=== PATIENT | female | born 1955 | race Caucasian/White ===

== ENCOUNTER 2018-08-19 01:16 | Outpatient (CLI) | payer BC, SELFPAY ==
--- NOTE | 2018-08-19 13:30 | DI.CT_ITS ---
SYMPTOMS/DIAGNOSIS: CHRONIC ETHMOID SINUSITIS, J32.2, SINUS CONGESTION, R09.91 CT SCAN OF THE SINUSES: Routine examination was performed. Comparison is made with the examination of . Since the prior examination, there has been opacification of the left frontal sinus. There is persistent opacification of the left ethmoid air cells. No new ethmoid sinus disease is noted. There has been improvement in the opacification of the left maxillary sinus. IMPRESSION: Stable ethmoid sinusitis. Improved left maxillary sinus disease.
== END 2018-08-19 01:36 ==
PROVIDERS: PCP Family Medicine; Visit Provider Otolaryngology Otolaryngology/Facial Plastic Surgery
DX: J32.2 Chronic ethmoidal sinusitis (principal); J32.0 Chronic maxillary sinusitis; R09.89 Other specified symptoms and signs involving the circulatory and respiratory systems
CPT/HCPCS: 70486

== ENCOUNTER 2018-10-13 00:45 | Outpatient (CLI) | payer BC, SELFPAY ==
--- NOTE | 2018-10-13 14:53 | DI.CTLCSR_ITS ---
SYMPTOM/DIAGNOSIS: H/O CIGARETTE SMOKER, Z87.891 CT SCAN CHEST: CT scan of the chest was performed according to the lung cancer screening protocol. There are no priors for comparison. There is mild atherosclerosis of the thoracic aorta. No aneurysmal dilatation is seen. The heart size is within normal limits. No significant pericardial effusion is present. No pleural effusion or pneumothorax is identified. No significant thoracic adenopathy is appreciated. Mild emphysematous changes are present in the lungs. There is a calcified granuloma in the left upper lobe. No noncalcified pulmonary nodules are present. No focal consolidating infiltrates are seen. The tracheobronchial tree is unremarkable. Degenerative changes are seen in the spine. IMPRESSION: No pulmonary nodules. 2. Mild pulmonary emphysema, Category 1. Lung-RAD Category: Lung RADS Category 1- Negative
== END 2018-10-13 01:05 ==
PROVIDERS: PCP Family Medicine; Visit Provider Family Medicine
DX: Z12.2 Encounter for screening for malignant neoplasm of respiratory organs (principal); Z87.891 Personal history of nicotine dependence; J43.9 Emphysema, unspecified
CPT/HCPCS: G0297

== ENCOUNTER 2018-10-15 10:02 | Outpatient (CLI) | payer BC, SELFPAY ==
--- NOTE | 2018-10-15 09:56 | DI.RAD_ITS ---
SYMPTOM/DIAGNOSIS: LEFT KNEE PJAIN LEFT KNEE: The joint spaces are well maintained. No joint effusion is seen. IMPRESSION: Negative left knee.
--- NOTE | 2018-10-15 09:56 | DI.RAD_ITS ---
SYMPTOM/DIAGNOSIS: RIGHT KNEE PAIN RIGHT KNEE: The joint spaces are well maintained. No effusion is seen. There are no significant degenerative changes. IMPRESSION: Negative right knee.
--- NOTE | 2018-10-15 09:56 | DI.RAD_ITS ---
SYMPTOM/DIAGNOSIS: F/U RT WRIST PAIN AND 1ST [facility] PAIN RIGHT WRIST: There is evidence of prior hardware which has been removed. There is residual deformity of the distal radius. There are mild degenerative changes at the 1st carpal, metacarpal joint. No bony erosions are seen. IMPRESSION: Degenerative changes at the first carpal, metacarpal joint.
--- NOTE | 2018-10-15 09:56 | DI.RAD_ITS ---
SYMPTOM/DIAGNOSIS: RIGHT ANKLE PAIN. RIGHT ANKLE: There is minimal audelia-articular spurring. No talar dome defects or ankle mortise disruption seen. IMPRESSION: Mild degenerative changes.
--- NOTE | 2018-10-15 09:56 | DI.RAD_ITS ---
SYMPTOM/DIAGNOSIS: LEFT ANKLE PAIN AND INSTABILITY LEFT ANKLE: There is minimal spurring from the malleoli. Talar dome and ankle mortise appear intact. IMPRESSION: Minimal degenerative changes.
== END 2018-10-15 10:22 ==
PROVIDERS: PCP Family Medicine; Visit Provider Student in an Organized Health Care Education/Training Program
DX: M25.571 Pain in right ankle and joints of right foot (principal); M25.572 Pain in left ankle and joints of left foot; M19.071 Primary osteoarthritis, right ankle and foot; M19.072 Primary osteoarthritis, left ankle and foot; M25.562 Pain in left knee; M25.561 Pain in right knee; M25.531 Pain in right wrist; M18.11 Unilateral primary osteoarthritis of first carpometacarpal joint, right hand
CPT/HCPCS: 73562; 73110; 73610

== ENCOUNTER 2018-11-20 00:34 | Outpatient (CLI) | payer MEDICAID, SELFPAY ==
--- NOTE | 2018-11-20 07:18 | DI.RAD_ITS ---
SYMPTOMS/DIAGNOSIS: CAROLINE HIP INJECTIONS, PRIMARY BILATERAL OA, M16.0 FLUOROSCOPY OF THE LEFT HIP: Fluoroscopy Time: 2 [address] Jc for guidance with performing a left hip injection. Please see procedure note for details. FLUOROSCOPY OF THE RIGHT HIP: Fluoroscopy time: 3 Fluoroscopy was provided for Dr. Jc for guidance with performing a right hip injection. Please see procedure note for details.
[2018-11-20] MEDS: Omnipaque 300 MG/ML 10 ML BTL IJ (09:18)
[2018-11-20] MEDS: Bupivacaine 0.5% Pres-Free 10 ML VIAL 6 ML IJ ×3 (09:19→12:30)
[2018-11-20] MEDS: methylPREDNISolone ACETATE 80 MG/ML VIAL IM ×2 (09:20)
--- NOTE | 2018-11-20 21:04 | OPPNE_ITS ---
Date of service: 11/20/18 Time of Service: 10:01 Procedure Note Date of procedure: 11/20/18 Procedure: Bilateral hip Injection with Fluoroscopic Guidance Surgeon/Proceduralist/Physician: Truman Jc Procedure Diagnosis: Bilateral hip Osteoarthritis Procedure Indications: Jami has had persistent pain of both hip and groin. Noninvasive measures have been tried. Previous injections have been successful,, an injection under fluoroscopy was recommended since the previous injections and worn off. I had discussed the risks of the procedure and the patient elected to proceed. Procedure Description: Jami was greeted in the flouroscopy room. The correct side was identified and the consent was reviewed with the patient and signed. The patient was then placed in the supine position on the fluoroscopy table. The RIGHT hip was then prepped with Chloraprep. The anterolateral injection starting point was identiifed by bony landmarks and fluoroscopy. The skin and soft tissue in the tract of the injection was anesthetized with 1% Lidocaine. A spinal needle was then inserted deep into the hip joint at the level of the lateral femoral neck under fluoroscopic guidance. A small amount of Omnipaque solution was injected to confirm intraarticular placement. Once confirmed, the hip was injected with 6cc of 0.5% Bupivicaine and 80mg of Depo- Medrol. A bandaid was placed on the injection site. Instrumentation was Sterile on the procedure table. The patient was re-oriented to proceed with the left side. The LEFT hip was then prepped with Chloraprep. The anterolateral injection starting point was identiifed by bony landmarks and fluoroscopy. The skin and soft tissue in the tract of the injection was ane sthetized with 1% Lidocaine. A spinal needle was then inserted deep into the hip joint at the level of the lateral femoral neck under fluoroscopic guidance. A small amount of Omnipaque solution was injected to confirm intraarticular placement. Once confirmed, the hip was injected with 6cc of 0.5% Bupivicaine and 80mg of Depo-Medrol. A bandaid was placed on the injection site. The patient tolerated the procedure well and noted improvement in pre-injection pain.
== END 2018-11-20 00:54 ==
PROVIDERS: PCP Family Medicine; Visit Provider Student in an Organized Health Care Education/Training Program
DX: M25.551 Pain in right hip (principal); M25.552 Pain in left hip; M16.0 Bilateral primary osteoarthritis of hip
CPT/HCPCS: 20610; 77002; J1040

== ENCOUNTER 2019-02-11 13:50 | Outpatient (CLI) | payer MEDICARE, SELFPAY ==
--- NOTE | 2019-02-11 13:45 | DI.RAD_ITS ---
SYMPTOMS/DIAGNOSIS: FOOT PAIN RIGHT FOOT: There is no evidence of a fracture or dislocation. Mild degenerative changes involving the interphalangeal joints are demonstrated, nil else. LEFT FOOT: The bony structures are normally mineralized, joint spaces intact. A mild hallux valgus deformity is demonstrated.
== END 2019-02-11 14:10 ==
PROVIDERS: PCP Family Medicine; Referring Provider Family Medicine; Visit Provider Student in an Organized Health Care Education/Training Program
DX: M79.671 Pain in right foot (principal); M79.672 Pain in left foot; M19.071 Primary osteoarthritis, right ankle and foot; M20.12 Hallux valgus (acquired), left foot; I10 Essential (primary) hypertension; M21.612 Bunion of left foot; M21.611 Bunion of right foot
CPT/HCPCS: 99214; 73630

== ENCOUNTER 2019-03-19 01:36 | Outpatient (CLI) | payer MEDICARE, SELFPAY ==
--- NOTE | 2019-03-19 15:04 | DI.MAMMO_ITS ---
SYMPTOMS/DIAGNOSIS: SCREENING, Z12.31, FAMILY H/O BREAST CA, Z80.3 MAMMOGRAMS: Mammograms were interpreted according to the usual protocol including computer analysis with CAD system, tomosynthesis and C view imaging. The breasts are of moderate density with fairly symmetrical distribution of fibroglandular tissue. No dominant mass or clumped microcalcification is identified in either breast. Current examination is compared with previous examinations including January 2018 and there has been no gross interval change in appearance in comparison with the previous studies. CONCLUSION: No specific evidence of malignancy at this time. Routine screening examinations are suggested at yearly intervals due to the family history of breast carcinoma. Category 1, breast density category B. MQSA ASSESSMENT OF FINDINGS: Negative. Category 1. Patient will receive a letter notifying them of these results. BI-RADS category B. There are scattered areas of fibroglandular density.
== END 2019-03-19 01:56 ==
PROVIDERS: PCP Family Medicine; Visit Provider Family Medicine
DX: Z12.31 Encounter for screening mammogram for malignant neoplasm of breast (principal); Z80.3 Family history of malignant neoplasm of breast
CPT/HCPCS: 77063; 77067

== ENCOUNTER 2019-04-21 11:47 | Outpatient (REF) | payer MEDICARE, SELFPAY ==
[2019-04-21 12:59] LABS: HCT 38.7 % (36.0-46.0); HGB 13.1 g/dL (12.0-15.5); Mean Corp. HGB Concentration 33.9 g/dL (32.0-36.0); Mean Corpuscular Hemoglobin 30.7 pg (27.0-33.0); Mean Corpuscular Volume 90.6 fL (80-95); Mean Platelet Volume 10.6 fL (8.0-11.0); Platelet Count 268 x1000/uL (130-400); RBC 4.27 m/cumm (4.00-5.20); RBC Distribution Width 12.4 % (11.7-14.6); White Blood Cell Count 5.71 k/cumm (4.4-10.8)
[2019-04-21 13:22] LABS: ALT 23 U/L (12-78); AST 21 U/L (15-37); Albumin 3.6 g/dL (3.4-5.0); Alkaline Phosphatase 83 U/L (46-116); Anion Gap 10.4 mmol/L (3-11); BUN 16 mg/dL (7-18); Bilirubin, Total 0.4 mg/dL (0.2-1.0); CO2 25.6 mmol/L (21.0-32.0); CREATININE 1.09 mg/dL (0.55-1.02); Calcium 8.9 mg/dL (8.5-10.1); Calculated LDL 90; Chloride 104 mmol/L (98-107); Cholesterol 198 mg/dL (50-200); Glucose 93 mg/dL (70-100); HDL Cholesterol 88 mg/dL (40-60); Potassium 4.1 mmol/L (3.5-5.1); Sodium 140 mmol/L (136-145); Total Protein 6.9 g/dL (6.4-8.2); Triglyceride 104 mg/dL (30-150)
== END 2019-04-21 12:07 ==
LOC: NCHCN 11:47
PROVIDERS: PCP Family Medicine; Visit Provider Family Medicine
DX: E78.5 Hyperlipidemia, unspecified (principal); R53.83 Other fatigue
CPT/HCPCS: 80053; 80061; 83721; 85027

== ENCOUNTER 2019-05-11 14:07 | Outpatient (CLI) | payer MEDICARE, SELFPAY ==
--- NOTE | 2019-05-11 11:31 | DI.RAD_ITS ---
SYMPTOMS/DIAGNOSIS: F/U BILATERAL HIP DEGENERATIVE JOINT DISEASE PELVIS: Comparison is made with June,. There is mild bilateral hip joint space narrowing, slightly worse on the right. There is a large subchondral cyst in the right superior acetabulum. Smaller subchondral cysts are seen in the left superior acetabulum. There is bilateral acetabular spurring, right greater than left. There is mild spurring at the margin of the femoral head, as well as at the greater trochanters. The SI joints and pubic symphysis are unremarkable. There are degenerative disc changes in the lower lumbar spine. IMPRESSION: Moderate degenerative changes of both hips, right greater than left, which appear stable.
== END 2019-05-11 14:27 ==
PROVIDERS: PCP Family Medicine; Referring Provider Family Medicine; Visit Provider Student in an Organized Health Care Education/Training Program
DX: M16.0 Bilateral primary osteoarthritis of hip (principal); M70.61 Trochanteric bursitis, right hip; M70.62 Trochanteric bursitis, left hip; I10 Essential (primary) hypertension
CPT/HCPCS: 20610; 99213; 72170; J1040

== ENCOUNTER 2019-07-06 11:59 | Outpatient (CLI) | payer MEDICARE, SELFPAY ==
--- NOTE | 2019-07-06 11:40 | DI.RAD_ITS ---
SYMPTOM/DIAGNOSIS: RT HIP PAIN PELVIS: Comparison is made with 11 May 2019. There is mild narrowing and periarticular spurring of the left hip. There is moderate joint space narrowing of the right hip. A subchondral cyst is again noted in the superior acetabulum. The S-I joints and pubic symphysis are unremarkable. IMPRESSION: Stable degenerative changes, right greater than left.
== END 2019-07-06 12:19 ==
PROVIDERS: PCP Family Medicine; Referring Provider Family Medicine; Visit Provider Student in an Organized Health Care Education/Training Program
DX: M16.0 Bilateral primary osteoarthritis of hip (principal); M70.71 Other bursitis of hip, right hip; M70.72 Other bursitis of hip, left hip; M25.551 Pain in right hip; M85.451 Solitary bone cyst, right pelvis; Z79.890 Hormone replacement therapy
CPT/HCPCS: 99213; 72170

== ENCOUNTER → 2019-09-07 12:59 | Outpatient (BNVA) | payer MEDICARE, SELFPAY | PROVIDERS: PCP Family Medicine; Referring Provider Family Medicine; Visit Provider Student in an Organized Health Care Education/Training Program | DX: L60.0 Ingrowing nail (principal) | CPT/HCPCS: 11750; 99214 ==

== ENCOUNTER 2020-01-21 00:51 | Outpatient (CLI) | payer MEDICARE, SELFPAY ==
--- NOTE | 2020-01-21 14:15 | DI.DEXA_ITS ---
EXAM: XR DEXA BONE DENSITY W/WO KRYSTIAN CLINICAL HISTORY: SCREENING FOR OSTEOPOROSIS IN POSTMENOPAUSAL WOMAN, Z78.0, OSTEOPENIA, M85.80 TECHNIQUE: COMPARISON: No exams were available for comparison FINDINGS: Lateral Spine Image: Unremarkable. No compression deformities identified. Left hip: Total T-Score: 0.9 Total Z-Score: 2.1 T- and Z-scores: Within normal limits. Lumbar Spine: Total T-Score: 0.9 Total Z-Score: 2.7 T- and Z-scores: Within normal limits. IMPRESSION: No evidence of osteoporosis.
== END 2020-01-21 01:11 ==
PROVIDERS: PCP Family Medicine; Visit Provider Family Medicine
DX: M85.88 Other specified disorders of bone density and structure, other site (principal); Z78.0 Asymptomatic menopausal state; Z13.820 Encounter for screening for osteoporosis
CPT/HCPCS: 77080

== ENCOUNTER 2020-02-05 11:08 | Outpatient (CLI) | payer MEDICARE, SELFPAY ==
--- NOTE | 2020-02-05 11:00 | DI.RAD_ITS ---
EXAM: XR THUMB RT CLINICAL HISTORY: pain of right thumb base. TECHNIQUE: 2D digital imaging was performed. COMPARISON: XR wrist RT complete from 10/15/2018 FINDINGS: BONES: No acute fracture is present. No bony destructive lesion is seen. Findings of an old healed d istal radial fracture are again noted. JOINTS: Mild hypertrophic changes are seen at the 1st carpometacarpal joint. SOFT TISSUE: Normal. IMPRESSION: Mild degenerative changes of the 1st carpometacarpal joint. DATA REPOSITORY: RADIATION DOSE DELIVERED:
--- NOTE | 2020-02-05 11:00 | DI.RAD_ITS ---
EXAM: XR SHOULDER LT COMPLETE 2+V CLINICAL HISTORY: pain. TECHNIQUE: 2D digital imaging was performed. COMPARISON: No exams were available for comparison FINDINGS: BONES: No acute fracture is present. No bony destructive lesion is seen. JOINTS: Mild degenerative changes are seen at the acromioclavicular joint. The glenohumeral joint is well maintained. SOFT TISSUE: There is a tiny calcification adjacent to the proximal metaphysis of the humerus. IMPRESSION: Mild degenerative changes of the left AC joint. DATA REPOSITORY: RADIATION DOSE DELIVERED:
== END 2020-02-05 11:28 ==
PROVIDERS: PCP Family Medicine; Referring Provider Family Medicine; Visit Provider Student in an Organized Health Care Education/Training Program
DX: M79.644 Pain in right finger(s) (principal); M18.11 Unilateral primary osteoarthritis of first carpometacarpal joint, right hand; M25.512 Pain in left shoulder; M19.012 Primary osteoarthritis, left shoulder; M75.82 Other shoulder lesions, left shoulder; I10 Essential (primary) hypertension
CPT/HCPCS: 20600; 20610; 99214; 73030; 73140; J1030; J1040

== ENCOUNTER 2020-04-01 11:45 | Outpatient (CLI) | payer MEDICARE, SELFPAY ==
--- NOTE | 2020-04-01 10:45 | DI.RAD_ITS ---
EXAM: XR PELVIS AP CLINICAL HISTORY: BILAT HIP OA. TECHNIQUE: 2D digital imaging was performed. COMPARISON: No exams were available for comparison FINDINGS: In the left hip, there is stable joint space narrowing, subchondral sclerosis and subchondral spurrin g consistent with degenerative joint disease. In the right hip, more moderate joint space narrowing is seen. In addition, periarticular spurring i s present and subchondral cysts are seen in the acetabulum. Overall, there has been no significant change in the hips compared to the prior examination. Vascular calcifications are seen in the soft tissues. IMPRESSION: Stable bilateral hip osteoarthritis. DATA REPOSITORY: RADIATION DOSE DELIVERED:
== END 2020-04-01 12:05 ==
PROVIDERS: PCP Family Medicine; Referring Provider Family Medicine; Visit Provider Student in an Organized Health Care Education/Training Program
DX: M16.0 Bilateral primary osteoarthritis of hip (principal); M70.61 Trochanteric bursitis, right hip; M70.62 Trochanteric bursitis, left hip; I10 Essential (primary) hypertension
CPT/HCPCS: 99215; 72170

== ENCOUNTER 2020-04-25 01:59 | Outpatient (CLI) | payer MEDICARE, SELFPAY ==
[2020-04-25 21:56] LABS: COVID-19 RT-PCR UVMMC Result Negative (Negative)
== END 2020-04-25 02:19 ==
PROVIDERS: PCP Family Medicine; Visit Provider Student in an Organized Health Care Education/Training Program
DX: Z03.818 Encounter for observation for suspected exposure to other biological agents ruled out (principal); Z01.818 Encounter for other preprocedural examination; M25.551 Pain in right hip; M25.552 Pain in left hip; M16.0 Bilateral primary osteoarthritis of hip; Z01.812 Encounter for preprocedural laboratory examination
CPT/HCPCS: 36415; 80048; 85027; 86850; 86900; 86901; U0003

== ENCOUNTER 2020-04-25 08:18 | Outpatient (CLI) | payer MEDICARE, SELFPAY ==
[2020-04-25 10:25] LABS: HCT 36.3 % (36.0-46.0); HGB 11.8 g/dL (12.0-15.5); Mean Corp. HGB Concentration 32.5 g/dL (32.0-36.0); Mean Corpuscular Hemoglobin 29.7 pg (27.0-33.0); Mean Corpuscular Volume 91.4 fL (80-95); Mean Platelet Volume 9.5 fL (8.0-11.0); Platelet Count 349 x1000/uL (130-400); RBC 3.97 m/cumm (4.00-5.20); RBC Distribution Width 12.4 % (11.7-14.6); White Blood Cell Count 8.91 k/cumm (4.4-10.8)
[2020-04-25 11:55] LABS: Anion Gap 7.7 mmol/L (3-11); BUN 24 mg/dL (7-18); CO2 29.3 mmol/L (21.0-32.0); CREATININE 1.11 mg/dL (0.55-1.02); Calcium 9.3 mg/dL (8.5-10.1); Chloride 103 mmol/L (98-107); Estimated GFR 49.49 (mL/min/1.73m2); Glucose 88 mg/dL (74-106); Potassium 4.7 mmol/L (3.5-5.1); Sodium 140 mmol/L (136-145)
== END 2020-04-25 08:38 ==
PROVIDERS: PCP Family Medicine; Visit Provider Student in an Organized Health Care Education/Training Program
DX: M25.551 Pain in right hip (principal); M25.552 Pain in left hip; M16.0 Bilateral primary osteoarthritis of hip; Z01.818 Encounter for other preprocedural examination; Z01.812 Encounter for preprocedural laboratory examination
CPT/HCPCS: 36415; 80048; 85027; 86850; 86900; 86901

== ENCOUNTER → 2020-04-28 07:48 | Outpatient (BNVA) | payer MEDICARE, SELFPAY | PROVIDERS: PCP Family Medicine; Referring Provider Family Medicine; Visit Provider Student in an Organized Health Care Education/Training Program | DX: R69 Illness, unspecified (principal) ==

== ENCOUNTER 2020-04-28 09:53 | Inpatient (IN) | payer MEDICARE, SELFPAY ==
[2020-04-28] VITALS (13 sets, daily range): BP systolic 60–169; BP diastolic 42–106; PULSE 60–99; RESP 12–17; TEMP 35.2–36.7; O2SAT 96–100
--- NOTE | 2020-04-28 10:15 | DI.RAD_ITS ---
EXAM: XR HIP RT IN OR CLINICAL HISTORY: BILATERAL OSTEOARTHRITIS HIPS. TECHNIQUE: 2D and realtime digital imaging was performed. COMPARISON: No exams were available for comparison FINDINGS: Fluoroscopy was provided in the OR. Hard copy images show placement of a right hip prosthesis. The components appear well aligned. Fluoro time: 31.1 second right 69.1 seconds left RADIATION DOSE DELIVERED:
--- NOTE | 2020-04-28 10:15 | DI.RAD_ITS ---
EXAM: XR HIP LT IN OR CLINICAL HISTORY: BILATERAL OSTEOARTHRITIS HIPS. TECHNIQUE: 2D and realtime digital imaging was performed. COMPARISON: No exams were available for comparison FINDINGS: Fluoroscopy was provided in the OR. Hard copy images show placement of a left hip prosthesis. The components appear well aligned Fluoro time: 69.1 seconds RADIATION DOSE DELIVERED:
[2020-04-28] MEDS: Celecoxib 200 MG CAP 400 MG PO (10:28)
[2020-04-28] MEDS: Acetaminophen 500 MG TAB 1000 MG PO ×2 (10:28→19:43)
[2020-04-28] MEDS: Lactated Ringers 1,000 ML 80 ML IV ×3 (11:03→16:59)
[2020-04-28] MEDS: ceFAZolin 2 GM/50 ML BAG IVPB (11:35)
[2020-04-28] MEDS: Bupivacaine 0.25% Pres-Free 30 ML VIAL (12:44)
[2020-04-28] MEDS: Ketorolac 30 MG/ML VIAL (12:45)
[2020-04-28] MEDS: Normal Saline 20 ML VIAL (12:46)
--- NOTE | 2020-04-28 15:07 | ROE_ITS ---
Date of service: 04/28/20 Time of Service: 15:07 Operative Note Operative Note DATE OF PROCEDURE: 04/28/20 PRE-OP DIAGNOSIS: Bilateral Hip Osteoarthritis POST-OP DIAGNOSIS: same PROCEDURE: Bilateral Anterior Total Hip Arthroplasty SURGEON: Truman Jc TOBACCO SIEVE OPERATOR: Pete Loya ANESTHESIA: spinal ESTIMATED BLOOD LOSS: 700 PATHOLOGY: none sent COMPLICATIONS: None Patient was transported to: PACU Patient's condition: stable Implants: RIGHT 1. Depuy Clinton Acetabular Component, 48mm 2. Depuy Acetabular Liner, [id number], +4 lateralized 3. Depuy Corail Coxa Vara Femoral Stem, Size 9 4. Depuy Altrx Ceramic Femoral Head, Size 32+5mm LEFT 1. Depuy [place] Acetabular Component, 48mm 2. Depuy Acetabular Liner, [id number], +4 lateralized 3. Depuy Corail Coxa Vara Femoral Stem, Size 9 4. Depuy Altrx Ceramic Femoral Head, Size 32+5mm Indications: I have seen Jami in clinic for symptoms of hip arthritis, confirmed with radiographic findings. Jami has exhausted nonoperative methods and was having significant limitations in daily function and desired be tter function and less pain. I discussed the technical details of a hip replacement. I explained the risks of the procedure to include, but not limited to, bleeding, infection, pain, stiffness, fracture, damage to nerves and vessels, damage to muscles and tendons, loosening, instability, leg length inequality, need for repeat procedure, blood clot and cardiopulmonary demise. Despite these risks, Jami elected to proceed. Findings: There was significant signs of arthritis throughout the hip. 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 Procedure Description: Jami was greeted in the preoperative holding area where the correct side was identified and marked. The consent was reviewed with the patient and signed. The history and physical was updated. All questions were answered. Jami was taken back to the operating room. A spinal anesthestic was then administered. The patient was placed into the supine position on the operating room table. Both feet were wrapped with [place]brill cotton wrap along with Coban. RIGHT SIDE The patient was then positioned onto the ARCH table. The feet were placed in specialized boots for the ARCH table, well seated within the boot and secured. SCDs were applied. The patient was then slid down onto a peroneal post and the nonoperative leg was secured in a leg ospina attached to the table. The operative side was placed into the ARCH table attachment and bed height and positioning was secured. A preoperative AP pelvis was obtained to serve as a reference for determining leg lengths. Prophylactic antibiotics in the form of Cefazolin were administered. 1g of Tranxemic Acid was given intravenously within 30 minutes of incision. The right leg was then prepped with Chloraprep and draped in a standard fashion. A second prep with Chloraprep was performed prior to placement of a shower-curtain type drape with Iodine impregnated skin protection. A timeout to confirm correct identity, side and site, procedure, allergies, anesthesia, and medical concerns was performed. An obliquely oriented incision was made starting lateral to the ASIS and running distal over the Tensor Fascia Shannan (TFL) muscle belly toward the fibular head, approximately 10cm. The skin and soft tissue was dissected sharply, through Ayse?s fascia, and to the fascia of the TFL. With the fascia and superior border of the IT band identified, the fascia was incised with a new knife just above any perforators from the IT band. The TFL muscle belly was bluntly dissected away from the fascia and moved laterally. The fat between TFL and rectus was identified to ensure the dissection was not within the TFL. Blunt dissection created space between abductors and the capsule and retractor was placed over the lateral femoral neck. The fibers of the rectus femoris tendon were identified and these were freed from the anterior capsule. A second cobra retractor was placed around the medial femoral neck. The TFL was further retracted laterally to show the deep fascia. Careful dissection through this layer identified three main crossing vessels of the lateral femoral circumflex. These were cauterized in multiple locations and then cut without any noticeable bleeding. The TFL was further released bluntly from the deep fascia to expose anterior hip capsule and fat The Wesley orthopaedic retractor was then placed beneath the TFL and against sartorius and medial soft tissues to protect and retract the soft tissues. A T-capsulotomy was then performed starting at the superior lateral acetabulum and moving distally to the intertrochanteric ridge. These capsular flaps were tagged with a No. 1 Ethibond and elevated from within. The capsular flaps were released to the shoulder of the lateral neck and to the lesser trochanter to give excellent visualization of the proximal femur. A neck osteotomy was performed using an oscillating saw based on preoperative templates. This cut started in the shoulder and of the lateral neck and exited medially. The saw was at all times directed medially to avoid injury to the greater trochanter. 6cm of traction was applied to the leg and the osteotomy opened. The femoral head was removed with a corkscrew, making sure to protect the TFL on its exit. This was measured on the back table to determing the starting reamer size. Portions of the rectus obscuring visualization were minimally elevated off the superior acetabulum. An anterior retractor was placed over the anterior wall between capsule and labrum and attached to the Gripper retraction system. A posterior retractor was placed similarly. This provided excellent visualization. The contents of the cotyloid fossa were removed with electrocautery and the labrum was removed with a knife. There was significant chondromalacia of the superior acetabulum. Acetabular reaming began with a 44mm reamer. This first reaming was directed anterior to posterior and medial to get down to the true floor. This was inspected and reamed until the true floor was reached. The anterior retractor was then released and entry and exit was provided by traction on the capsular flaps. I then reamed sequentially up to a 48mm reamer where good fit was obtained. The larger reamers were oriented based on anatomical reference of the anterior and lateral castellanos to ensure proper abduction and anteversion. Positioning and size was confirmed with the fluoroscopy. A 48mm Depuy Clinton acetabular component was selected. The acetabulum was reamed around the periphery with the selected acetabular size to prevent a rim fit. The deep tissues were irrigated. The acetabular component was then impacted in a position of about 40-45 degrees of abduction and 15-20 degrees of anteversion, using the patient?s anatomy as the ultimate landmark. Fluoroscopy was used to confirm this. There was excellent loader malt house of the acetabular component and the inserting handle was removed. The acetabular liner, Depuy [id number] +4 polyethylene liner, was inserted and lined up with the tines of the acetabular component. There was no soft tissue interposition. The liner was then impacted into position and confirmed to be well-seated. A portion of the audelia-articular cocktail was then injected around the acetabulum into the capsule and periosteum. This cocktail consisted of 50cc of 0.25% Bupivicaine and 20cc of Exparel, expanded to a total of 120cc. Traction was released from the femur. The leg was rotated to 120 degrees. Any remaining medial capsule was released until the lesser trochanter was easily palpable. A Ricks retractor was placed medially. The lateral capsule was further released into the shoulder to allow access to the greater trochanter. A Ricks retractor was placed over the greater trochanter which allowed the trochanter to flip in front of the capsule for excellent exposure. The leg was brought down into maximal extension and 20 degrees of adduction while ensuring there was no impingement on the acetabulum. Any remnant capsule within the trochanter was released. Piriformis and obturator externis were identified and protected. There was excellent access to the proximal femur. The lateral neck remnant was removed with a rongeur. A blunt canal probe was used to identify the canal and trajectory for later broaching. A box osteotome initiated the broach course. A small curved rasp and a curved curette were used to work laterally. Broaching then began with a size 8 Corail broach. This was inserted manually around the trochanter and into the canal before mallet blows. The broach was seated a few millimeters below the cut level based on the neck cut and the preoperative template. Sequential broaching was continued with the Pharmacopeiase pneumatic broaching device until a tight fit was obtained with good rotational control of the femur. Her femur was very narrow and I had to work on even getting the size [address] It appeared to be tight within the femur, [place] Type A, as well as proximally. Therefore, I didn't ream distally as I didn't think there was space to accomodate a larger implant at the neck cut level. A trial coxa vara neck was inserted along with a +5 trial head. The leg was brought out of extension and adduction and then reduced with traction and internal rotation. The leg was stable anteriorly in a position of 30 degrees of extension and 90 degrees of external rotation. Fluoroscopy was used to ensure there was no fracture and the stem was seated well. Leg lengths were checked with an AP pelvis and pelvic reference points. [employer] navigation system was used to confirm appropriate positioning and leg length and offset. This added some leg length (~5mm) and medialized the offset by 2-3mm. Once content with the desired offset and leg lengths, the leg was brought back into extension, external rotation and adduction. The periosteum and surrounding tissue was injected with remaining portion of the audelia-articular cocktail. The proximal femur was irrigated as well as the deep tissues. The Depuy Corail Coxa Vara stem, size 9, was then manually inserted into the proximal femur making sure to control rotation. It was then malleted into position with light blows, giving breaks to allow bone expansion and decrease risk of fracture. The selected Depuy Altrx Ceramic Head, size 32+5mm, was then placed onto the clean and dry trunnion and secured with impaction onto the tapered fit. The leg was brought back out of extension and adduction and reduced with traction and internal rotation. Stability was confirmed with no shuck at 90 degrees of external rotation and 30 degrees of extension. No impingement through range of motion arc. Final x-ray images were obtained with fluoroscopy to confirm adequate positioning and no intraoperative fracture. The deep tissues were thoroughly irrigated with Irrisept chlorhexadine solution. The capsule was then reapproximated with the previously placed Ethibond sutures. The TFL fascia was finally closed with a No. 2 Stratafix, barbed suture. Deep tissues were then reapproximated with 0 Vicryl and a running 2-0 Vicryl. The skin was closed with a running 4-0 Monocryl in a subcuticular fas hion. This was reinforced with skin glue. A Mepilex silver dressing was applied. All counts were correct. A moment was taken to discuss the patient status and everyone agreed to proceed with the other side. LEFT SIDE Jami was then positioned onto the ARCH table, after switching boots on the feet. 1g of Tranxemic Acid was given intravenously within 30 minutes of incision. The left leg was then prepped with Chloraprep and draped in a standard fashion. A second prep with Chloraprep was performed prior to placement of a shower-curtain type drape with Iodine impregnated skin protection. An obliquely oriented incision was made starting lateral to the ASIS and running distal over the Tensor Fascia Shannan (TFL) muscle belly toward the fibular head, approximately 10cm. The skin and soft tissue was dissected sharply, through Ayse?s fascia, and to the fascia of the TFL. With the fascia and superior border of the IT band identified, the fascia was incised with a new knife just above any perforators from the IT band. The TFL muscle belly was bluntly dissected away from the fascia and moved laterally. The fat between TFL and rectus was identified to ensure the dissection was not within the TFL. Blunt dissection created space between abductors and the capsule and retractor was placed over the lateral femoral neck. The fibers of the rectus femoris tendon were identified and these were freed from the anterior capsule. A second cobra retractor was placed around the medial femoral neck. The TFL was further retracted laterally to show the deep fascia. Careful dissection through this layer identified three main crossing vessels of the lateral femoral circumflex. These were cauterized in multiple locations and then cut without any noticeable bleeding. The TFL was further released bluntly from the deep fascia to expose anterior hip capsule and fat The Wesley orthopaedic retractor was then placed beneath the TFL and against sartorius and medial soft tissues to protect and retract the soft tissues. A T-capsulotomy was then performed starting at the superior lateral acetabulum and moving distally to the intertrochanteric ridge. These capsular flaps were tagged with a No. 1 Ethibond and elevated from within. The capsular flaps were released to the shoulder of the lateral neck and to the lesser trochanter to give excellent visualization of the proximal femur. A neck osteotomy was performed using an oscillating saw based on preoperative templates. This cut started in the shoulder and of the lateral neck and exited medially. The saw was at all times directed medially to avoid injury to the greater trochanter. 6cm of traction was applied to the leg and the osteotomy opened. The femoral head was removed with a corkscrew, making sure to protect the TFL on its exit. This was measured on the back table to determing the starting reamer size. Portions of the rectus obscuring visualization were minimally elevated off the superior acetabulum. An anterior retractor was placed over the anterior wall between capsule and labrum and attached to the Gripper retraction system. A posterior retractor was placed similarly. This provided excellent visualization. The contents of the cotyloid fossa were removed with electrocautery and the labrum was removed with a knife. There was significant chondromalacia of the superior acetabulum. Acetabular reaming began with a 44mm reamer. This first reaming was directed anterior to posterior and medial to get down to the true floor. This was inspected and reamed until the true floor was reached. The anterior retractor was then released and entry and exit was provided by traction on the capsular flaps. I then reamed sequentially up to a 48mm reamer where good fit was obtained. The larger reamers were oriented based on anatomical reference of the anterior and lateral castellanos to ensure proper abduction and anteversion. Positioning and size was confirmed with the fluoroscopy. A 48mm Depuy [place] acetabular component was selected. The acetabulum was reamed around the periphery with the selected acetabular size to prevent a rim fit. The deep tissues were irrigated. The acetabular component was then impacted in a position of about 40-45 degrees of abduction and 15-20 degrees of anteversion, using the patient?s anatomy as the ultimate landmark. Fluoroscopy was used to confirm this. There was excellent loader malt house of the acetabular component and the inserting handle was removed. The acetabular liner, Depuy [id number] +4 lateralized polyethylene liner, was inserted and lined up with the tines of the acetabular component. There was no soft tissue interposition. The liner was then impacted into position and confirmed to be well-seated. A portion of the audelia-articular cocktail was then injected around the acetabulum into the capsule and periosteum. This cocktail consisted of 50cc of 0.25% Bupivicaine and 20cc of Exparel, expanded to a total of 120cc. Traction was released from the femur. The leg was rotated to 120 degrees. Any remaining medial capsule was released until the lesser trochanter was easily palpable. A Ricks retractor was placed medially. The lateral capsule was further released into the shoulder to allow access to the greater trochanter. A Ricks retractor was placed over the greater trochanter which allowed the trochanter to flip in front of the capsule for excellent exposure. The leg was brought down into maximal extension and 20 degrees of adduction while ensuring there was no impingement on the acetabulum. Any remnant capsule within the trochanter was released. Piriformis and obturator externis were identified and protected. There was excellent access to the proximal femur. The lateral neck remnant was removed with a rongeur. A blunt canal probe was used to identify the canal and trajectory for later broaching. A box osteotome initiated the broach course. A small curved rasp and a curved curette were used to work laterally. Broaching then began with a size 8 Corail broach. This was inserted manually around the trochanter and into the canal before mallet blows. The broach was seated to a few millimeters below the cut level based on the neck cut and the preoperative template. Sequential broaching was continued with the Pharmacopeiase pneumatic broaching device until a tight fit was obtained with good rotational control of the femur. A trial coxa vara neck was inserted along with a +5 trial head. The leg was brought out of extension and adduction and then reduced with traction and internal rotation. The leg was stable anteriorly in a position of 30 degrees of extension and 90 degrees of external rotation. Fluoroscopy was used to ensure there was no fracture and the stem was seated well. Leg lengths were checked with an AP pelvis and pelvic reference points. [employer] navigation system was used to confirm appropriate positioning and leg length and offset. Once again, I tried to match this to the other side by making this hip +5 longer and -3mm of offset. Once content with the desired offset and leg lengths, the leg was brought back into extension, external rotation and adduction. The periosteum and surrounding tissue was injected with remaining portion of the audelia-articular cocktail. The proximal femur was irrigated as well as the deep tissues. The Depuy Corail Coxa Vara stem, size 9, was then manually inserted into the proximal femur making sure to control rotation. It was then malleted into position with light blows, giving breaks to allow bone expansion and decrease risk of fracture. The selected Depuy Altrx Ceramic Head, size 32+5mm, was then placed onto the clean and dry trunnion and secured with impaction onto the tapered fit. The leg was brought back out of extension and adduction and reduced with traction and internal rotation. Stability was confirmed with no shuck at 90 degrees of external rotation and 30 degrees of extension. No impingement through range of motion arc. Final x-ray images were obtained with fluoroscopy to confirm adequate positioning and no intraoperative fracture. The deep tissues were thoroughly irrigated with Irrisept chlorhexadine solution. The second dose of TXA 1g was administered intravenously.The capsule was then reapproximated with the previously placed Ethibond sutures. The TFL fascia was finally closed with a No. 2 Stratafix, barbed suture. Deep tissues were then reapproximated with 0 Vicryl and a running 2-0 Vicryl. The skin was closed with a running 4-0 Monocryl in a subcuticular fashion. This was reinforced with skin glue. A Mepilex silver dressing was applied. At the end of the case, all counts were correct. Shan was transferred to the hospital bed without difficulty and suffering no apparent complication. Shan has a good prognosis. Physical therapy will start today and without restrictions, weight-bearing as tolerated. Rivaroxaban 10mg daily will be used for DVT prophylaxis.
[2020-04-28] MEDS: Rivaroxaban 10 MG TABLET PO (19:42)
[2020-04-28] MEDS: ceFAZolin 1 GM/50 ML BAG IVPB (19:42)
[2020-04-28] MEDS: Celecoxib 200 MG CAP PO (19:43)
[2020-04-28] MEDS: Atorvastatin 20 MG TAB PO (21:36)
[2020-04-28] MEDS: oxyCODONE 5 MG TAB PO (21:36)
[2020-04-28 21:40] LABS: HGB 8.7 g/dL (12.0-15.5)
[2020-04-28] MEDS: HYDROmorphone 2 MG/ML VIAL 0.5 MG IVP (23:41)
[2020-04-28] MEDS: Normal Saline Flush 10 ML SYR IV (23:42)
[2020-04-29] VITALS (7 sets, daily range): BP systolic 102–129; BP diastolic 54–64; PULSE 70–77; RESP 16–18; TEMP 35.7–36.5; O2SAT 92–99
[2020-04-29] MEDS: Lactated Ringers 1,000 ML 150 ML IV (01:15)
[2020-04-29] MEDS: ceFAZolin 1 GM/50 ML BAG IVPB ×2 (04:06→13:08)
[2020-04-29 06:39] LABS: HGB 7.4 g/dL (12.0-15.5); Mean Corp. HGB Concentration 32.2 g/dL (32.0-36.0); Mean Corpuscular Hemoglobin 29.2 pg (27.0-33.0); Mean Corpuscular Volume 90.9 fL (80-95); Mean Platelet Volume 9.4 fL (8.0-11.0); Platelet Count 266 x1000/uL (130-400); RBC 2.53 m/cumm (4.00-5.20); RBC Distribution Width 12.1 % (11.7-14.6); White Blood Cell Count 9.59 k/cumm (4.4-10.8)
[2020-04-29] MEDS: Cholecalciferol (Vitamin D3) 1,000 UNIT TAB 2000 UNITS PO (07:47)
[2020-04-29 07:49] LABS: Anion Gap 7.2 mmol/L (3-11); BUN 23 mg/dL (7-18); CO2 25.8 mmol/L (21.0-32.0); Calcium 8.1 mg/dL (8.5-10.1); Chloride 103 mmol/L (98-107); Estimated GFR 55.82 (mL/min/1.73m2); Glucose 124 mg/dL (74-106); Potassium 3.7 mmol/L (3.5-5.1); Sodium 136 mmol/L (136-145)
[2020-04-29] MEDS: Multivitamin TAB 1 TAB PO (07:49)
[2020-04-29] MEDS: Estradiol 1 MG TAB PO (07:49)
[2020-04-29] MEDS: Celecoxib 200 MG CAP PO (07:50)
[2020-04-29] MEDS: Acetaminophen 500 MG TAB 1000 MG PO ×2 (07:50→13:08)
[2020-04-29] MEDS: Dexamethasone 4 MG TAB PO (07:51)
[2020-04-29] MEDS: Pantoprazole 20 MG TABCR PO (07:51)
[2020-04-29] MEDS: diphenhydrAMINE 25 MG CAP PO (09:27)
--- NOTE | 2020-04-29 09:35 | IN_ITS ---
Date of service: 04/29/20 Time of Service: 08:35 PT Notes Visit Reasons: BILATERAL HIP DJD Physical Therapy Inpatient Initial Evaluation Date: 04/29/2020 Referring Doctor: Truman Jc MD PT Orders: PT CONSULT: Status post Ortho surgery. Status post bilateral anterior SONYA. Precautions: Fall. Standard. WBAT on BLE. Patient Profile/Admitting Diagnosis: Jami is a 64-year-old female with bilateral primary osteoarthritis of hip and bilateral trochanteric bursitis status post bilateral anterior total hip arthroplasty on postoperative day 1. PMHX: Medical History GERD (gastroesophageal reflux disease) Hypertension IBS (irritable bowel syndrome) Surgical History Abdominal hysterectomy Arthroplasty of knee left Cholecystectomy Colonoscopy - IV Sedation (02/26/17) EGD - IV Sedation (02/26/17) right wrist fracture repair (06/29/16) Social History/Home Situation: Jami lives in a private home with 1 to enter. 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 She is well aspects of ADLs without need for an assistive ambulatory device nor adaptive equipment. Jami states that the house has been handicap accessible for an elderly relative living there previously. Equipment Owned/DME: Standard front wheeled walker, raised toilet seat, grab bars Subjective: Jami reports aching pain and stiffness on the front of her thighs. She states that her hips are okay and it is mostly muscular pain she has. She states that she is independent with all aspects of ADLs prior to surgery however for the past 10 years she has been struggling with arthritis on her bilateral hips and has been receiving conservative measures to help minimize pain. She states that the past 6 months has been the most difficult for her and she is happy that she finally had surgery surgery. She further states that she is getting blood transfused this morning. Objective: General Observation: Mepilex Ag over surgical incision Mcdaniels catheter in place. IV in the left UE. Bilateral TEDS on. Mental Status: Alert and oriented x4 Pain: 2/10 aching pain in bilateral anterior thighs Vital Signs: In sitting 100/58 mmHg. In standing 97/58 mmHg. ROM: Right Upper Extremity: Shoulder Flexion WFL. Shoulder abduction WFL. Elbow flexion WFL. Wrist flexion WFL. Opening and closing of hand WFL. Left Upper Extremity: Shoulder Flexion WFL. Shoulder abduction WFL. Elbow flexion WFL. Wrist flexion WFL. Opening and closing of hand WFL. Right Lower Extremity: Hip flexion allows about 20 degrees beyond 90 while seated on the recliner. Hip abduction WFL. Knee flexion WFL. Ankle dorsiflexion WFL. Ankle plantarflexion WFL. Left Lower Extremity: Hip flexion allows about 20 degrees beyond 90 while seated on the recliner. Hip abduction WFL. Knee flexion WFL. Ankle dorsiflexion WFL. Ankle plantarflexion WFL. Strength: Right Upper Extremity: Shoulder flexors 5/5. Shoulder abductors 5/5. Elbow flexors 5/5. Elbow extensors 5/5. Pyrometallurgical Engineer strong. Left Upper Extremity: Shoulder flexors 5/5. Shoulder abductors 5/5. Elbow flexors 5/5. Elbow extensors 5/5. Pyrometallurgical Engineer strong. Right Lower Extremity: Hip flexors 3-/5. Hip abductors 4/5. Knee flexors 5/5. Knee extensors 4/5. Ankle dorsiflexors 5/5. Ankle plantarflexors 5/5. Left Lower Extremity:Hip flexors 3-/5. Hip abductors 4/5. Knee flexors 5/5. Knee extensors 4/5. Ankle dorsiflexors 5/5. Ankle plantarflexors 5/5. Sensation: Intact as to pain and pressure on bilateral lower extremities. Bed Mobility/Transfers: Sit to stand standby assist Stand to sit standby assist Bed to chair standby assist Chair to bed standby assist Gait: Patient tolerated level surface ambulation of 300 feet while using front wheeled walker with WBAT on BLE requiring contact-guard assist of PT and wheelchair follow of JENNIFFER Shahid. Step to pattern. Step length decrease. Sarah decreased. Needed for standing rest to minimize aching pain in bilateral quadriceps area. No SOB. No LOB. Balance: Static Sitting: Normal Dynamic Sitting: Normal Static Standing: Fair Dynamic Standing: Fair Special Tests: Mobility Limitations Standardized Measure [facility] 6 clicks Basic Mobility Inpatient Short Form: Raw Score: CMS Score: Informed Consent/Education: Patient instructed in purpose of PT consult and plan of care. Assessment: Pj demonstrates functional mobility decline requiring the need for a front wheeled walker for all mobility ADL performance, impairment in strength and range of motion, and impairment and balance resulting from postoperative status. Jami is a 64-year-old female with bilateral primary osteoarthritis of hip and bilateral trochanteric bursitis status post bilateral anterior total hip arthroplasty on postoperative day 1. Patient presents with clinical signs and symptoms consistent with current/admitting diagnoses that have resulted to mobility limitations, gait instability, generalized weakness, and impairment of motor control as demonstrated by the following impairment level findings: 1. Decreased strength to B hip major muscle groups 2. Impaired standing balance 3. Impaired activity tolerance 4. Limitation of joint range of motion in B hips Impairments are contributing to the following functional limitations: 1. Inability to safely ambulate without assistive device and physical assistance 2. Increase completion time for mobility ADL performance 3. Increased fall risk 4. Inability to negotiate steps alone safely Patient is assessed as a 10533 moderate complexity based on the following: History: 64-year-old female with impairment level findings, functional limitations, and past medical history as indicated above Examination: Demonstrable impairment in strength, balance, and mobility level with underlying impairments and functional limitations as documented above Presentation:Evolving Decision Makin complexity Goals: Goals X 3 days 1. Supine-Sit independent 2. Sit-Supine independent 3. Sit-Stand independent 4. Stand-Sit independent 5. Bed-Chair independent 6. Chair-Bed independent 7. Independent gait on level surface with use of least restrictive device for at least 300 feet without report of pain nor dyspnea 8. Independent stair negotiation while holding onto bilateral rails for at least 10 steps without report of pain nor dyspnea 9. Independent with home exercise program 10. Good static and dynamic standing balance/tolerance Plan of Care/Treatment Plan: 1-2x/day, 7 days/week x 1 week. Plan of care has been reviewed with the FIRMWARE ARCHITECT providing the service under Physical Therapy direction. Initiate Physical Therapy intervention for strengthening, bed mobility, transfers, gait, stairs, balance training, use of assistive device. DISCHARGE RECOMMENDATIONS: Home when medically cleared by orthopedic surgeon. Patient will need front wheeled walker for maximized independence with mobility performance at home. May benefit from outpatient physical therapy services according to orthopedic surgeon's timeline recommendation. TREATMENT CODE/TIME: 01888 x 31 minutes beginning at 8:35 AM. Thank you very much for this referral. Maddi Dobbins PT, DPT, CLT [facility] [place], [place]
--- NOTE | 2020-04-29 09:37 | W.PM.PROGNOT ---
Date of Service Date of service: 04/29/20 Time of Service: 07:37 Assessment and Plan Assessment and plan (1) Bilateral primary osteoarthritis of hip: Status: Acute Assessment and plan: Jami seems to be doing well from her bilateral hip replacements. They were technically challenging yesterday although there is no known complications. She has no nerve issues even though we did add some length to her legs bilaterally. She has been able to ambulate without any of her preoperative pain. She does have some soreness in the legs which is to be expected given the surgery itself as well as the lengthening of the legs. She should continue her physical therapy. She was to go home today which should be possible given that she has some improvement with her blood pressure. (2) Postoperative anemia due to acute blood loss: Status: Acute Assessment and plan: She had one episode of hypotension last night. It is interesting because we did not lose significant outs of blood and there are no signs of blood pooling or a delayed bleed based on examination today. Nevertheless, she will continue to drop for the next day as the postoperative jesse usually occurs on postop #2 or 3. Given the fall hemoglobin I do want to transfuse her 1 unit. She has been fluid resuscitated which has helped. However, given the fall hemoglobin is trended continue to drop, this would be necessary. Subjective Subjective Interval history since last seen: Shan is doing okay after her bilateral hip replacement surgery. She did have an episode of hypotension yesterday. This responded with repositioning and fluid bolus. She has been having fluid running at 150 cc an hour overnight and has yet to have any recurrence. She did feel dizzy at the time but so far has had no recurrence of symptoms. She was able to stand with nursing and take some steps. She feels that the hip pain is better. However, she is having muscular pain down both legs. She feels this is similar to what she had before except that the groin and buttock pain is now gone. She denies numbness or tingling in the legs. She denies any chest pain or shortness of breath. No palpitations. She did start her DVT prophylaxis last night. She has had no shortness of breath and no requirement for oxygen. Exam Narrative Exam Narrative: Sitting up in the bed. No acute distress. Alert oriented x3. Evaluation of the right hip shows a clean dry and intact dressing. Thigh is soft. No palpable hematoma or fluid collection. No ecchymosis. Sensation is intact light touch of the lateral femoral canis nerve, femoral nerve, and sciatic nerve distributions. She is able to actively dorsiflex and plantarflex ankle as well as extend and flex the great toe. Palpable PT and DP pulse. She tolerates internal and external rotation of the hip as well as in flexion without any pain. Evaluation of the left hip shows a very similar finding with a clean and intact dressing. Sensation intact light touch over the lateral femoral cutaneous nerve, femoral nerve, and sciatic nerve distributions. Palpable DP PT pulse. Once again, she has no significant pain with internal or external rotation. Objective Objective Clinical Data: Abnormal lab results 04/28/20 04/29/20 04/29/20 Range/Units 21:30 06:22 06:22 RBC 2.53 L (4.00-5.20) m/cumm Hgb 8.7 L 7.4 L (12.0-15.5) g/dL Hct 27.0 L 23.0 L (36.0-46.0) % BUN 23 H (7-18) mg/dL Glucose 124 H (74-106) mg/dL Calcium 8.1 L (8.5-10.1) mg/dL Crossmatch 04/29/20 Range/Units 06:22 RBC (4.00-5.20) m/cumm Hgb (12.0-15.5) g/dL Hct (36.0-46.0) % BUN (7-18) mg/dL Glucose (74-106) mg/dL Calcium (8.5-10.1) mg/dL Crossmatch See Detail Vital Signs Temperature 35.7 C L 04/29/20 08:01 Temperature Source Tympanic 04/29/20 08:01 Pulse 76 04/29/20 08:01 Pulse Rhythm Regular 04/29/20 08:03 Respiratory Rate 16 04/29/20 08:01 Respiratory Effort Non-Labored 04/29/20 08:03 Respiratory Depth Normal 04/29/20 08:03 Respiratory Pattern Normal 04/29/20 08:03 Blood Pressure 122/64 04/29/20 08:01 Pulse Oximetry 95 04/29/20 08:01 Respiratory End-tidal CO2 33 04/28/20 16:20 Oxygen Delivery Method Room Air 04/29/20 08:01 Oxygen Flow Rate 0 04/29/20 08:01 Pain Level 3 04/29/20 07:50 Comment 04/29/20 08:01 Intake & Output 04/28/20 04/28/20 04/29/20 11:59 23:59 11:59 Intake Total 110 / 4664.717 7988.000 / 3052.938 7404 / 1075 Output Total 800 / 800 400 / 400 Balance 110 / 7299.261 7675.000 / 1158.000 675 / 675 Weight 68.1 kg Intake: IV 110 / 6252.238 4719.000 / 1708.000 725 / 725 Oral 250 / 250 350 / 350 Output: Urine 100 / 100 400 / 400 Estimated Blood Loss 700 / 700 Other: Urine Color Pale Yellow Yellow Urine Appearance Clear Clear Clear Emesis Description None Laboratory Results WBC 9.59 k/cumm (4.4-10.8) 04/29/20 06:22 RBC 2.53 m/cumm (4.00-5.20) L 04/29/20 06:22 Hgb 7.4 g/dL (12.0-15.5) L 04/29/20 06:22 Hct 23.0 % (36.0-46.0) L 04/29/20 06:22 MCV 90.9 fL (80-95) 04/29/20 06:22 MCH 29.2 pg (27.0-33.0) 04/29/20 06:22 MCHC 32.2 g/dL (32.0-36.0) 04/29/20 06:22 RDW 12.1 % (11.7-14.6) 04/29/20 06:22 Plt Count 266 x1000/uL (130-400) 04/29/20 06:22 MPV 9.4 fL (8.0-11.0) 04/29/20 06:22 Sodium 136 mmol/L (136-145) 04/29/20 06:22 Potassium 3.7 mmol/L (3.5-5.1) 04/29/20 06:22 Chloride 103 mmol/L (98-107) 04/29/20 06:22 Carbon Dioxide 25.8 mmol/L (21.0-32.0) 04/29/20 06:22 Anion Gap 7.2 mmol/L (3-11) 04/29/20 06:22 BUN 23 mg/dL (7-18) H 04/29/20 06:22 Creatinine 1.00 mg/dL (0.55-1.02) 04/29/20 06:22 Estimated GFR/1.73 m2 55.82 (mL/min/1.73m2) 04/29/20 06:22 Glucose 124 mg/dL (74-106) H 04/29/20 06:22 Calcium 8.1 mg/dL (8.5-10.1) L 04/29/20 06:22 Patient ABO/Rh A Positive 04/29/20 06:22 Antibody Screen Negative 04/29/20 06:22 Crossmatch See Detail 04/29/20 06:22
--- NOTE | 2020-04-29 09:51 | INITIAL_ITS ---
- If Service Date Differs Date of service: 04/29/20 Time of Service: 09:51 Care Management Initial Assess REASON FOR HOSPITALIZATION:: Bilateral Hip Replacement PAST MEDICAL HISTORY/PAST SURGICAL HISTORY:: Medical History . GERD (gastroesophageal reflux disease). Hypertension. IBS (irritable bowel syndrome). Surgical History . Abdominal hysterectomy. Arthroplasty of knee. left. Cholecystectomy. Colonoscopy - IV Sedation (02/26/17). EGD - IV Sedation (02/26/17). right wrist fracture repair (06/29/16) PREVIOUS FUNCTIONAL STATUS/SOCIAL/FAMILY SUPPORTS:: Shan lives alone in [place]. Her house is handicap accessible. Her son and daughter in law live nearby, so close she can see their house. 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 She is independent at baseline. CURRENT FUNCTIONAL STATUS:: Shan is sitting up in her chair when CM met with her. She was pleasant and engaged in conversation. She stated that she had some discomfort in her legs, but overall the pain is more manageable than prior to her surgery. She stated that she may return home this afternoon. Her family is very supportive and will be checking in on her frequently. CM will continue to follow. ADVANCE DIRECTIVES:: None on file. Has patient been provided with info about the portal/API?: No Did the patient sign up for the portal?: No CODE STATUS:: Full Code INSURANCE COVERAGE / FINANCIAL ISSUES:: [facility]/ [facility]/ [employer] assist CURRENT HOME/COMMUNITY SERVICES/EQUIPMENT:: Shan's home is handicap accessible, with grab bars, raised toilet seat and a shower bench. CM will provide a FWW. PRIMARY CARE PHYSICIAN:: Nicolasa Griggs POTENTIAL DISCHARGE NEEDS:: Evaluations for further needs, follow up appoint ments. PATIENT/FAMILY EDUCATION NEEDS:: Review discharge instructions regarding activity levels and medications, discussion of self care needs including ask me three. ANTICIPATED BARRIERS TO DISCHARGE:: None identified. TRANSPORTATION:: Via private vehicle by family. PLAN:: Anticipate Shan will return home with no additional services once medically cleared. Her sister will drive her home when ready. She will follow up with her PCP and discharge plan of care. CM will continue to follow.
--- NOTE | 2020-04-29 11:44 | W.PM.DS.N ---
Date of service: 04/29/20 Time of Service: 11:45 DS: Diagnosis Discharge Diagnosis (1) Bilateral primary osteoarthritis of hip: Status: Acute (2) Postoperative anemia due to acute blood loss: Status: Acute Discharge Plan Disposition Patient Disposition: HOME Condition: Good Discharge Details Reason For Visit: BILATERAL HIP DJD Admit Date/Time: 04/29/20 07:03 Admit Provider: Truman Jc Attending Provider: Truman Jc Primary Care Provider: Nicolasa Griggs Hospital Course Hospital Course: Patient was admitted to the medical/surgical floor following the procedure. The surgery was tolerated well without any notable medical, surgical, or anesthetic complications. However on the night of postoperative day #0, Jami had an episode of hypotension. This was not provoked by any medication or activity that was recognized. She responded well to positioning and fluid bolus. Her hemoglobin was checked at the time and was notable for postoperative anemia, 8.7. After that initial episode she was followed closely and had no further episodes of hypotension. Morning hemoglobin check was 7.4 and therefore she was transfused 1 unit. She continued to mobilize without difficulties. Her vitals remained stable. The paige catheter was removed and voiding spontaneously. Vitals were stable after that first episode. Physical therapy worked with the patient and was cleared for discharge home. No acute medical issues. Pain was controlled on oral regimen. Home Meds and New Rx's Prescriptions: New celecoxib 200 mg capsule 200 mg PO BID PRN (Reason: pain) Qty: 60 RF: 1 acetaminophen 500 mg tablet 1,000 mg PO Q8H PRN (Reason: pain) Qty: 90 RF: 3 docusate sodium [Colace] 100 mg capsule 100 mg PO BID PRNQty: 10 RF: 0 oxycodone 5 mg tablet 5 mg PO Q4H Qty: 18 RF: 0 rivaroxaban 10 mg tablet 10 mg PO DAILY Qty: 34 RF: 0 Continued atorvastatin 20 MG tablet 20 mg PO HS RF: 0 lisinopril 40 MG tablet 40 mg PO DAILY RF: 0 cholecalciferol (vitamin D3) [Vitamin D3] 2,000 UNIT tablet 2,000 unit PO DAILY RF: 0 Advil Cold and Sinus 1 EACH tablet 1 tab-cap PO BID PRNRF: 0 pantoprazole [Protonix] 20 MG tablet,delayed release (DR/EC) 20 mg PO DAILY RF: 0 estradiol 1 MG tablet 1 mg PO DAILY RF: 0 Women's Multivitamin 18 mg iron-400 mcg-500 mg Tablet 1 tab PO DAILY RF: 0 Digestive Advantage Lactos Def 500 million cell-3,000 unit Capsule 1 cap PO DAILY RF: 0 Discharge Instructions Additional Instructions: Dr. Jc's Total Hip Discharge Instructions Activity: The most important activity is to walk. You should try to take short walks a few times a day. You have no restrictions on movement or positioning, but do not try to force what you do. You will find some stiffness and weakness with hip flexion (lifting your knee). Do not try to strengthen this too early, continue to practice walking and stairs and this will come. - Outpatient physical therapy can be helpful to help return you to a normal gait and improve your flexibility and strength. This can start around 2 weeks and can be determined at first postop visit. - You should wear the CORDELL hose on both legs for 2 weeks. You may remove those at night. These prevent blood pooling and swelling. Dressing: Keep the surgical dressing in place for at least one week, although it may stay in place untill follow-up. It may get wet after 3 days but avoid soaking the dressing. If it gets wet, just lightly pat dry. Most people prefer to cover the dressing with some ClingWrap, Saran Wrap, to keep it dry. After the first week it may be removed if desired and then replaced with light gauze and tape or nothing. It is important to always keep some gauze or the dressing between skin folds, especially when you are sitting, so the incision is not folded over on itself at the belly fold. Medications: - You should take Tylenol and an anti-inflammatory Celebrex as your primary pain control medications - You have been prescribed a stronger pain medication oxycodone for breakthrough pain, take as needed as prescribed. - You should continue your stomach acid reduction agent Pantoprozole to help reduce stomach acid and reflux. - You will be taking rivaroxaban 10 mg daily for DVT prevention unless instructed otherwise. - If you have constipation you should take Colace or Miralax (both [id number]). Colace has been called in. It takes most people 3-4 days to have a bowel movement. Follow-up: 2 weeks. If you have any acute concerns or questions, please do not hesitate to contact the office at [phone]. You may contact Dr. Jc with any questions after hours through the hospital at [phone] or on his cell phone at [phone]. Referrals: Truman Jc MD [ [facility] STAFF PHYSICIAN] - Activity:: Activity as Tolerated Equipment/Supplies:: Walker Diet:: As Tolerated Discharge Orders Discharge Orders: Discharge Order (Routine); Ordered 04/29/20 Ordered By: Truman Jc DS: Summary Status at Discharge Functional status at discharge: uses cane/walker Overall status at discharge: patient is progressing back to baseline Mental Status: mental status grossly normal Speech and Movement: speech and movement normal Mood: congruent mood Affect: normal affect Exam Psych Mental Status: mental status grossly normal Speech and Movement: speech and movement normal Mood: congruent mood Affect: normal affect DS: Data Vitals/I&O Vitals and I&O: Vital Signs Temperature 36.4 C L 04/29/20 11:11 Temperature Source Tympanic 04/29/20 08:01 Pulse 73 04/29/20 11:11 Pulse Rhythm Regular 04/29/20 08:03 Respiratory Rate 16 04/29/20 11:11 Respiratory Effort Non-Labored 04/29/20 08:03 Respiratory Depth Normal 04/29/20 08:03 Respiratory Pattern Normal 04/29/20 08:03 Blood Pressure 123/62 04/29/20 11:11 Pulse Oximetry 96 04/29/20 11:11 Respiratory End-tidal CO2 33 04/28/20 16:20 Oxygen Delivery Method Room Air 04/29/20 11:11 Oxygen Flow Rate 0 04/29/20 11:11 Pain Level 3 04/29/20 07:50 Comment 04/29/20 08:01 Intake & Output 04/28/20 04/28/20 04/29/20 11:59 23:59 11:59 Intake Total 110 / 0640.036 1394.000 / 3673.942 2715 / 1425 Output Total 800 / 800 1350 / 1350 Balance 110 / 8274.313 3271.000 / 1158.000 75 / 75 Weight 68.1 kg Intake: IV 110 / 9418.361 1812.000 / 1708.000 725 / 725 Oral 250 / 250 450 / 450 Blood Product 250 / 250 Rbc Leuko Reduced Unit 250 / 250 [id number] Output: Urine 100 / 100 1350 / 1350 Estimated Blood Loss 700 / 700 Other: Urine Color Pale Yellow Pale Yellow Urine Appearance Clear Clear Clear Urine Odor None Comment First void after paige removal, walked to toilet and peed in hat Emesis Description None Data Completed and Pending Labs on day of discharge: Labs from last 24 hours 04/29/20 04/29/20 04/29/20 06:22 06:22 06:22 WBC 9.59 RBC 2.53 L Hgb 7.4 L Hct 23.0 L MCV 90.9 MCH 29.2 MCHC 32.2 RDW 12.1 Plt Count 266 MPV 9.4 Sodium 136 Potassium 3.7 Chloride 103 Carbon Dioxide 25.8 Anion Gap 7.2 BUN 23 H Creatinine 1.00 Estimated GFR/1.73 m2 55.82 Glucose 124 H Calcium 8.1 L Patient ABO/Rh A Positive Antibody Screen Negative Crossmatch See Detail 04/28/20 21:30 WBC RBC Hgb 8.7 L Hct 27.0 L MCV MCH MCHC RDW Plt Count MPV Sodium Potassium Chloride Carbon Dioxide Anion Gap BUN Creatinine Estimated GFR/1.73 m2 Glucose Calcium Patient ABO/Rh Antibody Screen Crossmatch [facility] Medical History GERD (gastroesophageal reflux disease) Hypertension IBS (irritable bowel syndrome) Surgical History Abdominal hysterectomy Arthroplasty of knee PT. DENIES THIS Cholecystectomy Colonoscopy - IV Sedation (02/26/17) EGD - IV Sedation (02/26/17) right wrist fracture repair (06/29/16) Social History Smoking/Tobacco Use Status: Former Tobacco Use Drug use: Never Current gender identity: female
[2020-04-29] MEDS: oxyCODONE 5 MG TAB PO (12:14)
[2020-04-29] MEDS: Normal Saline Flush 10 ML SYR IV (13:10)
--- NOTE | 2020-04-29 17:39 | PDOC.CMDIS ---
- If Service Date Differs Date of service: 04/29/20 Time of Service: 17:39 LACE Index Scoring Tool - Questions: Length of Stay (in days): 2 Acuity (Admit via E.D.?): No E.D. Visits: 0 - Answers: Total Score: 2 Risk of Readmission: Low Risk Care Management Discharge Reason for Hospitalization: Bilateral Hip Replacement Discharge Plan: Shan will return home with no additional services. Her sister will drive her home via private vehicle. She will follow up with her PCP and discharge plan of care. She is happy to be going home. Patient/Family Education Needs: Review discharge instructions regarding activity levels and medications, discussion of self care needs including ask me three.
--- NOTE | 2020-05-02 20:00 | INDS_ITS ---
Date of service: 05/02/20 PT Notes Visit Reasons: BILATERAL HIP DJD Inpatient Physical Therapy Discharge Summary Dates: 04/30/2020 Dates of Service: 04/29/2020 only Referring Doctor: Truman Jc MD PT Orders: PT CONSULT: Status post Ortho surgery. Status post bilateral anterior SONYA. Precautions: Fall. Standard. WBAT on BLE. Patient Profile/Admitting Diagnosis: Jami is a 64-year-old female with bilateral primary osteoarthritis of hip and bilateral trochanteric bursitis status post bilateral anterior total hip arthroplasty on postoperative day 1. PMHX: Medical History GERD (gastroesophageal reflux disease) Hypertension IBS (irritable bowel syndrome) Surgical History Abdominal hysterectomy Arthroplasty of knee left Cholecystectomy Colonoscopy - IV Sedation (02/26/17) EGD - IV Sedation (02/26/17) right wrist fracture repair (06/29/16) Social History/Home Situation: Jami lives in a private home with 1 to enter. 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 She is well aspects of ADLs without need for an assistive ambulatory device nor adaptive equipment. Jami states that the house has been handicap accessible for an elderly relative living there previously. Equipment Owned/DME: Standard front wheeled walker, raised toilet seat, grab bars Subjective: Jami is looking forward to going home this afternoon. Objective: General Observation: Mepilex Ag over surgical incision Mcdaniels catheter in place. IV in the left UE. Bilateral TEDS on. Mental Status: Alert and oriented x4 Pain: 2/10 aching pain in bilateral anterior thighs Vital Signs: In sitting 100/58 mmHg. In standing 97/58 mmHg. ROM: Right Upper Extremity: Shoulder Flexion WFL. Shoulder abduction WFL. Elbow flexion WFL. Wrist flexion WFL. Opening and closing of hand WFL. Left Upper Extremity: Shoulder Flexion WFL. Shoulder abduction WFL. Elbow flexion WFL. Wrist flexion WFL. Opening and closing of hand WFL. Right Lower Extremity: Hip flexion allows about 20 degrees beyond 90 while seated on the recliner. Hip abduction WFL. Knee flexion WFL. Ankle dorsiflexion WFL. Ankle plantarflexion WFL. Left Lower Extremity: Hip flexion allows about 20 degrees beyond 90 while seated on the recliner. Hip abduction WFL. Knee flexion WFL. Ankle dorsiflexion WFL. Ankle plantarflexion WFL. Strength: Right Upper Extremity: Shoulder flexors 5/5. Shoulder abductors 5/5. Elbow flexors 5/5. Elbow extensors 5/5. Supervisor Sunglasses strong. Left Upper Extremity: Shoulder flexors 5/5. Shoulder abductors 5/5. Elbow flexors 5/5. Elbow extensors 5/5. Supervisor Sunglasses strong. Right Lower Extremity: Hip flexors 3-/5. Hip abductors 4/5. Knee flexors 5/5. Knee extensors 4/5. Ankle dorsiflexors 5/5. Ankle plantarflexors 5/5. Left Lower Extremity:Hip flexors 3-/5. Hip abductors 4/5. Knee flexors 5/5. Knee extensors 4/5. Ankle dorsiflexors 5/5. Ankle plantarflexors 5/5. Sensation: Intact as to pain and pressure on bilateral lower extremities. Bed Mobility/Transfers: Sit to stand supervision Stand to sit supervision Bed to chair supervision Chair to bed supervision Gait: Patient tolerated level surface ambulation of 300-350 feet while using front wheeled walker with WBAT on BLE requiring contact-guard assist of PT and wheelchair follow of JENNIFFER Shahid. Step to pattern. Step length decrease. Sarah decreased. Needed for standing rest to minimize aching pain in bilateral quadriceps area. No SOB. No LOB. Balance: Static Sitting: Normal Dynamic Sitting: Normal Static Standing: Fair Dynamic Standing: Fair Assessment: Pj demonstrates functional mobility decline requiring the need for a front wheeled walker for all mobility ADL performance, impairment in strength and range of motion, and impairment and balance resulting from postoperative status. Jami is a 64-year-old female with bilateral primary osteoarthritis of hip and bilateral trochanteric bursitis status post bilateral anterior total hip arthroplasty on postoperative day 1 on discharge. Patient continues to present with clinical signs and symptoms consistent with current/admitting diagnoses that have resulted to mobility limitations, gait instability, generalized weakness, and impairment of motor control as demonstrated by the following impairment level findings: 1. Decreased strength to B hip major muscle groups 2. Impaired standing balance 3. Impaired activity tolerance 4. Limitation of joint range of motion in B hips Impairments are continuing to contribute to the following functional limitations: 1. Inability to safely ambulate without assistive device and physical assistance 2. Increase completion time for mobility ADL performance 3. Increased fall risk 4. Inability to negotiate steps alone safely Patient is assessed as a 10994 moderate complexity based on the following: History: 64-year-old female with impairment level findings, functional limitations, and past medical history as indicated above Examination: Demonstrable impairment in strength, balance, and mobility level with underlying impairments and functional limitations as documented above Presentation:Evolving Decision Makin complexity Goals: Goals X 3 days 1. Supine-Sit independent NOT MET 2. Sit-Supine independent NOT MET 3. Sit-Stand independent NOT MET 4. Stand-Sit independent NOT MET 5. Bed-Chair independent NOT MET 6. Chair-Bed independent NOT MET 7. Independent gait on level surface with use of least restrictive device for at least 300 feet without report of pain nor dyspnea NOT MET 8. Independent stair negotiation while holding onto bilateral rails for at least 10 steps without report of pain nor dyspnea NOT MET 9. Independent with home exercise program MET 10. Good static and dynamic standing balance/tolerance NOT MET DISCHARGE RECOMMENDATIONS: Home when medically cleared by orthopedic surgeon. Patient will need front wheeled walker for maximized independence with mobility performance at home. May benefit from outpatient physical therapy services according to orthopedic surgeon's timeline recommendation. TREATMENT CODE/TIME: 44077 x 2 units. Thank you very much for this referral. Maddi Dobbins PT, DPT, CLT [facility] [place], [place]
== END 2020-04-29 15:50 | disposition home or self-care (01) | DRG 462 ==
LOC: PDS 16:59 → MS 16:59
PROVIDERS: Admitting Provider Student in an Organized Health Care Education/Training Program; PCP Family Medicine; Visit Provider Student in an Organized Health Care Education/Training Program
PROC: 0SR90JZ Replacement of Right Hip Joint with Synthetic Substitute, Open Approach (ICD-10-PCS; CPT 27130; principal; 2020-04-28 12:00)
DX: M16.0 Bilateral primary osteoarthritis of hip (principal); D62 Acute posthemorrhagic anemia; I95.9 Hypotension, unspecified; Z87.891 Personal history of nicotine dependence; K58.9 Irritable bowel syndrome, unspecified; J32.1 Chronic frontal sinusitis; G43.909 Migraine, unspecified, not intractable, without status migrainosus; K21.9 Gastro-esophageal reflux disease without esophagitis; I10 Essential (primary) hypertension
CPT/HCPCS: 27130; 36415; 80048; 85027; 86850; 86900; 86901; 86920; 97530; NC; 73501; 85014; 85018; G0378; J0171; J0690; J1100; J1885; J2001; J2250; J2370; J2405; J3010; J8540; P9016

== ENCOUNTER 2020-05-09 10:39 | Outpatient (CLI) | payer MEDICARE, SELFPAY ==
--- NOTE | 2020-05-09 09:30 | DI.RAD_ITS ---
EXAM: XR HIP PELVIS ADULT BL CLINICAL HISTORY: 1ST POST OP. TECHNIQUE: 2D digital imaging was performed. COMPARISON: CR XR PELVIS AP from 04/01/2020 XR HIP RT IN OR from 04/28/2020 FINDINGS: Patient has bilateral total hip replacements. There is a small fracture fragment of the medial aspec t of the greater trochanter of the right femur. This was not apparent on the prior examination from 04/28/2020. The fracture fragment is mildly displaced. The orthopedic hardware appears well seated w ithout lucency within or around the orthopedic hardware. Subchondral cysts are seen in both acetabul i. Left total hip replacement appears intact. No lucencies are seen in or about the orthopedic hard brown to suggest loosening or infection the. The sacroiliac joints and symphysis pubis are intact. V ascular calcifications are seen in the soft tissues. IMPRESSION: 1. Stable left THR. 2. Right THR. 3. Small mildly displaced fracture of the greater trochanter of the right femur. DATA REPOSITORY: RADIATION DOSE DELIVERED:
== END 2020-05-09 10:59 ==
PROVIDERS: PCP Family Medicine; Referring Provider Family Medicine; Visit Provider Student in an Organized Health Care Education/Training Program
DX: Z96.643 Presence of artificial hip joint, bilateral (principal); Z47.1 Aftercare following joint replacement surgery; S72.111A Displaced fracture of greater trochanter of right femur, initial encounter for closed fracture; I10 Essential (primary) hypertension; X58.XXXA Exposure to other specified factors, initial encounter
CPT/HCPCS: 73521

== ENCOUNTER 2020-05-11 08:18 | Outpatient (REF) | payer MEDICARE, SELFPAY ==
[2020-05-11 22:03] LABS: HCT 31.4 % (36.0-46.0); HGB 9.6 g/dL (12.0-15.5); Mean Corp. HGB Concentration 30.6 g/dL (32.0-36.0); Mean Corpuscular Hemoglobin 29.1 pg (27.0-33.0); Mean Corpuscular Volume 95.2 fL (80-95); Mean Platelet Volume 9.3 fL (8.0-11.0); Platelet Count 487 x1000/uL (130-400); RBC Distribution Width 14.6 % (11.7-14.6); White Blood Cell Count 8.92 k/cumm (4.4-10.8)
[2020-05-11 22:35] LABS: ALT 18 U/L (14-59); AST 18 U/L (15-37); Albumin 3.2 g/dL (3.4-5.0); Alkaline Phosphatase 115 U/L (46-116); Anion Gap 9.1 mmol/L (3-11); BUN 23 mg/dL (7-18); Bilirubin, Total 0.3 mg/dL (0.2-1.0); CO2 27.9 mmol/L (21.0-32.0); CREATININE 1.19 mg/dL (0.55-1.02); Calcium 9.2 mg/dL (8.5-10.1); Calculated LDL 71 mg/dL (<100); Chloride 103 mmol/L (98-107); Cholesterol 171 mg/dL (<200); Estimated GFR 45.67 (mL/min/1.73m2); Glucose 87 mg/dL (74-106); HDL Cholesterol 80 mg/dL (40-60); Potassium 4.5 mmol/L (3.5-5.1); Sodium 140 mmol/L (136-145); Total Protein 6.5 g/dL (6.4-8.2); Triglyceride 104 mg/dL (<150)
== END 2020-05-11 08:38 ==
LOC: NCHCN 08:18
PROVIDERS: PCP Family Medicine; Visit Provider Family Medicine
DX: E78.5 Hyperlipidemia, unspecified (principal); I10 Essential (primary) hypertension
CPT/HCPCS: 80053; 80061; 85027

== ENCOUNTER → 2020-05-30 13:45 | Outpatient (BNVA) | payer MEDICARE, SELFPAY | PROVIDERS: PCP Family Medicine; Referring Provider Family Medicine; Visit Provider Student in an Organized Health Care Education/Training Program | DX: Z96.643 Presence of artificial hip joint, bilateral (principal); Z47.1 Aftercare following joint replacement surgery; I10 Essential (primary) hypertension ==

== ENCOUNTER 2020-06-06 01:25 | Outpatient (CLI) | payer MEDICARE, SELFPAY ==
--- NOTE | 2020-06-06 13:30 | DI.CTLCSR_ITS ---
EXAM: CT CHEST LUNG CANCER SCREEN CLINICAL HISTORY: The patient reportedly has a History of Smoking 30 pack years and presently smokes or has quit the past 15 years. TECHNIQUE: Imaging Protocol: Axial computed tomography images with coronal and sagittal reformatted images were created and reviewed COMPARISON: CT CT CHEST LUNG CANCER SCREEN from 10/13/2018 CR XR DEXA BONE DENSITY W/WO KRYSTIAN from 01/21/2020 FINDINGS: Tracheobronchial tree: Patent where visualized. Mediastinum and Giovanna: No dominant adenopathy or fluid collection. Pulmonary parenchyma: No consolidation or dominant measurable mass. Mild emphysematous changes in the upper lobes. Lung Nodules: Calcified nodule left lung apex. No noncalcified nodules. Pleura: No effusion or pneumothorax. Heart: The heart is not dilated. Mild coronary artery calcifications are seen. Aorta: Thoracic aorta non-dilated. Mild calcification Upper abdomen: Status post cholecystectomy Bones: Degenerative disc changes. Stable mild midthoracic compression fracture. Soft Tissues: Unremarkable. IMPRESSION: Mild emphysematous changes. No non calcified pulmonary nodules. Lung RADS Cat 1 - Negative: No nodules and definitely benign nodules Lung-RADS 1.0 CATEGORIES: Category 0 - Prior chest CT exam(s) being located for comparison. Category 1 - Annual screening in 12 months. No nodules or definitely benign nodules. Category 2 - Annual screening in 12 months. Benign appearance. Nodules with low likelihood of becomin g active cancer. Category 3 - 6-month follow-up. Probably benign. Short-term follow-up suggested. Nodules with low lik elihood of becoming active cancer. Category 4A - 3-month follow-up and CT/PET if >8 mm in size. Suspicious finding. Findings which requi re additional testing. Category 4B - Findings which require additional testing and tissue sampling. Suspicious finding. C Added to Any of the Above - History of prior lung cancer screening. S Added to Any of the Above - Significant unexpected other finding. RADIATION DOSE DELIVERED: Total DLP DATA REPOSITORY: All CT scans at this facility are submitted to the National Radiology Data Registry (NRDR) Dose Index Registry (DIR) with the [employer] (A[employer]). RADIATION OPTIMIZATION: All CT scans at this facility use at least one of these dose optimization te chniques: automated exposure control; mA and/or kV adjustment per patient size (includes targeted exa ms where dose is matched to clinical indication); or iterative reconstruction.
== END 2020-06-06 01:45 ==
PROVIDERS: PCP Family Medicine; Visit Provider Family Medicine
DX: Z12.2 Encounter for screening for malignant neoplasm of respiratory organs (principal); F17.210 Nicotine dependence, cigarettes, uncomplicated; J43.9 Emphysema, unspecified
CPT/HCPCS: G0297

== ENCOUNTER → 2020-06-27 11:06 | Outpatient (BNVA) | payer MEDICARE, SELFPAY | PROVIDERS: PCP Family Medicine; Visit Provider Student in an Organized Health Care Education/Training Program | DX: Z96.643 Presence of artificial hip joint, bilateral (principal); Z47.1 Aftercare following joint replacement surgery; M70.62 Trochanteric bursitis, left hip; M70.61 Trochanteric bursitis, right hip; I10 Essential (primary) hypertension | CPT/HCPCS: 20610; J1040 ==

== ENCOUNTER 2020-07-25 14:23 | Outpatient (CLI) | payer MEDICARE, SELFPAY ==
--- NOTE | 2020-07-25 11:15 | DI.RAD_ITS ---
EXAM: XR SHOULDER RT COMPLETE 2+V CLINICAL HISTORY: rt shoulder pain TECHNIQUE: COMPARISON: CR XR SHOULDER LT COMPLETE 2+V from 02/05/2020 FINDINGS: Three views were obtained. There is mild hypertrophic degenerative change at the acromioclavicular j oint. Glenohumeral joint appears well maintained. No other significant seen. IMPRESSION: RADIATION DOSE DELIVERED: Total DLP
== END 2020-07-25 14:43 ==
PROVIDERS: PCP Family Medicine; Referring Provider Family Medicine; Visit Provider Student in an Organized Health Care Education/Training Program
DX: M25.511 Pain in right shoulder (principal); Z47.1 Aftercare following joint replacement surgery; Z96.643 Presence of artificial hip joint, bilateral; M70.62 Trochanteric bursitis, left hip; M70.61 Trochanteric bursitis, right hip; M75.41 Impingement syndrome of right shoulder; M19.011 Primary osteoarthritis, right shoulder
CPT/HCPCS: 73030

== ENCOUNTER 2020-08-11 11:24 | Outpatient (REF) | payer MEDICARE, SELFPAY ==
[2020-08-11 20:47] LABS: HCT 36.4 % (36.0-46.0); HGB 11.7 g/dL (11.2-15.7); MCH 29.2 pg (27.0-33.0); MCHC 32.1 % (32.0-36.0); MCV 90.8 fL (80-95); MPV 10.2 fL (8.0-11.0); Platelet Count 372 10^3/uL (130-400); RBC 4.01 10^6/uL (3.93-5.22); RDW 13.5 % (11.7-14.6); RDW-SD 45.2 fL; WBC 11.48 10^3/uL (4.4-10.8)
== END 2020-08-11 11:44 ==
LOC: NCHCN 11:24
PROVIDERS: PCP Family Medicine; Visit Provider Family Medicine
DX: D64.9 Anemia, unspecified (principal)
CPT/HCPCS: 85027

== ENCOUNTER 2020-09-06 01:03 | Outpatient (CLI) | payer MEDICARE, SELFPAY ==
--- NOTE | 2020-09-06 | DI.MAMMO_ITS ---
EXAM: MAMMO SCREENING CLINICAL HISTORY: SCREENING,Z12.31 TECHNIQUE: Mammograms were interpreted according to the usual protocol including computer analysis w [employer] CAD system, tomosynthesis and C-view imaging. COMPARISON: FINDINGS: The breasts are of moderate density with fairly symmetrical distribution of fibroglandular tissue. N o dominant mass or clumped microcalcification is identified in either breast. Current examination is compared with previous examinations including March 2019 and there are a couple of areas of focal asym metric density projected in the upper outer quadrant of the right breast on CC view which are more pr ominent than on prior studies. Spot compression views of these areas requested for further evaluatio n. Additionally there is an area of cysts sub optimal compression in the inferior aspect of right breast on MLO view with focal asymmetric densities probably due to lack of compression. A spot compression view of this area is also requested to rule out an underlying mass at this site. No other significant. IMPRESSION: Additional mammographic views of the right breast requested as described above. Breast ultrasound ma y be indicated as well depending on the results of the additional mammographic views. BI-RADS Cat 0 - Assessment Incomplete: Need additional imaging evaluation Breast Density - Category B - Scattered areas of fibroglandular density
== END 2020-09-06 01:23 ==
PROVIDERS: PCP Family Medicine; Visit Provider Family Medicine
DX: Z12.31 Encounter for screening mammogram for malignant neoplasm of breast (principal); R92.8 Other abnormal and inconclusive findings on diagnostic imaging of breast
CPT/HCPCS: 77063; 77067

== ENCOUNTER 2020-09-08 01:27 | Outpatient (CLI) | payer MEDICARE, SELFPAY ==
--- NOTE | 2020-09-08 | DI.US_ITS ---
EXAM: MG MAMMO SCREEN CALL BACK UNI CLINICAL HISTORY: F/U MAMMO, ASYMMETRIC DENSITY TECHNIQUE: Mammograms were interpreted according to the usual protocol including computer analysis w [employer] CAD system, tomosynthesis and C-view imaging. COMPARISON: FINDINGS: Additional mammographic views of the right breast and right breast ultrasound are interpreted in conj unction. These examinations were obtained to evaluate questionable areas of asymmetric density seen on recent mammogram in the right breast. Additional mammographic views fail to show a discrete mass. Breast ultrasound shows no evidence of a mass or cyst. IMPRESSION: No specific evidence of malignancy at this time. Follow-up unilateral right breast mammogram recomm ended in 6 months. BI-RADS Category 3 - 6 month - Probably Benign Finding: Recommend follow-up mammography in 6 months Breast Density - Category B - Scattered areas of fibroglandular density
--- NOTE | 2020-09-08 10:53 | DI.MAMMO_ITS ---
EXAM: MG MAMMO SCREEN CALL BACK UNI CLINICAL HISTORY: F/U MAMMO, ASYMMETRIC DENSITY TECHNIQUE: Mammograms were interpreted according to the usual protocol including computer analysis w [employer] CAD system, tomosynthesis and C-view imaging. COMPARISON: FINDINGS: Additional mammographic views of the right breast and right breast ultrasound are interpreted in conj unction. These examinations were obtained to evaluate questionable areas of asymmetric density seen on recent mammogram in the right breast. Additional mammographic views fail to show a discrete mass. Breast ultrasound shows no evidence of a mass or cyst. IMPRESSION: No specific evidence of malignancy at this time. Follow-up unilateral right breast mammogram recomm ended in 6 months. BI-RADS Category 3 - 6 month - Probably Benign Finding: Recommend follow-up mammography in 6 months Breast Density - Category B - Scattered areas of fibroglandular density
== END 2020-09-08 01:47 ==
PROVIDERS: PCP Family Medicine; Visit Provider Family Medicine
DX: R92.8 Other abnormal and inconclusive findings on diagnostic imaging of breast (principal)
CPT/HCPCS: 76642; 77063; 77067

== ENCOUNTER → 2020-09-19 10:42 | Outpatient (BNVA) | payer MEDICARE, SELFPAY | PROVIDERS: PCP Family Medicine; Visit Provider Student in an Organized Health Care Education/Training Program | DX: Z96.643 Presence of artificial hip joint, bilateral (principal); M70.61 Trochanteric bursitis, right hip; M70.62 Trochanteric bursitis, left hip; I10 Essential (primary) hypertension | CPT/HCPCS: 20610; 99213; J1040 ==

== ENCOUNTER → 2020-10-17 10:50 | Outpatient (BNVA) | payer MEDICARE, SELFPAY | PROVIDERS: PCP Family Medicine; Referring Provider Family Medicine; Visit Provider Student in an Organized Health Care Education/Training Program | DX: Z96.643 Presence of artificial hip joint, bilateral (principal); G89.29 Other chronic pain; M18.11 Unilateral primary osteoarthritis of first carpometacarpal joint, right hand; M70.62 Trochanteric bursitis, left hip; M70.61 Trochanteric bursitis, right hip | CPT/HCPCS: 20600; 99213; J1030 ==

== ENCOUNTER 2020-11-16 10:18 | Outpatient (CLI) | payer MEDICARE, SELFPAY ==
--- NOTE | 2020-11-16 09:25 | DI.RAD_ITS ---
EXAM: XR HIP LT AP LAT ONLY CLINICAL HISTORY: f/u. TECHNIQUE: 2D digital imaging was performed. COMPARISON: CR XR HIP PELVIS ADULT BL from 05/09/2020 FINDINGS: Two views of the left hip compared to 05/09/2020. Appearance of the prosthesis is stable with no fracture nor dislocation of the left hip prosthesis ev ident. Appearance is unchanged from 05/09/2020. IMPRESSION: DATA REPOSITORY: RADIATION DOSE DELIVERED:
== END 2020-11-16 10:38 ==
PROVIDERS: PCP Family Medicine; Referring Provider Family Medicine; Visit Provider Student in an Organized Health Care Education/Training Program
DX: Z96.642 Presence of left artificial hip joint (principal); M70.61 Trochanteric bursitis, right hip; M70.62 Trochanteric bursitis, left hip; M76.31 Iliotibial band syndrome, right leg; M76.32 Iliotibial band syndrome, left leg; Z96.643 Presence of artificial hip joint, bilateral
CPT/HCPCS: 99214; 73502

== ENCOUNTER 2020-12-19 02:24 | Outpatient (CLI) | payer MEDICARE, SELFPAY ==
[2020-12-20 15:51] LABS: COVID-19 RT-PCR UVMMC Result Negative (Negative)
== END 2020-12-19 02:25 | disposition home or self-care (01) ==
LOC: LBO 02:24
PROVIDERS: PCP Family Medicine; Visit Provider Student in an Organized Health Care Education/Training Program
DX: Z20.822 Contact with and (suspected) exposure to COVID-19 (principal); Z01.818 Encounter for other preprocedural examination
CPT/HCPCS: U0003; U0005

== ENCOUNTER 2020-12-22 11:27 | Day surgery (SDC) | payer MEDICARE, SELFPAY ==
[2020-12-22] VITALS (7 sets, daily range): BP systolic 151–168; BP diastolic 60–87; PULSE 62–72; RESP 13–21; TEMP 36.4–36.7; O2SAT 98–100
[2020-12-22] MEDS: Lactated Ringers 1,000 ML 100 ML IV (12:08)
[2020-12-22] MEDS: ceFAZolin 2 GM/50 ML BAG IVPB (14:49)
[2020-12-22] MEDS: Bupivacaine 0.25% Pres-Free 30 ML VIAL (15:00)
[2020-12-22] MEDS: EPINEPHrine 1 MG/ML AMP pres-free (15:00)
--- NOTE | 2020-12-22 15:30 | DI.RAD_ITS ---
EXAM: XR HIP LT IN OR CLINICAL HISTORY: trochanteric bursectomy IT band release. TECHNIQUE: 2D and realtime digital imaging was performed. COMPARISON: CR XR HIP LT AP LAT ONLY from 11/16/2020 CR XR HIP LT AP LAT ONLY from 11/16/2020 FINDINGS: Fluoroscopy was provided in the OR for Dr. Bang. Please see procedure note for details. Fluoro time: 47 seconds RADIATION DOSE DELIVERED:
[2020-12-22] MEDS: EPINEPHrine 30 MG/30 ML VIAL (15:35)
--- NOTE | 2020-12-22 15:55 | PDOC.DSDIS_ITS ---
Discharge Plan Disposition Patient Disposition: HOME Condition: Stable Discharge Details Reason For Visit: Left hip surgery Attending Provider: Lucian Bang Primary Care Provider: Nicolasa Griggs Home Meds and New Rx's Prescriptions: New aspirin 81 mg tablet,delayed release (DR/EC) 81 mg PO DAILY 14 Days Qty: 14 RF: 0 naproxen 250 mg tablet 250 - 500 mg PO BID PRN (Reason: Moderate pain or swelling) Qty: 60 RF: 0 tramadol 50 mg Tablet 50 mg PO Q8H PRN PRN (Reason: severe pain) Qty: 6 RF: 0 Continued atorvastatin 20 MG tablet 20 mg PO HS RF: 0 lisinopril 40 MG tablet 40 mg PO DAILY RF: 0 cholecalciferol (vitamin D3) [Vitamin D3] 2,000 UNIT tablet 2,000 unit PO DAILY RF: 0 Advil Cold and Sinus 1 EACH tablet 1 tab-cap PO BID PRNRF: 0 pantoprazole [Protonix] 20 MG tablet,delayed release (DR/EC) 20 mg PO DAILY RF: 0 estradiol 1 MG tablet 1 mg PO DAILY RF: 0 Women's Multivitamin 18 mg iron-400 mcg-500 mg Tablet 1 tab PO DAILY RF: 0 Digestive Advantage Lactos Def 500 million cell-3,000 unit Capsule 1 cap PO DAILY RF: 0 Discharge Instructions Additional Instructions: Surgery: Left hip endoscopic iliotibial band release and trochanteric bursectomy Activity: Weightbearing as tolerated. May use walker or crutches as needed 1 to 2 weeks. Gentle range of motion about the hip for 6 weeks. A physical therapy prescription will be provided separately in the office of follow-up if needed. Prescriptions: Aspirin 81 mg take 1 daily to prevent a blood clot for 2 weeks Naproxen 250 mg take 1-2 every 12 hours with a meal as needed for moderate pain Tramadol 50 mg take 1 every 8 hours as needed for severe pain You may use [id number] Tylenol (acetaminophen) as needed for mild pain. These pain medications may be taken all at once or in different combinations as needed. Also, recommend Colace (docusate) as a stool softener as surgery and pain medicine cause constipation. Dressings: Leave dressing in place for 2-3 days. May then remove and leave open to air or cover incisions with Band-Aids. May shower after 5 days. Follow-up: 10-[address] Korsh Let us know right away if you develop any redness, drainage, fevers, chest pain, or trouble breathing. Do not drink alcohol or drive for at least 24 hours after anesthesia. Please call the office during business hours with any questions or concerns. Referrals: Lucian Bang MD [ [facility] STAFF PHYSICIAN] - Discharge Orders Discharge Orders: Discharge Order (Routine); Ordered 12/22/20 Ordered By: Lucian Bang DS: Diagnosis Discharge Diagnosis (1) Iliotibial band syndrome of both sides: Status: Acute (2) Trochanteric bursitis of both hips: Status: Acute
--- NOTE | 2020-12-22 16:11 | ROE_ITS ---
Date of service: 12/22/20 Time of Service: 15:58 Operative Note Operative Note DATE OF PROCEDURE: 12/22/20 PRE-OP DIAGNOSIS: Left hip 1. Iliotibial band syndrome 2. Trochanteric bursitis POST-OP DIAGNOSIS: same PROCEDURE: Left hip endoscopic iliotibial band release (CPT# 81882) and trochanteric bursectomy (CPT# 55681) SURGEON: Lucian Bang ASSISTING SURGEON: Truman Jc MANAGING BROKER: None None ANESTHESIA: GETA and local ESTIMATED BLOOD LOSS: 5 COMPLICATIONS: None Patient was transported to: PACU Patient's condition: stable Indications: Please see complete medical record for details. Procedure Description: In the operating room, general anesthesia was induced. The patient was positioned supine on the [facility] operating room table. All bony prominences were well-padded. Preoperative antibiotics were administered. The left hip was prepped and draped in the usual sterile fashion. The correct patient, procedure, and side of the procedure were all verified prior to incision. 30 cc of 0.25% bupivacaine containing epinephrine was infiltrated about the subcutaneous tissues for the planned anterior lateral distal anterolateral portals as well as injected deeply directly over the greater trochanter. A knife was used to incise the skin for the anterior lateral and distal anterolat eral portals. Under fluoroscopic guidance, a switching stick and arthroscope were inserted localizing the iliotibial band over the greater trochanter. Blunt dissection with a switching stick exposed the center of the iliotibial band. Mechanical shaver was inserted over half pipe into the distal anterolateral portal and used to resect fat and overlying tissues about the margins of the iliotibial band taking care while working posteriorly for neurovascular structures. Once there was adequate exposure of the IT band, the greater trochanter was again localized under fluoroscopic guidance with a spinal needle inserted through the skin down to bone. This central area was marked using the radiofrequency ablator on the IT band and the spinal needle removed. A [place] blade was brought in and used to create about a 2 cm longitudinal incision in line with the IT band fibers as well as extending it into a stellate fashion with about 2 cm incision anteriorly and carefully posteriorly. The ra diofrequency ablator was brought in and used to achieve hemostasis. The mechanical shaver was then used to debride the IT band released edges. There was excellent visualization of the trochanteric bursa tissue as the IT band opening enlarged itself confirming appropriate release. Mechanical shaver was then used to excise the pathologic trochanteric bursa taking care to protect musculature about the margins of the trochanter. There was excellent visualization of the vastus lateralis as well as gluteus medius after appropriate trochanteric bursa excision. The hip was brought through range of motion especially internal and external rotation and there was no impinging IT band tissue or remaining pathologic bursa. The arthroscope and working portals were switched over switching sticks and appropriate IT band release and excision of trochanteric bursa confirmed again. Suction was used to remove fluid from the endoscopic space. The portals were closed using 3-0 Monocryl in a buried fashion. Steri-Strips were applied over the incision followed by Xeroform, dry 4 x 4 gauze, and Tegaderms. The patient awoke from anesthesia without complication and was transferred to the recovery room in a stable condition.
[2020-12-22] MEDS: fentaNYL 100 MCG/2 ML VIAL IVP ×3 (16:13→16:23)
== END 2020-12-22 17:35 | disposition home or self-care (01) ==
PROVIDERS: PCP Family Medicine; Visit Provider Student in an Organized Health Care Education/Training Program
PROC: (CPT 29860; principal; 2020-12-22 13:00)
DX: M76.32 Iliotibial band syndrome, left leg (principal); M25.552 Pain in left hip; M70.62 Trochanteric bursitis, left hip; K21.9 Gastro-esophageal reflux disease without esophagitis
CPT/HCPCS: 27062; 27305; 73501; J0171; J0690; J1100; J1885; J2001; J2370; J2405; J2704; J3010

== ENCOUNTER → 2021-01-02 12:58 | Outpatient (BNVA) | payer MEDICARE, SELFPAY | PROVIDERS: PCP Family Medicine; Referring Provider Family Medicine; Visit Provider Student in an Organized Health Care Education/Training Program | DX: Z47.89 Encounter for other orthopedic aftercare (principal); M70.61 Trochanteric bursitis, right hip; M70.62 Trochanteric bursitis, left hip | CPT/HCPCS: 20610; J1040 ==

== ENCOUNTER → 2021-02-01 09:38 | Outpatient (BNVA) | payer MEDICARE, SELFPAY | PROVIDERS: PCP Family Medicine; Referring Provider Family Medicine; Visit Provider Student in an Organized Health Care Education/Training Program | DX: Z47.89 Encounter for other orthopedic aftercare (principal); M70.61 Trochanteric bursitis, right hip; M70.62 Trochanteric bursitis, left hip ==

== ENCOUNTER 2021-02-17 10:56 | Outpatient (CLI) | payer MEDICARE, SELFPAY ==
--- NOTE | 2021-02-17 10:15 | DI.RAD_ITS ---
EXAM: XR WRIST LT COMPLETE CLINICAL HISTORY: L thumb pain. TECHNIQUE: 2D digital imaging was performed. COMPARISON: No exams were available for comparison FINDINGS: BONES: No acute fracture is present. No bony destructive lesion is seen. JOINTS: Joint spaces are well maintained. The carpal bones are normally aligned. Note is made of a u tax agent minus. SOFT TISSUE: Normal. IMPRESSION: No acute abnormality. DATA REPOSITORY: RADIATION DOSE DELIVERED:
== END 2021-02-17 10:57 | disposition home or self-care (01) ==
LOC: DIORS 10:57
PROVIDERS: PCP Family Medicine; Referring Provider Family Medicine; Visit Provider Student in an Organized Health Care Education/Training Program
DX: M18.12 Unilateral primary osteoarthritis of first carpometacarpal joint, left hand (principal)
CPT/HCPCS: 20600; 73110; J1030

== ENCOUNTER 2021-03-08 01:30 | Outpatient (CLI) | payer MEDICARE, SELFPAY ==
--- NOTE | 2021-03-08 09:20 | DI.MAMMO_ITS ---
EXAM: MG MAMMO DIAGNOSTIC UNI CLINICAL HISTORY: DIAGNOSTIC, 6 MONTH F/U,R92.8. TECHNIQUE: Unilateral spot mammographic images were obtained with 3D [employer] and util izing computer aided detection (CAD). COMPARISON: Prior mammograms dating back to 2011, the most recent being August 2020. Breast ultras ound August 2020 was reviewed FINDINGS: Mammographic findings in the upper outer quadrant appear benign on today's study. No truly discernib le nodule evident. IMPRESSION: No radiographic evidence of malignancy Appropriate follow-up is keep this patient yearly mammogram schedule, playing that her next bilateral mammogram would be in 6 months. The patient was informed of the findings and follow-up recommendations prior to leaving the [facility]. BI-RADS Category 2 - Benign Findings Breast Density - Category B - Scattered areas of fibroglandular density Breast density Category C or D implies that the patient has dense breast tissue. Dense breast tissue can make it harder to find cancer on a mammogram. Dense breast tissue is also associated with an incr eased risk of breast cancer. This information about the result of the mammogram report was provided to the patient to raise their awareness. Use this report when you speak with the patient about their risks for breast cancer, which includes their family history. At that time, you may recommend additional screening tests (Ultrasoun d or MRI) as these tests may add significant information. A negative radiographic report should not delay biopsy if a dominant or clinically suspicious mass is present. Up to ten percent of cancers are not identified on mammography. A negative report may reinforce clinical impression. Adenosis and dense breasts may obscure an underlying neoplasm. False positive reports average 6 to 10%. Patient will receive a letter notifying them of these results.
== END 2021-03-08 01:50 ==
PROVIDERS: PCP Family Medicine; Visit Provider Family Medicine
DX: Z12.31 Encounter for screening mammogram for malignant neoplasm of breast (principal); R92.8 Other abnormal and inconclusive findings on diagnostic imaging of breast; N64.59 Other signs and symptoms in breast
CPT/HCPCS: 77061; 77065; G0279

== ENCOUNTER → 2021-03-10 10:15 | Outpatient (BNVA) | payer MEDICARE, SELFPAY | PROVIDERS: PCP Family Medicine; Referring Provider Family Medicine; Visit Provider Physical Therapy Assistant | DX: K21.9 Gastro-esophageal reflux disease without esophagitis (principal); Z86.010 Personal history of colon polyps; I10 Essential (primary) hypertension | CPT/HCPCS: 99213 ==

== ENCOUNTER 2021-04-11 02:33 | Outpatient (CLI) | payer MEDICARE, SELFPAY ==
[2021-04-11 11:34] LABS: Source Nasal/Nares
[2021-04-11 22:12] LABS: COVID-19 PCR Negative (Negative)
== END 2021-04-11 02:34 | disposition home or self-care (01) ==
LOC: LBO 02:33
PROVIDERS: Surgery; PCP Family Medicine; Visit Provider Physical Therapy Assistant
DX: Z20.822 Contact with and (suspected) exposure to COVID-19 (principal); Z01.818 Encounter for other preprocedural examination
CPT/HCPCS: 87635

== ENCOUNTER 2021-04-12 10:23 | Day surgery (SDC) | payer MEDICARE, SELFPAY ==
--- NOTE | 2021-04-12 07:02 | ENDO_ITS ---
Date of service: 04/12/21 Time of Service: 11:36 Endoscopy Report DATE OF PROCEDURE: 04/12/21 PRE-OP DIAGNOSIS: Hx of polyps/GERD POST-OP DIAGNOSIS: other (Gastritis, Gastric polyps, esophagitis, Colon polyps) PROCEDURE: 1. EGD with biopsies 2. Colonoscopy with polypectomy SURGEON: Lorie Mckeon ANESTHESIA TYPE: General:No Airway (ASA 2/ Kev Nix) ESTIMATED BLOOD LOSS: 3 PATHOLOGY: other (Duodenal, antrum, GE junction, Gastric polyps, ascending , transverse polytp, descedning polyps x2, sigmoid polyps x5) COMPLICATIONS: None DISPOSITION: same day INDICATIONS: The patient is here for Colonoscopy pre-op. Her last screening was in 2017 and was remarkable for tubular adenoma. She has no family history of colon cancer. She has not had any bowel habit changes. -Discussed colonoscopy bowel prep as well as the procedure. Discussed possible complications of the procedure to include bleeding, pain, perforation, missed small lesion/polyp, sore throat, aspiration and adverse reaction to the medications. Questions were answered to patient?s satisfaction. No guarantees were implied or given. -Discussed Upper endoscopy procedure and the need to be NPO after midnight the night prior. Discussed possible complications of the procedure to include bleeding, pain, perforation, missed small lesion/polyp/ulcers, sore throat, aspiration and adverse reaction to the medications or sedation. Questions were answered to patient?s satisfaction. No guarantees were implied or given. I spent 28 minutes in reviewing the record, seeing the patient, providing patient education, answering patient's questions and documenting in the medical record. PREP: Miralax/Dulcolax PROCEDURE START TIME: 11:36 PROCEDURE END TIME: 12:13 COLONOSCOPY RETRACTION TIME: 19 minutes FINDINGS: Inflammation of the stomach, gastric polyps noted throughout, GE junction inflammation Colon polyps PROCEDURE DESCRIPTION: After informed consent was obtained the patient was take to the procedure room and placed in a supine position. Monitors were appli ed and a time out was done. The patients name, date of , procedure type, allergies to medications and metal in their body was reviewed. A bite block was placed and the patient was sedated. Once sedated and comfortable the gastroscope was advanced through the oropharynx which was grossly normal into the esophagus. The proximal and mid- esophagus were normal. In the distal esophagus there was inflammation noted. The scope was advanced into the stomach and through the pylorus into the 3rd portion of the duodenum. The duodenum was noted to be normal. Biopsies were done to rule out Celiac. The scope was retracted back into the stomach. There was moderate inflammation noted in the antrum and body. Biopsies were done to rule out H. pylori. There were no ulcers. The scope was retro-flexed. The cardia and fundus were noted to be normal. There was a small hiatal hernia noted. The scope was retracted back into the esophagus and biopsies were done of the GE junction to rule out Wisdom's. The Z line was regular. The GE junction was at 36 cm. While the patient was still sedated they were placed in a left decubitous position. A rectal exam was done. External exam was normal. Internal exam revealed a normal sphincter tone and no palpable masses. The scope was then introduced and retro-flexed. No internal hemorrhoids, masses or polyps were identified on retroflexion. The scope was then advanced to the cecum without difficulty. The ileocecal valve and appendiceal orifice were identified. The prep was adequate. The scope was then slowly retracted over 19 minutes back into the rectum. Polyps were removed with cold forceps in the ascending colon x1, Transverse colon x1, descending colon x2 and sigmoid colon x5. There was no diverticulosis noted. The scope was removed and the patient was woken up and taken back to Same day surgery in stable condition. The patient tolerated the procedure well and there were no immediate complications. Follow up: 5 years more then likely
--- NOTE | 2021-04-12 07:03 | PDOC.DSDIS_ITS ---
Discharge Plan Disposition Patient Disposition: HOME Condition: Good Discharge Details Reason For Visit: [place]/EGD Attending Provider: Lorie Mckeon Primary Care Provider: Nicolasa Griggs Home Meds and New Rx's Prescriptions: New pantoprazole [Protonix] 40 mg tablet,delayed release (DR/EC) 40 mg PO DAILY Qty: 30 RF: 0 Continued Premarin 0.625 mg/gram cream 0.625 mg vaginal .weekly RF: 0 atorvastatin 20 MG tablet 20 mg PO HS RF: 0 lisinopril 40 MG tablet 40 mg PO DAILY RF: 0 cholecalciferol (vitamin D3) [Vitamin D3] 2,000 UNIT tablet 2,000 unit PO DAILY RF: 0 Advil Cold and Sinus 1 EACH tablet 1 tab-cap PO BID PRNRF: 0 estradiol 1 mg tablet 0.5 mg PO DAILY RF: 0 Women's Multivitamin 18 mg iron-400 mcg-500 mg Tablet 1 tab PO DAILY RF: 0 Digestive Advantage Lactos Def 500 million cell-3,000 unit Capsule 1 cap PO DAILY RF: 0 Discontinued pantoprazole [Protonix] 20 mg tablet,delayed release (DR/EC) 20 mg PO BID RF: 0 polyethylene glycol 3350 17 gram/dose powder 238 g PO ONCE Qty: 238 RF: 0 bisacodyl [Dulcolax (bisacodyl)] 5 mg tablet,delayed release (DR/EC) 5 mg PO ONCE Qty: 4 RF: 0 Discharge Instructions Instructions: Colorectal Polyps (DC), Gastric Polyps (DC), Gastritis (ED), GERD (Gastroesophageal Reflux Disease) (DC) Additional Instructions: Findings: Inflammation of the stomach and esophagus Multiple benign stomach polyps Colon polyps Follow up: depends on pathology results Please call if you develop: fevers >101.5 Nausea or Vomiting Abdominal pain that is not transient Rectal bleeding that is more then a tbsp A hard abdomen and inability to pass gas DAY SURGERY UNIT POST ENDOSCOPY INSTRUCTIONS Instructions for everyone who is given Anesthesia: For your safety, please do the following for the next 24 Hours: a. Do not drive or operate dangerous equipment b. Do not drink alcohol beverages or use any recreational drugs for the first 24 hours or while taking pain medications. The medications in your body may have a reaction that can be dangerous. c. Do not make any important decisions or sign any important papers 1. Generally there are no restrictions on your activity after a day or so has gone by, but you may feel a bit fatigued for a few days. 2. After you arrive home you may have a light meal and return to a normal diet as you can tolerate it without feeling sick to your stomach. 3. After surgery, you may feel pain or discomfort. This should be only transient, but if it persists please contact your doctor. 4. If there are any questions regarding the findings of your procedure, please feel free to contact your doctor. 6. If you are unable to contact your doctor with a problem, contact the hospital at [phone]. 7. Continue all your regular medications unless directed otherwise. I understand the above instructions and have no questions. Signature of Patient or Responsible Adult Escort Date/Time Name of Responsible Adult Escort Signature of Nurse Date/Time Activity:: Activity as Tolerated Diet:: As Tolerated Discharge Orders Discharge Orders: Discharge Order (Routine); Ordered 04/12/21 Ordered By: Lorie Mckeon
[2021-04-12 10:37] VITALS: BP 159/95; PULSE 94; RESP 18; TEMP 36.8; O2SAT 98
[2021-04-12] MEDS: Lactated Ringers 1,000 ML 80 ML IV (10:52)
--- NOTE | 2021-04-12 10:56 | W.ANESPRE ---
General Info Date of Service Date Performed: 04/12/21 Height: 5 ft 2 in Weight: 70.7 kg Body Mass Index (BMI): 28.5 Surgical Procedure: Operation Date: 04/12/21 11:50 Proposed Procedures Side Surgeon p Colonoscopy/Gastroscopy Lorie Mckeon MD Meds Allergies and Home Medications Allergies Allergy/AdvReac Type Severity Reaction Status Date / Time venom-honey bee Allergy Severe Verified 04/12/21 10:45 wool Allergy Verified 04/12/21 10:45 amoxicillin [From Augmentin] AdvReac Severe GI Verified 04/12/21 10:45 problems, Severe Diarrhea clavulanic acid AdvReac Severe GI Verified 04/12/21 10:45 [From Augmentin] problems, severe diarrhea omeprazole AdvReac Severe Diarrhea Verified 04/12/21 10:45 esomeprazole [From Nexium] AdvReac Intermediate history of Verified 04/12/21 10:45 Irritable bowel, severe diarrhea silver nitrate AdvReac Skin Rash Verified 04/12/21 10:45 Home Medication Medication Instructions Recorded atorvastatin 20 mg PO HS 02/11/17 cholecalciferol (vitamin D3) 2,000 unit PO DAILY 02/11/17 [Vitamin D3] lisinopril 40 mg PO DAILY tab-cap 02/11/17 Advil Cold and Sinus 1 tab-cap PO BID PRN tab-cap 03/27/17 Digestive Advantage Lactos Def 1 cap PO DAILY 04/25/20 Women's Multivitamin 1 tab PO DAILY 04/25/20 pantoprazole 20 mg tablet,delayed 20 mg PO BID tab 02/01/21 release estradiol 1 mg tablet 0.5 mg PO DAILY tab 03/03/21 conjugated estrogens 0.625 mg/gram 0.625 mg VAGINAL .weekly g 03/10/21 vaginal cream polyethylene glycol 3350 17 238 g PO ONCE #238 g 03/10/21 gram/dose oral powder bisacodyl 5 mg tablet,delayed 5 mg PO ONCE #4 tab 03/13/21 release Current Visit Medications: Current Medications Generic Name Dose Route Start Last Admin Trade Name Freq PRN Reason Stop Dose Admin Hyoscyamine Sulfate 0.125 mg 04/12/21 07:04 Hyoscyamine 0.125 Mg Sl/Oral/Chew SL DIRECTED PRN Ringer's Solution 1,000 mls @ 80 mls/hr 04/12/21 06:00 06/02/21 10:52 IV 05/11/21 23:59 80 mls/hr INFUSION RONNELL Administration IV Miscellaneous Supplies 1 each 04/12/21 06:00 Iv Access IV 05/11/21 23:59 DIRECTED RONNELL Ondansetron HCl 4 mg 04/12/21 07:04 Ondansetron 4 Mg/2 Ml Vial IVP Q4H PRN PRN Nausea / Vomiting Sodium Chloride 0 ml 04/12/21 06:00 Normal Saline Flush 10 Ml Syr IV 05/11/21 23:59 PRN PRN Sodium Chloride 0 ml 04/12/21 06:00 Normal Saline 10 Ml Vial IJ 05/11/21 23:59 DIRECTED PRN Sterile Water 0 ml 04/12/21 06:00 Water,Injection,Sterile 10 Ml Vial IJ 05/11/21 23:59 DIRECTED PRN PFSH Active Problems Active Problems: Problem Status Onset Code Osteoarthritis of carpometacarpal (CMC) joint of left thumb M18.12 Trochanteric bursitis of left hip M70.62 Acromioclavicular joint arthritis M19.019 Subacromial impingement of right shoulder M75.41 Chronic shoulder pain M25.519, G89.29 Hip bursitis M70.70 Status post bilateral total hip replacement Z96.643 Postoperative anemia due to acute blood loss D62 Closed fracture of right distal radius S52.501A Post-nasal drip R09.82 Sinus congestion R09.81 Ethmoid sinusitis J32.2 Bilateral primary osteoarthritis of hip 09/04/17 M16.0 De Quervain's tenosynovitis, right 11/14/16 M65.4 Other intraarticular fracture of lower end of right radius, subsequent encounter for closed fracture with routine healing 08/08/16 S52.571D Pain from implanted hardware 06/10/17 T85.848A Right wrist tendinitis 04/18/17 M77.8 Tubular adenoma of colon 02/26/17 D12.6 Instability of joints of both ankles M25.371, M25.372 Bilateral knee pain M25.561, M25.562 Chronic ethmoidal sinusitis J32.2 Chronic maxillary sinusitis J32.0 History of sinusitis Z87.09 Chronic frontal sinusitis J32.1 Bunion, right foot M21.611 Bunion, left foot M21.612 Trochanteric bursitis, right hip M70.61 Ingrowing right great toenail L60.0 Tendinitis of left rotator cuff M75.82 Arthritis of carpometacarpal (CMC) joint of right thumb M18.11 Medical History Medical History GERD (gastroesophageal reflux disease) Hip bursitis Hypertension IBS (irritable bowel syndrome) Surgical History Surgical History Abdominal hysterectomy Arthroplasty of knee PT. DENIES THIS Cholecystectomy Colonoscopy - IV Sedation (02/26/17) EGD - IV Sedation (02/26/17) History of bursectomy and IT band release right wrist fracture repair (06/29/16) Status post bilateral total hip replacement Trochanteric bursitis of left hip s/p endoscopic trochanteric bursectomy and IT band release DOS: 12/22/2020 Most recent injections: 09/19/2020 ; 06/27/20 Tobacco Smoking/Tobacco Use Status: Former Tobacco Use Alcohol Alcohol Intake: current Alcohol intake frequency: holidays/special occasions only Substance Use Substance use: Never Substance use type: does not use Vital Signs and Lab Results Vital Signs Most Recent Vital Signs in EMR: Most Recent Vital Signs Temp Pulse Resp BP Pulse Ox 36.8 C 94 H 18 159/95 H 98 04/12/21 10:37 04/12/21 10:37 04/12/21 10:37 04/12/21 10:37 04/12/21 10:37 Lab Results Blood Type / Crossmatch: No Data to Display Complete Blood Count: No Data to Display Complete Metabolic Panel: No Data to Display Liver Function Panel: No Data to Display Coagulation Panel: No Data to Display Cardiac Panel: No Data to Display Arterial Blood Gas: No Data to Display Venous Blood Gas: No Data to Display Pancreas Panel: No Data to Display Thyroid Panel: No Data to Display Infectious Disease: Coronavirus (COVID-19)(PCR) Negative (Negative) 04/11/21 10:23 04/11/21 Coronavirus 2019 Source Nasal/nares 04/11/21 10:23 04/11/21 Blood Cultures: No Data to Display Toxicology Panel: No Data to Display Anesthesia Assessment and Plan Anesthesia History Personal History: No History of Anesthesia Complications Family History: No Family History of Anesthesia Complications Exercise Tolerance Exercise Tolerance: Metabolic Equivalents>4 Pertinent Negatives Pertinent Negatives: No Major Cardiovascular Symptoms or Complaints, No Major Pulmonary Symptoms or Complaints, No History of CVA/TIA and Other (3-4 nights a week) Cardiac & Pulmonary Exam Cardiac Exam: Normal S1/S2 Heart Sounds Pulmonary Exam: Clear Bilateral Breath Sounds Airway Exam Known Difficult Airway: No Mallampati Class: 2 Mouth Opening: Normal (> 3cm) Thyromental Distance: Greater than 3 cm Neck Range of Motion: Full ROM Neck Circumference: Normal Teeth Condition: Removable Dentures/Plates Upper (Crack in upper dentures) and Removable Dentures/Plates Lower Airway Comments: Upper dentures have a crack. Patient does not want to take them out. She was counseled of risk of damage and still wishes to leave them in. ASA Classification ASA Score: ASA 2 Emergency Case?: No NPO Status NPO Status: NPO Clears >2 hours, Solids >8 hours Anesthesia Plan Resuscitation Status: Full Code Anesthesia Technique: General Anesthesia Airway Planned: Natural Airway Monitors Used: Standard Monitors
[2021-04-12 11:13] VITALS: BMI 28.5
--- NOTE | 2021-04-12 11:39 | BOWEL_PTH ---
PATIENT: Shan Curran LOC: [facility] U#:[id number] AGE/SX: 65/F ROOM: RE04/12/[address]: Lorie Mckeon MD : 1955 BED: DIS: 04/12/2021 SPEC #: [id number] RECD: 04/12/21 13:13 STATUS: [facility] #: [id number] FELICITY: 04/12/21 11:[address]: Lorie Mckeon DEPT: Surgical Specimen RECD BY: Sushma Tapia ENTERED: 04/12/21 13:16 SP TYPE: Bowel OTHR DR: Nicolasa Griggs Tissues: 1 - BIOPSY BOWEL 2 - STOMACH BIOPSY 3 - STOMACH BIOPSY 4 - ESOPHAGUS BIOPSY 5 - BIOPSY BOWEL 6 - BIOPSY BOWEL 7 - BIOPSY BOWEL 8 - BIOPSY BOWEL Procedures: GROSS AND MICRO LEVEL 4 Comments: [id number]
--- NOTE | 2021-04-12 12:21 | W.ANESPOSTOP ---
Postoperative Evaluation Date, Time and Location Date Performed: 04/12/21 Time Performed: 12:21 Patient Location: Day Surgery Unit Vital Signs Most Recent Imported Vital Signs: Most Recent Vital Signs Temp Pulse Resp BP Pulse Ox 36.8 C 94 H 18 159/95 H 98 04/12/21 10:37 04/12/21 10:37 04/12/21 10:37 04/12/21 10:37 04/12/21 10:37 Most Recent Manually Entered Vital Signs: Adult Blood Pressure: 148/101 Heart Rate: 85 Respirations: 16 Oxygen Saturation (%): 98 Temperature (C): 36.2 C Pain Score (0-10 Scale): 0 Pain Score Most Recent Pain Score: Most Recent Pain Score Pain Level 0 04/12/21 10:37 Assessment Mental Status: Awake (Alert & Oriented to Patient Baseline) Airway and Respiratory Function: Patent airway with normal (patient baseline) respiratory exam Cardiovascular Function: Hemodynamically Stable Hydration Status: Adequately Hydrated Nausea & Vomiting: No Nausea or Vomiting Pain: Pt. Denies Any Pain Peripheral Nerve Block: Patient did not receive a nerve block
[2021-04-12 12:23] VITALS: BP 148/101; PULSE 85; RESP 16; TEMPC 36.2; O2SAT 98
[2021-04-12 12:55] VITALS: BP 179/95; PULSE 69; RESP 16; TEMP 36.1; O2SAT 100
[2021-04-12] MEDS: Hyoscyamine 0.125 MG SL/ORAL/CHEW SL (13:00)
== END 2021-04-12 13:35 | disposition home or self-care (01) ==
LOC: SUR 10:24
PROVIDERS: PCP Family Medicine; Visit Provider Surgery
PROC: (CPT 45380; principal; 2021-04-12 11:45)
DX: Z12.11 Encounter for screening for malignant neoplasm of colon (principal); Z86.010 Personal history of colon polyps; K21.9 Gastro-esophageal reflux disease without esophagitis; K29.70 Gastritis, unspecified, without bleeding; K31.7 Polyp of stomach and duodenum; K20.90 Esophagitis, unspecified without bleeding; D12.2 Benign neoplasm of ascending colon; D12.3 Benign neoplasm of transverse colon; D12.4 Benign neoplasm of descending colon; K63.5 Polyp of colon
CPT/HCPCS: 45380; 43239; 88305; J2001; J3490

== ENCOUNTER → 2021-05-03 10:34 | Outpatient (BNVA) | payer MEDICARE, SELFPAY | PROVIDERS: PCP Family Medicine; Referring Provider Family Medicine; Visit Provider Student in an Organized Health Care Education/Training Program | DX: M70.62 Trochanteric bursitis, left hip (principal); M76.32 Iliotibial band syndrome, left leg; M70.61 Trochanteric bursitis, right hip | CPT/HCPCS: 99213 ==

== ENCOUNTER → 2021-05-12 10:43 | Outpatient (BNVA) | payer MEDICARE, SELFPAY | PROVIDERS: PCP Family Medicine; Referring Provider Family Medicine; Visit Provider Surgery | DX: K29.70 Gastritis, unspecified, without bleeding (principal); K20.90 Esophagitis, unspecified without bleeding; K58.9 Irritable bowel syndrome, unspecified | CPT/HCPCS: 99212; 99213 ==

== ENCOUNTER 2021-05-31 21:24 | Outpatient (REF) | payer MEDICARE, SELFPAY | END 2021-05-31 21:25 | disposition home or self-care (01) | LOC: NCHCN 21:24 | PROVIDERS: PCP Family Medicine; Visit Provider Family Medicine | DX: R31.9 Hematuria, unspecified (principal) | CPT/HCPCS: 87077; 87086; 87186 ==

== ENCOUNTER 2021-06-19 18:56 | Outpatient (REF) | payer MEDICARE, SELFPAY ==
[2021-06-19 20:15] LABS: C Diff PCR Negative (Negative)
== END 2021-06-19 18:57 | disposition home or self-care (01) ==
LOC: NCHCN 18:56
PROVIDERS: PCP Family Medicine; Visit Provider Family Medicine
DX: R19.7 Diarrhea, unspecified (principal)
CPT/HCPCS: 87493

== ENCOUNTER → 2021-06-21 10:20 | Outpatient (BNVA) | payer MEDICARE, SELFPAY | PROVIDERS: PCP Family Medicine; Referring Provider Family Medicine; Visit Provider Student in an Organized Health Care Education/Training Program | DX: M70.62 Trochanteric bursitis, left hip (principal); M70.61 Trochanteric bursitis, right hip | CPT/HCPCS: 99213; 99214 ==

== ENCOUNTER → 2021-07-24 13:39 | Outpatient (BNVA) | payer MEDICARE, SELFPAY | PROVIDERS: PCP Family Medicine; Referring Provider Family Medicine | DX: M18.11 Unilateral primary osteoarthritis of first carpometacarpal joint, right hand (principal) | CPT/HCPCS: 20600; J1030 ==

== ENCOUNTER 2021-08-09 09:42 | Outpatient (REF) | payer MEDICARE, SELFPAY ==
[2021-08-09 14:50] LABS: Calcium 9.1 mg/dL (8.5-10.1)
[2021-08-09 14:51] LABS: ALT 68 U/L (14-59); AST 38 U/L (15-37); Albumin 3.7 g/dL (3.4-5.0); Alkaline Phosphatase 87 U/L (46-116); Anion Gap 7.6 mmol/L (3-11); BUN 16 mg/dL (7-18); Bilirubin, Total 0.6 mg/dL (0.2-1.0); CO2 30.4 mmol/L (21.0-32.0); CREATININE 1.1 mg/dL (0.55-1.02); Calculated LDL 109 mg/dL (<100); Chloride 104 mmol/L (98-107); Cholesterol 211 mg/dL (<200); Estimated GFR 49.69 (mL/min/1.73m2); Glucose 85 mg/dL (74-106); HDL Cholesterol 83 mg/dL (40-60); Potassium 4.8 mmol/L (3.5-5.1); Sodium 142 mmol/L (136-145); Triglyceride 96 mg/dL (<150)
== END 2021-08-09 09:43 | disposition home or self-care (01) ==
LOC: NCHCN 09:42
PROVIDERS: PCP Family Medicine; Visit Provider Family Medicine
DX: E78.5 Hyperlipidemia, unspecified (principal); R19.7 Diarrhea, unspecified; I10 Essential (primary) hypertension
CPT/HCPCS: 80053; 80061

== ENCOUNTER 2021-09-07 01:07 | Outpatient (CLI) | payer MEDICARE, SELFPAY ==
--- NOTE | 2021-09-07 10:49 | DI.MAMMO_ITS ---
Exam(s) MAMMO SCREENING EXAM: MAMMO SCREENING CLINICAL HISTORY: SCREENING, Z12.31. TECHNIQUE: Bilateral full field digital CC and MLO mammographic images were obtained with 3D tomosyn thesis and utilizing computer aided detection (CAD). COMPARISON: Prior mammograms dating back to 2011, the most recent being August 2020 and February 2021. FINDINGS: No new significant radiograph findings in the right breast. Towards the posterior aspect of the left breast on 3D cc imaging there is a 4 x 5 millimeter asymmetr ic density located approximately 10 cm in from the nipple, more evident when compared to prior studie s. No malignant-appearing microcalcifications region nor in either breast. There is no significant architectural distortion nor skin thickening-retraction. IMPRESSION: 1. No radiographic evidence of malignancy right breast. 2. Left breast asymmetric density-possible nodule located 10 cm in from the nipple. Spot compression views and ultrasound recommended BI-RADS Category 0 - Assessment Incomplete: Need additional imaging evaluation Breast Density - Category B - Scattered areas of fibroglandular density Breast density Category C or D implies that the patient has dense breast tissue. Dense breast tissue can make it harder to find cancer on a mammogram. Dense breast tissue is also associated with an incr eased risk of breast cancer. This information about the result of the mammogram report was provided to the patient to raise their awareness. Use this report when you speak with the patient about their risks for breast cancer, which includes their family history. At that time, you may recommend additional screening tests (Ultrasoun d or MRI) as these tests may add significant information. A negative radiographic report should not delay biopsy if a dominant or clinically suspicious mass is present. Up to ten percent of cancers are not identified on mammography. A negative report may reinforce clinical impression. Adenosis and dense breasts may obscure an underlying neoplasm. False positive reports average 6 to 10%. Patient will receive a letter notifying them of these results.
== END 2021-09-07 01:27 ==
PROVIDERS: PCP Family Medicine; Visit Provider Family Medicine
DX: Z12.31 Encounter for screening mammogram for malignant neoplasm of breast (principal); R92.8 Other abnormal and inconclusive findings on diagnostic imaging of breast
CPT/HCPCS: 77063; 77067

== ENCOUNTER 2021-09-26 08:36 | Outpatient (CLI) | payer MEDICARE, SELFPAY ==
--- NOTE | 2021-09-26 10:50 | DI.MAMMO_ITS ---
Exam(s) MAMMO SCREEN CALL BACK UNI EXAM: MAMMO SCREEN CALL BACK UNI CLINICAL HISTORY: F/U MAMMO, LT BREAST ASYMMETRIC DENSITY,? NODULE TECHNIQUE: Spot compression views and tomographic imaging were performed. COMPARISON: 2011 through 07 September 2021 FINDINGS: No suspicious masses or suspicious microcalcifications are seen. There is a small circumscribed nodule adjacent to a vessel, consistent with an intramammary lymph nod e. IMPRESSION: BI-RADS Category 1, Negative Yearly screening mammography is recommended. Breast Density - Category B, scattered fibroglandular densities.
== END 2021-09-26 08:56 ==
PROVIDERS: PCP Family Medicine; Visit Provider Family Medicine
DX: Z12.31 Encounter for screening mammogram for malignant neoplasm of breast (principal); R92.8 Other abnormal and inconclusive findings on diagnostic imaging of breast; N64.89 Other specified disorders of breast
CPT/HCPCS: 77063; 77067

== ENCOUNTER → 2022-03-06 02:07 | Outpatient (CLI) | payer MEDICARE, SELFPAY ==
--- NOTE | 2022-03-06 13:00 | DI.CTLCSR_ITS ---
Exam(s) CT CHEST LUNG CANCER SCREEN EXAM: CT CHEST LUNG CANCER SCREEN CLINICAL HISTORY: H/O CIGARETTE SMOKER, Z87.891 TECHNIQUE: Imaging Protocol: Axial computed tomography images with coronal and sagittal reformatted images were created and reviewed COMPARISON: CT CT CHEST LUNG CANCER SCREEN from 06/06/2020 FINDINGS: Tracheobronchial tree: Patent where visualized. Pulmonary parenchyma: No consolidation or dominant measurable mass. Mild emphysematous changes are pr esent in the lungs. There is a calcified granuloma in the left upper lobe. Lung Nodules: No noncalcified pulmonary nodules are seen. Mediastinum and Giovanna: No dominant adenopathy or fluid collection. The esophagus is unremarkable. Thyroid gland: Unremarkable. Lymph nodes: Unremarkable. Pleura: No effusion or pneumothorax. Heart: The heart is not dilated. No coronary artery calcifications are seen. No pericardial effusion . Aorta: Thoracic aorta non-dilated.Atherosclerosis. Upper abdomen: Status post cholecystectomy. Soft Tissues: Unremarkable. Bones: Within normal limits. IMPRESSION: No noncalcified pulmonary nodules. Lung RADS Cat 1 - Negative: No nodules and definitely benign nodules Lung-RADS 1.0 CATEGORIES: Category 0 - Prior chest CT exam(s) being located for comparison. Category 1 - Annual screening in 12 months. No nodules or definitely benign nodules. Category 2 - Annual screening in 12 months. Benign appearance. Nodules with low likelihood of becomin g active cancer. Category 3 - 6-month follow-up. Probably benign. Short-term follow-up suggested. Nodules with low lik elihood of becoming active cancer. Category 4A - 3-month follow-up and CT/PET if >8 mm in size. Suspicious finding. Findings which requi re additional testing. Category 4B - Findings which require additional testing and tissue sampling. Suspicious finding. Category 4X - Category 3 or 4 nodules with additional features or imaging findings that increases the suspicion of malignancy. Modifier S- Potentially clinically significant finding. (Non lung cancer) RADIATION DOSE DELIVERED: 72.75mGy.cm Total DLP !Error CTDIvol 72.75mGy.cm Total DLP 1.84mGy CTDIvol DATA REPOSITORY: All CT scans at this facility are submitted to the National Radiology Data Registry (NRDR) Dose Index Registry (DIR) with the [employer] (A[employer]). RADIATION OPTIMIZATION: All CT scans at this facility use at least one of these dose optimization te chniques: automated exposure control; mA and/or kV adjustment per patient size (includes targeted exa ms where dose is matched to clinical indication); or iterative reconstruction.
== END ==
PROVIDERS: PCP Family Medicine; Visit Provider Family Medicine
DX: Z12.2 Encounter for screening for malignant neoplasm of respiratory organs (principal); Z87.891 Personal history of nicotine dependence; R91.8 Other nonspecific abnormal finding of lung field; J43.8 Other emphysema
CPT/HCPCS: 71271

== ENCOUNTER 2022-04-23 17:00 | Outpatient (REF) | payer MEDICARE, SELFPAY ==
[2022-04-27 16:43] LABS: Calprotectin 287 mcg/g
== END 2022-04-23 17:01 | disposition home or self-care (01) ==
LOC: LBN 17:00
PROVIDERS: PCP Family Medicine; Visit Provider Nurse Practitioner Adult Health
DX: R19.7 Diarrhea, unspecified (principal)
CPT/HCPCS: 83993

== ENCOUNTER 2022-08-22 08:17 | Outpatient (REF) | payer MEDICARE, SELFPAY ==
[2022-08-22 14:53] LABS: HCT 41.8 % (36.0-46.0); HGB 13.6 g/dL (11.2-15.7); MCH 29.4 pg (27.0-33.0); MCHC 32.5 % (32.0-36.0); MCV 90 fL (80-95); MPV 10.2 fL (8.0-11.0); Platelet Count 288 10^3/uL (130-400); RBC 4.63 10^6/uL (3.93-5.22); RDW 12.9 % (11.7-14.6); RDW-SD 42.4 fL; WBC 4.91 10^3/uL (4.4-10.8)
[2022-08-22 15:07] LABS: ALT 31 U/L (14-59); AST 25 U/L (15-37); Albumin 3.8 g/dL (3.4-5.0); Alkaline Phosphatase 80 U/L (46-116); Anion Gap 8.2 mmol/L (3-11); BUN 15 mg/dL (7-18); Bilirubin, Total 0.7 mg/dL (0.2-1.0); CO2 29.8 mmol/L (21.0-32.0); Calcium 9.5 mg/dL (8.5-10.1); Calculated LDL 94 mg/dL (<100); Chloride 105 mmol/L (98-107); Cholesterol 198 mg/dL (<200); Estimated GFR 61.75 (mL/min/1.73m2); Glucose 92 mg/dL (74-106); HDL Cholesterol 83 mg/dL (40-60); Potassium 4.6 mmol/L (3.5-5.1); Sodium 143 mmol/L (136-145); Total Protein 6.8 g/dL (6.4-8.2); Triglyceride 105 mg/dL (<150)
[2022-08-23 05:54] LABS: Vitamin D 25 Total 35.7 ng/mL (30-100)
== END 2022-08-22 08:18 | disposition home or self-care (01) ==
LOC: NCHCN 08:17
PROVIDERS: PCP Family Medicine; Visit Provider Family Medicine
DX: I10 Essential (primary) hypertension (principal); E78.5 Hyperlipidemia, unspecified; D64.9 Anemia, unspecified; E55.9 Vitamin D deficiency, unspecified
CPT/HCPCS: 80053; 80061; 82306; 85027

== ENCOUNTER 2022-09-13 12:35 | Observation (INO) | payer MEDICARE, SELFPAY ==
[2022-09-13] VITALS (60 sets, daily range): BP systolic 117–188; BP diastolic 62–103; PULSE 63–104; RESP 11–22; TEMP 36.6–36.9; O2SAT 97–100
--- NOTE | 2022-09-13 12:59 | ED.GENADUL_ITS ---
Discharge Plan Disposition Patient Disposition: [facility] INPATIENT Condition: Stable Discharge Details Clinical Impression: BRAO (branch retinal artery occlusion), Carotid occlusion, left Primary Care Provider: Nicolasa Griggs ED Provider: Mode Graham [place] and New Rx's Prescriptions: No Action Premarin 0.625 mg/gram cream 0.5 mg vaginal DIRECTED Rx Instructions: 2x/wk atorvastatin 20 MG tablet 20 mg PO HS lisinopril 40 MG tablet 40 mg PO DAILY cholecalciferol (vitamin D3) [Vitamin D3] 2,000 UNIT tablet 2,000 unit PO DAILY Advil Cold and Sinus 1 EACH tablet 1 tab-cap PO BID PRN estradiol 1 mg tablet 0.5 mg PO DAILY Label Comments: 10/09/17 PER PT. .50 MG QD. dexlansoprazole [Dexilant] 30 mg capsule,biphase delayed releas 30 mg PO DAILY Qty: 90 3RF hyoscyamine sulfate [Levsin/SL] 0.125 mg tablet, sublingual 0.125 mg sublingual BID-QID PRN (Reason: dyspepsia, cramping) Qty: 30 5RF Label Comments: does not take epinephrine 0.3 mg/0.3 mL auto-injector 1 ea subcut DIRECTED PRN Label Comments: INJECT ONE PEN UNDER THE SKIN DIRECTED mesalamine 1.2 gram tablet,delayed release (DR/EC) 1 tab PO DIRECTED Women's Multivitamin 18 mg iron-400 mcg-500 mg Tablet 1 tab PO DAILY Digestive Advantage Lactos Def 500 million cell-3,000 unit Capsule 1 cap PO DAILY Label Comments: on hold Medical Decision Making Patient presenting from eye surgeon with BRAO on their exam which began Saturday evening. She needs a full CVA/TIA work-up. Her EKG is sinus rhythm with no acute ST changes. IV is in place and laboratory studies sent. CTA head and neck ordered. She will need admission for echo and MRI. Laboratory studies with normal CBC and essentially normal BMP except for mild renal insufficiency. Liver function normal. Sed rate is normal. Received a call from radiology with report that patient has a complete occlusion of the left carotid artery which reconstitute above at the bifurcation. Images sent to [facility]. Case discussed with neurology, Dr. Jacob. Because the left carotid is completely occluded no surgical intervention indicated. The right carotid does have 50% stenosis which is also nonsurgical but is likely source of the right eye pathology. Recommend dual platelet therapy, increase statin dose, admission for monitoring and ECHO. Patient aware of findings and plan. Call placed to hospitalist for admission here. Medical Records Medical records reviewed: Yes I reviewed the patient's medical records. Medical records narrative: From [facility] Lab Data Lab results reviewed: Yes I reviewed the patient's lab results. ECG Data Attestation: I personally reviewed and interpreted this ECG (s) as follows: Prior ECG tracings: available for review Interpretation: See EKG HPI General Mode of arrival: ambulatory . Date/Time Provider Initiated Documentation: 09/13/22 12:59 . Limitations to Documentation: no limitations . Information obtained by: patient . HPI Narrative: Patient sent to ED from [facility] with branch retinal artery occlusion. Patient reports having a migraine with her aura Saturday. When this resolved patient realized that she had a blind spot affecting her right eye. She was seen by her eye doctor today and found to have a BRAO. She denies having headache currently. She denies any other definitive neurologic symptoms or changes though she has had episodes of brief vertigo, sharp head pain, tingling in extremities. She has had brief episodes of pinches in her chest. She has had no prolonged chest pain, shortness of breath, abdominal pain, vomiting, gait disturbance, speech disturbance, numbness, weakness. Related Data Home Medications Medication Instructions Recorded Confirmed atorvastatin 20 mg tablet 20 mg PO HS 02/11/17 09/13/22 cholecalciferol (vitamin D3) 50 2,000 unit PO DAILY 02/11/17 09/13/22 mcg (2,000 unit) tablet (Vitamin D3) lisinopril 40 mg tablet 40 mg PO DAILY 02/11/17 09/13/22 pseudoephedrine-ibuprofen 30 1 tab-cap PO BID PRN 03/27/17 09/13/22 mg-200 mg tablet (Advil Cold and Sinus) Bacillus coagulans 500 million 1 cap PO DAILY 04/25/20 07/25/21 cell-lactase 3,000 unit capsule (Digestive Advantage Lactose Defense) [id number] carb-vit K 1 tab PO DAILY 04/25/20 09/13/22 18 mg iron-400 mcg-500 mg tablet (Women's Multivitamin) estradiol 1 mg tablet 0.5 mg PO DAILY 03/03/21 09/13/22 conjugated estrogens 0.625 mg/gram 0.5 mg vaginal DIRECTED 03/10/21 09/13/22 vaginal cream (Premarin) dexlansoprazole 30 mg 30 mg PO DAILY #90 caps 06/02/21 09/13/22 capsule,biphase delayed release (Dexilant) hyoscyamine sulfate 0.125 mg 0.125 mg sublingual BID-QID PRN 06/02/21 07/25/21 sublingual tablet (Levsin/SL) dyspepsia, cramping #30 tabs epinephrine 0.3 mg/0.3 mL 1 ea subcut DIRECTED PRN 09/13/22 09/13/22 injection, auto-injector mesalamine 1.2 gram tablet,delayed 1 tab PO DIRECTED 09/13/22 09/13/22 release Previous Rx's Medication Instructions Recorded dexlansoprazole 30 mg 30 mg PO DAILY #90 caps 06/02/21 capsule,biphase delayed release (Dexilant) hyoscyamine sulfate 0.125 mg 0.125 mg sublingual BID-QID PRN 06/02/21 sublingual tablet (Levsin/SL) dyspepsia, cramping #30 tabs Allergies Allergy/AdvReac Type Severity Reaction Status Date / Time venom-honey bee Allergy Severe Verified 09/13/22 12:43 wool Allergy Verified 09/13/22 12:43 amoxicillin [From Augmentin] AdvReac Severe GI Verified 09/13/22 12:43 problems, Severe Diarrhea clavulanic acid AdvReac Severe GI Verified 09/13/22 12:43 [From Augmentin] problems, severe diarrhea omeprazole AdvReac Severe Diarrhea Verified 09/13/22 12:43 esomeprazole [From Nexium] AdvReac Intermediate history of Verified 09/13/22 12:43 Irritable bowel, severe diarrhea silver nitrate AdvReac Skin Rash Verified 09/13/22 12:43 General Stated Complaint: CVA/TIA MENA: 3 Review of Systems Narrative: 08/24 Review of Systems completed and is negative except as stated above in HPI (Systems reviewed: Const, Eyes, ENT, Resp, CV, GI, , MSK, Skin, Neuro) PFSH All Active Problems (Updated 09/13/22 @ 17:52 by Mode Graham MD) BRAO (branch retinal artery occlusion) (Acute) Carotid occlusion, left (Acute) Chronic shoulder pain (Acute) Subacromial impingement of right shoulder (Acute) 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 of carpometacarpal (CMC) joint of left thumb (Acute) Injected: 02/17/2021 Gastritis (Acute ~04/2021) Esophagitis (Acute ~04/2021) Trochanteric bursitis of left hip (Acute) s/p endoscopic trochanteric bursectomy and IT band release DOS: 12/22/2020 Most recent injections: 09/19/2020 ; 06/27/20 Hip bursitis (Acute) Postoperative anemia due to acute blood loss (Acute) Post-nasal drip (Chronic) De Quervain's tenosynovitis, right (Acute 11/14/16) Other intraarticular fracture of lower end of right radius, subsequent encounter for closed fracture with routine healing (Acute 08/08/16) Pain from implanted hardware (Acute 06/10/17) Right wrist tendinitis (Acute 04/18/17) Tubular adenoma of colon (Acute 02/26/17) Instability of joints of both ankles (Acute) Bilateral knee pain (Chronic) History of sinusitis (Chronic) Chronic frontal sinusitis (Chronic) Trochanteric bursitis, right hip (Acute) Most recent injections: 01/02/2021; 09/19/2020 ; 06/27/20 Ingrowing right great toenail (Acute) Tendinitis of left rotator cuff (Acute) Arthritis of carpometacarpal (CMC) joint of right thumb (Acute) Medical History Bunion, left foot Bunion, right foot Chronic ethmoidal sinusitis Chronic maxillary sinusitis Closed fracture of right distal radius Colon polyp, hyperplastic (~04/2021) Ethmoid sinusitis GERD (gastroesophageal reflux disease) Hypertension Iliotibial band syndrome of left side Serrated adenoma of colon (~04/2021) Sinus congestion Tubular adenoma (~04/2021) Surgical History Abdominal hysterectomy Arthroplasty of knee PT. DENIES THIS Cholecystectomy Colonoscopy - IV Sedation (02/26/17) EGD - IV Sedation (02/26/17) History of bursectomy and IT band release History of colonoscopy (~04/2021) History of esophagogastroduodenoscopy (EGD) (~04/2021) right wrist fracture repair (06/29/16) Status post bilateral total hip replacement Social History Smoking/Tobacco Use Status: Former Tobacco Use Quit Date: 08/11/17 Smoking risk assessment performed?: Yes Alcohol Intake: current Alcohol Intake frequency: holidays/special occasions only Drug use: Never Substance use type: does not use Do you feel safe at home: Yes Additional Social history: lives alone Exam Narrative Exam Narrative: Const: WDWN female in NAD. HEENT: NC/AT. Normal facial exam. Eyes: Normal conjunctiva and sclera. Pupils fixed and dilated. EOMI. Neck: Supple. Trachea midline. Lungs: Normal respiratory effort. Lungs are clear. Cor: RRR without murmur/gallop. Good radial pulses. GI: Soft. NT/ND. No guarding or rebound. Neuro: A+O x 3. Normal speech, mentation, gait. Cranial nerves II - XII grossly intact with right eye focal visual deficit. No gross motor or sensory deficit. Ext: No C/C/E. Skin: Warm and dry without rash. Course Vital Signs Vital signs: Vital Signs Temperature 97.8 F 09/13/22 12:39 Pulse 104 H 09/13/22 12:39 Respiratory Rate 18 09/13/22 12:39 Blood Pressure 182/84 H 09/13/22 12:39 Pulse Oximetry 100 09/13/22 12:39 Temperature 97.8 F 09/13/22 12:39 Temperature Source Temporal Artery Scan 09/13/22 12:39 Pulse 104 H 09/13/22 12:39 Respiratory Rate 18 09/13/22 12:39 Blood Pressure 182/84 H 09/13/22 12:39 Blood Pressure Position Sitting 09/13/22 12:39 Pulse Oximetry 100 09/13/22 12:39 Oxygen Delivery Method Room Air 09/13/22 12:39 Oxygen Flow Rate 0 09/13/22 12:39
--- NOTE | 2022-09-13 13:15 | RT.EKG_ITS ---
APPROVED REPORT Exam: Resting ECG Reason for Exam: ? CVA Patient Location: E HR:76 bpm ECG Measurements Heart Rate 76 AXIS WV 121 P 82 QRSd 88 QRS 11 QT 386 T 56 QTc 436 Conclusion Sinus rhythm...normal P axis, V-rate 60- 99 Probable left atrial enlargement...P >50mS, <-0.10mV V1 Nonspecific ST-T changes Normal [place]
[2022-09-13 14:03] LABS: Abs Immature Grans 0.01 10^3/uL (0.0-0.06); Absolute Basophil Count 0.05 10^3/uL (0.0-0.2); Absolute Eosinophil Count 0.14 10^3/uL (0.0-0.7); Absolute Lymphocyte Count 1.86 10^3/uL (1.2-3.4); Absolute Monocyte Count 0.37 10^3/uL (0.1-0.8); Absolute Neutrophil Count 2.73 10^3/uL (1.2-6.7); Eosinophils % 2.7; HGB 13.5 g/dL (11.2-15.7); Immature Grans % 0.2; MCH 29.3 pg (27.0-33.0); MCHC 32.1 % (32.0-36.0); MCV 91 fL (80-95); Monocytes % 7.2; Neutrophils % 52.9; Platelet Count 240 10^3/uL (130-400); RBC 4.61 10^6/uL (3.93-5.22); RDW 12.6 % (11.7-14.6); RDW-SD 41.7 fL; WBC 5.16 10^3/uL (4.4-10.8)
[2022-09-13] MEDS: Normal Saline 1,000 ML 125 ML IV ×2 (14:05→22:21)
[2022-09-13 14:10] LABS: ESR 10 mm/hr (0-30)
[2022-09-13 14:23] LABS: ALT 33 U/L (14-59); AST 31 U/L (15-37); Albumin 3.7 g/dL (3.4-5.0); Alkaline Phosphatase 84 U/L (46-116); BUN 22 mg/dL (7-18); Bilirubin, Total 0.5 mg/dL (0.2-1.0); CREATININE 1.1 mg/dL (0.55-1.02); Calcium 9.3 mg/dL (8.5-10.1); Chloride 104 mmol/L (98-107); Estimated GFR 55.07 (mL/min/1.73m2); Glucose 94 mg/dL (74-106); Magnesium 1.9 mg/dL (1.8-2.4); Potassium 3.8 mmol/L (3.5-5.1); Sodium 140 mmol/L (136-145); Total Protein 7.3 g/dL (6.4-8.2)
[2022-09-13] MEDS: Omnipaque 350 MG/ML 500 ML BTL-Imaging package IJ (15:31)
--- NOTE | 2022-09-13 15:52 | DI.CT_ITS ---
Exam(s) CT BRAIN NECK CTA EXAM: CT BRAIN NECK CTA CLINICAL HISTORY: BRAO per optyolande. TECHNIQUE: Imaging Protocol: Axial CT angiography was performed with multi-slice acquisition and mu lti-planar and/or 3D reconstructions. CONTRAST MATERIAL: Intravenous: Omnipaque 350 Contrast volume:structured data in ml COMPARISON: No exams were available for comparison FINDINGS: CT angiography of the cervical cranial region was performed according to the usual protocol with intr avenous infusion of 85 cc of Omnipaque 350.. Initial noncontrast scanning of the head is unremarkable. Visualized lung apices are clear. Visualized portions of thoracic aorta and pulmonary arterial circul ation are unremarkable. There is no evidence of a cervical mass or adenopathy. The tracheal laryngeal structures appear intact. The common carotid artery on the right is unremarkable. There is less than 50 percent luminal diamet er stenosis of the proximal right internal carotid artery at the level of carotid bifurcation. The r emainder of the cervical portion of the right internal carotid artery is well maintained, no stenosis or dissection. Left common carotid artery is poorly seen at its origin and shows mild atheromatous change to the lev el of bifurcation. There is a complete occlusion of the proximal left internal carotid artery which reconstitutes approximately 1.67 cm above bifurcation. Moderate atheromatous change of the distal co mmon carotid artery noted. Remainder of the left internal carotid artery is patent to the skull base , although somewhat narrowed at 3 millimeters compared to 5 millimeter luminal diameter for correspon ding right internal carotid artery. The vertebral arteries are unremarkable in appearance in the cervical region with no evidence of aneu rysm, stenosis, or dissection. Intracranial portions of the internal carotid arteries appear normal with no evidence of aneurysm, st enosis, or dissection. Intracranial vertebral arteries and basilar artery appear normal with no evidence of aneurysm, stenos is or dissection. No aneurysm identified in the region of the [id number]. The anterior, middle, and posterior cer ebral arteries and major branches appear intact with no evidence of aneurysm, stenosis, or dissection . No enhancing brain lesion identified on 5 minutes delayed images.. IMPRESSION: Occluded proximal left internal carotid artery which reconstitutes 1.7 cm above the bifurcation. Less than 50 percent luminal diameter stenosis right proximal internal carotid artery. No other significant findings. RADIATION DOSE DELIVERED: 2,062.73mGy.cmTotal DLP 2,062.73mGy.cm Total DLP !Error CTDIvol DATA REPOSITORY: All CT scans at this facility are submitted to the National Radiology Data Registry (NRDR) Dose Index Registry (DIR) with the [employer] (ACR). RADIATION OPTIMIZATION: All CT scans at this facility use at least one of these dose optimization te chniques: automated exposure control; mA and/or kV adjustment per patient size (includes targeted exa ms where dose is matched to clinical indication); or iterative reconstruction.
[2022-09-13] MEDS: Clopidogrel 75 MG TAB PO (18:20)
[2022-09-13] MEDS: Aspirin 81 MG CHEW 162 MG CH (18:21)
[2022-09-13 19:00] LABS: Source Nasal/Nares
[2022-09-13 19:39] LABS: COVID-19 PCR Negative (Negative)
[2022-09-13 21:13] LABS: Lab Add On Test DONE
[2022-09-13 21:32] LABS: Hemoglobin A1C 5.7 % (<5.7)
[2022-09-13] MEDS: Atorvastatin 40 MG TAB 80 MG PO (22:25)
[2022-09-14] VITALS: PULSE 59
--- NOTE | 2022-09-14 | DI.MRI_ITS ---
Exam(s) MR BRAIN WO EXAM: MR BRAIN WO CLINICAL HISTORY: right retinal artery occlusion TECHNIQUE: Multiplanar multisequence MRI of the brain was performed. COMPARISON: CT CT BRAIN NECK CTA from 09/13/2022 FINDINGS: CEREBRAL PARENCHYMA: There is no evidence of intracranial hemorrhage, mass effect, or shift of midline structures. There are no extra-axial fluid collections. Ventricles are not enlarged or shifted. There is no significant focal signal abnormality in the cerebellar hemispheres nor within the [place], m idbrain, and thalami. There are multiple foci of sub cm FLAIR bright signal abnormality in the [place] and supra ventricular w ly matter, consistent with ischemic small vessel changes. However, there is no evidence of restric zoe diffusion at these levels nor elsewhere in the brain to suggest acute infarct. There is no significant focal signal abnormality evident on diffusion imaging to suggest acute ischem ic event. PITUITARY GLAND: No mass nor parasellar abnormality. No obvious abnormality in the cavernous sinuses. FLOW VOIDS: The expected flow void are noted. However, the flow void signal within the left intracav ernous internal carotid artery is thinner than the opposite-right side as is the flow signal within t he skull base-left carotid canal. This is consistent with findings on yesterday's CT angiogram which revealed occlusion of the left ICA just above the bifurcation and reconstitution slightly above that level. PARANASAL SINUSES: The visualized paranasal sinuses appear unremarkable. No obvious finding ORBITS: No obvious findings. IMPRESSION: There are multiple foci of white matter signal abnormality bilateral consistent with chronic small ve ssel ischemic disease. There is no evidence of acute lacunar infarct nor acute territorial infarct a nd no evidence of intracranial hemorrhage. Left internal carotid artery flow void is thinner than the right side, this being commensurate with f indings on the left side on the CT angiogram of the neck performed yesterday. Findings discussed by phone with the hospitalist following completion of the study 09/14/2022 DATA REPOSITORY:
[2022-09-14 03:19] VITALS: BP 147/81; PULSE 62; RESP 18; TEMP 36.7; O2SAT 98
--- NOTE | 2022-09-14 05:46 | W.PM.HP.N ---
Date of service: 09/13/22 Time of Service: 18:45 Assessment and Plan Assessment and plan (1) BRAO (branch retinal artery occlusion): Status: Acute Assessment and plan: Likley secondary to placque disruption with emboli of right carotid. DAPT Intensive dose atorvastatin. Echocardiogram PT/OT. Lipid panel and A1c D/C with monitoring coordinator. MRI head if orthopedic hardware is compatible with MRI. (2) Carotid occlusion, left: Status: Acute Assessment and plan: Complete occlusion with collaterals. Nonoperable. (3) Hypertension: Assessment and plan: Cont. lisinopril. Monitor. (4) Renal insufficiency: Status: Chronic Assessment and plan: Creatinine of 1.1; baseline (5) Ulcerative colitis: Status: Chronic Assessment and plan: Long-standing dx of IBS, recent bx showed actual ulcerative colitis. On mesalamine but she reports it has not helped and has an appt with her GI specialist next week; will hold. History of Present Illness History of Present Illness Chief Complaint: Right eye visual deficit Narrative: This is a 67 yo female with an extensive orthopedic history of osteoarthritis, bursitis, tenosynovitis, gastritis, esophagitis, recently dx ulcerative colitis. She was sent to the ED from [facility] after finding of branch retinal artery occlusion on their exam. The Saturday before admission she had a RAEL described as a migraine with aura. The REAL resolved but she noted a blind spot affecting the right eye. She has had brief episodes of vertigo and tingling in her extremities but no gait or motor disturbances, dysarthria, word finding difficulties, confusion. No palpitations, CP. CTA head and neck obtained that showed complete occlusion of the left carotid artery that reconsituted above the bifurcation. Right carotid with 50% stenosis. The case was discussed [place] physician [place] [facility] [place]. Nonsurgical. The source of the BRAO was likely embolic plaque from the right carotid. Dual platelet therapy and high dose statin therapy recommended, along with Echocardiogram and consideration for MRI. Pt states that she has been told that an MRI is contraindicated d/t bilateral hip arthroplasty hardware; need to review this with orthopedics. Review of Systems All systems reviewed & are unremarkable except as noted in HPI and below PFSH All Active Problems (Updated 09/14/22 @ 06:14 by Frederick Sams MD) Ulcerative colitis (Chronic) Renal insufficiency (Chronic) BRAO (branch retinal artery occlusion) (Acute) Carotid occlusion, left (Acute) Chronic shoulder pain (Acute) Subacromial impingement of right shoulder (Acute) 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 of carpometacarpal (CMC) joint of left thumb (Acute) Injected: 02/17/2021 Gastritis (Acute ~04/2021) Esophagitis (Acute ~04/2021) Trochanteric bursitis of left hip (Acute) s/p endoscopic trochanteric bursectomy and IT band release DOS: 12/22/2020 Most recent injections: 09/19/2020 ; 06/27/20 Hip bursitis (Acute) Postoperative anemia due to acute blood loss (Acute) Post-nasal drip (Chronic) De Quervain's tenosynovitis, right (Acute 11/14/16) Other intraarticular fracture of lower end of right radius, subsequent encounter for closed fracture with routine healing (Acute 08/08/16) Pain from implanted hardware (Acute 06/10/17) Right wrist tendinitis (Acute 04/18/17) Tubular adenoma of colon (Acute 02/26/17) Instability of joints of both ankles (Acute) Bilateral knee pain (Chronic) History of sinusitis (Chronic) Chronic frontal sinusitis (Chronic) Trochanteric bursitis, right hip (Acute) Most recent injections: 01/02/2021; 09/19/2020 ; 06/27/20 Ingrowing right great toenail (Acute) Tendinitis of left rotator cuff (Acute) Arthritis of carpometacarpal (CMC) joint of right thumb (Acute) Medical History Bunion, left foot Bunion, right foot Chronic ethmoidal sinusitis Chronic maxillary sinusitis Closed fracture of right distal radius Colon polyp, hyperplastic (~04/2021) Ethmoid sinusitis GERD (gastroesophageal reflux disease) Hypertension Iliotibial band syndrome of left side Serrated adenoma of colon (~04/2021) Sinus congestion Tubular adenoma (~04/2021) Surgical History Abdominal hysterectomy Arthroplasty of knee PT. DENIES THIS Cholecystectomy Colonoscopy - IV Sedation (02/26/17) EGD - IV Sedation (02/26/17) History of bursectomy and IT band release History of colonoscopy (~04/2021) History of esophagogastroduodenoscopy (EGD) (~04/2021) right wrist fracture repair (06/29/16) Status post bilateral total hip replacement Social History Smoking/Tobacco Use Status: Former Tobacco Use Quit Date: 08/11/17 Smoking risk assessment performed?: Yes Alcohol Intake: current Alcohol Intake frequency: holidays/special occasions only Drug use: Never Substance use type: does not use Do you feel safe at home: Yes Additional Social history: lives alone Meds Allergies and Home Medications Allergies Allergy/AdvReac Type Severity Reaction Status Date / Time venom-honey bee Allergy Severe Verified 09/13/22 12:43 wool Allergy Verified 09/13/22 12:43 amoxicillin [From Augmentin] AdvReac Severe GI Verified 09/13/22 12:43 problems, Severe Diarrhea clavulanic acid AdvReac Severe GI Verified 09/13/22 12:43 [From Augmentin] problems, severe diarrhea omeprazole AdvReac Severe Diarrhea Verified 09/13/22 12:43 esomeprazole [From Nexium] AdvReac Intermediate history of Verified 09/13/22 12:43 Irritable bowel, severe diarrhea silver nitrate AdvReac Skin Rash Verified 09/13/22 12:43 Home Medications Medication Instructions Recorded Confirmed Type atorvastatin 20 mg tablet 20 mg PO HS 02/11/17 09/13/22 History cholecalciferol (vitamin D3) 50 2,000 unit PO DAILY 02/11/17 09/13/22 History mcg (2,000 unit) tablet (Vitamin D3) lisinopril 40 mg tablet 40 mg PO DAILY 02/11/17 09/13/22 History pseudoephedrine-ibuprofen 30 1 tab-cap PO BID PRN 03/27/17 09/13/22 History mg-200 mg tablet (Advil Cold and Sinus) Bacillus coagulans 500 million 1 cap PO DAILY 04/25/20 07/25/21 History cell-lactase 3,000 unit capsule (Digestive Advantage Lactose Defense) pjaeiqxn-jpm-sufj-FA-Ca carb-vit K 1 tab PO DAILY 04/25/20 09/13/22 History 18 mg iron-400 mcg-500 mg tablet (Women's Multivitamin) estradiol 1 mg tablet 0.5 mg PO DAILY 03/03/21 09/13/22 History conjugated estrogens 0.625 mg/gram 0.5 mg vaginal DIRECTED 03/10/21 09/13/22 History vaginal cream (Premarin) dexlansoprazole 30 mg 30 mg PO DAILY #90 caps 06/02/21 09/13/22 Rx capsule,biphase delayed release (Dexilant) hyoscyamine sulfate 0.125 mg 0.125 mg sublingual BID-QID PRN 06/02/21 07/25/21 Rx sublingual tablet (Levsin/SL) dyspepsia, cramping #30 tabs epinephrine 0.3 mg/0.3 mL 1 ea subcut DIRECTED PRN 09/13/22 09/13/22 History injection, auto-injector mesalamine 1.2 gram tablet,delayed 1 tab PO DIRECTED 09/13/22 09/13/22 History release Exam Narrative Exam Narrative: Const:? WDWN female in NAD. Pleasant and conversational. HEENT:?Atraumatic. Eyes:? Normal conjunctiva and sclera.? Pupils fixed and dilated.? EOMI. Neck:? Supple.? FROM? Lungs:? Normal respiratory effort.? Lungs are clear. CV:? RRR without murmur.? Good radial pulses. GI:? Soft.? NT/ND.? No guarding or rebound. Neuro:? A+O x 3.? Normal speech, mentation. Subjective small right eye visual cut.? No gross motor or sensory deficit. Ext:? No edema/calf tenderness. Skin:? Warm and dry without rash. Results Labs Result diagrams: 09/13/22 13:32 09/13/22 13:32 Labs: Laboratory Results - last 24 hr 09/13/22 09/13/22 09/13/22 13:32 13:32 13:32 WBC 5.16 RBC 4.61 Hgb 13.5 Hct 42.0 MCV 91 MCH 29.3 MCHC 32.1 RDW 12.6 Plt Count 240 MPV 10.0 Immature Gran % 0.2 Neutrophils % 52.9 Lymphocytes % 36.0 Monocytes % 7.2 Eosinophils % 2.7 Basophils % 1.0 Nucleated RBC % 0.0 Absolute Neutrophils 2.73 Absolute Lymphocytes 1.86 Absolute Monocytes 0.37 Absolute Eosinophils 0.14 Absolute Basophils 0.05 ESR 10 Sodium 140 Potassium 3.8 Chloride 104 Carbon Dioxide 28.0 Anion Gap 8.0 BUN 22 H Creatinine 1.1 H Est GFR (CKD-EPI 2020) 55.07 Glucose 94 Hemoglobin A1c Calcium 9.3 Magnesium 1.9 Total Bilirubin 0.5 AST 31 ALT 33 Alkaline Phosphatase 84 Total Protein 7.3 Albumin 3.7 COVID-19 Source SARS-CoV-2 (PCR) Add-On Test Request 09/13/22 09/13/22 09/13/22 13:32 13:32 18:58 WBC RBC Hgb Hct MCV MCH MCHC RDW Plt Count MPV Immature Gran % Neutrophils % Lymphocytes % Monocytes % Eosinophils % Basophils % Nucleated RBC % Absolute Neutrophils Absolute Lymphocytes Absolute Monocytes Absolute Eosinophils Absolute Basophils ESR Sodium Potassium Chloride Carbon Dioxide Anion Gap BUN Creatinine Est GFR (CKD-EPI 2020) Glucose Hemoglobin A1c 5.7 Calcium Magnesium Total Bilirubin AST ALT Alkaline Phosphatase Total Protein Albumin COVID-19 Source Nasal/Nares SARS-CoV-2 (PCR) Negative Add-On Test Request DONE Last Vital Signs Temp 36.7 C 09/14/22 03:19 Pulse 62 09/14/22 03:19 Resp 18 09/14/22 03:19 BP 147/81 H 09/14/22 03:19 Pulse Ox 98 09/14/22 03:19 PAWSS Have you Been Recently Intoxicated or Drunk Within the Last 30 days?: No Have you Ever Experienced Previous Episodes of Alcohol Withdrawal?: No Have you ever Experienced Withdrawal Seizures?: No Have you ever Experienced Delirium Tremens(DT)s?: No Have you ever undergone Alcohol Rehabilitation Treatment (i.e, inpt ot outpatient treatment programs)?: No Have you ever Experienced Blackouts?: No Have you ever Combined Alcohol with other Downers within the last 90 days?: No Have you ever Combined Alcohol with any other Substance of Abuse during the last 90 days?: No Positive Blood Alcohol level on Presentation? [PCS.BAL]: No Evidence of Increased Autonomic Activity (i.e. HR>120, tremor, sweating, agitation, nausea)?: No Result: 0
[2022-09-14 07:00] VITALS: PULSE 63
[2022-09-14 07:35] LABS: Calculated LDL 85 mg/dL (<100); Cholesterol 161 mg/dL (<200); HDL Cholesterol 61 mg/dL (40-60); Triglyceride 77 mg/dL (<150)
[2022-09-14 07:38] VITALS: BP 177/96; PULSE 63; RESP 16; TEMP 36.6; O2SAT 99
--- NOTE | 2022-09-14 08:10 | OT.INDS ---
Occupational Therapy Notes 09/14/22 OT consult received and pts chart was reviewed. OT went in to see pt for evaluation and pt reports that she is completely (I). Pt does live alone in an apartment on the second floor. She recently moved into this apartment and is (I) with her community transportation. She has good family support and family near by. Upon visual assessment with pt she is (I) with her functional mobility, (I) with eating, (I) with dressing, no LOB with standing activities, Normal standing and sitting dynamic movements. Pt denies the need for Occupational Therapy services which OT is in agreement with. She has no strength or ROM deficits at this time with her (B) UE. Based on pts current functional level of (I) in her ADL/IADL routines OT will plan to discharge pt from skilled OT services at this time. Pt denies the need for any further adaptive equipment. OT recommends that pt return home when medically cleared per . Amina Owens, OTR/L [facility]
[2022-09-14] MEDS: Hyoscyamine 0.125 MG SL/ORAL/CHEW SL (08:50)
[2022-09-14] MEDS: Cholecalciferol (Vitamin D3) 1,000 UNIT TAB 2000 UNITS PO (08:50)
[2022-09-14] MEDS: Aspirin 81 MG CHEW PO (08:50)
[2022-09-14] MEDS: Clopidogrel 75 MG TAB 225 MG PO (08:50)
[2022-09-14] MEDS: Dexlansoprazole 30 MG CAP PO (08:50)
[2022-09-14] MEDS: Lisinopril 20 MG TAB 40 MG PO (09:24)
--- NOTE | 2022-09-14 11:38 | PT.INIE ---
Date of service: 09/14/22 Time of Service: 11:38 PT Notes Visit Reasons: CVA, Branch Retinal Artery Occlusion. Physical Therapy Inpatient Initial Evaluation Date: 09/14/2022 Referring Doctor: Frederick Sams MD PT Orders: PT CONSULT: Eval/treat Precautions: Fall. Standard. Activity as tolerated. Patient Profile/Admitting Diagnosis: Jami is a 67-year-old female who presented to the ED on 09/13/2022 with report of brown spot affecting her right eye diagnosed as branch retinal artery occlusion from appointment with eye clinic, dizziness, tingling in extremities, word finding difficulty, and confusion. Patient is diagnosed with branch retinal artery occlusion, hypertension, renal insufficiency, and ulcerative colitis. PMHX: All Active Problems?(Updated 09/14/22 @ 06:14 by Frederick Sams MD) Ulcerative colitis (Chronic) Renal insufficiency (Chronic) BRAO (branch retinal artery occlusion) (Acute) Carotid occlusion, left (Acute) Chronic shoulder pain (Acute) Subacromial impingement of right shoulder (Acute) 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 of carpometacarpal (CMC) joint of left thumb (Acute) Injected: 02/17/2021Gastritis (Acute ~04/2021) Esophagitis (Acute ~04/2021) Trochanteric bursitis of left hip (Acute) s/p endoscopic trochanteric bursectomy and IT band release DOS: 12/22/2020 Most recent injections: 09/19/2020 ; 06/27/20 Hip bursitis (Acute) Postoperative anemia due to acute blood loss (Acute) Post-nasal drip (Chronic) De Quervain's tenosynovitis, right (Acute 11/14/16) Other intraarticular fracture of lower end of right radius, subsequent encounter for closed fracture with routine healing (Acute 08/08/16) Pain from implanted hardware (Acute 06/10/17) Right wrist tendinitis (Acute 04/18/17) Tubular adenoma of colon (Acute 02/26/17) Instability of joints of both ankles (Acute) Bilateral knee pain (Chronic) History of sinusitis (Chronic) Chronic frontal sinusitis (Chronic) Trochanteric bursitis, right hip (Acute) Most recent injections: 01/02/2021; 09/19/2020 ; 06/27/20 Ingrowing right great toenail (Acute) Tendinitis of left rotator cuff (Acute) Arthritis of carpometacarpal (CMC) joint of right thumb (Acute) Medical History? Bunion, left foot Bunion, right foot Chronic ethmoidal sinusitis Chronic maxillary sinusitis Closed fracture of right distal radius Colon polyp, hyperplastic (~04/2021) Ethmoid sinusitis GERD (gastroesophageal reflux disease) Hypertension Iliotibial band syndrome of left side Serrated adenoma of colon (~04/2021) Sinus congestion Tubular adenoma (~04/2021) Surgical History? Abdominal hysterectomy Arthroplasty of knee PT. DENIES THIS Cholecystectomy Colonoscopy - IV Sedation (02/26/17) EGD - IV Sedation (02/26/17) History of bursectomy and IT band release History of colonoscopy (~04/2021) History of esophagogastroduodenoscopy (EGD) (~04/2021) right wrist fracture repair (06/29/16) Status post bilateral total hip replacement Social History/Home Situation: Lives in a private home with 15 steps to enter. Independent with all aspects of ADLs without AD/adaptive equipment. 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 Equipment Owned/DME: None Subjective: Continues to report seeing a mauve-colored spot through her R eye. Denies headache, chest pain, and dizziness throughout session. Adamant that nothing is wrong with her as she moves about inside the room and tried to lift up the bedside commode to show that she is okay. She agreed to a formal evaluation just to make sure that safety discharge planning and appropriate equipment is covered prior to discharge. Denies headache, chest pain, and dizziness throughout session. Objective: General Observation: Seated on edge of bed. Telemetry monitoring place. IV access in right brachium. Mental Status: Alert and oriented as to person, place, time, and purpose. Able to pay attention, focus, and respond appropriately. Pain: Denies Vital Signs: WNL as closely monitored by nursing staff ROM: Right Upper Extremity: Shoulder Flexion WFL. Shoulder abduction WFL. Elbow flexion WFL. Wrist flexion WFL. Functional opening and closing of hand WFL. Left Upper Extremity: Shoulder Flexion WFL. Shoulder abduction WFL. Elbow flexion WFL. Wrist flexion WFL. Functional opening and closing of hand WFL. Right Lower Extremity: Hip flexion WFL. Hip abduction WFL. Knee flexion WFL. Ankle dorsiflexion WFL. Ankle plantarflexion WFL. Left Lower Extremity: Hip flexion WFL. Hip abduction WFL. Knee flexion WFL. Ankle dorsiflexion WFL. Ankle plantarflexion WFL. Strength: Right Upper Extremity: Shoulder flexors 5/5. Shoulder abductors 5/5. Elbow flexors 5/5. Elbow extensors 5/5. Slasher Runner strong. Left Upper Extremity: Shoulder flexors 5/5. Shoulder abductors 5/5. Elbow flexors 5/5. Elbow extensors 5/5. Slasher Runner strong. Right Lower Extremity: Hip flexors 4+/5. Hip abductors 4+/5. Knee flexors 5/5. Knee extensors 4+/5. Ankle dorsiflexors 4+/5. Ankle plantarflexors 4+/5. Left Lower Extremity: Hip flexors 4+/5. Hip abductors 4+/5. Knee flexors 5/5. Knee extensors 4+/5. Ankle dorsiflexors 4+/5. Ankle plantarflexors 4+/5. Low Bed Mobility/Transfers: Rolling independent Supine to sit independent Sit to supine independent Sit to stand independent Stand to sit independent Bed to reclining chair independent Reclining chair to bed independent Gait: Instructed patient with level surface ambulation of 500 feet independently. Gait speed unimpaired. Gait pattern unremarkable. Balance: Static Sitting: Normal Dynamic Sitting: Normal Static Standing: Normal Dynamic Standing: Good Special Tests: Mobility Limitations Standardized Measure [facility] AM-PAC 6 clicks Basic Mobility Inpatient Short Form: Raw Score: 24 CMS Score: 0% deficit 4-stage Balance Test: Able to maintain feet together, semi-tandem, full tandem, and one-legged stance for 10 seconds. Rapid Alternating Movements: Unimpaired Romberg test: Negative Informed Consent/Education: Patient was instructed in purpose of PT consult and plan of care. Agreeable to proceed with established PT POC to achieve personal goals. Assessment: Independent with all aspects of ADLs with no assistive device. Strength symmetric. Balance good. Risk for falls low risk. No skilled services are needed at this time. Patient is assessed as a low complexity based on the following: History: 67-year-old female with past medical history as indicated above Examination: Demonstrable impairment in strength, balance, and mobility level with underlying impairments and functional limitations as exhibited above as well as deficit score of 0% utilizing the [facility] Mobility Inpatient Short Form Presentation: Stable Decision Makin low complexity Goals: N/A. PT evaluation only. Plan of Care/Treatment Plan: N/A. PT evaluation only. DISCHARGE RECOMMENDATIONS: [X] Home with no services. Home when medically cleared by hsopitalist. No equipment needs at thie time. [] Home with services [specify] [] Home with outpatient PT [] [] SNF for continued rehabilitation [] [] [facility] [] [] SNF versus LTC based on ability to participate and progress [] TREATMENT CODE/TIME: 11812 x 20 minutes beginning at 11:38 AM. Thank you for the opportunity to participate in the care of this patient. Maddi Dobbins PT, DPT, CLT [facility] [place], [place]
--- NOTE | 2022-09-14 12:50 | PGE_ITS ---
Date of Service Date of service: 09/14/22 Time of Service: 12:50 Assessment and Plan Assessment and plan (1) BRAO (branch retinal artery occlusion): Status: Acute Assessment and plan: Likley secondary to placque disruption with emboli of right carotid. DAPT Intensive dose atorvastatin. Echocardiogram PT/OT. Lipid panel and A1c D/C with quality assurance monitor. check MRI of brain; she already had CTA of head and neck so no need for MRA brain Professional time spent interviewing and examining patient, discussion of goals of care with hospital team (care management, nursing and consulting professionals) was 30 minutes. (2) Carotid occlusion, left: Status: Acute Assessment and plan: Complete occlusion with collaterals. Nonoperable. (3) Hypertension: Assessment and plan: Cont. lisinopril needs to have close follow up of her BP and titrate her meds to goal of SBP <130 and DBP <90 Monitor. (4) Renal insufficiency: Status: Chronic Assessment and plan: Creatinine of 1.1; baseline (5) Ulcerative colitis: Status: Chronic Assessment and plan: Long-standing dx of IBS, recent bx showed actual ulcerative colitis. On mesalamine but she reports it has not helped and has an appt with her GI specialist next week; will hold. she states to me that contrary to the above statement that the mesalamine was starting to help her and she would like this resumed. She was taking mesalamine 1.2 gm tabs 3 tabs once a day w/ a meal. I have reordered this. Subjective Subjective Interval history since last seen: Patient is not happy that her mesalamine was held. She says that while it has not completely resolved her UC symptoms it was beginning to improve her abdominal cramping. As for her retinal artery occlusion she is aware of the damage and she had a visual field exam at [facility] opthalmology prior to coming to the ED. She was made aware last night of her bilateral carotid disease and the need for D.A.P.T. and higher statin dose and for ouptatient follow up w/ vascular surgery at [facility]. She thought that she would be dc home this morning. I told her that I will discharge her later this afternoon once her echo is done. Exam Narrative Exam Narrative: Ms. Curran is alert/oriented No facial asymmetry, no dysarthric speech, slight VF defect in the right eye in the medial lower quadrant, full EOMI Normal ROM and strength in her extremities Carotid: decreased pulse on the left but no bruit Lungs: clear Heart: RRR w/out murmur or rub Objective Last Vital Signs Temp 36.6 C 09/14/22 07:38 Pulse 63 09/14/22 07:38 Resp 16 09/14/22 07:38 BP 177/96 H 09/14/22 07:38 Pulse Ox 99 09/14/22 07:38 Laboratory Results - last 24 hr 09/13/22 09/13/22 09/13/22 13:32 13:32 13:32 WBC 5.16 RBC 4.61 Hgb 13.5 Hct 42.0 MCV 91 MCH 29.3 MCHC 32.1 RDW 12.6 Plt Count 240 MPV 10.0 Immature Gran % 0.2 Neutrophils % 52.9 Lymphocytes % 36.0 Monocytes % 7.2 Eosinophils % 2.7 Basophils % 1.0 Nucleated RBC % 0.0 Absolute Neutrophils 2.73 Absolute Lymphocytes 1.86 Absolute Monocytes 0.37 Absolute Eosinophils 0.14 Absolute Basophils 0.05 ESR 10 Sodium 140 Potassium 3.8 Chloride 104 Carbon Dioxide 28.0 Anion Gap 8.0 BUN 22 H Creatinine 1.1 H Est GFR (CKD-EPI 2020) 55.07 Glucose 94 Hemoglobin A1c Calcium 9.3 Magnesium 1.9 Total Bilirubin 0.5 AST 31 ALT 33 Alkaline Phosphatase 84 Total Protein 7.3 Albumin 3.7 Triglycerides Total Cholesterol LDL Cholesterol, Calc HDL Cholesterol COVID-19 Source SARS-CoV-2 (PCR) Add-On Test Request 09/13/22 09/13/22 09/13/22 13:32 13:32 18:58 WBC RBC Hgb Hct MCV MCH MCHC RDW Plt Count MPV Immature Gran % Neutrophils % Lymphocytes % Monocytes % Eosinophils % Basophils % Nucleated RBC % Absolute Neutrophils Absolute Lymphocytes Absolute Monocytes Absolute Eosinophils Absolute Basophils ESR Sodium Potassium Chloride Carbon Dioxide Anion Gap BUN Creatinine Est GFR (CKD-EPI 2020) Glucose Hemoglobin A1c 5.7 Calcium Magnesium Total Bilirubin AST ALT Alkaline Phosphatase Total Protein Albumin Triglycerides Total Cholesterol LDL Cholesterol, Calc HDL Cholesterol COVID-19 Source Nasal/Nares SARS-CoV-2 (PCR) Negative Add-On Test Request DONE 09/14/22 05:50 WBC RBC Hgb Hct MCV MCH MCHC RDW Plt Count MPV Immature Gran % Neutrophils % Lymphocytes % Monocytes % Eosinophils % Basophils % Nucleated RBC % Absolute Neutrophils Absolute Lymphocytes Absolute Monocytes Absolute Eosinophils Absolute Basophils ESR Sodium Potassium Chloride Carbon Dioxide Anion Gap BUN Creatinine Est GFR (CKD-EPI 2020) Glucose Hemoglobin A1c Calcium Magnesium Total Bilirubin AST ALT Alkaline Phosphatase Total Protein Albumin Triglycerides 77 Total Cholesterol 161 LDL Cholesterol, Calc 85 HDL Cholesterol 61 COVID-19 Source SARS-CoV-2 (PCR) Add-On Test Request PAWSS Have you Been Recently Intoxicated or Drunk Within the Last 30 days?: No Have you Ever Experienced Previous Episodes of Alcohol Withdrawal?: No Have you ever Experienced Withdrawal Seizures?: No Have you ever Experienced Delirium Tremens(DT)s?: No Have you ever undergone Alcohol Rehabilitation Treatment (i.e, inpt ot outpatient treatment programs)?: No Have you ever Experienced Blackouts?: No Have you ever Combined Alcohol with other Downers within the last 90 days?: No Have you ever Combined Alcohol with any other Substance of Abuse during the last 90 days?: No Positive Blood Alcohol level on Presentation? [PCS.BAL]: No Evidence of Increased Autonomic Activity (i.e. HR>120, tremor, sweating, agitation, nausea)?: No Result: 0
--- NOTE | 2022-09-14 12:59 | DI.US_ITS ---
APPROVED REPORT EXAM: Comprehensive 2D, Doppler, and color-flow Echocardiogram Patient Location: In-Patient Room/Bed: 225 Health And Safety Specialist: Shila Peraza RDCS (AE) Indications: CVA Other Information Study Quality: Adequate Conclusion Normal left ventricular wall thickness and chamber size. Estimated ejection fraction is 58%. Wall m otion is normal Normal right ventricular size and systolic function Both atria are normal in size There is no structural or hemodynamically significant valvular disease Right ventricular systolic pressure could not be estimated Wall motion Left Ventricle The left ventricle is normal size. The left ventricular systolic function is normal. The left ventric ular ejection fraction is within the normal range. There is normal left ventricular wall thickness. T here is normal LV segmental wall motion. There is no ventricular septal defect visualized. LVEF is 58 %. Right Ventricle The right ventricle is normal size. The right ventricular systolic function is normal. Atria The left atrium size is normal. The right atrium size is normal. The interatrial septum is intact wit h no evidence for an atrial septal defect. Aortic Valve The aortic valve is normal in structure. Aortic valve is trileaflet. There is no aortic valvular sten osis. No aortic regurgitation is present. Mitral Valve The mitral valve is normal in structure. No evidence of mitral valve stenosis. Trace mitral regurgita tion. Tricuspid Valve The tricuspid valve is normal in structure. There is no tricuspid valve stenosis. Trace tricuspid reg urgitation. Unable to assess PA pressure. Pulmonic Valve The pulmonary valve is normal in structure. There is no pulmonic valvular stenosis. There is no pulmo rodger valvular regurgitation. Great Vessels The aortic root is normal in size. The ascending aorta is normal in size. Aortic arch is normal in c aliber. IVC is normal in size and collapses >50% with inspiration. Pericardium There is no pericardial effusion. 2D Dimensions IVSD d PLAX 0.72 cm F: 0.6-1.0 LV Vol A2C d MOD 62.8 mL LVPW d PLAX 0.77 cm F: 0.6 - 1.0 LV Vol A4C d MOD 86.6 mL LVID d PLAX 4.20 cm F: 3.8 - 5.2 LA vol/ BSA A2C s A-L 30.6 mL/m2 LVDs 2.70 cm F: 2.2 - 3.5 LA vol/ BSA A4C s A-L 30.7 mL/m2 Ao Root d 2.82 cm F: 2.7 - 3.3 LA Vol/ BSA Biplane s A-L 31.5 mL/m2 RA Area A4C 11.13 cm2 LA Area A4C s MOD 17.55 cm2 RA Vol/ BSA A4C s A-L 14.1 mL/m2 LA Area A2C s MOD 17.05 cm2 Ao Asc Diam d 3.07 cm F: 2.3 - 3.1 LV EF A4C MOD 57.9 % LV EF Teichholz 64.3 % LV EF A2C MOD 59.8 % LVEF (Paris's) 58.87 % F: 54 - 74 LV EF Biplane MOD 58.9 % LV Volume 59.97 mL F: 46 - 106 SV 44.29 mL LV Volume Index 35.69 mL/m2 F: 29 - 61 SV Index 26.33 mL/m2 LV Vol Biplane MOD 75.2 mL FS 34.65 % M-Mode TAPSE 2.32 cm (M/F) >1.7 LV Diastology MV E' medial 0.077 (>0.07 m/s) E/A Ratio 0.6 LV E/e MED 8.00 (<14) MV E Vmax 0.61 (0.4-1.3 m/s) MV E' lateral 0.081 (>0.1 m/s) MV A Vmax 1.00 (0.4-1.3 m/s) LV E/e LAT 7.50 (<14) MV E/A Ratio 0.61 MV E/E' medial 8.02 MV E/E' lateral 7.54 Aortic Valve LVOT Area 3.02 cm2 AoV Area Vmax 2.49 cm2 LVOT Vmax 1.21 m/s AoV Area/ BSA (Vmax) 1.48 cm2/m2 LVOT Mean Ambrosio. 0.75 m/s ELSA Mean Ambrosio. 2.57 cm2 LVOT Peak Grad 5.9 mmHg ELSA Mean Ambrosio. Index 1.53 cm2/m2 LVOT Mean Grad 2.7 mmHg LVOT VTI 0.204 m LVOT Diam s 1.95 cm AoV Vmax 1.47 m/s Velocity Ratio 0.82 AoV Mean Ambrosio. 0.88 m/s AoV Peak Grad 8.7 mmHg LVOT SV 61.57 mL AoV Mean Grad 3.6 mmHg AoV VTI 0.236 m AoV Area VTI 2.61 cm2 AoV Area/ BSA (VTI) 1.55 cm/m2 Mitral Valve MV DT 316 (160-240 msec) MV PHT 92 msec MV Area PHT 2.40 cm2 MV VTI 0.242 m MV Area VTI 2.54 (4.0-6.0 cm2) Pulmonary Valve PV Vmax 1.18 (0.5-1.5 m/s) RVOT Peak Gr. 3.33 mmHg PV Peak Grad 5.6 mmHg RVOT Mean Gr. 1.85 mmHg PV Mean Grad 3.1 mmHg RVOT VTI 0.181 m PV VTI 0.250 m RVOT Vmax 0.91 m/s
[2022-09-14] MEDS: Mesalamine 1.2 GM TABCR 3.6 GM PO (13:47)
--- NOTE | 2022-09-14 15:59 | INITIAL_ITS ---
- If Service Date Differs Date of service: 09/14/22 Time of Service: 15:59 Care Management Initial Assess REASON FOR HOSPITALIZATION:: CVA, branch retinal artery occlusion PAST MEDICAL HISTORY/PAST SURGICAL HISTORY:: All Active Problems. Ulcerative colitis (Chronic). Renal insufficiency (Chronic). BRAO (branch retinal artery occlusion) (Acute). Carotid occlusion, left (Acute). Chronic shoulder pain (Acute). Subacromial impingement of right shoulder (Acute). Acromioclavicular joint arthritis (Chronic). bilateral. Osteoarthritis of carpometacarpal (CMC) joint of left thumb (Acute). Injected: 02/17/2021. Gastritis (Acute ~04/2021). Esophagitis (Acute ~04/2021). Trochanteric bursitis of left hip (Acute). s/p endoscopic trochanteric bursectomy and IT band release. DOS: 12/22/2020. Most recent injections: 09/19/2020 ; 06/27/20. Hip bursitis (Acute). Postoperative anemia due to acute blood loss (Acute). Post-nasal drip (Chronic). De Quervain's tenosynovitis, right (Acute 11/14/16). Other intraarticular fracture of lower end of right radius, subsequent encounter for closed fracture with routine healing (Acute 08/08/16). Pain from implanted hardware (Acute 06/10/17). Right wrist tendinitis (Acute 04/18/17). Tubular adenoma of colon (Acute 02/26/17). Instability of joints of both ankles (Acute). Bilateral knee pain (Chronic). History of sinusitis (Chronic). Chronic frontal sinusitis (Chronic). Trochanteric bursitis, right hip (Acute). Most recent injections: 01/02/2021; 09/19/2020 ; 06/27/20. Ingrowing right great toenail (Acute). Tendinitis of left rotator cuff (Acute). Arthritis of carpometacarpal (CMC) joint of right thumb (Acute). Medical History. Bunion, left foot. Bunion, right foot. Chronic ethmoidal sinusitis. Chronic maxillary sinusitis. Closed fracture of right distal radius. Colon polyp, hyperplastic (~04/2021). Ethmoid sinusitis. GERD (gastroesophageal reflux disease). Hypertension. Iliotibial band syndrome of left side. Serrated adenoma of colon (~04/2021). Sinus congestion. Tubular adenoma (~04/2021). Surgical History. Abdominal hysterectomy. Arthroplasty of knee. PT. DENIES THIS. Cholecystectomy. Colonoscopy - IV Sedation (02/26/17). EGD - IV Sedation (02/26/17). History of bursectomy. and IT band release. History of colonoscopy (~04/2021). History of esophagogastroduodenoscopy (EGD) (~04/2021). right wrist fracture repair (06/29/16). Status post bilateral total hip replacement PREVIOUS FUNCTIONAL STATUS/SOCIAL/FAMILY SUPPORTS:: Shan lives alone in [place]. Her house is handicap accessible. Her son and daughter in law live nearby, so close she can see their house. 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 She is independent at baseline. CURRENT FUNCTIONAL STATUS:: Shan was sitting up in bed when CM met with her. She stated that she is really enjoying the change of pace at her new job. She reported that she was upset this morning when one of her medications was not ordered, but that she talked to the RN and it has been corrected. Her RN came in to bring her to an MRI when CM was talking with her. She does not anticipate the need for any services upon discharge. CM will continue to follow. ADVANCE DIRECTIVES:: None on file. Has patient been provided with info about the portal/API?: Yes Did the patient sign up for the portal?: Yes (active) CODE STATUS:: Full Code INSURANCE COVERAGE / FINANCIAL ISSUES:: [facility]/ [facility]/ [employer] assist CURRENT HOME/COMMUNITY SERVICES/EQUIPMENT:: Shan's home is handicap accessible, with grab bars, raised toilet seat and a shower bench. She has a FWW from a previous admission. PRIMARY CARE PHYSICIAN:: Nicolasa Griggs POTENTIAL DISCHARGE NEEDS:: Evaluations for further needs, follow up appointments. PATIENT/FAMILY EDUCATION NEEDS:: Review discharge instructions regarding activity levels and medications, discussion of self care needs including ask me three. ANTICIPATED BARRIERS TO DISCHARGE:: None identified. TRANSPORTATION:: Via private vehicle by family. PLAN:: Anticipate Shan will return home with no additional services once medically cleared. Her family will drive her home when ready. She will follow up with her PCP and discharge plan of care. CM will continue to follow.
[2022-09-14 16:00] VITALS: PULSE 70
[2022-09-14 17:27] VITALS: BP 144/81; PULSE 60; RESP 16; TEMP 36.9; O2SAT 97
--- NOTE | 2022-09-14 17:54 | DSE_ITS ---
Date of service: 09/14/22 Time of Service: 17:54 DS: Diagnosis Discharge Diagnosis (1) BRAO (branch retinal artery occlusion): Status: Acute Asessment and Plan: Patient was dx with BRAO by her opthalmologist and referred to the ED for further stroke workup. Patient was begun on Plavix and ASA and her atorvastatin dose was increased to 80 mg nightly. Stroke workup consisted of CTA of brain and cervical vessels, echocardiogram and MRI of the brain. MRI of brain showed bilateral white matter disease but no large areas of strokes. CTA of the brain showed no aneurysms or occlusions of intracerebral vessels and no significant stenosis of intracerebral vessels. CTA of neck demonstrated complete occlusion of proximal LICA with reconstitution of the vessel 1.7 cm distal to the bifurcation. There is 50% stenosis of the proximal TORSTEN but vertebral arteries are patent. Echocardiogram showed normal LV and RV systolic function w/ no valvular abnormalities. Unfortunately, a bubble study was not performed. A follow up KRYSTA is recommended and patient will be referred to [facility] [place] for KRYSTA and to [facility] vascular surgery to evaluate her carotid disease. Dr. Jacob, neurology, from [facility] was consulted by telephone by Dr. Graham from [facility] ED regarding managment who recommended Plavix and ASA. The patient's diagnosis and medications and test were all explained to the patient. She is also advised to get a 30 day event recorder looking for PAF to explain her retinal artery branch occlusion. (2) Carotid occlusion, left: Status: Acute Asessment and Plan: see above (3) Hypertension: Asessment and Plan: patient was discharged home on her usual dose of lisinopril 40 mg daily. However she understands and it was explained to her that goal BP should be under 130/90 mm and she needs to have this regularly checked. While here her BP ranged from 182/84 to as low as 117/75. At discharge her BP was 144/81. (4) Ulcerative colitis: Status: Chronic Asessment and Plan: patient was kept on her usual dose of mesalamine. She has an upcoming follow up with her GI specialist. Discharge Plan Disposition Patient Disposition: HOME Condition: Stable Discharge Details Reason For Visit: CVA, Branch Retinal Artery Occlusion. Admit Date/Time: 09/13/22 18:45 Admit Provider: Frederick Sams Attending Provider: Nolker,Frederick Primary Care Provider: Nicolasa Griggs Home Meds and New Rx's Prescriptions: New clopidogrel 75 mg Tablet 75 mg PO DAILY Qty: 30 0RF aspirin [Children's Aspirin] 81 mg Tablet,Chewable 81 mg PO DAILY Qty: 100 0RF atorvastatin 80 mg tablet 80 mg PO QHS Qty: 30 0RF Continued Premarin 0.625 mg/gram cream 0.5 mg vaginal DIRECTED Rx Instructions: 2x/wk lisinopril 40 MG tablet 40 mg PO DAILY cholecalciferol (vitamin D3) [Vitamin D3] 2,000 UNIT tablet 2,000 unit PO DAILY Advil Cold and Sinus 1 EACH tablet 1 tab-cap PO BID PRN estradiol 1 mg tablet 0.5 mg PO DAILY Label Comments: 10/09/17 PER PT. .50 MG QD. dexlansoprazole [Dexilant] 30 mg capsule,biphase delayed releas 30 mg PO DAILY Qty: 90 3RF hyoscyamine sulfate [Levsin/SL] 0.125 mg tablet, sublingual 0.125 mg sublingual BID-QID PRN (Reason: dyspepsia, cramping) Qty: 30 5RF Label Comments: does not take epinephrine 0.3 mg/0.3 mL auto-injector 1 ea subcut DIRECTED PRN Label Comments: INJECT ONE PEN UNDER THE SKIN DIRECTED mesalamine 1.2 gram tablet,delayed release (DR/EC) 1 tab PO DIRECTED Women's Multivitamin 18 mg iron-400 mcg-500 mg Tablet 1 tab PO DAILY Digestive Advantage Lactos Def 500 million cell-3,000 unit Capsule 1 cap PO DAILY Label Comments: on hold Discontinued atorvastatin 20 MG tablet 20 mg PO HS Discharge Instructions Instructions: Clopidogrel (By mouth), Low Fat Diet (DC), Carotid Artery Disease (DC), Embolization (DC) Additional Instructions: You have been prescribed two antiplatelet medications including Plavix and aspirin. You should take both Plavix (clopidogrel) 75 mg daily and aspirin 81 mg daily. Your atorvastatin has been increased to 80 mg nightly. You have been found to have carotid artery disease on both sides including a total occlusion on the left internal carotid artery and 50 % narrowing of the right internal carotid artery. The cerebral vessels in the brain showed no aneurysm or occlusions. Your transthoracic echocardiogram was normal. However, it is recommended that you be referred to [facility] for transesophageal echocardiogram. Also you should have a 30 day cardiac event recorder to look for paroxysmal atrial fibrillation, an irregular heart rhythm that can lead to embolic strokes. Your MRI of the brain did not show any acute strokes but you have chronic multiple areas of white matter signal abnormalities consistent w/ small vessel disease. It is recommended that you maintain good blood pressure control w/ a goal of less than 140/90. Stand Alone Forms: Nursing Discharge Form Referrals: CARDIOLOGY,[facility] [OTHER] - (patient needs referral for KRYSTA due to bilateral carotid occlusive disease and right retinal artery thrombosis; needs clearance of thoracic aorta and to rule out atrial thrombi) Nicolasa Griggs [Primary Care Provider] - (needs follow up in 1 week) OTF SOTO MD [MD NON-[facility] STAFF PHYSICIAN] - (patient needs follow up on her occlusive carotid atherosclerosis; patient has RIGHT retinal artery occlusion) Mary Leong MD [ [facility] STAFF PHYSICIAN] - (patient need evaluation in 2 to 4 weeks) Activity:: Activity as Tolerated Equipment/Supplies:: No Equipment Needed Diet:: low cholesterol Discharge Orders Discharge Orders: Discharge Order (Routine); Ordered 09/14/22 Ordered By: Tima Marquez Ambulatory Orders: Cardiac Event Recorder (Routine) Timeframe: 1 Day Facility: [facility] - Location: Respiratory Therapy Ordered By: Tima Pierson Discharge Data Discharge Date/Time-TO BE ENTERED AT DEPARTURE: 09/14/22 18:24 DS: Summary Time Spent with Patient providing and/or coordinating discharge services: Greater than 30 minutes Specific discharge activities: Interview/exam of patient; review of discharge instructions, completion of prescriptions/discharge instructions; discussion w/ nursing and CM; documentation of hospital visit Status at Discharge Functional status at discharge: independent ambulation Overall status at discharge: patient is not back to baseline Mental Status: mental status grossly normal Speech and Movement: speech and movement normal Mood: congruent mood Affect: normal affect Exam Narrative Exam Narrative: Ms. Curran is alert/oriented No facial asymmetry, no dysarthric speech, slight VF defect in the right eye in the medial lower quadrant, full EOMI Normal ROM and strength in her extremities Carotid: decreased pulse on the left but no bruit Lungs: clear Heart: RRR w/out murmur or rub Psych Mental Status: mental status grossly normal Speech and Movement: speech and movement normal Mood: congruent mood Affect: normal affect DS: Data Vitals/I&O Vitals and I&O: Vital Signs Temperature 36.9 C 09/14/22 17:27 Temperature Source Tympanic 09/14/22 17:27 Pulse 60 09/14/22 17:27 Pulse Rhythm Regular 09/14/22 13:26 Pulse 75 09/13/22 19:46 Respiratory Rate 16 09/14/22 17:27 Respiratory Effort Non-Labored 09/14/22 13:26 Respiratory Depth Normal 09/14/22 13:26 Respiratory Pattern Normal 09/14/22 13:26 Blood Pressure 144/81 H 09/14/22 17:27 Blood Pressure Mean 100 09/13/22 19:46 Blood Pressure Position Sitting 09/13/22 12:39 Pulse Oximetry 97 09/14/22 17:27 Oxygen Delivery Method Room Air 09/14/22 17:27 Oxygen Flow Rate 0 09/14/22 17:27 Pain Level 0 09/14/22 17:27 Intake & Output 09/13/22 09/14/22 09/14/22 23:59 11:59 23:59 Intake Total 1010 / 1010 1380 / 1620 240 / 1620 Output Total 800 / 800 350 / 350 Balance 210 / 210 1030 / 1270 240 / 1270 Weight 67.4 kg Intake: IV 1010 / 1010 1000 / 1000 Oral 380 / 620 240 / 620 Output: Urine 800 / 800 350 / 350 Other: Urine Color Yellow Yellow Urine Appearance Clear Clear Urine Odor Normal Comment toilet insert, used. to measure Voiding Methods Toilet Toilet Data Completed and Pending Labs on day of discharge: Labs from last 24 hours 09/14/22 09/13/22 09/13/22 05:50 18:58 13:32 Hemoglobin A1c 5.7 Triglycerides 77 Total Cholesterol 161 LDL Cholesterol, Calc 85 HDL Cholesterol 61 COVID-19 Source Nasal/Nares SARS-CoV-2 (PCR) Negative Add-On Test Request 09/13/22 13:32 Hemoglobin A1c Triglycerides Total Cholesterol LDL Cholesterol, Calc HDL Cholesterol COVID-19 Source SARS-CoV-2 (PCR) Add-On Test Request DONE PFS All Active Problems Ulcerative colitis (Chronic) Renal insufficiency (Chronic) BRAO (branch retinal artery occlusion) (Acute) Carotid occlusion, left (Acute) Chronic shoulder pain (Acute) Subacromial impingement of right shoulder (Acute) 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 of carpometacarpal (CMC) joint of left thumb (Acute) Injected: 02/17/2021 Gastritis (Acute ~04/2021) Esophagitis (Acute ~04/2021) Trochanteric bursitis of left hip (Acute) s/p endoscopic trochanteric bursectomy and IT band release DOS: 12/22/2020 Most recent injections: 09/19/2020 ; 06/27/20 Hip bursitis (Acute) Postoperative anemia due to acute blood loss (Acute) Post-nasal drip (Chronic) De Quervain's tenosynovitis, right (Acute 11/14/16) Other intraarticular fracture of lower end of right radius, subsequent encounter for closed fracture with routine healing (Acute 08/08/16) Pain from implanted hardware (Acute 06/10/17) Right wrist tendinitis (Acute 04/18/17) Tubular adenoma of colon (Acute 02/26/17) Instability of joints of both ankles (Acute) Bilateral knee pain (Chronic) History of sinusitis (Chronic) Chronic frontal sinusitis (Chronic) Trochanteric bursitis, right hip (Acute) Most recent injections: 01/02/2021; 09/19/2020 ; 06/27/20 Ingrowing right great toenail (Acute) Tendinitis of left rotator cuff (Acute) Arthritis of carpometacarpal (CMC) joint of right thumb (Acute) Medical History Bunion, left foot Bunion, right foot Chronic ethmoidal sinusitis Chronic maxillary sinusitis Closed fracture of right distal radius Colon polyp, hyperplastic (~04/2021) Ethmoid sinusitis GERD (gastroesophageal reflux disease) Hypertension Iliotibial band syndrome of left side Serrated adenoma of colon (~04/2021) Sinus congestion Tubular adenoma (~04/2021) Surgical History Abdominal hysterectomy Arthroplasty of knee PT. DENIES THIS Cholecystectomy Colonoscopy - IV Sedation (02/26/17) EGD - IV Sedation (02/26/17) History of bursectomy and IT band release History of colonoscopy (~04/2021) History of esophagogastroduodenoscopy (EGD) (~04/2021) right wrist fracture repair (06/29/16) Status post bilateral total hip replacement Social History Smoking/Tobacco Use Status: Former Tobacco Use Quit Date: 08/11/17 Smoking risk assessment performed?: Yes Alcohol Intake: current Alcohol Intake frequency: holidays/special occasions only Drug use: Never Substance use type: does not use Do you feel safe at home: Yes Additional Social history: lives alone
--- NOTE | 2022-09-14 19:01 | PDOC.CMDIS ---
- If Service Date Differs Date of service: 09/14/22 Time of Service: 19:01 LACE Index Scoring Tool - Questions: Length of Stay (in days): 1 Acuity (Admit via E.D.?): Yes E.D. Visits: 1 - Answers: Total Score: 5 Risk of Readmission: Low Risk Care Management Discharge Reason for Hospitalization: CVA, branch retinal artery occlusion Discharge Plan: Shan will return home today with no new services. She will be driven home via private vehicle by family. She will follow up with her PCP and discharge plan of care. She is happy to be going home. Patient/Family Education Needs: Review discharge instructions and limitations, discussion of self care needs including ask me three.
== END 2022-09-14 18:24 | disposition home or self-care (01) ==
LOC: ER 19:48 → MS 20:04
PROVIDERS: Admitting Provider Family Medicine; Emergency Provider Emergency Medicine; PCP Family Medicine; Visit Provider Family Medicine
DX: H34.231 Retinal artery branch occlusion, right eye (principal); I67.89 Other cerebrovascular disease; N18.9 Chronic kidney disease, unspecified; I65.23 Occlusion and stenosis of bilateral carotid arteries; K51.80 Other ulcerative colitis without complications; K29.70 Gastritis, unspecified, without bleeding; K20.90 Esophagitis, unspecified without bleeding; I12.9 Hypertensive chronic kidney disease with stage 1 through stage 4 chronic kidney disease, or unspecified chronic kidney disease; K21.9 Gastro-esophageal reflux disease without esophagitis; Z20.822 Contact with and (suspected) exposure to COVID-19; Z79.899 Other long term (current) drug therapy
CPT/HCPCS: 36415; 70496; 70498; 80053; 80061; 85652; 87635; 93005; 93306; 96360; 96361; 97161; 99285; 70551; 83036; 83735; 85025; 93010; 99217; 99220; G0378; J3490

== ENCOUNTER → 2022-09-20 02:13 | Outpatient (CLI) | payer MEDICARE, SELFPAY ==
--- NOTE | 2022-09-20 15:50 | DI.MAMMO_ITS ---
Exam(s) MAMMO SCREENING EXAM: MAMMO SCREENING CLINICAL HISTORY: SCREENING, Z12.31 TECHNIQUE: Bilateral full field digital CC and MLO mammographic images were obtained with 3D tomosyn thesis and utilizing computer aided detection (CAD). COMPARISON: Available for comparison. FINDINGS: Masses/Architectural Distortion: None seen. Microcalcifications: No suspicious pleomorphic-type are seen. Skin Thickening/Nipple Retraction: None. IMPRESSION: 1. No significant interval change with no specific features of malignancy noted. 2. Unless there is more urgent need, screening mammography is recommended, as per [place] [employer] guidelines. BI-RADS Category 1 - Negative Breast Density - Category B - Scattered areas of fibroglandular density Breast density category C or D implies that the patient has dense breast tissue. Dense breast tissue is very common and is not abnormal but dense breast tissue can make it harder to find cancer on a ma mmogram. Also, dense breast tissue may increase their breast cancer risk. This information about the result of the mammogram report was provided to the patient to raise their awareness. Use this report when you speak with the patient about their risks for breast cancer, which includes their family hist ory. At that time, you may recommend for more screening tests (Ultrasound or MRI) as they might be us eful based on their risk. A negative radiographic report should not delay biopsy if a dominant or clinically suspicious mass is present. Up to ten percent of cancers are not identified on mammography. A negative report may reinforce clinical impression. Adenosis and dense breasts may obscure an underlying neoplasm. False positive reports average 6 to 10%. Patient will receive a letter notifying them of these results.
== END ==
PROVIDERS: PCP Family Medicine; Visit Provider Family Medicine
DX: Z12.31 Encounter for screening mammogram for malignant neoplasm of breast (principal)
CPT/HCPCS: 77063; 77067; 99215

== ENCOUNTER 2022-09-27 09:33 | Outpatient (CLI) | payer MEDICARE, SELFPAY | END 2022-09-27 09:34 | disposition home or self-care (01) | LOC: CARDOPNVT 09:33 | PROVIDERS: PCP Family Medicine; Visit Provider Internal Medicine | DX: I65.22 Occlusion and stenosis of left carotid artery | CPT/HCPCS: 93270 ==

== ENCOUNTER 2022-11-01 08:10 | Outpatient (CLI) | payer MEDICARE, SELFPAY ==
--- NOTE | 2022-11-01 11:52 | W.CARDEVENT ---
Date of service: 11/01/22 Time of Service: 11:52 Cardiac Event Recorder Referring Provider:: Nicolasa Griggs Indications:: Chest pain Cardiac Event Note: This is a 30-day event monitor which reportedly was ordered for chest pain Rhythm throughout was sinus. Average heart rate was 70. Minimum was 56, maximum 108 No significant dysrhythmias were recorded. There was no atrial fibrillation, no high-grade AV block, no pauses greater than 3 seconds There were no apparent patient's symptoms
== END 2022-11-01 08:11 | disposition home or self-care (01) ==
LOC: CARDOPNVT 08:10
PROVIDERS: PCP Family Medicine; Visit Provider Internal Medicine Cardiovascular Disease
DX: R07.9 Chest pain, unspecified (principal)
CPT/HCPCS: 93272

== ENCOUNTER → 2022-11-28 13:58 | Outpatient (BNVA) | payer MEDICARE, SELFPAY | PROVIDERS: PCP Family Medicine; Referring Provider Family Medicine; Visit Provider Psychiatry & Neurology Neurology | DX: H34.231 Retinal artery branch occlusion, right eye (principal); Z79.02 Long term (current) use of antithrombotics/antiplatelets; I10 Essential (primary) hypertension; I65.21 Occlusion and stenosis of right carotid artery; I65.22 Occlusion and stenosis of left carotid artery | CPT/HCPCS: 99214 ==

== ENCOUNTER 2023-02-01 21:08 | Outpatient (REF) | payer MEDICARE, SELFPAY ==
[2023-02-01 21:34] LABS: Bilirubin Negative (Negative); Blood Negative (Negative); Clarity Clear (Clear); Glucose Negative (Negative); Ketones Negative (Negative); Leukocyte Esterase Trace (Negative); Nitrite Negative (Negative)
[2023-02-01 21:39] LABS: Bacteria Negative HPF (Negative); C & S Indicated? No; Casts Negative LPF (Negative); Crystals Negative HPF (Negative); Epithelial Cells Few HPF (Negative); Mucus Negative (Negative); Other Cells Negative (Negative); RBC Negative HPF (0-2)
== END 2023-02-01 21:09 | disposition home or self-care (01) ==
LOC: LBN 21:08
PROVIDERS: PCP Family Medicine; Visit Provider Physician Assistant
DX: N39.0 Urinary tract infection, site not specified (principal)
CPT/HCPCS: 81003; 81015

== ENCOUNTER 2023-03-21 01:16 | Outpatient (CLI) | payer MEDICARE, SELFPAY ==
[2023-03-21 09:42] LABS: CREATININE 1.1 mg/dL (0.55-1.02); Estimated GFR 55.07 (mL/min/1.73m2)
--- NOTE | 2023-03-21 10:00 | DI.CT_ITS ---
Exam(s) CT BRAIN NECK CTA EXAM: CT BRAIN NECK CTA CLINICAL HISTORY: CAROTID ARTERY STENOSIS, I65.29. TECHNIQUE: Imaging Protocol: Axial CT angiography was performed with multi-slice acquisition and mu lti-planar and/or 3D reconstructions. CONTRAST MATERIAL: Intravenous: Omnipaque 350 Contrast volume:structured data in ml COMPARISON: CT CT BRAIN NECK CTA from 09/13/2022 FINDINGS: CTA Neck W: Aortic arch anatomy: The aortic arch anatomy is conventional and there is no significant stenosis at the origin of the great vessels off of the aortic arch. No intimal flap evident. Anterior circulation: Both common carotid arteries ascend with normal luminal diameters. The previously present occlusion of the proximal left internal carotid artery is no longer seen. The re has been significant improvement (no stent seen) with only mild stenosis in the proximal left ICA at this level now evident. On the right side there is no plaque at the carotid bifurcation but there is calcified and noncalcifi ed plaque in the proximal right ICA just beyond its origin. The appearance at amount plaque at this level is similar to the prior study of 09/13/2022 with approximately 50 percent stenosis, unchanged. Posterior circulation: Both vertebral arteries originate in conventional fashion off of the subclavian arteries and there is no obvious stenosis at the origin of the vertebral arteries. Both vertebral arteries exhibit normal luminal diameters within the foramen transversarium. Both vertebral arteries contribute to the formation of the basilar artery at the skull base. CTA Brain W: Anterior circulation: Both internal carotid arteries are patent in the skull base-carotid canals as well as within the cave rnous sinuses. The supraclinoid aspects of the ICAs are patent. Both A1 segments are patent as are the anterior cer ebral arteries and there is no evidence of aneurysm at the level of the anterior communicating artery . Both middle cerebral arteries are patent with no evidence of significant stenosis nor intraluminal th rombus. There also no aneurysms of these vessels. Posterior circulation: The basilar artery ascends in the midline. Distally it gives off patent bilateral left posterior cer ebral artery. Right posterior cerebral artery is fed by posterior communicating artery on the right side of the cir [id number]. There is no evidence of aneurysm at the tip of the basilar artery nor elsewhere in the [id number]-Atph is. CT BRAIN: There is no evidence of intracranial hemorrhage, mass effect, or shift of midline structures. There are no extra-axial fluid collections. Ventricles are not enlarged or shifted. There are no ring enh ancing lesions in the brain and no abnormal meningeal enhancement. IMPRESSION: 1. Compared to the prior CTA study of 09/13/2022 the previously occluded proximal left ICA is no jose d rowdy occluded. There is significant improvement in the lumen of the vessel at this level with only mi nimal stenosis evident at this time. 2. There is unchanged plaque in the proximal right ICA in the neck with approximately 40-50 percent stenosis again noted, unchanged. 3. Both vertebral arteries are patent in the neck and both contribute to the formation of the basila r artery. 4. Patent intracranial arteries as described above. No acute intracranial findings. No obvious territorial infarction. No ring enhancing lesions and no abnormal meningeal enhancement. If clinically indicated follow-up MRI with diffusion imaging can be performed RADIATION DOSE DELIVERED: 2,198.2mGy.cm Total DLP DATA REPOSITORY: All CT scans at this facility are submitted to the National Radiology Data Registry (NRDR) Dose Index Registry (DIR) with the [employer] (ACR). RADIATION OPTIMIZATION: All CT scans at this facility use at least one of these dose optimization te chniques: automated exposure control; mA and/or kV adjustment per patient size (includes targeted exa ms where dose is matched to clinical indication); or iterative reconstruction.
[2023-03-21] MEDS: Omnipaque 350 MG/ML 500 ML BTL-Imaging package IJ (10:12)
[2023-03-21] MEDS: Normal Saline - Diluent 50 ML VIAL IJ (10:13)
== END 2023-03-21 01:36 ==
LOC: DI 01:16
PROVIDERS: PCP Family Medicine; Visit Provider Surgery Vascular Surgery
DX: I65.29 Occlusion and stenosis of unspecified carotid artery (principal)
CPT/HCPCS: 70496; 70498; 82565

== ENCOUNTER → 2023-03-25 09:06 | Outpatient (BNVA) | payer MEDICARE, SELFPAY | PROVIDERS: PCP Family Medicine; Referring Provider Family Medicine; Visit Provider Student in an Organized Health Care Education/Training Program | DX: M65.342 Trigger finger, left ring finger (principal); M18.11 Unilateral primary osteoarthritis of first carpometacarpal joint, right hand | CPT/HCPCS: 20550; 20600; J1030 ==

== ENCOUNTER 2023-04-25 11:04 | Outpatient (REF) | payer MEDICARE, SELFPAY ==
[2023-04-25 14:44] LABS: HCT 41.8 % (36.0-46.0); HGB 13.6 g/dL (11.2-15.7); MCH 29.5 pg (27.0-33.0); MCHC 32.5 % (32.0-36.0); MCV 91 fL (80-95); MPV 10.2 fL (8.0-11.0); Platelet Count 265 10^3/uL (130-400); RBC 4.61 10^6/uL (3.93-5.22); RDW 14.4 % (11.7-14.6); RDW-SD 47.8 fL
[2023-04-25 15:33] LABS: ALT 34 U/L (14-59); AST 26 U/L (15-37); Albumin 3.6 g/dL (3.4-5.0); Alkaline Phosphatase 90 U/L (46-116); Anion Gap 9.3 mmol/L (3-11); BUN 17 mg/dL (7-18); Bilirubin, Total 0.7 mg/dL (0.2-1.0); CO2 29.7 mmol/L (21.0-32.0); Calcium 9.3 mg/dL (8.5-10.1); Chloride 105 mmol/L (98-107); Estimated GFR 61.75 (mL/min/1.73m2); Glucose 94 mg/dL (74-106); Potassium 4.8 mmol/L (3.5-5.1); Sodium 144 mmol/L (136-145); Total Protein 6.8 g/dL (6.4-8.2)
[2023-04-25 16:30] LABS: Vitamin D 25 Total 32.7 ng/mL (30-100)
== END 2023-04-25 11:05 | disposition home or self-care (01) ==
LOC: NCHCN 11:04
PROVIDERS: PCP Family Medicine; Visit Provider Family Medicine
DX: E55.9 Vitamin D deficiency, unspecified (principal); D64.9 Anemia, unspecified; Z00.00 Encounter for general adult medical examination without abnormal findings; I10 Essential (primary) hypertension
CPT/HCPCS: 80053; 82306; 85027

== ENCOUNTER 2023-04-30 07:37 | Emergency (ER) | payer MEDICARE, SELFPAY ==
[2023-04-30] VITALS (26 sets, daily range): BP systolic 91–167; BP diastolic 66–118; PULSE 81–117; RESP 10–27; TEMP 36.8; O2SAT 94–99
--- NOTE | 2023-04-30 07:45 | RT.EKG_ITS ---
APPROVED REPORT Exam: Resting ECG Reason for Exam: sob Patient Location: E HR:101 bpm ECG Measurements Heart Rate 101 AXIS TX 114 P 85 QRSd 78 QRS 54 QT 325 T 64 QTc 421 Conclusion Sinus tachycardia...rate> 99
--- NOTE | 2023-04-30 08:17 | ED.GENADUL_ITS ---
Discharge Plan Disposition Patient Disposition: Home Discharge Details Clinical Impression: Community acquired pneumonia Primary Care Provider: Nicolasa Griggs ED Provider: Chema Castañeda Home Meds and New Rx's Prescriptions: New doxycycline hyclate 100 mg capsule 100 mg PO BID Qty: 10 0RF Continued atorvastatin 40 mg tablet 40 mg PO QHS duloxetine 30 mg capsule,delayed release(DR/EC) 30 mg PO DAILY lisinopril 40 MG tablet 40 mg PO DAILY cholecalciferol (vitamin D3) [Vitamin D3] 2,000 UNIT tablet 2,000 unit PO DAILY dexlansoprazole [Dexilant] 30 mg capsule,biphase delayed releas 30 mg PO DAILY Qty: 90 3RF epinephrine 0.3 mg/0.3 mL auto-injector 1 ea subcut DIRECTED PRN Patient Comments: INJECT ONE PEN UNDER THE SKIN DIRECTED aspirin [Children's Aspirin] 81 mg Tablet,Chewable 81 mg PO DAILY Qty: 100 0RF mesalamine 1.2 gram tablet,delayed release (DR/EC) 4.8 g PO DIRECTED Discharge Instructions Instructions: Community Acquired Pneumonia (ED) Additional Instructions: You were seen in the emergency department for your cough and fevers. Your x-ray showed no obvious signs of pneumonia but based on your symptoms you are receiving an antibiotic which you should take as directed. This antibiotic as we discussed will make you more sensitive to the sun. Please cover up wear hat and also use sunscreen. Please return to the emergency department if you cannot eat or drink or if you develop any difficulty breathing. Discharge Data Discharge Date/Time-TO BE ENTERED AT DEPARTURE: 04/30/23 12:14 Medical Decision Making This is a very well-appearing normothermic and mildly tachycardic 67-year-old female with history of ulcerative colitis now with cough and fevers concerning for community-acquired pneumonia. She does have chest pain but it does not sound typical for ACS as it is not radiating or associated with diaphoresis. Her ECG is nonischemic. Will obtain a single troponin based on the duration of her symptoms and be reassured against ACS if this is negative. No tearing quality to chest pain to suggest dissection. She has been nauseous and has not been vomiting so doubt esophageal rupture. No positional component to suggest pericarditis. Soft nontender abdomen. Doubt intra-abdominal infection. I considered PE however given the patient's abnormal breath sounds and history of cough and felt PE less low in the differential so I did not obtain a D-dimer. No pain out of proportion to suggest necrotizing soft tissue infection. Patient with patient bilateral coarse breath sounds concerning for pneumonia. I considered sepsis as patient has tachycardia and may meet SIRS criteria. However the patient is not septic appearing and has a normal blood pressure so I did not empirically order a lactate blood cultures nor provide IV broad-spectrum antibiotics. Will obtain chest x-ray and respiratory viral swab. Based on the patient's age greater than 65 we will also obtain labs but anticipate she will be appropriate for discharge with outpatient follow-up after calculating her port score. We will provide 500 cc of crystalloid and reassess. HEART SCORE Chest pain Diagnostic Protocol: - [History/Physical/Gestalt: Slightly Suspicious (0)] - [EKG: Normal and/or unchanged from prior EKG (0)] - [AGE: 65 and older (+2)] - [RISK FACTORS: 1 - 2 risk factors (+1)] - [TROPONIN: <= normal limit (0)] - TOTAL SCORE: 3 - Risk Factors: DM, current or recent smoker, HTN, HLD, family hx of CAD, obesity - INTERPRETATION: With a total score of 3 or less, risk of major cardiac event within six weeks 1.7%, likely lower with two negative troponins. [I explained to the patient that the risk of subsequent major cardiac event within 1 month is not 0, however risk predicted to be less than 2%. Patient verbalized understanding, accepts this risk and shared and the decision for discharge with PCP follow-up for further evaluation and management. They understand to return to the ED immediately with any worsening symptoms, new symptoms or other concerns.] 11:05 AM RSV influenza and COVID-negative. Mild leukopenia. No anemia. No thrombocytopenia. Based on fevers cough we will treat empirically with amoxicillin clavulanic acid despite reassuring read on chest x-ray. 12 PM Negative troponin. Basic metabolic panel with no DIONICIO. Reassuring basic metabolic panel. 3:40 PM Patient tolerated p.o. in the ED. I advised return if she developed worsening shortness of breath or any recurrent fevers or could not tolerate p.o. HPI General Date/Time Provider Initiated Documentation: 04/30/23 07:55 . HPI Narrative: This is a 67-year-old female with a history of ulcerative colitis arriving via private vehicle to the emergency department setting cough and chest congestion. Patient reports that her symptoms began 5 days ago when she developed a cough. She reported that her cough became more scratchy 4 days ago. 3 days ago she was seen at urgent care and given a prescription for albuterol. She said that this loosened up her congestion but that she has had a persistent cough and fevers. Her brother has been sick. She tested negative at home for COVID. She has no history of PE nor DVT. She has had a cough productive of green phlegm. She has ulcerative colitis and this has been flaring up recently causing some abdominal cramping with nausea. She has no significant abdominal pain. She occasionally smokes marijuana but denies routine tobacco and illicits. Related Data Home Medications Medication Instructions Recorded Confirmed cholecalciferol (vitamin D3) 50 2,000 unit PO DAILY 02/11/17 04/30/23 mcg (2,000 unit) tablet (Vitamin D3) lisinopril 40 mg tablet 40 mg PO DAILY 02/11/17 04/30/23 dexlansoprazole 30 mg 30 mg PO DAILY #90 caps 06/02/21 04/30/23 capsule,biphase delayed release (Dexilant) epinephrine 0.3 mg/0.3 mL 1 ea subcut DIRECTED PRN 09/13/22 04/30/23 injection, auto-injector aspirin 81 mg chewable tablet 81 mg PO DAILY #100 tabs 09/14/22 04/30/23 (Children's Aspirin) atorvastatin 40 mg tablet 40 mg PO QHS 09/20/22 04/30/23 mesalamine 1.2 gram tablet,delayed 4.8 g PO DIRECTED 09/20/22 03/25/23 release duloxetine 30 mg capsule,delayed 30 mg PO DAILY 02/01/23 04/30/23 release doxycycline hyclate 100 mg capsule 100 mg PO BID #10 caps 04/30/23 Previous Rx's Medication Instructions Recorded dexlansoprazole 30 mg 30 mg PO DAILY #90 caps 06/02/21 capsule,biphase delayed release (Dexilant) aspirin 81 mg chewable tablet 81 mg PO DAILY #100 tabs 09/14/22 (Children's Aspirin) doxycycline hyclate 100 mg capsule 100 mg PO BID #10 caps 04/30/23 Allergies Allergy/AdvReac Type Severity Reaction Status Date / Time protamine Allergy Severe Anaphylaxis Verified 04/30/23 07:47 venom-honey bee Allergy Severe Verified 04/30/23 07:47 wool Allergy Verified 04/30/23 07:47 amoxicillin [From Augmentin] AdvReac Severe GI Verified 04/30/23 07:47 problems, Severe Diarrhea clavulanic acid AdvReac Severe GI Verified 04/30/23 07:47 [From Augmentin] problems, severe diarrhea omeprazole AdvReac Severe Diarrhea Verified 04/30/23 07:47 esomeprazole [From Nexium] AdvReac Intermediate history of Verified 04/30/23 07:47 Irritable bowel, severe diarrhea silver nitrate AdvReac Skin Rash Verified 04/30/23 07:47 General Stated Complaint: RespSymp MENA: 3 PFSH All Active Problems (Updated 04/30/23 @ 11:11 by Chema Castañeda MD) Community acquired pneumonia (Acute) Trigger finger, left ring finger (Acute) Depo-medrol injection: 03/25/23 H/O endarterectomy (Acute) LEFT Pain, foot (Acute) Corns and callosities (Acute) Carotid stenosis, left (Acute) Carotid stenosis, right (Acute) Ulcerative colitis (Chronic) BRAO (branch retinal artery occlusion) (Acute) Chronic shoulder pain (Acute) Subacromial impingement of right shoulder (Acute) 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 of carpometacarpal (CMC) joint of left thumb (Acute) Injected: 02/17/2021 Gastritis (Acute ~04/2021) Esophagitis (Acute ~04/2021) Trochanteric bursitis of left hip (Acute) s/p endoscopic trochanteric bursectomy and IT band release DOS: 12/22/2020 Most recent injections: 09/19/2020 ; 06/27/20 Hip bursitis (Acute) Postoperative anemia due to acute blood loss (Acute) Post-nasal drip (Chronic) De Quervain's tenosynovitis, right (Acute 11/14/16) Pain from implanted hardware (Acute 06/10/17) Right wrist tendinitis (Acute 04/18/17) Tubular adenoma of colon (Acute 02/26/17) Instability of joints of both ankles (Acute) Bilateral knee pain (Chronic) History of sinusitis (Chronic) Chronic frontal sinusitis (Chronic) Trochanteric bursitis, right hip (Acute) Most recent injections: 01/02/2021; 09/19/2020 ; 06/27/20 Ingrowing right great toenail (Acute) Tendinitis of left rotator cuff (Acute) Arthritis of carpometacarpal (CMC) joint of right thumb (Acute) Most recent depo-medrol injection: 03/25/23 Medical History Bunion, left foot Bunion, right foot Chronic ethmoidal sinusitis Chronic maxillary sinusitis Closed fracture of right distal radius Colon polyp, hyperplastic (~04/2021) Ethmoid sinusitis GERD (gastroesophageal reflux disease) Hypertension Iliotibial band syndrome of left side Other intraarticular fracture of lower end of right radius, subsequent encounter for closed fracture with routine healing (08/08/16) Serrated adenoma of colon (~04/2021) Sinus congestion Tubular adenoma (~04/2021) Surgical History Colonoscopy - IV Sedation (02/26/17) EGD - IV Sedation (02/26/17) History of bursectomy and IT band release History of colonoscopy (~04/2021) History of esophagogastroduodenoscopy (EGD) (~04/2021) right wrist fracture repair (06/29/16) S/P carotid endarterectomy Left Nov 2022 S/P cholecystectomy S/P hysterectomy with oophorectomy S/P Mohs surgery for basal cell carcinoma x2 Status post bilateral total hip replacement Family History Other Hypertension Social History Smoking/Tobacco Use Status: Former Tobacco Use Quit Date: 08/11/17 Smoking risk assessment performed?: Yes Alcohol Intake: current Alcohol Intake frequency: a few times a month Alcohol type: wine and hard liquor Drug use: Occasionally Substance use type: marijuana Household members: none Number of Children: 2 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 Head: Normocephalic, atraumatic. Eye: Pupils equal, round reactive to light. Extraocular eye movements intact. No conjunctival injection. No scleral icterus. Ear, nose, mouth, throat: Grossly normal inspection. Normal voice, handling secretions normally. Neck: Trachea midline. Cardiovascular: Well-perfused distal extremities. Regular rate and rhythm. Respiratory: Nonlabored respiration. Coarse breath sounds bilaterally. No accessory muscle use. No respiratory distress. Gastrointestinal: Nondistended abdomen. Musculoskeletal: No edema. Moving all 4 extremities spontaneously. Skin: Normal for age and race, grossly normal temperature and turgor. No acute rash. Neurologic: Alert and appropriate, no apparent acute deficits. Psychiatric: Mood and manner are appropriate. Grooming and personal hygiene are appropriate. Course Vital Signs Vital signs: Vital Signs Temperature 36.8 C 04/30/23 07:41 Pulse 108 H 04/30/23 07:41 Respiratory Rate 16 04/30/23 07:41 Blood Pressure 141/70 H 04/30/23 07:41 Pulse Oximetry 95 04/30/23 07:41 Temperature 36.8 C 04/30/23 07:41 Temperature Source Skin 04/30/23 07:41 Pulse 108 H 04/30/23 07:41 Respiratory Rate 16 04/30/23 07:41 Respiratory Effort Short of Breath 04/30/23 07:52 Blood Pressure 141/70 H 04/30/23 07:41 Blood Pressure Position Supine 04/30/23 07:41 Pulse Oximetry 95 04/30/23 07:41 Oxygen Delivery Method Room Air 04/30/23 07:41 Oxygen Flow Rate 0 04/30/23 07:41 Pain Level 5 04/30/23 07:41 PAWSS Have you Been Recently Intoxicated or Drunk Within the Last 30 days?: No Have you Ever Experienced Previous Episodes of Alcohol Withdrawal?: No Have you ever Experienced Withdrawal Seizures?: No Have you ever Experienced Delirium Tremens(DT)s?: No Have you ever undergone Alcohol Rehabilitation Treatment (i.e, inpt ot outpatient treatment programs)?: No Have you ever Experienced Blackouts?: No Have you ever Combined Alcohol with other Downers within the last 90 days?: No Have you ever Combined Alcohol with any other Substance of Abuse during the last 90 days?: No Positive Blood Alcohol level on Presentation? [PCS.BAL]: No Evidence of Increased Autonomic Activity (i.e. HR>120, tremor, sweating, agitation, nausea)?: No Result: 0
--- NOTE | 2023-04-30 08:30 | DI.RAD_ITS ---
Exam(s) XR CHEST 2V PA LATERAL EXAM: XR CHEST 2V PA LATERAL CLINICAL HISTORY: Cough shortness of breath TECHNIQUE: 2D digital imaging was performed of the chest. Two images were obtained. PA and lateral views were obtained. COMPARISON: CR CHEST 2 VIEWS PA,LAT from 05/12/2018 FINDINGS: MEDIASTINUM: Normal. HEART: Normal. PULMONARY VASCULATURE: Normal. LUNGS: Clear. PLEURAL SPACE: No pleural effusion or pneumothorax. BONE:Within normal limits for the patient's age. OTHER FINDINGS:Normal. IMPRESSION: No acute pulmonary findings. DATA REPOSITORY: RADIATION DOSE DELIVERED:
[2023-04-30] MEDS: Acetaminophen 500 MG TAB 1000 MG PO (09:07)
[2023-04-30] MEDS: Normal Saline 500 ML IV (10:30)
[2023-04-30 10:58] LABS: Abs Immature Grans 0.01 10^3/uL (0.0-0.06); Absolute Basophil Count 0.03 10^3/uL (0.0-0.2); Absolute Eosinophil Count 0.08 10^3/uL (0.0-0.7); Absolute Lymphocyte Count 0.86 10^3/uL (1.2-3.4); Absolute Monocyte Count 0.47 10^3/uL (0.1-0.8); Absolute Neutrophil Count 2.49 10^3/uL (1.2-6.7); Basophils % 0.8; HCT 39.6 % (36.0-46.0); HGB 13.4 g/dL (11.2-15.7); Immature Grans % 0.3; Lymphocytes % 21.8; MCH 29.5 pg (27.0-33.0); MCHC 33.8 % (32.0-36.0); MCV 87 fL (80-95); MPV 8.9 fL (8.0-11.0); Monocytes % 11.9; Neutrophils % 63.2; Platelet Count 253 10^3/uL (130-400); RBC 4.54 10^6/uL (3.93-5.22); RDW 14.3 % (11.7-14.6); RDW-SD 45.8 fL; WBC 3.94 10^3/uL (4.4-10.8)
--- NOTE | 2023-04-30 11:02 | NUR.NOTE ---
Nursing Note: This RN assumed care of 1000. Pt AOx4 and in no signs of acute distress. IV established with alacrity. Labs sent without further delay. Pt has call light within reach.
[2023-04-30 11:03] LABS: COVID-19 PCR Negative (Negative); Influenza A PCR Negative (Negative); Influenza B PCR Negative (Negative); RSV PCR Negative (Negative)
[2023-04-30 11:05] LABS: Source Nasopharynx
[2023-04-30 11:28] LABS: Anion Gap 8.4 mmol/L (3-11); BUN 14 mg/dL (7-18); CO2 27.6 mmol/L (21.0-32.0); Calcium 8.6 mg/dL (8.5-10.1); Chloride 102 mmol/L (98-107); Estimated GFR 61.75 (mL/min/1.73m2); Glucose 103 mg/dL (74-106); Potassium 3.8 mmol/L (3.5-5.1); Sodium 138 mmol/L (136-145); Troponin I < 50 ng/L (<or=60)
[2023-04-30] MEDS: Doxycycline Hyclate 100 MG CAP PO (11:38)
--- NOTE | 2023-04-30 11:39 | NUR.NOTE ---
Nursing Note: Pt comfortable at this time. Pt understands likely d/c. Pt given food and drink for comfort.
--- NOTE | 2023-05-01 07:51 | NUR.NOTE ---
Nursing Note: Accessed pt chart to determine the number of EKG orders.
--- NOTE | 2023-05-01 07:52 | NUR.NOTE ---
looking up EKG ORDERS Nursing Note:
== END 2023-04-30 12:14 | disposition home or self-care (01) ==
PROVIDERS: Emergency Provider Emergency Medicine; PCP Family Medicine
DX: J18.9 Pneumonia, unspecified organism (principal)
CPT/HCPCS: 80048; 87637; 93005; 96360; 99284; 71046; 84484; 85025; 93010

== ENCOUNTER 2023-05-27 02:57 | Outpatient (CLI) | payer MEDICARE, SELFPAY ==
--- NOTE | 2023-05-27 | DI.CTLCSR_ITS ---
Exam(s) CT CHEST LUNG CANCER SCREEN EXAM: CT CHEST LUNG CANCER SCREEN CLINICAL HISTORY: HX CIGARETTE SMOKER Z87.891 SCREENING FOR LUNG CANCER TECHNIQUE: Imaging Protocol: Axial computed tomography images with coronal and sagittal reformatted images were created and reviewed. Low dose screening protocol. COMPARISON: CT CT CHEST LUNG CANCER SCREEN from 03/06/2022 FINDINGS: Tracheobronchial tree: No bronchiectasis or mucus plugging.. Mediastinum and Giovanna: No dominant adenopathy or fluid collection. Pulmonary parenchyma: No consolidation or dominant measurable mass. Mild emphysematous changes. Lung Nodules: Calcified granuloma anterior left upper lobe. Pleura: No effusion. No pneumothorax. Heart: The heart is not dilated. Mild coronary artery calcifications are seen. Aorta: Thoracic aorta non-dilated. Mild atherosclerotic changes. Upper abdomen: Unremarkable. Status post cholecystectomy. Bones: Degenerative changes. Stable minimal compression of the T7 vertebral body. Soft Tissues: Unremarkable. IMPRESSION: No suspicious pulmonary nodules. Lung RADS Cat 1 - Negative: No nodules and definitely benign nodules Lung-RADS 1.0 CATEGORIES: Category 0 - Prior chest CT exam(s) being located for comparison. Category 1 - Annual screening in 12 months. No nodules or definitely benign nodules. Category 2 - Annual screening in 12 months. Benign appearance. Nodules with low likelihood of becomin g active cancer. Category 3 - 6-month follow-up. Probably benign. Short-term follow-up suggested. Nodules with low lik elihood of becoming active cancer. Category 4A - 3-month follow-up and CT/PET if >8 mm in size. Suspicious finding. Findings which requi re additional testing. Category 4B - Findings which require additional testing and tissue sampling. Category 4X - Category 3 or 4 nodules with additional features or imaging findings that increases the suspicion of malignancy. Modifier S- Potentially clinically significant findings (non lung cancer) RADIATION DOSE DELIVERED: 71.06mGy.cm Total DLP DATA REPOSITORY: All CT scans at this facility are submitted to the National Radiology Data Registry (NRDR) Dose Index Registry (DIR) with the [employer] (ACR). RADIATION OPTIMIZATION: All CT scans at this facility use at least one of these dose optimization te chniques: automated exposure control; mA and/or kV adjustment per patient size (includes targeted exa ms where dose is matched to clinical indication); or iterative reconstruction.
== END 2023-05-27 03:17 ==
LOC: DI 02:57
PROVIDERS: PCP Family Medicine; Visit Provider Family Medicine
DX: Z87.891 Personal history of nicotine dependence (principal); Z12.2 Encounter for screening for malignant neoplasm of respiratory organs
CPT/HCPCS: 71271

== ENCOUNTER → 2023-06-28 00:05 | Outpatient (CLI) | payer MEDICARE, SELFPAY ==
--- NOTE | 2023-06-28 10:45 | DI.DEXA_ITS ---
Exam(s) XR DEXA BONE DENSITY W/WO KRYSTIAN EXAM: XR DEXA BONE DENSITY W/WO KRYSTIAN CLINICAL HISTORY: MENOPAUSE Z78.0 TECHNIQUE: Routine DEXA evaluation of the lumbar spine, hip, or forearm. COMPARISON: CR XR DEXA BONE DENSITY W/WO KRYSTIAN from 01/21/2020 FINDINGS: Performed on a [facility] unit. Lateral image: No compression fracture evident. Lumbar Spine total T-score: 0.7. Prior reading in 2019 was 0.9 Hip total T-score:Not done Independent reading at the level of the femoral neck yields T-score of not done Forearm total T-score: 0.2. IMPRESSION: Bone mineral density measures in the normal range. Fracture risk is low. Note: Any spine fracture indicates 5x risk for subsequent spine fracture and 2x risk for subsequent h ip fracture. World Health Organization criteria for BMD interpretation classify patients: Normal...... T- Score at or above -1.0 Osteopenic... T- Score between -1.0 and -2.5 Osteoporosis... T-Score at or below -2.5
== END ==
PROVIDERS: PCP Family Medicine; Visit Provider Family Medicine
DX: Z78.0 Asymptomatic menopausal state (principal); Z13.820 Encounter for screening for osteoporosis
CPT/HCPCS: 77080

== ENCOUNTER → 2023-07-01 18:27 | Outpatient (CLI) | payer MEDICARE, SELFPAY ==
--- NOTE | 2023-07-01 | DI.RAD_ITS ---
Exam(s) XR HAND LT COMPLETE EXAM: XR HAND LT COMPLETE CLINICAL HISTORY: PAIN LEFT HAND M79.642. TECHNIQUE: 2D digital imaging was performed. COMPARISON: CR XR THUMB RT from 02/05/2020 FINDINGS: 3 views No evidence of acute fracture nor dislocation. Bone density normal. No osseous lesions nor erosions . There is no radiopaque foreign body. IMPRESSION: No acute osseous findings in the hand. DATA REPOSITORY: RADIATION DOSE DELIVERED:
== END ==
PROVIDERS: PCP Family Medicine; Visit Provider Nurse Practitioner Family
DX: M79.642 Pain in left hand (principal)
CPT/HCPCS: 73130

== ENCOUNTER → 2023-08-02 09:33 | Outpatient (BNVA) | payer MEDICARE, SELFPAY | PROVIDERS: PCP Family Medicine; Referring Provider Family Medicine; Visit Provider Student in an Organized Health Care Education/Training Program | DX: M70.61 Trochanteric bursitis, right hip (principal); M70.62 Trochanteric bursitis, left hip | CPT/HCPCS: 20610; J1040 ==

== ENCOUNTER 2023-08-13 15:30 | Outpatient (REF) | payer MEDICARE, SELFPAY ==
[2023-08-16 22:16] LABS: Calprotectin 765 mcg/g
== END 2023-08-13 15:31 | disposition home or self-care (01) ==
LOC: LBN 15:30
PROVIDERS: PCP Family Medicine; Visit Provider Nurse Practitioner Adult Health
DX: K51.90 Ulcerative colitis, unspecified, without complications (principal)
CPT/HCPCS: 83993

== ENCOUNTER 2023-09-04 11:52 | Outpatient (CLI) | payer MEDICARE, SELFPAY ==
[2023-09-04 10:29] LABS: Abs Immature Grans 0.16 10^3/uL (0.0-0.06); Absolute Basophil Count 0.05 10^3/uL (0.0-0.2); Absolute Eosinophil Count 0.03 10^3/uL (0.0-0.7); Absolute Lymphocyte Count 1.63 10^3/uL (1.2-3.4); Absolute Monocyte Count 0.38 10^3/uL (0.1-0.8); Absolute Neutrophil Count 10.99 10^3/uL (1.2-6.7); Basophils % 0.4; Eosinophils % 0.2; HCT 40.5 % (36.0-46.0); HGB 12.8 g/dL (11.2-15.7); Immature Grans % 1.2; Lymphocytes % 12.3; MCHC 31.6 % (32.0-36.0); MCV 92 fL (80-95); MPV 9.6 fL (8.0-11.0); Monocytes % 2.9; Platelet Count 282 10^3/uL (130-400); RBC 4.41 10^6/uL (3.93-5.22); RDW 14.6 % (11.7-14.6); RDW-SD 49.4 fL; WBC 13.24 10^3/uL (4.4-10.8)
[2023-09-04 10:34] LABS: ALT 29 U/L (14-59); AST 23 U/L (15-37); Albumin 3.2 g/dL (3.4-5.0); Alkaline Phosphatase 77 U/L (46-116); Anion Gap 5.4 mmol/L (3-11); BUN 25 mg/dL (7-18); Bilirubin, Total 0.3 mg/dL (0.2-1.0); CO2 27.6 mmol/L (21.0-32.0); CREATININE 1.2 mg/dL (0.55-1.02); Calcium 9.2 mg/dL (8.5-10.1); Chloride 105 mmol/L (98-107); Estimated GFR 49.31 (mL/min/1.73m2); Glucose 121 mg/dL (74-106); Sodium 138 mmol/L (136-145); Total Protein 6.4 g/dL (6.4-8.2)
[2023-09-04 10:41] LABS: ESR 5 mm/hr (0-30)
[2023-09-04 14:09] LABS: C-Reactive Protein < 0.05 mg/dL (0.0-0.3)
[2023-09-06 11:40] LABS: TB Interpretation Negative (Negative)
== END 2023-09-04 11:53 | disposition home or self-care (01) ==
LOC: LBO 11:54
PROVIDERS: PCP Family Medicine; Visit Provider Internal Medicine Gastroenterology
DX: K52.9 Noninfective gastroenteritis and colitis, unspecified (principal)
CPT/HCPCS: 36415; 80053; 85652; 85025; 86140; 86480

== ENCOUNTER 2023-09-30 12:42 | Outpatient (REF) | payer MEDICARE, SELFPAY ==
[2023-10-04 20:17] LABS: Calprotectin 139 mcg/g
== END 2023-09-30 12:43 | disposition home or self-care (01) ==
LOC: LBN 12:42
PROVIDERS: PCP Family Medicine; Visit Provider Internal Medicine
DX: K52.9 Noninfective gastroenteritis and colitis, unspecified (principal)
CPT/HCPCS: 83993

== ENCOUNTER → 2024-03-06 00:24 | Outpatient (CLI) | payer MEDICARE, SELFPAY ==
--- NOTE | 2024-03-06 08:32 | DI.RAD_ITS ---
Exam(s) XR HIP RT AP LAT ONLY EXAM: XR HIP RT AP LAT ONLY CLINICAL HISTORY: history of bilat THAs,Z96.643. TECHNIQUE: 2D digital imaging was performed. Two images were obtained. AP and lateral views were ob tained. COMPARISON: CR XR HIP PELVIS ADULT BL from 05/09/2020 FINDINGS: BONES: There are stable post operative changes of a right total hip replacement present. No fracture or dislocation. Stable subchondral cyst in the right acetabulum. JOINTS: The orthopedic hardware is in good position. No evidence of hardware loosening. SOFT TISSUE: Normal. IMPRESSION: Stable right total hip replacement. DATA REPOSITORY: RADIATION DOSE DELIVERED:
--- NOTE | 2024-03-06 08:36 | DI.RAD_ITS ---
Exam(s) XR HIP LT AP LAT ONLY EXAM: XR HIP LT AP LAT ONLY CLINICAL HISTORY: history of bilat THAs,Z96.643. TECHNIQUE: 2D digital imaging was performed. Two images were obtained. AP and lateral views were ob tained. COMPARISON: CR XR HIP LT AP LAT ONLY from 11/16/2020 FINDINGS: BONES: There are stable post operative changes of a left total hip replacement present. No fracture or dislocation. JOINTS: The orthopedic hardware is in good position. No evidence of hardware loosening. SOFT TISSUE: Vascular calcifications are present. IMPRESSION: Stable left total hip replacement. DATA REPOSITORY: RADIATION DOSE DELIVERED:
== END ==
PROVIDERS: PCP Family Medicine; Visit Provider Student in an Organized Health Care Education/Training Program
DX: Z96.643 Presence of artificial hip joint, bilateral (principal); Z47.1 Aftercare following joint replacement surgery
CPT/HCPCS: 36592; 80053; 73502

== ENCOUNTER 2024-03-06 13:15 | Outpatient (RCR) | payer MEDICARE, SELFPAY ==
[2024-02-20] MEDS: Normal Saline 1,000 ML 500 ML IV (11:48)
[2024-02-20] MEDS: Normal Saline Flush 10 ML SYR IVP (11:50)
[2024-02-21 12:42] LABS: ALT 17 U/L (14-59); AST 15 U/L (15-37); Alkaline Phosphatase 89 U/L (46-116); Anion Gap 10.4 mmol/L (3-11); BUN 35 mg/dL (7-18); Bilirubin, Total 0.3 mg/dL (0.2-1.0); CO2 22.6 mmol/L (21.0-32.0); CREATININE 1.5 mg/dL (0.55-1.02); Calcium 9.2 mg/dL (8.5-10.1); Chloride 105 mmol/L (98-107); Estimated GFR 37.72 (mL/min/1.73m2); Glucose 116 mg/dL (74-106); Potassium 4.6 mmol/L (3.5-5.1); Sodium 138 mmol/L (136-145); Total Protein 6.7 g/dL (6.4-8.2)
[2024-02-21] MEDS: Normal Saline 1,000 ML 500 ML IV (13:10)
[2024-02-22 14:18] VITALS: BP 115/58; PULSE 77
[2024-02-23 11:59] VITALS: BP 112/54; PULSE 94; RESP 18; O2SAT 98
[2024-02-23] MEDS: Normal Saline 1,000 ML 500 ML IV (12:02)
[2024-02-23] MEDS: Normal Saline Flush 10 ML SYR IVP (12:03)
[2024-02-23 14:09] VITALS: BP 133/51; PULSE 72; RESP 18; O2SAT 99
[2024-02-24] MEDS: Normal Saline Flush 10 ML SYR IVP (11:43)
[2024-02-24] MEDS: Normal Saline 1,000 ML 500 ML IV (11:43)
[2024-02-25] MEDS: Normal Saline Flush 10 ML SYR IVP (12:00)
[2024-02-25] MEDS: Normal Saline 1,000 ML 500 ML IV (12:00)
[2024-02-26] MEDS: Normal Saline 1,000 ML 500 ML IV (12:12)
[2024-02-26] MEDS: Normal Saline Flush 10 ML SYR IVP (12:13)
[2024-02-27] MEDS: Normal Saline 1,000 ML 500 ML IV (12:02)
[2024-02-27] MEDS: Normal Saline Flush 10 ML SYR IVP (12:05)
[2024-02-28] MEDS: Normal Saline 1,000 ML 500 ML IV (11:58)
[2024-02-28] MEDS: Normal Saline Flush 10 ML SYR IVP (11:58)
[2024-02-28 12:32] LABS: ALT 19 U/L (14-59); AST 18 U/L (15-37); Alkaline Phosphatase 91 U/L (46-116); Anion Gap 11.6 mmol/L (3-11); BUN 7 mg/dL (7-18); Bilirubin, Total 0.3 mg/dL (0.2-1.0); CO2 26.4 mmol/L (21.0-32.0); CREATININE 0.9 mg/dL (0.55-1.02); Calcium 9.4 mg/dL (8.5-10.1); Chloride 104 mmol/L (98-107); Estimated GFR 69.64 (mL/min/1.73m2); Glucose 100 mg/dL (74-106); Potassium 4.1 mmol/L (3.5-5.1); Sodium 142 mmol/L (136-145); Total Protein 6.8 g/dL (6.4-8.2)
[2024-02-29] MEDS: Normal Saline 1,000 ML 500 ML IV (11:42)
[2024-02-29] MEDS: Normal Saline Flush 10 ML SYR IVP (11:45)
[2024-02-29 13:50] VITALS: BP 146/64; PULSE 81; RESP 16; TEMP 36.3; O2SAT 99
[2024-03-01 11:38] VITALS: BP 118/49; PULSE 84; RESP 18; TEMP 36.3; O2SAT 97
[2024-03-01] MEDS: Normal Saline 1,000 ML 500 ML IV (11:43)
[2024-03-01] MEDS: Normal Saline Flush 10 ML SYR IVP (11:43)
[2024-03-01 13:44] VITALS: BP 157/62; PULSE 71; RESP 18; O2SAT 99
[2024-03-03] MEDS: Normal Saline Flush 10 ML SYR IVP (11:11)
[2024-03-04] MEDS: Normal Saline Flush 10 ML SYR IVP (10:43)
[2024-03-06] MEDS: Normal Saline Flush 10 ML SYR IVP ×2 (08:15→12:56)
[2024-03-06 09:00] LABS: ALT 20 U/L (14-59); AST 15 U/L (15-37); Alkaline Phosphatase 90 U/L (46-116); Anion Gap 9.8 mmol/L (3-11); BUN 12 mg/dL (7-18); Bilirubin, Total 0.3 mg/dL (0.2-1.0); CO2 27.2 mmol/L (21.0-32.0); Chloride 106 mmol/L (98-107); Estimated GFR 61.36 (mL/min/1.73m2); Glucose 158 mg/dL (74-106); Potassium 3.9 mmol/L (3.5-5.1); Sodium 143 mmol/L (136-145); Total Protein 6.7 g/dL (6.4-8.2)
[2024-03-06] MEDS: Bacitracin 1 PACKET (12:56)
== END 2024-03-10 23:59 | disposition home or self-care (01) ==
LOC: INF 13:15
PROVIDERS: PCP Family Medicine; Visit Provider Internal Medicine
DX: R19.8 Other specified symptoms and signs involving the digestive system and abdomen (principal); Z93.2 Ileostomy status
CPT/HCPCS: 36430; 36592; 80053; 96360; 96361; 96365; 96366; 99211

== ENCOUNTER 2024-03-07 08:49 | Emergency (ER) | payer MEDICARE, SELFPAY ==
[2024-03-07] VITALS (87 sets, daily range): BP systolic 112–195; BP diastolic 54–159; PULSE 68–138; RESP 10–29; TEMP 36.3; O2SAT 91–100
--- NOTE | 2024-03-07 09:15 | W.ED.GENAD ---
Discharge Plan Disposition Specific Acute Inpt Facility: [facility] Discharge Details Chief Complaint: Abd Prob Clinical Impression: Partial bowel obstruction, Abscess after procedure Primary Care Provider: Nicolasa Griggs ED Provider: Kamini Alvarenga Home Meds and New Rx's Prescriptions: No Action atorvastatin 40 mg tablet 40 mg PO QHS duloxetine 30 mg capsule,delayed release(DR/EC) 30 mg PO DAILY lisinopril 40 MG tablet 40 mg PO DAILY cholecalciferol (vitamin D3) [Vitamin D3] 2,000 UNIT tablet 2,000 unit PO DAILY dexlansoprazole [Dexilant] 30 mg capsule,biphase delayed releas 30 mg PO DAILY Qty: 90 3RF epinephrine 0.3 mg/0.3 mL auto-injector 1 ea subcut DIRECTED PRN Patient Comments: INJECT ONE PEN UNDER THE SKIN DIRECTED aspirin [Children's Aspirin] 81 mg Tablet,Chewable 81 mg PO DAILY Qty: 100 0RF HPI General Date/Time Provider Initiated Documentation: 03/07/24 08:55. HPI Narrative: Shan is a 68-year-old female with history of ulcerative colitis and COPD 1 month status post bowel resection with ostomy due to ulcerative colitis who presents to the emergency department today for evaluation of cramping/gassy abdominal discomfort accompanied by nausea/vomiting and increased watery ostomy output. She reports symptoms started around midnight, with 2 episodes of vomiting just some scant phlegm. Pain is intermittent, described as cramping across the mid abdomen accompanied by bloating. Denies associated fever/chills, congestion, cough, chest pain, change in p.o. intake, change in urine output, blood in stool or emesis. She did have a hysterectomy and cholecystectomy in the past. Not currently on any immunosuppressive medications. She was receiving IV fluids daily via PICC line until 1 week ago, PICC line was removed yesterday. Related Data Home Medications Medication Instructions Recorded Confirmed cholecalciferol (vitamin D3) 50 2,000 unit PO DAILY 02/11/17 03/07/24 mcg (2,000 unit) tablet (Vitamin D3) lisinopril 40 mg tablet 40 mg PO DAILY 02/11/17 03/07/24 dexlansoprazole 30 mg 30 mg PO DAILY #90 caps 06/02/21 03/07/24 capsule,biphase delayed release (Dexilant) epinephrine 0.3 mg/0.3 mL 1 ea subcut DIRECTED PRN 09/13/22 03/07/24 injection, auto-injector aspirin 81 mg chewable tablet 81 mg PO DAILY #100 tabs 09/14/22 03/07/24 (Children's Aspirin) atorvastatin 40 mg tablet 40 mg PO QHS 09/20/22 03/07/24 duloxetine 30 mg capsule,delayed 30 mg PO DAILY 02/01/23 03/07/24 release Previous Rx's Medication Instructions Recorded dexlansoprazole 30 mg 30 mg PO DAILY #90 caps 06/02/21 capsule,biphase delayed release (Dexilant) aspirin 81 mg chewable tablet 81 mg PO DAILY #100 tabs 09/14/22 (Children's Aspirin) Allergies Allergy/AdvReac Type Severity Reaction Status Date / Time protamine Allergy Severe Anaphylaxis Verified 03/07/24 10:02 venom-honey bee Allergy Severe Other (See Verified 03/07/24 10:02 Comment) wool Allergy Other (See Verified 03/07/24 10:02 Comment) amoxicillin [From Augmentin] AdvReac Severe GI Verified 03/07/24 10:02 problems, Severe Diarrhea clavulanic acid AdvReac Severe GI Verified 03/07/24 10:02 [From Augmentin] problems, severe diarrhea omeprazole AdvReac Severe Diarrhea Verified 03/07/24 10:02 esomeprazole [From Nexium] AdvReac Intermediate history of Verified 03/07/24 10:02 Irritable bowel, severe diarrhea silver nitrate AdvReac Skin Rash Verified 03/07/24 10:02 General Stated Complaint: Abd Prob MENA: 3 Review of Systems Narrative: see HPI Exam Const General: cooperative, healthy appearing, comfortable and no acute distress Nutritional Appearance: average body habitus Resp Effort & Inspection: normal respiratory effort and able to speak in complete sentences Auscultation: clear to auscultation bilaterally Cardio Rate: tachycardic Rhythm: regular rhythm GI Inspection: no abdominal wall ecchymosis, no edema, non-distended and other (ileostomy present, brown watery output.) Palpation: soft Auscultation: hypoactive bowel sounds Course Vital Signs Vital signs: Vital Signs Temperature 36.3 C L 03/07/24 08:53 Pulse 116 H 03/07/24 08:53 Respiratory Rate 20 03/07/24 08:53 Blood Pressure 118/85 03/07/24 08:53 Pulse Oximetry 99 03/07/24 08:53 Temperature 36.3 C L 03/07/24 08:57 Pulse 116 H 03/07/24 08:57 Respiratory Rate 20 03/07/24 08:57 Blood Pressure 118/85 03/07/24 08:57 Blood Pressure Position Sitting 03/07/24 08:57 Pulse Oximetry 99 03/07/24 08:57 Oxygen Delivery Method Room Air 03/07/24 08:57 Oxygen Flow Rate 0 03/07/24 08:53 Medical Decision Making Shan is a 68-year-old female with history of ulcerative colitis and COPD 1 month status post bowel resection with ostomy due to ulcerative colitis who presents to the emergency department today for evaluation of cramping/gassy abdominal discomfort accompanied by nausea/vomiting and increased watery ostomy output. She reports symptoms started around midnight, with 2 episodes of vomiting just some scant phlegm. Pain is intermittent, described as cramping across the mid abdomen accompanied by bloating. Denies associated fever/chills, congestion, cough, chest pain, change in p.o. intake, change in urine output, blood in stool or emesis. No notable changes to her stoma; home health still changes ostomy bag. She did have a hysterectomy and cholecystectomy in the past. Not currently on any immunosuppressive medications. She was receiving IV fluids daily via PICC line until 1 week ago, PICC line was removed yesterday. Physical exam reassuring, patient in no acute distress. Slightly decreased bowel sounds. Abdomen is soft, nondistended, mild tenderness with palpation diffusely. Easy work of breathing, lung sounds clear bilaterally. Normal heart sounds, tachycardia is noted. Slightly tacky mucous membranes. DDx includes but not limited to: Partial bowel obstruction, inflammatory/infectious process, bowel gas/functional abdominal pain, dehydration, electrolyte imbalance While in the emergency department Shan received IV fluids for rehydration. I independently interpreted the following tests: CBC reassuring, only mild anemia with hemoglobin 11.1 noted. CMP reassuring, creatinine 1.1 today versus 1.0 yesterday. No elevated BUN:creat ratio. Magnesium unremarkable. I did review previous inpatient records from [facility] Patient had a laparoscopic colectomy, resection with diverting loop ileostomy. This was after being diagnosed with segmental colitis with diverticulosis. She does have a history of LFTs and IBD. History of gallbladder removal and hysterectomy. She had a PICC line placed after experiencing dehydration while inpatient, received TPN inpatient and IV fluids daily for a week after discharge from [facility]. She had her PICC line removed yesterday. CT scan remarkable for 3.8 x 1.9 x 4.2 cm likely fluid collection in the presacral area, concerning for abscess. Small bowel dilatation wall thickening in the right abdomen, and the pattern of partial small bowel obstruction also noted. Zosyn given for probable abscess and patient maintained n.p.o., with IV fluids running. 0.5 mg diluadid given IV for pain control. Discussed case with Dr. Rice, colorectal surgery at [facility]. Patient is excepted to [facility] as ED to ED transfer for surgical evaluation. Accepting physician Dr. Chicas. 1300: Shan has been noted to be in a rapid heart rate up to 160 on retail support specialist. An EKG was performed, found to be normal sinus rhythm with rate of 80, no changes consistent with acute ischemia. Jami denies any symptoms such as lightheadedness, fluttering in chest, chest pain, shortness of breath, nausea. Unable to capture episode of tachycardia on EKG, there was artifact on the retail support specialist during the time of the event. No new episodes. 1530: Shan has had good pain relief with dilaudid; a second dose has been ordered. Pt to maintain NPO status. Handoff report given to BRIANNE Michele. Awaiting transport at this time. Quality:[facility] Health Related Social Needs: No Data to Display [facility] All Active Problems (Updated 03/07/24 @ 12:06 by Kamini Riggs) Abscess after procedure (Acute) Partial bowel obstruction (Acute) Trigger finger, left ring finger (Acute) Depo-medrol injection: 03/25/23 H/O endarterectomy (Acute) LEFT Pain, foot (Acute) Corns and callosities (Acute) Carotid stenosis, left (Acute) Carotid stenosis, right (Acute) Ulcerative colitis (Chronic) BRAO (branch retinal artery occlusion) (Acute) Chronic shoulder pain (Acute) Subacromial impingement of right shoulder (Acute) 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 of carpometacarpal (CMC) joint of left thumb (Acute) Injected: 02/17/2021 Gastritis (Acute ~04/2021) Esophagitis (Acute ~04/2021) Trochanteric bursitis of left hip (Acute) s/p endoscopic trochanteric bursectomy and IT band release DOS: 12/22/2020 Most recent injections: 08/02/23; 09/19/2020 ; 06/27/20 Hip bursitis (Acute) Postoperative anemia due to acute blood loss (Acute) Post-nasal drip (Chronic) De Quervain's tenosynovitis, right (Acute 11/14/16) Pain from implanted hardware (Acute 06/10/17) Right wrist tendinitis (Acute 04/18/17) Tubular adenoma of colon (Acute 02/26/17) Instability of joints of both ankles (Acute) Bilateral knee pain (Chronic) History of sinusitis (Chronic) Chronic frontal sinusitis (Chronic) Trochanteric bursitis, right hip (Acute) Most recent injections: 08/02/23; 01/02/2021; 09/19/2020 ; 06/27/20 Ingrowing right great toenail (Acute) Tendinitis of left rotator cuff (Acute) Arthritis of carpometacarpal (CMC) joint of right thumb (Acute) Most recent depo-medrol injection: 03/25/23 Medical History Serrated adenoma of colon (~04/2021) Tubular adenoma (~04/2021) Colon polyp, hyperplastic (~04/2021) Iliotibial band syndrome of left side Bunion, left foot Bunion, right foot Chronic maxillary sinusitis Chronic ethmoidal sinusitis Other intraarticular fracture of lower end of right radius, subsequent encounter for closed fracture with routine healing (08/08/16) Ethmoid sinusitis Sinus congestion Hypertension GERD (gastroesophageal reflux disease) Closed fracture of right distal radius Surgical History S/P carotid endarterectomy Left Nov 2022 S/P hysterectomy with oophorectomy S/P cholecystectomy S/P Mohs surgery for basal cell carcinoma x2 History of esophagogastroduodenoscopy (EGD) (~04/2021) History of colonoscopy (~04/2021) History of bursectomy and IT band release Status post bilateral total hip replacement right wrist fracture repair (06/29/16) EGD - IV Sedation (02/26/17) Colonoscopy - IV Sedation (02/26/17) Family History Other Hypertension Social History Smoking/Tobacco Use Status: Former Tobacco Use Quit Date: 08/11/17 Smoking risk assessment performed?: Yes Alcohol Intake: current Alcohol Intake frequency: a few times a month Alcohol type: wine and hard liquor Drug use: Occasionally Substance use type: marijuana Household members: none Number of Children: 2 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
[2024-03-07 09:54] LABS: Abs Immature Grans 0.05 10^3/uL (0.0-0.06); Absolute Basophil Count 0.03 10^3/uL (0.0-0.2); Absolute Eosinophil Count 0.18 10^3/uL (0.0-0.7); Absolute Lymphocyte Count 1.21 10^3/uL (1.2-3.4); Absolute Monocyte Count 0.51 10^3/uL (0.1-0.8); Absolute Neutrophil Count 8.24 10^3/uL (1.2-6.7); Basophils % 0.3; Eosinophils % 1.8; HGB 11.1 g/dL (11.2-15.7); Immature Grans % 0.5; Lymphocytes % 11.8; MCH 26.6 pg (27.0-33.0); MCV 89 fL (80-95); MPV 9.7 fL (8.0-11.0); Neutrophils % 80.6; Platelet Count 320 10^3/uL (130-400); RBC 4.18 10^6/uL (3.93-5.22); RDW 13.5 % (11.7-14.6); RDW-SD 43.6 fL; WBC 10.22 10^3/uL (4.4-10.8)
[2024-03-07] MEDS: Normal Saline 1,000 ML 1000 ML IV (10:00)
[2024-03-07] MEDS: Ondansetron 4 MG/2 ML VIAL IVP (10:00)
[2024-03-07] MEDS: Normal Saline - Diluent 50 ML VIAL IJ (10:11)
[2024-03-07] MEDS: Omnipaque 350 MG/ML 100 ML BTL IJ (10:12)
[2024-03-07 10:14] LABS: ALT 22 U/L (14-59); AST 17 U/L (15-37); Albumin 3.8 g/dL (3.4-5.0); Alkaline Phosphatase 106 U/L (46-116); Anion Gap 13.6 mmol/L (3-11); BUN 14 mg/dL (7-18); Bilirubin, Total 0.5 mg/dL (0.2-1.0); CO2 25.4 mmol/L (21.0-32.0); CREATININE 1.1 mg/dL (0.55-1.02); Calcium 9.9 mg/dL (8.5-10.1); Chloride 101 mmol/L (98-107); Estimated GFR 54.73 (mL/min/1.73m2); Glucose 126 mg/dL (74-106); Magnesium 1.8 mg/dL (1.8-2.4); Potassium 4.4 mmol/L (3.5-5.1); Sodium 140 mmol/L (136-145); Total Protein 7.7 g/dL (6.4-8.2)
--- NOTE | 2024-03-07 10:30 | DI.CT_ITS ---
Exam(s) CT ABDOMEN PELVIS W EXAM: CT ABDOMEN PELVIS W CLINICAL HISTORY: lower abd pain w N/V, 1 month s/p bowel resection. TECHNIQUE: Imaging Protocol: Axial computed tomography images with coronal and sagittal reformatted images were created and reviewed CONTRAST MATERIAL: Intravenous: Omnipaque-350 100cc Oral: None COMPARISON: CT CT BRAIN NECK CTA from 03/21/2023 FINDINGS: VISUALIZED LUNG BASES: No nodules nor pleural effusions evident. ABDOMEN: There is a small amount of ascites around the liver and spleen. LIVER: There are no focal hepatic lesions evident. No dilated intrahepatic ducts. GALLBLADDER/BILIARY: Gallbladder is surgically absent.z CBD is not dilated. PANCREAS: No evidence of pancreatic mass nor dilatation of the pancreatic duct. SPLEEN: Spleen is not enlarged. No obvious intrasplenic lesions. Splenic and portal veins are paten t. ADRENALS: There are no significant adrenal masses. KIDNEYS:No cysts evident. No solid renal masses. No calculi nor hydronephrosis.. ABDOMINAL AORTA: Abdominal aorta is not enlarged. Common iliac arteries are calcified but not enlarg ed. LYMPH NODES:There is no retroperitoneal nor paraaortic adenopathy. ABDOMINAL WALL: There is a right-sided ostomy. GI: There are multiple dilated small bowel loops ranging up to 3.3 cm diameter. This extends to the right-sided ostomy. There has been sub total colectomy. There is a deep pelvic fluid collection lower presacral region w hich has appearance of probable abscess, this measuring 4 cm wide by 4.3 cm craniocaudal by 3 cm wide . PELVIS: LYMPH NODES: There is no intrapelvic nor inguinal adenopathy. REPRODUCTIVE: Uterus surgically absent. No ovarian masses. URINARY BLADDER: No calculi nor obvious masses evident OSSEOUS: No fractures and no significant osseous lesions. Bilateral hip prostheses. Multilevel chronic degenerative disc disease no fractures. IMPRESSION: 1. Subtotal colectomy with right-sided ostomy. Partial small bowel obstruction. 2. There is an abnormal fluid collection in the deep pelvis presacral region measuring 4 x 4.3 x 3 cm , most probably an abscess. 3. Previous cholecystectomy and hysterectomy. 4. Other findings as above. RADIATION DOSE DELIVERED: 808.08mGy.cm Total DLP DATA REPOSITORY: All CT scans at this facility are submitted to the National Radiology Data Registry (NRDR) Dose Index Registry (DIR) with the [employer] (ACR). RADIATION OPTIMIZATION: All CT scans at this facility use at least one of these dose optimization te chniques: automated exposure control; mA and/or kV adjustment per patient size (includes targeted exa ms where dose is matched to clinical indication); or iterative reconstruction.
--- NOTE | 2024-03-07 11:02 | DI.VRAD_ITS ---
Addendum created by Darrin Cramer MD on 03/07/2024 11:01:25 AM EDT: THIS REPORT CONTAINS FINDINGS THAT MAY BE CRITICAL TO PATIENT CARE. The findings were verbally communicated via telephone conference with Kamini Stiles at 11:01 AM EDT on 03/07/2024. The findings were acknowledged and understood. Initial report created on 03/07/2024 11:00:24 AM EDT: PROCEDURE INFORMATION: Preliminary report Exam: CT Abdomen And Pelvis With Contrast Exam date and time: 03/07/2024 10:18 AM Age: 68 years old Clinical indication: Other: Lower abd pain w n/v, 1 month S/P bowel resection; Prior surgery; Surgery date: 1-6 months; Surgery type: Colectomy on 02/05/2024 TECHNIQUE: Imaging protocol: Computed tomography of the abdomen and pelvis with contrast. COMPARISON: None FINDINGS: Lungs: No significant airspace or pleural disease. Liver: Fatty infiltration of the liver. Gallbladder and bile ducts: Status post cholecystectomy. Pancreas: No pancreatic mass. Spleen: No splenomegaly. Adrenal glands: Mild asymmetry in adrenal size and morphology. Kidneys and ureters: 6 mm nodular hypodensity in the left kidney suggesting a small cyst. No hydronephrosis. Stomach and bowel: Questionable wall thickening in the decompressed stomach. Subtotal colectomy with right-sided ostomy . Small bowel dilatation wall thickening in the right abdomen, in a pattern of partial small bowel obstruction. Appendix: Status post appendectomy. Intraperitoneal space: Prominent infiltration of mesenteric fat in the pelvis and free fluid. Vasculature: Prominent vascular calcification. Normal caliber of the abdominal aorta. Lymph nodes: Subcentimeter lymph nodes. Urinary bladder: Beam hardening artifact obscures the nondistended bladder. Reproductive: Status post hysterectomy. Extraperitoneal space: 3.8 x 1.9 x 4.2 cm loculated fluid collection in the presacral space, suggesting abscess. Bones/joints: Bilateral hip arthroplasties. Degenerative change and disc bulging. Soft tissues: Postoperative scarring in the anterior abdominal wall midline, along with subcutaneous edema in the anterior abdominal wall. IMPRESSION: 1. 3.8 x 1.9 x 4.2 cm loculated fluid collection in the presacral space, suggesting abscess. 2. Prominent infiltration of mesenteric fat in the pelvis and free fluid. 3. Small bowel dilatation wall thickening in the right abdomen, in a pattern of partial small bowel obstruction. 4. Additional findings as described above. The aforementioned findings initiated a critical results communication pathway. An addendum will be issued at the time of clincian notification. Dictated and Authenticated by: Darrin Cramer MD. Ordering:FARHAT Suárez MD
[2024-03-07 11:26] LABS: ESR 31 mm/hr (0-30)
[2024-03-07] MEDS: PIPERACILLIN/TAZO 4.5 GM in Normal Saline 100 ML IVPB (11:31)
[2024-03-07 11:47] LABS: Bilirubin Negative (Negative); Blood Trace-intact (Negative); Clarity Clear (Clear); Glucose Negative (Negative); Ketones Negative (Negative); Leukocyte Esterase Negative (Negative); Nitrite Negative (Negative); Specific Gravity <= 1.005 (1.005-1.025); Urobilinogen 0.2 mg/dL (Up to 0.2); pH 5.5 (5-8)
[2024-03-07 11:48] LABS: C-Reactive Protein < 0.50 mg/dL (<or=0.5)
[2024-03-07 11:52] LABS: Bacteria Negative HPF (Negative); C & S Indicated? No; Casts Negative LPF (Negative); Crystals Negative HPF (Negative); Epithelial Cells Rare HPF (Negative); Mucus Negative (Negative); RBC 0-2 HPF (0-2); WBC Negative HPF (0-5)
[2024-03-07 11:59] LABS: Lactate 1.9 mmol/L (0.6-1.4)
[2024-03-07] MEDS: Normal Saline 1,000 ML 125 ML IV (12:20)
[2024-03-07] MEDS: HYDROmorphone 2 MG/ML SYR 0.5 MG IVP ×2 (12:20→15:40)
--- NOTE | 2024-03-07 13:00 | RT.EKG_ITS ---
APPROVED REPORT Exam: Resting ECG Reason for Exam: tachycardia Patient Location: E HR:80 bpm ECG Measurements Heart Rate 80 AXIS IA 115 P 68 QRSd 73 QRS 13 QT 360 T 46 QTc 416 Conclusion Sinus rhythm 80 TWI no stemi
== END 2024-03-07 19:49 ==
PROVIDERS: Nurse Practitioner Family; Emergency Provider Physician Assistant; PCP Family Medicine
DX: K56.600 Partial intestinal obstruction, unspecified as to cause (principal); T81.43XA Infection following a procedure, organ and space surgical site, initial encounter; Z93.2 Ileostomy status; Z90.49 Acquired absence of other specified parts of digestive tract; Z90.710 Acquired absence of both cervix and uterus; Z87.891 Personal history of nicotine dependence
CPT/HCPCS: 36415; 80053; 85652; 86141; 87040; 93005; 96361; 96365; 96367; 96375; 96376; 99285; 74177; 81003; 81015; 83605; 83735; 85025; 86140; 93010; J1170; J2405; J2543; J3490

== ENCOUNTER 2024-03-21 10:26 | Emergency (ER) | payer MEDICARE, SELFPAY ==
[2024-03-21] VITALS (9 sets, daily range): BP systolic 116–153; BP diastolic 51–79; PULSE 66–122; RESP 14–18; TEMP 36.7–37.2; O2SAT 98–100
--- NOTE | 2024-03-21 10:45 | DI.CT_ITS ---
Exam(s) CT ABDOMEN PELVIS W EXAM: CT ABDOMEN PELVIS W CLINICAL HISTORY: upper abd pain, n/v, inc ostomy output, h/o SBO TECHNIQUE: Imaging Protocol: Axial computed tomography images with coronal and sagittal reformatted images were created and reviewed. CONTRAST MATERIAL: Intravenous: Omnipaque 350 Contrast volume:100 mL Oral: No COMPARISON: CT CT CHEST LUNG CANCER SCREEN from 05/27/[address] ABDOMEN PELVIS W from 03/07/2024 FINDINGS: ABDOMEN: Lung Bases: Normal where visualized. Liver: Normal density. No measurable mass. Portal, Superior Mesenteric, and Splenic Veins: Unremarkable. Gallbladder and Biliary Tract: Status post cholecystectomy. There is no significant biliary ductal d ilatation. Pancreas: Normal density, no abnormal calcifications or inflammatory process. Spleen: Normal. Adrenals: No masses seen. Kidneys: Normal size, contour and axis. No radiodense stones or obstructive uropathy. No masses seen. Abdominal Aorta: Abdominal portion non-dilated. Atherosclerotic calcification is present. Bowel: There is a double-barrel colostomy. There is mild bowel wall thickening seen in the distal luisa wel just proximal to the ostomy. This appears to be small bowel which is fluid-filled. No evidence of bowel obstruction. The stomach is collapsed limiting evaluation. There does appear to be slight decrease in size of the fluid collection in the presacral soft tissues compared to 03/07/2024. Peritoneal Cavity: There is a small amount of fluid seen in the pelvis. There is a small amount of p erihepatic and perisplenic ascites. There is mild infiltration of the fat surrounding the bowel in t he right lower quadrant. This may represent a mild enteritis. The cecum is mildly distended in the right lower quadrant. This appears to be the ???spherical structure??? from the V Rad report. The t erminal ileum is seen in this region. No free air. Lymph Nodes: Within normal limits. Bones: Within normal limits for the patient's age. The patient has bilateral total hip replacements with artifact seen in the pelvis. Soft Tissues: Unremarkable. PELVIS: Bladder: The urinary bladder is incompletely visualized secondary to artifact from the patient's orth opedic hardware. Reproductive Organs: The patient appears to be status post hysterectomy. Lymph Nodes: Within normal limits. Bones: Within normal limits for the patient's age. IMPRESSION: 1. Fluid-filled small bowel loops seen in the right lower quadrant with mild bowel wall thickening wh ich may represent an enteritis. 2. Status post subtotal colectomy with a double-barrel colostomy in place. No evidence of bowel obst ruction. 3. Interval decrease in size of the fluid collection in the presacral soft tissues. This may be a re solving hematoma/seroma or abscess. Please correlate clinically. 4. Small amount of abdominal pelvic ascites. RADIATION DOSE DELIVERED: 896.94mGy.cm Total DLP DATA REPOSITORY: All CT scans at this facility are submitted to the National Radiology Data Registry (NRDR) Dose Index Registry (DIR) with the [employer] (ACR). RADIATION OPTIMIZATION: All CT scans at this facility use at least one of these dose optimization te chniques: automated exposure control; mA and/or kV adjustment per patient size (includes targeted exa ms where dose is matched to clinical indication); or iterative reconstruction.
--- NOTE | 2024-03-21 10:53 | ED.GENADUL_ITS ---
Discharge Plan Disposition Patient Disposition: Transfer-Acute Inpatient Care Specific Acute Inpt Facility: [facility] Discharge Details Chief Complaint: Abd Prob Clinical Impression: Abdominal pain, Vomiting Primary Care Provider: Nicolasa Griggs ED Provider: Kamini Alvarenga Home Meds and New Rx's Prescriptions: No Action atorvastatin 40 mg tablet 40 mg PO QHS duloxetine 30 mg capsule,delayed release(DR/EC) 30 mg PO DAILY lisinopril 40 MG tablet 40 mg PO DAILY cholecalciferol (vitamin D3) [Vitamin D3] 2,000 UNIT tablet 2,000 unit PO DAILY dexlansoprazole [Dexilant] 30 mg capsule,biphase delayed releas 30 mg PO DAILY Qty: 90 3RF epinephrine 0.3 mg/0.3 mL auto-injector 1 ea subcut DIRECTED PRN Patient Comments: INJECT ONE PEN UNDER THE SKIN DIRECTED aspirin [Children's Aspirin] 81 mg Tablet,Chewable 81 mg PO DAILY Qty: 100 0RF HPI General Date/Time Provider Initiated Documentation: 03/21/24 10:33 . HPI Narrative: Shan is a 68-year-old female with history of ostomy placed on 02/04 for dx colitis who presents to the emergency department today for concern of small bowel obstruction. She has had multiple partial small bowel obstructions over the last month, [place] [facility] [place] Unknown known etiology of these, she says that they think it might be due to food boluses. She reports that it has been 1-1/2 weeks since she was discharged from hospital, has been feeling well since then. Last night she had 3 potatoes with dinner, developed cramping abdominal pain to the upper abdomen, vomiting, and increased ostomy output. She has had approximately 2200 cc output from ostomy. Emesis has been nonbloody but resembled something that would come out of my ostomy. Still having normal colored ostomy output and normal output from rectum, no blood in stool. Denies fever/chills, chest pain, shortness of breath, dizziness, dysuria or foul-smelling urine. Denies other significant past medical history. Related Data Home Medications Medication Instructions Recorded Confirmed cholecalciferol (vitamin D3) 50 2,000 unit PO DAILY 02/11/17 03/21/24 mcg (2,000 unit) tablet (Vitamin D3) lisinopril 40 mg tablet 40 mg PO DAILY 02/11/17 03/21/24 dexlansoprazole 30 mg 30 mg PO DAILY #90 caps 06/02/21 03/21/24 capsule,biphase delayed release (Dexilant) epinephrine 0.3 mg/0.3 mL 1 ea subcut DIRECTED PRN 09/13/22 03/21/24 injection, auto-injector aspirin 81 mg chewable tablet 81 mg PO DAILY #100 tabs 09/14/22 03/21/24 (Children's Aspirin) atorvastatin 40 mg tablet 40 mg PO QHS 09/20/22 03/21/24 duloxetine 30 mg capsule,delayed 30 mg PO DAILY 02/01/23 03/21/24 release Previous Rx's Medication Instructions Recorded dexlansoprazole 30 mg 30 mg PO DAILY #90 caps 06/02/21 capsule,biphase delayed release (Dexilant) aspirin 81 mg chewable tablet 81 mg PO DAILY #100 tabs 09/14/22 (Children's Aspirin) Allergies Allergy/AdvReac Type Severity Reaction Status Date / Time protamine Allergy Severe Anaphylaxis Verified 03/21/24 10:33 venom-honey bee Allergy Severe Other (See Verified 03/21/24 10:33 Comment) wool Allergy Other (See Verified 03/21/24 10:33 Comment) amoxicillin [From Augmentin] AdvReac Severe GI Verified 03/21/24 10:33 problems, Severe Diarrhea clavulanic acid AdvReac Severe GI Verified 03/21/24 10:33 [From Augmentin] problems, severe diarrhea omeprazole AdvReac Severe Diarrhea Verified 03/21/24 10:33 esomeprazole [From Nexium] AdvReac Intermediate history of Verified 03/21/24 10:33 Irritable bowel, severe diarrhea silver nitrate AdvReac Skin Rash Verified 03/21/24 10:33 General Stated Complaint: Abd Prob MENA: 3 Review of Systems Narrative: see HPI Exam Const General: cooperative, healthy appearing, comfortable and no acute distress Nutritional Appearance: average body habitus Resp Effort & Inspection: normal respiratory effort and able to speak in complete sentences Auscultation: clear to auscultation bilaterally Cardio Rate: regular rate Rhythm: regular rhythm GI Inspection: no abdominal wall ecchymosis and other (ostomy with watery brown output) Palpation: soft and tender (upper abd, RUQ>LUQ) with no rebound tenderness Auscultation: normal bowel sounds Course Vital Signs Vital signs: Vital Signs Temperature 36.7 C 03/21/24 10:29 Pulse 122 H 03/21/24 10:29 Respiratory Rate 18 03/21/24 10:29 Blood Pressure 116/69 03/21/24 10:29 Pulse Oximetry 98 03/21/24 10:29 Temperature 36.7 C 03/21/24 10:29 Pulse 122 H 03/21/24 10:29 Respiratory Rate 18 03/21/24 10:29 Respiratory Effort Normal 03/21/24 10:32 Blood Pressure 116/69 03/21/24 10:29 Blood Pressure Position Sitting 03/21/24 10:29 Pulse Oximetry 98 03/21/24 10:29 Oxygen Delivery Method Room Air 03/21/24 10:29 Oxygen Flow Rate 0 03/21/24 10:29 Pain Level 4 03/21/24 10:40 Medical Decision Making Shan is a 68-year-old female with history of ostomy placed on 02/04 for dx colitis who presents to the emergency department today for concern of small bowel obstruction. She has had multiple partial small bowel obstructions over the last month, [place] [facility] [place]. Unknown known etiology of these, she says that they think it might be due to food boluses. She reports that it has been 1-1/2 weeks since she was discharged from hospital, has been feeling well since then. Last night she had 3 potatoes with dinner, developed cramping abdominal pain to the upper abdomen, vomiting, and increased ostomy output. She has had approximately 2200 cc output from ostomy. Emesis has been nonbloody but resembled something that would come out of my ostomy. Still having normal colored ostomy output and normal output from rectum, no blood in stool. Denies fever/chills, chest pain, shortness of breath, dizziness, dysuria or foul-smelling urine. Denies other significant past medical history. Physical exam remarkable for tenderness with palpation of upper abdomen, especially right upper quadrant. Abdomen is soft, nondistended, no rigidity or guarding. Stoma appears healthy, beefy red. Nonbloody output noted in ostomy, watery brown. Slightly tacky mucous membranes. Easy work of breathing, lung sounds clear bilaterally. Normal heart sounds. History and presentation consistent with small bowel obstruction, concern for dehydration or electrolyte imbalance due to copious GI losses. I independently interpreted the following tests: CBC reassuring. H&H significant for mild anemia, slightly decreased from previous. CMP and lipase reassuring. Magnesium is slightly low at 1.5. CT abdomen/pelvis performed, no acute findings noted. 1430: Discussed case with Dr. Rice, [facility] [place] who is familiar with patient's case. Reviewed pt presentation, labs, and CT (images pushed to [facility] She advises IV fluids and transfer to [facility] [place]. Reviewed plan of care with patient, who is agreeable with plan of care. Awaiting transportation [place] [facility] ([place]) Quality:[facility] Related Social Needs: No Data to Display [facility] All Active Problems (Updated 03/21/24 @ 16:00 by Kamini Riggs) Vomiting (Acute) Abdominal pain (Acute) Abscess after procedure (Acute) Partial bowel obstruction (Acute) Trigger finger, left ring finger (Acute) Depo-medrol injection: 03/25/23 H/O endarterectomy (Acute) LEFT Pain, foot (Acute) Corns and callosities (Acute) Carotid stenosis, left (Acute) Carotid stenosis, right (Acute) Ulcerative colitis (Chronic) BRAO (branch retinal artery occlusion) (Acute) Chronic shoulder pain (Acute) Subacromial impingement of right shoulder (Acute) 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 of carpometacarpal (CMC) joint of left thumb (Acute) Injected: 02/17/2021 Gastritis (Acute ~04/2021) Esophagitis (Acute ~04/2021) Trochanteric bursitis of left hip (Acute) s/p endoscopic trochanteric bursectomy and IT band release DOS: 12/22/2020 Most recent injections: 08/02/23; 09/19/2020 ; 06/27/20 Hip bursitis (Acute) Postoperative anemia due to acute blood loss (Acute) Post-nasal drip (Chronic) De Quervain's tenosynovitis, right (Acute 11/14/16) Pain from implanted hardware (Acute 06/10/17) Right wrist tendinitis (Acute 04/18/17) Tubular adenoma of colon (Acute 02/26/17) Instability of joints of both ankles (Acute) Bilateral knee pain (Chronic) History of sinusitis (Chronic) Chronic frontal sinusitis (Chronic) Trochanteric bursitis, right hip (Acute) Most recent injections: 08/02/23; 01/02/2021; 09/19/2020 ; 06/27/20 Ingrowing right great toenail (Acute) Tendinitis of left rotator cuff (Acute) Arthritis of carpometacarpal (CMC) joint of right thumb (Acute) Most recent depo-medrol injection: 03/25/23 Medical History Serrated adenoma of colon (~04/2021) Tubular adenoma (~04/2021) Colon polyp, hyperplastic (~04/2021) Iliotibial band syndrome of left side Bunion, left foot Bunion, right foot Chronic maxillary sinusitis Chronic ethmoidal sinusitis Other intraarticular fracture of lower end of right radius, subsequent encounter for closed fracture with routine healing (08/08/16) Ethmoid sinusitis Sinus congestion Hypertension GERD (gastroesophageal reflux disease) Closed fracture of right distal radius Surgical History S/P carotid endarterectomy Left Nov 2022 S/P hysterectomy with oophorectomy S/P cholecystectomy S/P Mohs surgery for basal cell carcinoma x2 History of esophagogastroduodenoscopy (EGD) (~04/2021) History of colonoscopy (~04/2021) History of bursectomy and IT band release Status post bilateral total hip replacement right wrist fracture repair (06/29/16) EGD - IV Sedation (02/26/17) Colonoscopy - IV Sedation (02/26/17) Family History Other Hypertension Social History Smoking/Tobacco Use Status: Former Tobacco Use Quit Date: 08/11/17 Smoking risk assessment performed?: Yes Alcohol Intake: current Alcohol Intake frequency: a few times a month Alcohol type: wine and hard liquor Drug use: Occasionally Substance use type: marijuana Household members: none Number of Children: 2 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 Labs notable for mild anemia and hypomagnesemia, mag replenishment given p.o. Discussed case with patient's surgeon, Dr. Rice. Patient to be transferred [place] [facility] [place]. Last updated by Kamini Alvarenga at 03/21/24 15:43
[2024-03-21 11:14] LABS: Abs Immature Grans 0.02 10^3/uL (0.0-0.06); Absolute Basophil Count 0.03 10^3/uL (0.0-0.2); Absolute Eosinophil Count 0.03 10^3/uL (0.0-0.7); Absolute Lymphocyte Count 1.45 10^3/uL (1.2-3.4); Absolute Monocyte Count 0.49 10^3/uL (0.1-0.8); Absolute Neutrophil Count 6.87 10^3/uL (1.2-6.7); Basophils % 0.3 %; Eosinophils % 0.3 %; HCT 32.9 % (36.0-46.0); Immature Grans % 0.2 %; Lymphocytes % 16.3 %; MCH 25.8 pg (27.0-33.0); MCHC 30.4 % (32.0-36.0); MCV 85 fL (80-95); MPV 9.5 fL (8.0-11.0); Monocytes % 5.5 %; Neutrophils % 77.4 %; Platelet Count 444 10^3/uL (130-400); RBC 3.88 10^6/uL (3.93-5.22); RDW-SD 43.3 fL; WBC 8.89 10^3/uL (4.4-10.8)
[2024-03-21 11:45] LABS: ALT 19 U/L (14-59); AST 22 U/L (15-37); Albumin 3.6 g/dL (3.4-5.0); Alkaline Phosphatase 81 U/L (46-116); Anion Gap 14.1 mmol/L (3-11); BUN 20 mg/dL (7-18); Bilirubin, Total 0.4 mg/dL (0.2-1.0); CO2 23.9 mmol/L (21.0-32.0); Calcium 9.9 mg/dL (8.5-10.1); Chloride 105 mmol/L (98-107); Estimated GFR 61.36 (mL/min/1.73m2); Glucose 137 mg/dL (74-106); Magnesium 1.5 mg/dL (1.8-2.4); Potassium 4.1 mmol/L (3.5-5.1); Sodium 143 mmol/L (136-145); Total Protein 7.3 g/dL (6.4-8.2)
[2024-03-21 11:49] LABS: Lipase 29 U/L (16-77)
--- NOTE | 2024-03-21 12:22 | ED.PROG_ITS ---
Date of service: 03/21/24 Time of Service: 12:23 Medical Decision Making This patient reportedly had IV access. I completed a ultrasound-guided right basilic vein of the forearm 20-gauge IV. Sterile probe cover used. Area was cleaned with chlorhexidine prior to procedure. Verbal consent was obtained. IV placement was confirmed using bubble study. Patient tolerated the procedure well. Quality:[facility] Related Social Needs: No Data to Display Discharge Plan Discharge Details Chief Complaint: Abd Prob Primary Care Provider: Nicolasa Griggs ED Provider: Kamini Alvarenga Home Meds and New Rx's Prescriptions: No Action atorvastatin 40 mg tablet 40 mg PO QHS duloxetine 30 mg capsule,delayed release(DR/EC) 30 mg PO DAILY lisinopril 40 MG tablet 40 mg PO DAILY cholecalciferol (vitamin D3) [Vitamin D3] 2,000 UNIT tablet 2,000 unit PO DAILY dexlansoprazole [Dexilant] 30 mg capsule,biphase delayed releas 30 mg PO DAILY Qty: 90 3RF epinephrine 0.3 mg/0.3 mL auto-injector 1 ea subcut DIRECTED PRN Patient Comments: INJECT ONE PEN UNDER THE SKIN DIRECTED aspirin [Children's Aspirin] 81 mg Tablet,Chewable 81 mg PO DAILY Qty: 100 0RF
[2024-03-21] MEDS: Normal Saline 1,000 ML 1000 ML IV (12:26)
[2024-03-21] MEDS: Ondansetron 4 MG/2 ML VIAL IVP (12:27)
[2024-03-21] MEDS: Omnipaque 350 MG/ML 100 ML BTL IJ (12:49)
[2024-03-21] MEDS: HYDROmorphone 2 MG/ML SYR 0.5 MG IVP (13:26)
[2024-03-21] MEDS: Magnesium Oxide 400 MG TAB PO (13:27)
--- NOTE | 2024-03-21 13:33 | DI.VRAD_ITS ---
PROCEDURE INFORMATION: Exam: CT Abdomen And Pelvis With Contrast Exam date and time: 03/21/2024 12:42 PM Age: 68 years old Clinical indication: Abdominal pain; Prior surgery; Surgery date: 1-6 months; Surgery type: Colostomy TECHNIQUE: Imaging protocol: Computed tomography of the abdomen and pelvis with contrast. COMPARISON: CT ABDOMEN PELVIS W 03/07/2024 10:18 AM FINDINGS: Lungs: No consolidations or pleural effusions. Liver: Normal. No mass. Gallbladder and bile ducts: There has been a cholecystectomy. Pancreas: The pancreas is normal. Spleen: The spleen is normal. Adrenal glands: Normal. No mass. Kidneys and ureters: Normal. No hydronephrosis. Stomach and bowel: Stomach and bowel the stomach has very little fluid and air within it as it did on the prior examination. Proximal small bowel is decompressed. There is fluid-filled loops of bowel in the right lower quadrant. The ascending, transverse, descending and sigmoid portion of the been removed. There is a residual anus distal rectum. A small bowel loop is in close proximity to this location. There is a minimal amount of free fluid adjacent to this bowel loop in the pelvis. No signs of bowel obstruction. There is a loop ileostomy in the right lower quadrant. Inseparable from the inferior right portion of the peritoneum is fat and amorphous tissue density that may be nondistended bowel has a similar prior examinations fibrosis is another possibility. Medial to this is a spherical structure that could be a displaced urinary bladder there is a proximally 4 cm in diameter. Appendix: No evidence of appendicitis. Intraperitoneal space: No free air. Retroperitoneal space: The presacral fluid collection currently measures 3.0 cm 0.7 cm AP and 4.0 cm CC; previously 3.6 x 1.4 x 5.6 cm. Vasculature: The vasculature demonstrates diffuse mild-moderate atherosclerotic calcification. No abdominal aortic aneurysm. Lymph nodes: Unremarkable. No enlarged lymph nodes. Urinary bladder: See Stomach and bowel finding. Reproductive: Unremarkable as visualized. Bones/joints: No acute fracture. Total bilateral hip arthroplasties. The spine demonstrates moderate degenerative changes at multiple levels. Soft tissues: Unremarkable. IMPRESSION: 1. Near-complete colectomy leaving the distal rectum and anus. No signs of bowel obstruction or intraperitoneal abscess. 2. Redemonstrated is a tissues in the right lower quadrant of the pelvis where there is fat and soft tissue density. This may cause the urinary bladder to be deviated to right. 3. Resolving presumed seroma anterior to the sacrum. Dictated and Authenticated by: Ab Lucas MD. Ordering:FARHAT Suárez MD
[2024-03-21 15:29] LABS: Bilirubin Negative (Negative); Blood Negative (Negative); Clarity Clear (Clear); Glucose Negative (Negative); Ketones Negative (Negative); Leukocyte Esterase Negative (Negative); Nitrite Negative (Negative); Urobilinogen 0.2 mg/dL (Up to 0.2); pH 5.5 (5-8)
[2024-03-21] MEDS: Normal Saline 1,000 ML 200 ML IV (15:38)
[2024-03-21] MEDS: ACETAMINOPHEN 1,000 MG/100 ML BTL 400 MG IVPB (16:50)
[2024-03-21] MEDS: Ondansetron 4 MG/2 ML VIAL (17:03)
== END 2024-03-21 16:59 | disposition short-term general hospital (02) ==
PROVIDERS: Nurse Practitioner Family; Emergency Provider Physician Assistant; PCP Family Medicine
DX: R11.10 Vomiting, unspecified (principal); R10.9 Unspecified abdominal pain; I10 Essential (primary) hypertension; Z93.3 Colostomy status; Z90.49 Acquired absence of other specified parts of digestive tract; Z90.710 Acquired absence of both cervix and uterus; Z79.82 Long term (current) use of aspirin; Z87.891 Personal history of nicotine dependence
CPT/HCPCS: 00123; 80053; 83690; 96361; 96374; 96375; 99285; 74177; 81003; 83735; 85025; J0131; J1170; J2405; J3490

== ENCOUNTER 2024-04-17 14:46 | Outpatient (REF) | payer MEDICARE, SELFPAY ==
[2024-04-17 21:32] LABS: Bilirubin Negative (Negative); Blood Negative (Negative); Clarity Sl Cloudy (Clear); Glucose Negative (Negative); Ketones 15 mg/dL (Negative); Leukocyte Esterase Negative (Negative); Nitrite Negative (Negative); Specific Gravity >= 1.030 (1.005-1.025); Urobilinogen 0.2 mg/dL (Up to 0.2)
== END 2024-04-17 14:47 | disposition home or self-care (01) ==
LOC: NCHCN 14:46
PROVIDERS: PCP Family Medicine; Visit Provider Nurse Practitioner Family
DX: N39.0 Urinary tract infection, site not specified (principal)
CPT/HCPCS: 81003

== ENCOUNTER 2024-04-20 20:51 | Inpatient (IN) | payer MEDICARE, SELFPAY ==
[2024-04-20] VITALS (11 sets, daily range): BP systolic 118–143; BP diastolic 47–113; PULSE 68–118; RESP 18; TEMP 36.4; O2SAT 99
--- NOTE | 2024-04-20 21:15 | DI.CT_ITS ---
Exam(s) CT ABDOMEN PELVIS W EXAM: CT ABDOMEN PELVIS W CLINICAL HISTORY: abdominal pain TECHNIQUE: Imaging Protocol: Axial computed tomography images with coronal and sagittal reformatted images were created and reviewed. CONTRAST MATERIAL: Intravenous: Omnipaque 350 Contrast volume:100 mL Oral: No COMPARISON: CT CT ABDOMEN PELVIS W from 03/07/[address] ABDOMEN PELVIS W from 03/21/[address] ABDOMEN AND PELVIS W CONTRAST from 04/10/2024 FINDINGS: ABDOMEN: Lung Bases: Normal where visualized. Liver: Normal density. No measurable mass. Portal, Superior Mesenteric, and Splenic Veins: Unremarkable. Gallbladder and Biliary Tract: Status post cholecystectomy. No biliary ductal dilatation. Pancreas: Normal density, no abnormal calcifications or inflammatory process. Spleen: Normal. Adrenals: No masses seen. Kidneys: Normal size, contour and axis. No radiodense stones or obstructive uropathy. Simple cyst is seen in the left kidney. No follow-up is recommended. Abdominal Aorta: Abdominal portion non-dilated. Atherosclerotic calcification is present. Bowel: There is a double-barrel ostomy in the right lower quadrant. There is a rectosigmoid anastomo sis present. The colon is of normal caliber. The proximal colostomy shows mild dilatation of the luisa wel with mild wall thickening and stranding present. This is most apparent with the small bowel loop s just proximal to the colostomy. No evidence of appendicitis. Peritoneal Cavity: There is a small amount of fluid in the pelvis. Postsurgical stranding is in the presacral soft tissues. No free air. Lymph Nodes: Within normal limits. Bones: Within normal limits for the patient's age. Patient has bilateral total hip replacements. Soft Tissues: There is a anterior abdominal midline surgical scar. PELVIS: Bladder: The urinary bladder is largely obscured by artifact from the patient's bilateral total hip r eplacements. Reproductive Organs: Status post hysterectomy. Lymph Nodes: Within normal limits. Bones: Within normal limits for the patient's age. IMPRESSION: 1. The patient has a right lower quadrant colostomy. The small bowel loops just proximal to the colo stomy or mildly dilated. There is mild stranding around the loops of bowel. This may represent a en teritis. No transition point is seen to suggest an obstruction at this time. Follow-up as clinicall y appropriate. 2. Rectosigmoid anastomosis. 3. Small amount of free fluid in the pelvis. No focal fluid collection is seen to suggest an abscess . No pneumoperitoneum. RADIATION DOSE DELIVERED: 893.97mGy.cm Total DLP DATA REPOSITORY: All CT scans at this facility are submitted to the National Radiology Data Registry (NRDR) Dose Index Registry (DIR) with the [employer] ([employer]). RADIATION OPTIMIZATION: All CT scans at this facility use at least one of these dose optimization te chniques: automated exposure control; mA and/or kV adjustment per patient size (includes targeted exa ms where dose is matched to clinical indication); or iterative reconstruction.
[2024-04-20] MEDS: Ondansetron 4 MG/2 ML VIAL IVP (21:39)
[2024-04-20] MEDS: Lactated Ringers 1,000 ML 1000 ML IV (21:40)
[2024-04-20] MEDS: HYDROmorphone 2 MG/ML SYR 1 MG IVP (21:40)
[2024-04-20 22:06] LABS: Abs Immature Grans 0.03 10^3/uL (0.0-0.06); Absolute Basophil Count 0.04 10^3/uL (0.0-0.2); Absolute Eosinophil Count 0.15 10^3/uL (0.0-0.7); Absolute Lymphocyte Count 1.58 10^3/uL (1.2-3.4); Absolute Monocyte Count 0.57 10^3/uL (0.1-0.8); Absolute Neutrophil Count 6.89 10^3/uL (1.2-6.7); Basophils % 0.4 %; Eosinophils % 1.6 %; HCT 33.1 % (36.0-46.0); HGB 9.9 g/dL (11.2-15.7); Immature Grans % 0.3 %; Lymphocytes % 17.1 %; MCH 24.1 pg (27.0-33.0); MCHC 29.9 % (32.0-36.0); MCV 81 fL (80-95); MPV 9.7 fL (8.0-11.0); Monocytes % 6.2 %; Neutrophils % 74.4 %; Platelet Count 368 10^3/uL (130-400); RDW 15.2 % (11.7-14.6); RDW-SD 44.3 fL; WBC 9.26 10^3/uL (4.4-10.8)
[2024-04-20 22:21] LABS: ALT 23 U/L (14-59); AST 15 U/L (15-37); Albumin 3.7 g/dL (3.4-5.0); Alkaline Phosphatase 91 U/L (46-116); Anion Gap 10.5 mmol/L (3-11); BUN 21 mg/dL (7-18); Bilirubin, Total 0.3 mg/dL (0.2-1.0); CO2 24.5 mmol/L (21.0-32.0); CREATININE 1.2 mg/dL (0.55-1.02); Calcium 9.6 mg/dL (8.5-10.1); Chloride 105 mmol/L (98-107); Estimated GFR 49.31 (mL/min/1.73m2); Glucose 120 mg/dL (74-106); Lipase 28 U/L (16-77); Magnesium 1.8 mg/dL (1.8-2.4); Sodium 140 mmol/L (136-145); Total Protein 7.7 g/dL (6.4-8.2)
[2024-04-20] MEDS: Normal Saline Flush 10 ML SYR IVP (22:29)
[2024-04-20] MEDS: Omnipaque 350 MG/ML 100 ML BTL IJ (22:29)
[2024-04-20] MEDS: Normal Saline - Diluent 50 ML VIAL IJ (22:30)
--- NOTE | 2024-04-20 22:47 | ED.GENADUL_ITS ---
Discharge Plan Disposition Patient Disposition: Admit to [facility] Condition: Stable Discharge Details Clinical Impression: Abdominal pain, Vomiting, Altered bowel elimination due to intestinal ostomy, Diarrhea Primary Care Provider: Nicolasa Griggs ED Provider: Katarzyna Muñiz Home Meds and New Rx's Prescriptions: No Action atorvastatin 40 mg tablet 40 mg PO QHS duloxetine 30 mg capsule,delayed release(DR/EC) 30 mg PO DAILY lisinopril 40 MG tablet 40 mg PO DAILY cholecalciferol (vitamin D3) [Vitamin D3] 2,000 UNIT tablet 2,000 unit PO DAILY dexlansoprazole [Dexilant] 30 mg capsule,biphase delayed releas 30 mg PO DAILY Qty: 90 3RF epinephrine 0.3 mg/0.3 mL auto-injector 1 ea subcut DIRECTED PRN Patient Comments: INJECT ONE PEN UNDER THE SKIN DIRECTED aspirin [Children's Aspirin] 81 mg Tablet,Chewable 81 mg PO DAILY Qty: 100 0RF HPI General Date/Time Provider Initiated Documentation: 04/20/24 21:25 . Limitations to Documentation: no limitations . Information obtained by: patient . HPI Narrative: 68-year-old female with past medical history of ulcerative colitis, recent colon resection and ostomy presents for evaluation of severe abdominal pain and increased ostomy output. This has been ongoing for the last day. She reports that this evening she started vomiting. She reports that this has happened previously when she has had a bowel obstruction. She reports that she has been on a clear liquid diet and is only resumed eating solid foods for the last 9 days. She reports a recurrence of her symptoms today. She does not have any stool from her rectum. Related Data Home Medications Medication Instructions Recorded Confirmed cholecalciferol (vitamin D3) 50 2,000 unit PO DAILY 02/11/17 04/20/24 mcg (2,000 unit) tablet (Vitamin D3) lisinopril 40 mg tablet 40 mg PO DAILY 02/11/17 04/20/24 dexlansoprazole 30 mg 30 mg PO DAILY #90 caps 06/02/21 04/20/24 capsule,biphase delayed release (Dexilant) epinephrine 0.3 mg/0.3 mL 1 ea subcut DIRECTED PRN 09/13/22 04/20/24 injection, auto-injector aspirin 81 mg chewable tablet 81 mg PO DAILY #100 tabs 09/14/22 04/20/24 (Children's Aspirin) atorvastatin 40 mg tablet 40 mg PO QHS 09/20/22 04/20/24 duloxetine 30 mg capsule,delayed 30 mg PO DAILY 02/01/23 04/20/24 release Previous Rx's Medication Instructions Recorded dexlansoprazole 30 mg 30 mg PO DAILY #90 caps 06/02/21 capsule,biphase delayed release (Dexilant) aspirin 81 mg chewable tablet 81 mg PO DAILY #100 tabs 09/14/22 (Children's Aspirin) Allergies Allergy/AdvReac Type Severity Reaction Status Date / Time protamine Allergy Severe Anaphylaxis Verified 04/20/24 20:58 venom-honey bee Allergy Severe Other (See Verified 04/20/24 20:58 Comment) wool Allergy Other (See Verified 04/20/24 20:58 Comment) amoxicillin [From Augmentin] AdvReac Severe GI Verified 04/20/24 20:58 problems, Severe Diarrhea clavulanic acid AdvReac Severe GI Verified 04/20/24 20:58 [From Augmentin] problems, severe diarrhea omeprazole AdvReac Severe Diarrhea Verified 04/20/24 20:58 esomeprazole [From Nexium] AdvReac Intermediate history of Verified 04/20/24 20:58 Irritable bowel, severe diarrhea silver nitrate AdvReac Skin Rash Verified 04/20/24 20:58 General Stated Complaint: Abd Prob MENA: 3 Exam Narrative Exam Narrative: Review of Systems: All systems reviewed & are unremarkable except as noted in HPI and below Well-developed, + mild distress NCAT PERRL, normal conjunctiva RRR, no murmur Unlabored respiratory effort, clear bilaterally Nondistended abdomen , ostomy in the right lower quadrant, midline scar, diffuse tenderness, nonrigid. Ostomy bag is full patient reports that she changed to less than an hour ago Extremities w/o deformity, no cyanosis, no edema No rashes or lesions. no focal neurologic deficits Appropriate mood and affect Course Vital Signs Vital signs: Vital Signs Temperature 36.4 C L 04/20/24 20:54 Pulse 118 H 04/20/24 20:54 Respiratory Rate 18 04/20/24 20:54 Blood Pressure 134/66 04/20/24 20:54 Pulse Oximetry 99 04/20/24 20:54 Temperature 36.4 C L 04/20/24 21:03 Temperature Source Skin 04/20/24 21:03 Pulse 118 H 04/20/24 21:03 Respiratory Rate 18 04/20/24 21:03 Respiratory Effort Normal 04/20/24 20:56 Blood Pressure 134/66 04/20/24 21:03 Blood Pressure Position Sitting 04/20/24 21:03 Pulse Oximetry 99 04/20/24 21:03 Oxygen Delivery Method Room Air 04/20/24 21:03 Oxygen Flow Rate 0 04/20/24 21:03 Pain Level 7 04/20/24 21:40 Lab/Test Results Lab/Test Results: Laboratory Tests Range/Units 04/20/24 21:45 WBC (4.4-10.8) 10^3/uL 9.26 RBC (3.93-5.22) 10^6/uL 4.10 Hgb (11.2-15.7) g/dL 9.9 L Hct (36.0-46.0) % 33.1 L MCV (80-95) fL 81 MCH (27.0-33.0) pg 24.1 L MCHC (32.0-36.0) % 29.9 L RDW (11.7-14.6) % 15.2 H Plt Count (130-400) 10^3/uL 368 MPV (8.0-11.0) fL 9.7 Immature Gran % % 0.3 Neutrophils % % 74.4 Lymphocytes % % 17.1 Monocytes % % 6.2 Eosinophils % % 1.6 Basophils % % 0.4 Nucleated RBC % (0.0-0.3) % 0.0 Absolute Neutrophils (1.2-6.7) 10^3/uL 6.89 H Absolute Lymphocytes (1.2-3.4) 10^3/uL 1.58 Absolute Monocytes (0.1-0.8) 10^3/uL 0.57 Absolute Eosinophils (0.0-0.7) 10^3/uL 0.15 Absolute Basophils (0.0-0.2) 10^3/uL 0.04 Sodium (136-145) mmol/L 140 Potassium (3.5-5.1) mmol/L 4.0 Chloride (98-107) mmol/L 105 Carbon Dioxide (21.0-32.0) mmol/L 24.5 Anion Gap (3-11) mmol/L 10.5 BUN (7-18) mg/dL 21 H Creatinine (0.55-1.02) mg/dL 1.2 H Est GFR (CKD-EPI 2020) (mL/min/1.73m2) 49.31 Glucose (74-106) mg/dL 120 H Calcium (8.5-10.1) mg/dL 9.6 Magnesium (1.8-2.4) mg/dL 1.8 Total Bilirubin (0.2-1.0) mg/dL 0.3 AST (15-37) U/L 15 ALT (14-59) U/L 23 Alkaline Phosphatase (46-116) U/L 91 Total Protein (6.4-8.2) g/dL 7.7 Albumin (3.4-5.0) g/dL 3.7 Lipase (16-77) U/L 28 Medical Decision Making Emergent evaluation of abdominal pain and increased ostomy output. Patient has a history of ulcerative colitis with bowel resection and ostomy creation. She has recently had a partial small bowel obstruction causing similar symptoms. She has been seen at [facility] for this. The patient is hemodynamically stable today. Will begin fluid resuscitation, check lab work, give pain control, antiemetics and get CT imaging. Lab work reviewed. No leukocytosis. Mild anemia noted. Her creatinine is 1.2, not significantly above her baseline of 1. No other electrolyte derangement noted. CT doesn't demonstrate bowel obstruction will admit for further fluid resusciation, monitoring output and eval for infectious diarrhea Medical Records Medical records reviewed: Yes I reviewed the patient's medical records. Lab Data Lab results reviewed: Yes I reviewed the patient's lab results. Quality:[facility] Related Social Needs: No Data to Display [facility] All Active Problems (Updated 04/20/24 @ 23:41 by Katarzyna Muñiz MD) Diarrhea (Acute) Altered bowel elimination due to intestinal ostomy (Acute) Vomiting (Acute) Abdominal pain (Acute) Trigger finger, left ring finger (Acute) Depo-medrol injection: 03/25/23 H/O endarterectomy (Acute) LEFT Pain, foot (Acute) Corns and callosities (Acute) Carotid stenosis, left (Acute) Carotid stenosis, right (Acute) Ulcerative colitis (Chronic) BRAO (branch retinal artery occlusion) (Acute) Chronic shoulder pain (Acute) Subacromial impingement of right shoulder (Acute) 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 of carpometacarpal (CMC) joint of left thumb (Acute) Injected: 02/17/2021 Gastritis (Acute ~04/2021) Esophagitis (Acute ~04/2021) Trochanteric bursitis of left hip (Acute) s/p endoscopic trochanteric bursectomy and IT band release DOS: 12/22/2020 Most recent injections: 08/02/23; 09/19/2020 ; 06/27/20 Hip bursitis (Acute) Postoperative anemia due to acute blood loss (Acute) Post-nasal drip (Chronic) De Quervain's tenosynovitis, right (Acute 11/14/16) Pain from implanted hardware (Acute 06/10/17) Right wrist tendinitis (Acute 04/18/17) Tubular adenoma of colon (Acute 02/26/17) Instability of joints of both ankles (Acute) Bilateral knee pain (Chronic) History of sinusitis (Chronic) Chronic frontal sinusitis (Chronic) Trochanteric bursitis, right hip (Acute) Most recent injections: 08/02/23; 01/02/2021; 09/19/2020 ; 06/27/20 Ingrowing right great toenail (Acute) Tendinitis of left rotator cuff (Acute) Arthritis of carpometacarpal (CMC) joint of right thumb (Acute) Most recent depo-medrol injection: 03/25/23 Medical History Serrated adenoma of colon (~04/2021) Tubular adenoma (~04/2021) Colon polyp, hyperplastic (~04/2021) Iliotibial band syndrome of left side Bunion, left foot Bunion, right foot Chronic maxillary sinusitis Chronic ethmoidal sinusitis Other intraarticular fracture of lower end of right radius, subsequent encounter for closed fracture with routine healing (08/08/16) Ethmoid sinusitis Sinus congestion Hypertension GERD (gastroesophageal reflux disease) Closed fracture of right distal radius Surgical History S/P carotid endarterectomy Left Nov 2022 S/P hysterectomy with oophorectomy S/P cholecystectomy S/P Mohs surgery for basal cell carcinoma x2 History of esophagogastroduodenoscopy (EGD) (~04/2021) History of colonoscopy (~04/2021) History of bursectomy and IT band release Status post bilateral total hip replacement right wrist fracture repair (06/29/16) EGD - IV Sedation (02/26/17) Colonoscopy - IV Sedation (02/26/17) Family History Other Hypertension Social History Smoking/Tobacco Use Status: Former Tobacco Use Quit Date: 08/11/17 Smoking risk assessment performed?: Yes Alcohol Intake: current Alcohol Intake frequency: a few times a month Alcohol type: wine and hard liquor Drug use: Occasionally Substance use type: marijuana Household members: none Number of Children: 2 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
--- NOTE | 2024-04-20 23:33 | DI.VRAD_ITS ---
PROCEDURE INFORMATION: Exam: CT Abdomen And Pelvis With Contrast Exam date and time: 04/20/2024 10:32 PM Age: 68 years old Clinical indication: Abdominal pain; Prior surgery; Surgery date: 1-6 months; Surgery type: Ostomy, hysterectomy, cholecystectomy; Patient HX: Abd pain TECHNIQUE: Imaging protocol: Computed tomography of the abdomen and pelvis with contrast. Radiation optimization: All CT scans at this facility use at least one of these dose optimization techniques: automated exposure control; mA and/or kV adjustment per patient size (includes targeted exams where dose is matched to clinical indication); or iterative reconstruction. Contrast material: OMNIPAQUE 350; Contrast volume: 100 ml; Contrast route: INTRAVENOUS (IV); COMPARISON: CT ABDOMEN PELVIS W 03/21/2024 12:42 PM FINDINGS: Liver: Minimal Tana hepatic and pelvic free fluid. Gallbladder and bile ducts: Status post cholecystectomy. Pancreas: Normal. No ductal dilation. Spleen: Normal. No splenomegaly. Adrenal glands: Normal. No mass. Kidneys and ureters: Normal. No hydronephrosis. Stomach and bowel: Status post colectomy. Appendix: No evidence of appendicitis. Intraperitoneal space: Unremarkable. No free air. No significant fluid collection. Vasculature: Unremarkable. No abdominal aortic aneurysm. Lymph nodes: Unremarkable. No enlarged lymph nodes. Urinary bladder: Unremarkable as visualized. Reproductive: status post hysterectomy. Bones/joints: Bilateral hip prostheses with intact hardware. Soft tissues: Unremarkable. IMPRESSION: Minimal Tana hepatic and pelvic free fluid. Dictated and Authenticated by: Kleber Cummins MD. Ordering:[facility] Antonino White MD
[2024-04-21] VITALS (8 sets, daily range): BP systolic 100–141; BP diastolic 39–62; PULSE 62–71; RESP 17–18; TEMP 36.1–36.6; O2SAT 96–98
[2024-04-21] MEDS: Lactated Ringers 1,000 ML 100 ML IV ×3 (00:15→19:44)
[2024-04-21] MEDS: HYDROmorphone 2 MG/ML SYR 1 MG IVP (00:27)
[2024-04-21 00:55] LABS: C Diff PCR Negative (Negative)
--- NOTE | 2024-04-21 01:50 | W.PM.HP.N ---
Date of service: 04/21/24 Time of Service: 01:50 Assessment and Plan Assessment and plan (1) Altered bowel elimination due to intestinal ostomy: Status: Acute Assessment and plan: admit overnight for observation, iv fluids, antiemetics, full liquid diet; in the a.m. the day hospitalist may want to have discussion w/ her GI surgeon at [facility] since this is allegedly her 4th episode of symptoms that she feels were obstruction, although CT tonight did not show obstruction, however, clearly she has not been tolerating her post surgical diet. (2) Dehydration: Status: Acute Assessment and plan: iv fluids overnight, recheck labs in the a.m. (3) Anemia: Status: Chronic Assessment and plan: check iron studies, B12 and folate in the morning along w/ repeat CBC; if iron deficient, then consider parenteral iron given all of her GI symptoms. Qualifiers: Anemia type: unspecified type Qualified Code(s): D64.9 - Anemia, unspecified History of Present Illness History of Present Illness Chief Complaint: vomiting, abdominal distension, pain Narrative: 68 yr old female who has hx of U.C. and serrated adenoma colon polyps who underwent colectomy and colostomy February 05, 2024 at [facility] [place]. Sheila Rice. Since that time the patient states that she has had SBO 3x last one occurring 3 weeks ago for which she was hospitalized at [facility]. She says that she had just begun eating solids again about one week ago after follow up CT abdomen showed resolution. However, she came in tonight d/t feeling that her ostomy was getting obstructed. She says she ate some potato salad w/ some onions in it and that this caused her to have abdominal bloating, pain and decrease in her ostomy output. Usually her stools are mush like and has output around 600 to 700 mL/day. However she stared having crampy abdominal pain, nausea and bloating and decreased stool output yesterday. Symptoms began on the morning of 04/20. Tonight she had profuse diarrhea w/ liquid light brown. CT abdomen and pelvis in the E.D. tonight did not show any SBO. CMP was remarkable for mild azotemia w/ BUN 21 and creatinine 1.2 but normal electrolytes, LFT and lipase. CBC shows stable anemia Hb 9.9 GM, no leukocytosis. Patient was treated w/ antiemetics and iv fluids. The ED provider requested that the hospitalist service admit the patient for further iv fluid hydration. Review of Systems All systems reviewed & are unremarkable except as noted in HPI and below Gastrointestinal Gastrointestinal: Reports as per HPI 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 of carpometacarpal (CMC) joint of left thumb (Acute) Injected: 02/17/2021 Gastritis (Acute ~04/2021) Esophagitis (Acute ~04/2021) Trochanteric bursitis of left hip (Acute) s/p endoscopic trochanteric bursectomy and IT band release DOS: 12/22/2020 Most recent injections: 08/02/23; 09/19/2020 ; 06/27/20 Hip bursitis (Acute) Postoperative anemia due to acute blood loss (Acute) Post-nasal drip (Chronic) De Quervain's tenosynovitis, right (Acute 11/14/16) Pain from implanted hardware (Acute 06/10/17) Right wrist tendinitis (Acute 04/18/17) Tubular adenoma of colon (Acute 02/26/17) Instability of joints of both ankles (Acute) Bilateral knee pain (Chronic) History of sinusitis (Chronic) Chronic frontal sinusitis (Chronic) Trochanteric bursitis, right hip (Acute) Most recent injections: 08/02/23; 01/02/2021; 09/19/2020 ; 06/27/20 Ingrowing right great toenail (Acute) Tendinitis of left rotator cuff (Acute) Arthritis of carpometacarpal (CMC) joint of right thumb (Acute) Most recent depo-medrol injection: 03/25/23 Medical History Serrated adenoma of colon (~04/2021) Tubular adenoma (~04/2021) Colon polyp, hyperplastic (~04/2021) Iliotibial band syndrome of left side Bunion, left foot Bunion, right foot Chronic maxillary sinusitis Chronic ethmoidal sinusitis Other intraarticular fracture of lower end of right radius, subsequent encounter for closed fracture with routine healing (08/08/16) Ethmoid sinusitis Sinus congestion Hypertension GERD (gastroesophageal reflux disease) Closed fracture of right distal radius Surgical History S/P total colectomy (~02/05/24) Dr. Sheila Rice, [facility] S/P carotid endarterectomy Left Nov 2022 S/P hysterectomy with oophorectomy S/P cholecystectomy S/P Mohs surgery for basal cell carcinoma x2 History of esophagogastroduodenoscopy (EGD) (~04/2021) History of colonoscopy (~04/2021) History of bursectomy and IT band release Status post bilateral total hip replacement right wrist fracture repair (06/29/16) EGD - IV Sedation (02/26/17) Colonoscopy - IV Sedation (02/26/17) Family History Other Hypertension Social History Smoking/Tobacco Use Status: Former Tobacco Use Quit Date: 08/11/17 Smoking risk assessment performed?: Yes Alcohol Intake: current Alcohol Intake frequency: a few times a month Alcohol type: wine and hard liquor Drug use: Occasionally Substance use type: marijuana Household members: none Housing: apartment Number of Children: 2 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 Meds Allergies and Home Medications Allergies Allergy/AdvReac Type Severity Reaction Status Date / Time protamine Allergy Severe Anaphylaxis Verified 04/20/24 20:58 venom-honey bee Allergy Severe Other (See Verified 04/20/24 20:58 Comment) wool Allergy Other (See Verified 04/20/24 20:58 Comment) amoxicillin [From Augmentin] AdvReac Severe GI Verified 04/20/24 20:58 problems, Severe Diarrhea clavulanic acid AdvReac Severe GI Verified 04/20/24 20:58 [From Augmentin] problems, severe diarrhea omeprazole AdvReac Severe Diarrhea Verified 04/20/24 20:58 esomeprazole [From Nexium] AdvReac Intermediate history of Verified 04/20/24 20:58 Irritable bowel, severe diarrhea silver nitrate AdvReac Skin Rash Verified 04/20/24 20:58 Home Medications Medication Instructions Recorded Confirmed Type cholecalciferol (vitamin D3) 50 2,000 unit PO DAILY 02/11/17 04/20/24 History mcg (2,000 unit) tablet (Vitamin D3) lisinopril 40 mg tablet 40 mg PO DAILY 02/11/17 04/20/24 History dexlansoprazole 30 mg 30 mg PO DAILY #90 caps 06/02/21 04/20/24 Rx capsule,biphase delayed release (Dexilant) epinephrine 0.3 mg/0.3 mL 1 ea subcut DIRECTED PRN 09/13/22 04/20/24 History injection, auto-injector aspirin 81 mg chewable tablet 81 mg PO DAILY #100 tabs 09/14/22 04/20/24 Rx (Children's Aspirin) atorvastatin 40 mg tablet 40 mg PO QHS 09/20/22 04/20/24 History duloxetine 30 mg capsule,delayed 30 mg PO DAILY 02/01/23 04/20/24 History release Exam Narrative Exam Narrative: Elderly female who is alert and oriented x 3, NAD HEENT: unremarkable Neck: supple, no JVD, normal pulses LUngs: clear Heart: RRR Abdomen: nondistended, normal bowel sounds, soft, no guarding or rebound tenderness, ostomy intact, pink, some light brown stool in the bag which is liquid w/ some solid component Extremities: no c/c/e Neuro: normal Results Labs 04/20/24 21:45 04/20/24 21:45 Labs: Laboratory Results - last 24 hr 04/20/24 04/21/24 21:45 00:00 WBC 9.26 RBC 4.10 Hgb 9.9 L Hct 33.1 L MCV 81 MCH 24.1 L MCHC 29.9 L RDW 15.2 H Plt Count 368 MPV 9.7 Immature Gran % 0.3 Neutrophils % 74.4 Lymphocytes % 17.1 Monocytes % 6.2 Eosinophils % 1.6 Basophils % 0.4 Nucleated RBC % 0.0 Absolute Neutrophils 6.89 H Absolute Lymphocytes 1.58 Absolute Monocytes 0.57 Absolute Eosinophils 0.15 Absolute Basophils 0.04 Sodium 140 Potassium 4.0 Chloride 105 Carbon Dioxide 24.5 Anion Gap 10.5 BUN 21 H Creatinine 1.2 H Est GFR (CKD-EPI 2020) 49.31 Glucose 120 H Calcium 9.6 Magnesium 1.8 Total Bilirubin 0.3 AST 15 ALT 23 Alkaline Phosphatase 91 Total Protein 7.7 Albumin 3.7 Lipase 28 Stl C.difficile Tox PCR Negative Last Vital Signs Temp 36.1 C L 04/21/24 01:18 Pulse 62 04/21/24 01:18 Resp 17 04/21/24 01:18 BP 141/62 H 04/21/24 01:18 Pulse Ox 97 04/21/24 01:18 PAWSS Have you Been Recently Intoxicated or Drunk Within the Last 30 days?: Yes Have you Ever Experienced Previous Episodes of Alcohol Withdrawal?: No Have you ever Experienced Withdrawal Seizures?: No Have you ever Experienced Delirium Tremens(DT)s?: No Have you ever undergone Alcohol Rehabilitation Treatment (i.e, inpt ot outpatient treatment programs)?: No Have you ever Experienced Blackouts?: No Have you ever Combined Alcohol with other Downers within the last 90 days?: No Have you ever Combined Alcohol with any other Substance of Abuse during the last 90 days?: No Positive Blood Alcohol level on Presentation? [PCS.BAL]: No Evidence of Increased Autonomic Activity (i.e. HR>120, tremor, sweating, agitation, nausea)?: No Result: 1 Time Spent Time spent with Patient: 40-54 minutes Time was spent: preparing to see the patient(eg.review tests), obtaining and/or reviewing separately otained hiistory, ordering medications,tests, procedures, referring, communicating with other health care process manager, indepentently interpreting results, counseling the patient and care coordination
[2024-04-21 05:36] LABS: Bilirubin Negative (Negative); Blood Negative (Negative); Clarity Clear (Clear); Glucose Negative (Negative); Ketones Negative (Negative); Leukocyte Esterase Negative (Negative); Nitrite Negative (Negative); Specific Gravity 1.015 (1.005-1.025); Urobilinogen 0.2 mg/dL (Up to 0.2)
[2024-04-21 07:02] LABS: Abs Immature Grans 0.02 10^3/uL (0.0-0.06); Absolute Basophil Count 0.03 10^3/uL (0.0-0.2); Absolute Eosinophil Count 0.13 10^3/uL (0.0-0.7); Absolute Lymphocyte Count 1.83 10^3/uL (1.2-3.4); Absolute Monocyte Count 0.68 10^3/uL (0.1-0.8); Absolute Neutrophil Count 5.15 10^3/uL (1.2-6.7); Basophils % 0.4 %; Eosinophils % 1.7 %; HCT 28.4 % (36.0-46.0); HGB 8.3 g/dL (11.2-15.7); Immature Grans % 0.3 %; Lymphocytes % 23.3 %; MCH 23.9 pg (27.0-33.0); MCHC 29.2 % (32.0-36.0); MCV 82 fL (80-95); MPV 9.7 fL (8.0-11.0); Monocytes % 8.7 %; Neutrophils % 65.6 %; RBC 3.48 10^6/uL (3.93-5.22); RDW 15.2 % (11.7-14.6); RDW-SD 45.1 fL; WBC 7.84 10^3/uL (4.4-10.8)
[2024-04-21 07:03] LABS: Reticulocyte 1.1 % (0.5-2.4)
[2024-04-21 07:24] LABS: Diff Comment Diff Reviewed; Platelet Count 279 10^3/uL (130-400)
[2024-04-21 07:25] LABS: Hypochromasia 2+; Polychromasia Present
[2024-04-21 07:37] LABS: ALT 23 U/L (14-59); AST 13 U/L (15-37); Alkaline Phosphatase 76 U/L (46-116); Anion Gap 5.6 mmol/L (3-11); BUN 18 mg/dL (7-18); Bilirubin, Total 0.4 mg/dL (0.2-1.0); CO2 26.4 mmol/L (21.0-32.0); CREATININE 0.9 mg/dL (0.55-1.02); Calcium 8.9 mg/dL (8.5-10.1); Chloride 104 mmol/L (98-107); Estimated GFR 69.64 (mL/min/1.73m2); Glucose 100 mg/dL (74-106); Magnesium 1.7 mg/dL (1.8-2.4); Potassium 3.8 mmol/L (3.5-5.1); Sodium 136 mmol/L (136-145); Total Protein 6.3 g/dL (6.4-8.2)
[2024-04-21 07:57] LABS: Ferritin 13 ng/mL (8-252); Folate 18.3 ng/mL (8.6-20.0); Vitamin B12 158 pg/mL (193-986)
--- NOTE | 2024-04-21 08:20 | INITIAL_ITS ---
Date of service: 04/21/24 Time of Service: 08:20 Care Management Initial Assmt Initial Assessment Reason for Hospitalization: Gastroenteritis, dehydration, abdominal pain Functional Status/Living Situation Patient Presentation: Shan was sitting up in bed when CM met with her. She is awake and easily engages in conversation. Per pt, she's had a lot of trouble with the Ostomy she got is January, and is here with her 4th blockage. She explains that she has a narrowing somewhere in her bowel and ends up with an obstruction about every 10 days and is getting frustrated. The Ostomy is meant to be temporary and she is hoping to get it removed sooner, rather than later. Town of Residence: [place] Resides with: Alone Significant Other/Family: Local Natural Supports: Sons: Roosevelt and Reynold Spragueocque PAYAM Alvarez Employment Status: Retired Instrumental Activities of Daily Living (ADLs): Independent Medications Medication Management: No Issues/Barriers identified Physical Functioning/Mobility Assistive Device: None Advance Directives Advance Directives: Do you have an Advance Directive: N 09/15/22 01:48 AD On File at [facility]: N 09/15/22 01:48 Date Asked 04/20/24 04/20/24 21:01 AD Date Reviewed COLST On File at [facility] COLST Date Scanned Code Status Resuscitation Status Full Code Portal Pt does not currently have a portal and education provided: Yes Insurance Coverage/Financial Issues Insurance: Medicare 100% financial assistance ACO Member: No Financial Issues: None identified Care Team Visit Care Team Role Provider Type Nicolasa Griggs Primary Care Provider NON-[facility] STAFF PHYSICIAN Katarzyna Muñiz MD Emergency Provider [facility] STAFF PHYSICIAN Tima Pierson MD Admit Provider [facility] STAFF PHYSICIAN Attending Provider Discharge Potential Discharge Needs: PCP F/U Appt and Other [place] Anticipated Barriers to Discharge: None Identified Patient/Family Education Needs: Review discharge instructions, discuss Ask Me Three Transportation: Private vehicle Plan: Anticipate' Shan will discharge home via private vehicle with her sister when medically ready. Pt will follow up with her community providers and [facility] [place] and discharge plan of care as instructed. Pt feels comfortable with her ostomy management, has extra supplies at home and No new services are anticipated at this time. CM will continue to follow and support discharge planning needs. 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 of carpometacarpal (CMC) joint of left thumb (Acute) Injected: 02/17/2021 Gastritis (Acute ~04/2021) Esophagitis (Acute ~04/2021) Trochanteric bursitis of left hip (Acute) s/p endoscopic trochanteric bursectomy and IT band release DOS: 12/22/2020 Most recent injections: 08/02/23; 09/19/2020 ; 06/27/20 Hip bursitis (Acute) Postoperative anemia due to acute blood loss (Acute) Post-nasal drip (Chronic) De Quervain's tenosynovitis, right (Acute 11/14/16) Pain from implanted hardware (Acute 06/10/17) Right wrist tendinitis (Acute 04/18/17) Tubular adenoma of colon (Acute 02/26/17) Instability of joints of both ankles (Acute) Bilateral knee pain (Chronic) History of sinusitis (Chronic) Chronic frontal sinusitis (Chronic) Trochanteric bursitis, right hip (Acute) Most recent injections: 08/02/23; 01/02/2021; 09/19/2020 ; 06/27/20 Ingrowing right great toenail (Acute) Tendinitis of left rotator cuff (Acute) Arthritis of carpometacarpal (CMC) joint of right thumb (Acute) Most recent depo-medrol injection: 03/25/23 Medical History Serrated adenoma of colon (~04/2021) Tubular adenoma (~04/2021) Colon polyp, hyperplastic (~04/2021) Iliotibial band syndrome of left side Bunion, left foot Bunion, right foot Chronic maxillary sinusitis Chronic ethmoidal sinusitis Other intraarticular fracture of lower end of right radius, subsequent encounter for closed fracture with routine healing (08/08/16) Ethmoid sinusitis Sinus congestion Hypertension GERD (gastroesophageal reflux disease) Closed fracture of right distal radius Surgical History S/P total colectomy (~02/05/24) [place] Sheila Rice[place] [facility] [place]/P carotid endarterectomy Left Nov 2022 S/P hysterectomy with oophorectomy S/P cholecystectomy S/P Mohs surgery for basal cell carcinoma x2 History of esophagogastroduodenoscopy (EGD) (~04/2021) History of colonoscopy (~04/2021) History of bursectomy and IT band release Status post bilateral total hip replacement right wrist fracture repair (06/29/16) EGD - IV Sedation (02/26/17) Colonoscopy - IV Sedation (02/26/17) Family History Other Hypertension Social History Smoking/Tobacco Use Status: Former Tobacco Use Quit Date: 08/11/17 Smoking risk assessment performed?: Yes Alcohol Intake: current Alcohol Intake frequency: a few times a month Alcohol type: wine and hard liquor Drug use: Occasionally Substance use type: marijuana Household members: none Housing: apartment Number of Children: 2 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 SDOH(Care Management) Screening Will the Patient Participate in the Screening?: Yes Do you worry about having a steady place to live?: no Problems where you live: Carbon monoxide detectors missing or not working In the past 12 months, have you had to go without electric, gas, oil or water in your home?: no Have you or anyone in your house had to go without enough food to eat?: no Has lack of transportation kept you from medical appointments or from doing things needed for daily living?: no Has anyone in your support network made you feel unsafe for any reason?: no Health Related Social Needs Health related social needs: inadequate housing(Z59.1)
[2024-04-21] MEDS: Normal Saline Flush 10 ML SYR IVP ×3 (09:03→21:40)
[2024-04-21] MEDS: Enoxaparin 40 MG/0.4 ML SYR SC (09:03)
[2024-04-21] MEDS: MAGNESIUM SULFATE 1 GM/100 ML BAG IVINF (09:31)
[2024-04-21 10:57] LABS: Iron 24 ug/dL (50-170); Total Iron Binding Capacity 246 ug/dL (250-450); Transferrin Sat 10 % (15-50)
[2024-04-21] MEDS: Lisinopril 20 MG TAB 40 MG PO (12:37)
[2024-04-21] MEDS: Aspirin 81 MG CHEW PO (12:37)
[2024-04-21] MEDS: Dexlansoprazole 30 MG CAP PO (12:37)
[2024-04-21] MEDS: DULoxetine 30 MG CAP PO (12:37)
[2024-04-21 13:01] LABS: HCT 25.5 % (36.0-46.0); HGB 7.7 g/dL (11.2-15.7)
[2024-04-21] MEDS: HYDROmorphone 2 MG/ML SYR 0.5 MG IVP ×2 (16:19→21:22)
--- NOTE | 2024-04-21 16:30 | CHAPLAIN ---
Shan was in bed when I visited. She told me about having a friend bring her to the ED last night. According to Case Management notes Shan has an ostomy in January and has had four blockages since then. Shan said she's been here and at [facility]. She's hoping she'll go home today, but she said that might not be likely. Shan said she considers herself a believer and a Amish, but is not connected to a dinesh community. She prefers to pray and mediated outdoors and has specific spots in the [place] that are important to her spiritual life. I explained my role and offered support.
--- NOTE | 2024-04-21 18:25 | PGE_ITS ---
Date of Service Date of service: 04/21/24 Time of Service: 18:25 Assessment and Plan Assessment and plan (1) Altered bowel elimination due to intestinal ostomy: Status: Acute Assessment and plan: Continue iv fluids, antiemetics, full liquid diet; Recommend discussion w/ her GI surgeon at [facility] since this is her 4th episode of symptoms that she feels were obstruction, not tolerating her post op diet at all. (2) Dehydration: Status: Acute Assessment and plan: Continue IVF Check labs in the a.m. (3) Anemia: Status: Chronic Assessment and plan: Venofer IV given Hgb 7.7 down from 9.9 on admission, did receive 2000 ml fluid - recheck at 1900h Type and screen Qualifiers: Anemia type: unspecified type Qualified Code(s): D64.9 - Anemia, unspecified Subjective Subjective Patient reports: no new complaints, pain is less, tolerating liquids well, nausea and afebrile; denies diarrhea, vomiting or shortness of breath Exam Narrative Exam Narrative: Elderly female who is alert and oriented x 3, NAD HEENT: unremarkable Neck: supple, no JVD, normal pulses LUngs: clear Heart: RRR Abdomen: nondistended, normal bowel sounds, soft, no guarding or rebound tenderness, ostomy intact, pink, some light brown stool in the bag which is liquid - nothing solid Neuro: normal Objective Last Vital Signs Temp 36.5 C 04/21/24 15:47 Pulse 64 04/21/24 15:47 Resp 17 04/21/24 15:47 BP 113/57 L 04/21/24 15:47 Pulse Ox 98 04/21/24 15:47 Laboratory Results - last 24 hr 04/20/24 04/21/24 04/21/24 21:45 00:00 05:19 WBC 9.26 RBC 4.10 Hgb 9.9 L Hct 33.1 L MCV 81 MCH 24.1 L MCHC 29.9 L RDW 15.2 H Plt Count 368 MPV 9.7 Reticulocyte % (Auto) Immature Gran % 0.3 Neutrophils % 74.4 Lymphocytes % 17.1 Monocytes % 6.2 Eosinophils % 1.6 Basophils % 0.4 Nucleated RBC % 0.0 Absolute Neutrophils 6.89 H Absolute Lymphocytes 1.58 Absolute Monocytes 0.57 Absolute Eosinophils 0.15 Absolute Basophils 0.04 RBC Morphology Polychromasia Hypochromasia Sodium 140 Potassium 4.0 Chloride 105 Carbon Dioxide 24.5 Anion Gap 10.5 BUN 21 H Creatinine 1.2 H Est GFR (CKD-EPI 2020) 49.31 Glucose 120 H Calcium 9.6 Magnesium 1.8 Iron TIBC Transferrin % Sat Ferritin Total Bilirubin 0.3 AST 15 ALT 23 Alkaline Phosphatase 91 Total Protein 7.7 Albumin 3.7 Lipase 28 Vitamin B12 Folate Urine Color Yellow Urine Clarity Clear Urine pH 5.0 Ur Specific [place] 1.015 Urine Protein Negative Urine Ketones Negative Urine Blood Negative Urine Nitrite Negative Urine Bilirubin Negative Urine Urobilinogen 0.2 Ur Leukocyte Esterase Negative Urine Glucose Negative Stl C.difficile Tox PCR Negative ABO/Rh Antibody Screen 04/21/24 04/21/24 04/21/24 06:35 09:22 12:40 WBC 7.84 RBC 3.48 L Hgb 8.3 L 7.7 L Hct 28.4 L 25.5 L MCV 82 MCH 23.9 L MCHC 29.2 L RDW 15.2 H Plt Count 279 MPV 9.7 Reticulocyte % (Auto) 1.1 Immature Gran % 0.3 Neutrophils % 65.6 Lymphocytes % 23.3 Monocytes % 8.7 Eosinophils % 1.7 Basophils % 0.4 Nucleated RBC % 0.0 Absolute Neutrophils 5.15 Absolute Lymphocytes 1.83 Absolute Monocytes 0.68 Absolute Eosinophils 0.13 Absolute Basophils 0.03 RBC Morphology See Below Polychromasia Present Hypochromasia 2+ Sodium 136 Potassium 3.8 Chloride 104 Carbon Dioxide 26.4 Anion Gap 5.6 BUN 18 Creatinine 0.9 Est GFR (CKD-EPI 2020) 69.64 Glucose 100 Calcium 8.9 Magnesium 1.7 L Iron 24 L TIBC 246 L Transferrin % Sat 10 L Ferritin 13 Total Bilirubin 0.4 AST 13 L ALT 23 Alkaline Phosphatase 76 Total Protein 6.3 L Albumin 3.0 L Lipase Vitamin B12 158 L Folate 18.3 Urine Color Urine Clarity Urine pH Ur Specific [place] Urine Protein Urine Ketones Urine Blood Urine Nitrite Urine Bilirubin Urine Urobilinogen Ur Leukocyte Esterase Urine Glucose Stl C.difficile Tox PCR ABO/Rh Antibody Screen 04/21/24 14:15 WBC RBC Hgb Hct MCV MCH MCHC RDW Plt Count MPV Reticulocyte % (Auto) Immature Gran % Neutrophils % Lymphocytes % Monocytes % Eosinophils % Basophils % Nucleated RBC % Absolute Neutrophils Absolute Lymphocytes Absolute Monocytes Absolute Eosinophils Absolute Basophils RBC Morphology Polychromasia Hypochromasia Sodium Potassium Chloride Carbon Dioxide Anion Gap BUN Creatinine Est GFR (CKD-EPI 2020) Glucose Calcium Magnesium Iron TIBC Transferrin % Sat Ferritin Total Bilirubin AST ALT Alkaline Phosphatase Total Protein Albumin Lipase Vitamin B12 Folate Urine Color Urine Clarity Urine pH Ur Specific [place] Urine Protein Urine Ketones Urine Blood Urine Nitrite Urine Bilirubin Urine Urobilinogen Ur Leukocyte Esterase Urine Glucose Stl C.difficile Tox PCR ABO/Rh A Positive Antibody Screen NEGATIVE PAWSS Have you Been Recently Intoxicated or Drunk Within the Last 30 days?: Yes Have you Ever Experienced Previous Episodes of Alcohol Withdrawal?: No Have you ever Experienced Withdrawal Seizures?: No Have you ever Experienced Delirium Tremens(DT)s?: No Have you ever undergone Alcohol Rehabilitation Treatment (i.e, inpt ot outpatient treatment programs)?: No Have you ever Experienced Blackouts?: No Have you ever Combined Alcohol with other Downers within the last 90 days?: No Have you ever Combined Alcohol with any other Substance of Abuse during the last 90 days?: No Positive Blood Alcohol level on Presentation? [PCS.BAL]: No Evidence of Increased Autonomic Activity (i.e. HR>120, tremor, sweating, agitation, nausea)?: No Result: 1 Time Spent with Patient Time Spent with Patient: 25-34 minutes Time was spent: preparing to see the patient(eg.review tests), ordering medications,tests, procedures, referring, communicating with other health care manager cna, indepentently interpreting results, counseling the patient and care coordination
[2024-04-21 19:28] LABS: HCT 29.4 % (36.0-46.0); HGB 8.9 g/dL (11.2-15.7)
[2024-04-21] MEDS: Atorvastatin 40 MG TAB PO (19:28)
[2024-04-21] MEDS: IRON SUCROSE COMPLEX 300 MG in Normal Saline 250 ML 167 MG IVPB (21:42)
[2024-04-21 23:46] LABS: Campylobacter PCR Negative (Negative); Salmonella PCR Negative (Negative); Shiga Toxin PCR Negative (Negative); Shigella/Enteroinvasive Ecoli Negative (Negative)
[2024-04-22] MEDS: Ondansetron 4 MG/2 ML VIAL IVP (04:45)
[2024-04-22] MEDS: Normal Saline Flush 10 ML SYR IVP ×3 (04:46→20:22)
[2024-04-22 06:38] LABS: Abs Immature Grans 0.01 10^3/uL (0.0-0.06); Absolute Basophil Count 0.02 10^3/uL (0.0-0.2); Absolute Eosinophil Count 0.18 10^3/uL (0.0-0.7); Absolute Lymphocyte Count 0.54 10^3/uL (1.2-3.4); Absolute Monocyte Count 0.39 10^3/uL (0.1-0.8); Basophils % 0.3 %; Eosinophils % 2.8 %; HCT 26.9 % (36.0-46.0); HGB 8.3 g/dL (11.2-15.7); Immature Grans % 0.2 %; Lymphocytes % 8.4 %; MCH 24.5 pg (27.0-33.0); MCHC 30.9 % (32.0-36.0); MCV 79 fL (80-95); MPV 9.5 fL (8.0-11.0); Monocytes % 6.1 %; Neutrophils % 82.2 %; Platelet Count 256 10^3/uL (130-400); RBC 3.39 10^6/uL (3.93-5.22); RDW 15.1 % (11.7-14.6); RDW-SD 43.6 fL; WBC 6.44 10^3/uL (4.4-10.8)
[2024-04-22 06:49] LABS: Anion Gap 9.7 mmol/L (3-11); BUN 11 mg/dL (7-18); CO2 26.3 mmol/L (21.0-32.0); Calcium 8.8 mg/dL (8.5-10.1); Chloride 106 mmol/L (98-107); Estimated GFR 61.36 (mL/min/1.73m2); Glucose 100 mg/dL (74-106); Magnesium 1.6 mg/dL (1.8-2.4); Sodium 142 mmol/L (136-145)
[2024-04-22] MEDS: Lactated Ringers 1,000 ML 100 ML IV (07:04)
[2024-04-22 07:19] VITALS: BP 150/61; PULSE 82; RESP 18; TEMP 36.5; O2SAT 94
[2024-04-22] MEDS: HYDROmorphone 2 MG/ML SYR 0.5 MG IVP ×2 (07:33→18:58)
[2024-04-22] MEDS: Lisinopril 20 MG TAB 40 MG PO (07:34)
[2024-04-22] MEDS: Dexlansoprazole 30 MG CAP PO (07:34)
[2024-04-22] MEDS: Aspirin 81 MG CHEW PO (07:34)
[2024-04-22] MEDS: DULoxetine 30 MG CAP PO (07:34)
[2024-04-22] MEDS: Enoxaparin 40 MG/0.4 ML SYR SC (08:13)
[2024-04-22] MEDS: Cholecalciferol (Vitamin D3) 1,000 UNIT TAB 2000 UNITS PO (08:14)
--- NOTE | 2024-04-22 09:35 | PDOC.CMPRO ---
Date of service: 04/22/24 Time of Service: 09:35 Care Management Progress Note Progress Note Text Progress Note Text: Shan continues to have intermittent episodes of abdominal pain which is accompanied by a tightness that feels similar to a contraction. Per provider, [facility] is being consulted and pain management addressed. Midline consult is requested due to limitations with PO pain management and difficult IV access, see progress note. No change to overall discharge plan, no new services are anticipated at this time. Discharge Potential Discharge Needs: Consult ([facility]) Anticipated Barriers to Discharge: None Identified Patient/Family Education Needs: Review discharge instructions, discuss Ask Me Three Transportation: Private vehicle Plan: Anticipate' Shan will discharge home via private vehicle with her sister when medically ready. Pt will follow up with her community providers and [facility] specialist and discharge plan of care as instructed. Pt feels comfortable with her ostomy management, has extra supplies at home and No new services are anticipated at this time. CM will continue to follow and support discharge planning needs. SDOH(Care Management) Screening Will the Patient Participate in the Screening?: Yes Do you worry about having a steady place to live?: no Problems where you live: Carbon monoxide detectors missing or not working In the past 12 months, have you had to go without electric, gas, oil or water in your home?: no Have you or anyone in your house had to go without enough food to eat?: no Has lack of transportation kept you from medical appointments or from doing things needed for daily living?: no Has anyone in your support network made you feel unsafe for any reason?: no Health Related Social Needs Health related social needs: inadequate housing(Z59.1)
--- NOTE | 2024-04-22 10:37 | NUR.NOTE ---
PT c/o pain and puffiness at IV insertion site. When flushed IV noted to be sluggish, painful and leaking. Nursing Note:
--- NOTE | 2024-04-22 10:50 | W.PM.PROGNOT ---
Date of Service Date of service: 04/22/24 Time of Service: 12:03 Assessment and Plan Assessment and plan (1) Altered bowel elimination due to intestinal ostomy: Status: Acute Assessment and plan: Continue iv fluids, antiemetics , NPO GI consult at [facility] Spoke with Dr Hoffmann -As per CT : Partial SBO -Recommendations: NPO for total bowel rest, IVF,and pain management Discussion w/ her GI surgeon Dr. Dwayne Arango at [facility] since this is her 4th episode of symptoms that she feels were obstruction -Was on clears and progressed to regular for 1.5 week than became symptomatic -Plan to complete work-up to proceed to colostomy reversal ( patient aware of risk ) -Strictures causing partial SBO PCR pathogens and C-diff negative O & P stool and Dann pending but symptoms most likely d/t above mentioned (2) Pain: Status: Acute Assessment and plan: As above Scheduled IV acetaminophen Midline consult d/t difficult IV access and patient refusing oral acetaminophen PRN oral hydromorphone while awaiting for IV access Then PRN IV pain medicines (3) Dehydration: Status: Acute Assessment and plan: Continue IVF: LR at 100 cc/hour Check CMP in AM, [place] cirrhosis, no ascites Echo 09/14/2022: EF was 58% (4) Anemia: Status: Chronic Assessment and plan: Venofer IV given Hgb 7.7 down from 9.9 on admission, did receive 2000 ml fluid - 8.3 this AM negative stool for OB CBC in AM Type and screen on 04/21 Qualifiers: Anemia type: unspecified type Qualified Code(s): D64.9 - Anemia, unspecified (5) On deep vein thrombosis (DVT) prophylaxis: Status: Acute Assessment and plan: ON LMWH SC CBC in AM (6) Discharge planning issues: Status: Acute Assessment and plan: CM to f/u [facility] and colorectal surgery consulted Ultimate plan to is a colostomy reversal but could consider dilation Referral for colorectal surgery with Dr. Rice to f/u Discussed with Dr. Arriaga Subjective Subjective Patient reports: voiding w/o difficulty, flatus, bowel movement (colostomy), diarrhea, nausea and fever (overnight ); denies still having pain, tolerating liquids well, tolerating a regular diet, blood in stool or vomiting Exam Narrative Exam Narrative: Neuro:alert and oriented to self, person, place, time and situation. No neurological focal deficit Resp: Clear lung bilaterally Cardio: regular rhythm, S1, S2, positive radial and pedal pulses GI: Abdomen is not distended, soft and non tender, bowel sounds are present : Posiive right Costovertebral angle tenderness ( mentioned arthritis) Integumentary: No skin lesions or rash Extremities: strength 5/5 to bilateral lower and upper extremities Psych: RASS 0, congruent mood and normal affect. Objective Last Vital Signs Temp 36.5 C 04/22/24 07:19 Pulse 82 04/22/24 07:19 Resp 18 04/22/24 07:19 BP 150/61 H 04/22/24 07:19 Pulse Ox 94 04/22/24 07:19 Laboratory Results - last 24 hr 04/21/24 04/21/24 04/21/24 00:00 09:22 12:40 WBC RBC Hgb 7.7 L Hct 25.5 L MCV MCH MCHC RDW Plt Count MPV Immature Gran % Neutrophils % Lymphocytes % Monocytes % Eosinophils % Basophils % Nucleated RBC % Absolute Neutrophils Absolute Lymphocytes Absolute Monocytes Absolute Eosinophils Absolute Basophils Sodium Potassium Chloride Carbon Dioxide Anion Gap BUN Creatinine Est GFR (CKD-EPI 2020) Glucose Calcium Magnesium Iron 24 L TIBC 246 L Transferrin % Sat 10 L Stool Campylobacter PCR Negative Stool Salmonella PCR Negative Stool Shigella PCR Negative Shiga Toxin (PCR) Negative ABO/Rh Antibody Screen 04/21/24 04/21/24 04/22/24 14:15 19:18 06:16 WBC 6.44 RBC 3.39 L Hgb 8.9 L 8.3 L Hct 29.4 L 26.9 L MCV 79 L MCH 24.5 L MCHC 30.9 L RDW 15.1 H Plt Count 256 MPV 9.5 Immature Gran % 0.2 Neutrophils % 82.2 Lymphocytes % 8.4 Monocytes % 6.1 Eosinophils % 2.8 Basophils % 0.3 Nucleated RBC % 0.0 Absolute Neutrophils 5.30 Absolute Lymphocytes 0.54 L Absolute Monocytes 0.39 Absolute Eosinophils 0.18 Absolute Basophils 0.02 Sodium 142 Potassium 4.0 Chloride 106 Carbon Dioxide 26.3 Anion Gap 9.7 BUN 11 Creatinine 1.0 Est GFR (CKD-EPI 2020) 61.36 Glucose 100 Calcium 8.8 Magnesium 1.6 L Iron TIBC Transferrin % Sat Stool Campylobacter PCR Stool Salmonella PCR Stool Shigella PCR Shiga Toxin (PCR) ABO/Rh A Positive Antibody Screen NEGATIVE PAWSS Have you Been Recently Intoxicated or Drunk Within the Last 30 days?: Yes Have you Ever Experienced Previous Episodes of Alcohol Withdrawal?: No Have you ever Experienced Withdrawal Seizures?: No Have you ever Experienced Delirium Tremens(DT)s?: No Have you ever undergone Alcohol Rehabilitation Treatment (i.e, inpt ot outpatient treatment programs)?: No Have you ever Experienced Blackouts?: No Have you ever Combined Alcohol with other Downers within the last 90 days?: No Have you ever Combined Alcohol with any other Substance of Abuse during the last 90 days?: No Positive Blood Alcohol level on Presentation? [PCS.BAL]: No Evidence of Increased Autonomic Activity (i.e. HR>120, tremor, sweating, agitation, nausea)?: No Result: 1 Time Spent with Patient Time Spent with Patient: >50 minutes Time was spent: preparing to see the patient(eg.review tests), obtaining and/or reviewing separately otained hiistory, ordering medications,tests, procedures, referring, communicating with other health rn critical care, indepentently interpreting results, counseling the patient and care coordination
[2024-04-22] MEDS: HYDROmorphone 2 MG TAB 1 MG PO (12:23)
[2024-04-22 15:04] VITALS: BP 123/59; PULSE 79; RESP 18; TEMP 36.9; O2SAT 96
[2024-04-22 15:06] LABS: Lab Add On Test DONE
[2024-04-22 15:57] LABS: ALT 20 U/L (14-59); AST 16 U/L (15-37); Alkaline Phosphatase 69 U/L (46-116); Bilirubin, Direct 0.1 mg/dL (0.0-0.2); Bilirubin, Total 0.2 mg/dL (0.2-1.0); Total Protein 6.2 g/dL (6.4-8.2)
[2024-04-22] MEDS: MAGNESIUM SULFATE 4 GM/100 ML BAG IVINF (18:29)
[2024-04-22 19:47] VITALS: BP 123/68; PULSE 71; RESP 18; TEMP 36.3; O2SAT 95
[2024-04-22] MEDS: ACETAMINOPHEN 1,000 MG/100 ML BTL 400 MG IVPB (20:22)
[2024-04-22] MEDS: Atorvastatin 40 MG TAB PO (20:22)
[2024-04-23] MEDS: Normal Saline Flush 10 ML SYR IVP ×4 (00:36→21:12)
[2024-04-23] MEDS: HYDROmorphone 2 MG/ML SYR 0.5 MG IVP ×4 (00:37→21:07)
[2024-04-23] MEDS: Lactated Ringers 1,000 ML 100 ML IV ×2 (00:48→11:54)
[2024-04-23 00:52] VITALS: BP 128/56; PULSE 60; RESP 20; TEMP 36.4; O2SAT 92
[2024-04-23] MEDS: ACETAMINOPHEN 1,000 MG/100 ML BTL 400 MG IVPB ×2 (03:32→21:04)
[2024-04-23 07:38] VITALS: BP 123/67; PULSE 68; RESP 17; TEMP 36.8; O2SAT 97
[2024-04-23] MEDS: Lisinopril 20 MG TAB 40 MG PO (09:20)
[2024-04-23] MEDS: Cholecalciferol (Vitamin D3) 1,000 UNIT TAB 2000 UNITS PO (09:20)
[2024-04-23] MEDS: Enoxaparin 40 MG/0.4 ML SYR SC (09:20)
[2024-04-23] MEDS: Dexlansoprazole 30 MG CAP PO (09:20)
[2024-04-23 10:21] LABS: ALT 18 U/L (14-59); AST 17 U/L (15-37); Albumin 2.8 g/dL (3.4-5.0); Alkaline Phosphatase 68 U/L (46-116); Anion Gap 8.8 mmol/L (3-11); Bilirubin, Total 0.3 mg/dL (0.2-1.0); CO2 28.2 mmol/L (21.0-32.0); CREATININE 0.9 mg/dL (0.55-1.02); Calcium 8.8 mg/dL (8.5-10.1); Chloride 104 mmol/L (98-107); Estimated GFR 69.64 (mL/min/1.73m2); Glucose 111 mg/dL (74-106); Potassium 3.6 mmol/L (3.5-5.1); Sodium 141 mmol/L (136-145); Total Protein 6.2 g/dL (6.4-8.2)
[2024-04-23] MEDS: Aspirin 81 MG CHEW PO (10:39)
[2024-04-23] MEDS: DULoxetine 30 MG CAP PO (10:39)
[2024-04-23 11:47] LABS: BUN 6 mg/dL (7-18)
[2024-04-23 11:48] LABS: Absolute Basophil Count 0.02 10^3/uL (0.0-0.2); Absolute Eosinophil Count 0.16 10^3/uL (0.0-0.7); Absolute Lymphocyte Count 1.22 10^3/uL (1.2-3.4); Absolute Monocyte Count 0.36 10^3/uL (0.1-0.8); Absolute Neutrophil Count 1.46 10^3/uL (1.2-6.7); Basophils % 0.6 %; Eosinophils % 4.9 %; HCT 25.5 % (36.0-46.0); HGB 7.7 g/dL (11.2-15.7); Immature Grans % 0.6 %; Lymphocytes % 37.7 %; MCH 24.3 pg (27.0-33.0); MCHC 30.2 % (32.0-36.0); MCV 80 fL (80-95); MPV 9.7 fL (8.0-11.0); Monocytes % 11.1 %; Neutrophils % 45.1 %; Platelet Count 248 10^3/uL (130-400); RBC 3.17 10^6/uL (3.93-5.22); WBC 3.24 10^3/uL (4.4-10.8)
[2024-04-23 11:49] LABS: Abs Immature Grans 0.02 10^3/uL (0.0-0.06); Diff Comment Diff Reviewed; Hypochromasia 2+
--- NOTE | 2024-04-23 13:19 | W.NUTRFU ---
Date of service: 04/23/24 Time of Service: 10:00 Nutrition Note NOTE: Pt is 68yo female admitted with abdominal pain with altered elimination - s/p total colectomy 02/05/24. Hx of cholecystectomy as well. Problem list nutritionally significant for anemia, dehydration, diarrhea, UC/IBS, gastritis and esophagitis. A1C value recorded September 2022 is also consistent with prediabetes (glucose looking fine this admission). Pt states shs has had SBO x3 since her initial surgery and pain like she has been having makes her anxious that she has another one. Was on full liquid diet order which now has been changed to NPO as of dinner last night (04/22) due to suspect of partial SBO and wanting total bowel rest right now. Pt weight is currently stable. H/H dropped since yesterday but did received a lot of fluid for dehydration. Lytes wnl except low Mg+ still, received 8gm via IV yesterday and on getting via [place] as well. B12 is low and vitamin D is on low end of normal. estimated energy needs: 1520kcals (REEx1.3AF), 70g protein (~1g/kg) and minimum of 2058mL fluid (30mL/kg) Nutrition Dx: Altered GI function (NC-1.4) related to physical alterations and adaptation from total colectomy procedure last January as evidenced by repeated SBO's, dehydration/diarrhea and abd pain this admission. Intervention: Suggest B12, folate and Cholecalciferol added to medication orders for repletion. Monitoring: Will monitor weight, labs, po intake/toleration once po resumes, and bowel pattern. Time Spent in Nutritional Counseling and Treatment: 15 min
--- NOTE | 2024-04-23 15:10 | PHA.REVIEW2 ---
Pharmacy Admission Review Admission Clinical Review Admission Pharmacy Review: Pain (Acute) Discharge planning issues (Acute) On deep vein thrombosis (DVT) prophylaxis (Acute) Dehydration (Acute) Diarrhea (Acute) Altered bowel elimination due to intestinal ostomy (Acute) protamine Allergy (Severe, Verified 04/20/24 20:58) Anaphylaxis venom-honey bee Allergy (Severe, Verified 04/20/24 20:58) Other (See Comment) wool Allergy (Verified 04/20/24 20:58) Other (See Comment) amoxicillin [From Augmentin] Adverse Reaction (Severe, Verified 04/20/24 20:58) GI problems, Severe Diarrhea clavulanic acid [From Augmentin] Adverse Reaction (Severe, Verified 04/20/24 20:58) GI problems, severe diarrhea omeprazole Adverse Reaction (Severe, Verified 04/20/24 20:58) Diarrhea esomeprazole [From Nexium] Adverse Reaction (Intermediate, Verified 04/20/24 20:58) history of Irritable bowel, severe diarrhea silver nitrate Adverse Reaction (Verified 04/20/24 20:58) Skin Rash Resuscitation Status Full Code Height 5 ft 2 in Weight 68.6 kg Pharmacy Admission Review Renal Dosing Renal Dosing: BUN 6 mg/dL (7-18) L 04/23/24 06:30 Creatinine 0.9 mg/dL (0.55-1.02) 04/23/24 06:30 Medications needing adjustments: Reviewed (CrCl 48.88 mL/min) List of meds needing interventions: Current medications are okay Anticoagulation Anticoagulation: Hgb 7.7 g/dL (11.2-15.7) L 04/23/24 06:30 Hct 25.5 % (36.0-46.0) L 04/23/24 06:30 Plt Count 248 10^3/uL (130-400) 04/23/24 06:30 Creatinine 0.9 mg/dL (0.55-1.02) 04/23/24 06:30 DVT Prophylaxis: Reviewed Medications: Enoxaparin (40mg daily) Opiate Usage Evaluate Pain Scale/Pains Meds: Reviewed (PRN hydromorphone - 6 total doses given so far) Scheduled Bowel Reg ordered if on Opiates?: No Relevant Labs Relevant Labs: Sodium 141 mmol/L (136-145) 04/23/24 06:30 Potassium 3.6 mmol/L (3.5-5.1) 04/23/24 06:30 Chloride 104 mmol/L (98-107) 04/23/24 06:30 Magnesium 1.6 mg/dL (1.8-2.4) L 04/22/24 06:16 Electrolytes, C-Reactive P, ESR: Reviewed (Hgb decreased from 8.3 to 7.7) Cardiac Review BP, HR, EF%: Reviewed (HR and BP WNL) QTc Review QTc: Reviewed (416 from 03/07/24 - most recent EKG on file) IV to PO Switch IV Medications: Reviewed (NPO) Home Meds Home Med List reviewed: Reviewed Relevent Home Meds Not ordered & why?: Epipen (PRN) Current Meds Current Medication Order Review: Reviewed
[2024-04-23 15:48] VITALS: BP 135/59; PULSE 64; RESP 15; TEMP 35.5; O2SAT 100
--- NOTE | 2024-04-23 15:54 | CHAPLAIN ---
Shan is still having some discomfort and was grateful when Hospitalist Saundra, [employer], said she could have some coffee this morning. These blockages have been an ongoing issue that has been very frustrating for her. I will continue to visit.
--- NOTE | 2024-04-23 16:24 | PDOC.CMPRO ---
Date of service: 04/23/24 Time of Service: 16:24 Care Management Progress Note Progress Note Text Progress Note Text: Shan was sitting up in bed when CM met with her. She was pleasant in manner and engaged easily with CM. Shan shared that this is her 4th bout of symptoms consistent with obstruction. She had an ostomy in January which she hopes to have reversed sometime soon, although no date has been set. She is still having abdominal pain for which she is receiving IV Dilaudid, but overall, feels better. Shan has been ambulating in the halls frequently. She had a diet change today and received a full liquid tray for dinner which she was pleased about. If she is able to tolerate the diet, she may be able to discharge soon. Discharge Potential Discharge Needs: Surgical F/U Appt Anticipated Barriers to Discharge: Medical Status Patient/Family Education Needs: Review discharge instructions, discuss Ask Me Three Transportation: Private vehicle Plan: Anticipate Shan will discharge home via private vehicle with her sister when medically ready. Pt will follow up with her community providers and [facility] specialist and discharge plan of care as instructed. Pt feels comfortable with her ostomy management, has extra supplies at home and No new services are anticipated at this time. CM will continue to follow and support discharge planning needs. SDOH(Care Management) Screening Will the Patient Participate in the Screening?: Yes Do you worry about having a steady place to live?: no Problems where you live: Carbon monoxide detectors missing or not working In the past 12 months, have you had to go without electric, gas, oil or water in your home?: no Have you or anyone in your house had to go without enough food to eat?: no Has lack of transportation kept you from medical appointments or from doing things needed for daily living?: no Has anyone in your support network made you feel unsafe for any reason?: no Health Related Social Needs Health related social needs: inadequate housing(Z59.1)
--- NOTE | 2024-04-23 16:53 | PGE_ITS ---
Date of Service Date of service: 04/23/24 Time of Service: 16:54 Assessment and Plan Assessment and plan (1) Altered bowel elimination due to intestinal ostomy: Status: Acute Assessment and plan: Continue iv fluids, antiemetics , advanced to full fluids Discussion w/ her GI surgeon Dr. Dwayne Arango at [facility] since this is her 4th episode of symptoms that she feels were obstruction -Was on clears and progressed to regular for 1.5 week than became symptomatic -Plan to complete work-up to proceed to colostomy reversal ( patient aware of risk ) -Strictures causing partial SBO PCR pathogens and C-diff negative O & P stool and Dann pending but symptoms most likely d/t above mentioned (2) Pain: Status: Acute Assessment and plan: As above Scheduled IV acetaminophen Midline placed PRN oral pain meds (3) Dehydration: Status: Acute Assessment and plan: Continue IVF: LR at 100 cc/hour Check CMP in AM, [place] cirrhosis, no ascites Echo 09/14/2022: EF was 58% (4) Anemia: Status: Chronic Assessment and plan: Hgb 7.7; trend Qualifiers: Anemia type: unspecified type Qualified Code(s): D64.9 - Anemia, unspecified (5) On deep vein thrombosis (DVT) prophylaxis: Status: Acute Assessment and plan: ON LMWH SC CBC in AM (6) Discharge planning issues: Status: Acute Assessment and plan: CM to f/u [facility] GI and colorectal surgery consulted Ultimate plan to is a colostomy reversal but could consider dilation Referral for colorectal surgery with Dr. Rice to f/u Discussed with Dr. Taylor Perhaps home tomorrow if continues to improve Subjective Subjective Patient reports: no new complaints, pain is less, tolerating liquids well, voiding w/o difficulty and afebrile; denies flatus or shortness of breath Interval history since last seen: Awake, alert, sitting in chair, states she is feeling better. Exam Narrative Exam Narrative: Neuro:alert and oriented to self, person, place, time and situation. Resp: Clear lung bilaterally Cardio: regular rhythm, S1, S2, positive radial and pedal pulses GI: Abdomen is not distended, soft and non tender, bowel sounds are present, co lostomy pink surrounding tissue, draining dark brown liquid (heme neg) : clear, yellow urine, no pain with palpation over kidneys or bladder Integumentary: No skin lesions or rash Extremities: strength 5/5 to bilateral lower and upper extremities Psych: Congruent mood and normal affect. Objective Last Vital Signs Temp 35.5 C L 04/23/24 15:48 Pulse 64 04/23/24 15:48 Resp 15 04/23/24 15:48 BP 135/59 L 04/23/24 15:48 Pulse Ox 100 04/23/24 15:48 Laboratory Results - last 24 hr 04/23/24 04/23/24 05:35 06:30 WBC 3.24 L RBC 3.17 L Hgb 7.7 L Hct 25.5 L MCV 80 MCH 24.3 L MCHC 30.2 L RDW 15.0 H Plt Count 248 MPV 9.7 Immature Gran % 0.6 Neutrophils % 45.1 Lymphocytes % 37.7 Monocytes % 11.1 Eosinophils % 4.9 Basophils % 0.6 Nucleated RBC % 0.0 Absolute Neutrophils 1.46 Absolute Lymphocytes 1.22 Absolute Monocytes 0.36 Absolute Eosinophils 0.16 Absolute Basophils 0.02 Hypochromasia 2+ Sodium Cancelled 141 Potassium Cancelled 3.6 Chloride Cancelled 104 Carbon Dioxide Cancelled 28.2 Anion Gap Cancelled 8.8 BUN Cancelled 6 L Creatinine Cancelled 0.9 Est GFR (CKD-EPI 2020) Cancelled 69.64 Glucose Cancelled 111 H Calcium Cancelled 8.8 Total Bilirubin 0.3 AST 17 ALT 18 Alkaline Phosphatase 68 Total Protein 6.2 L Albumin 2.8 L PAWSS Have you Been Recently Intoxicated or Drunk Within the Last 30 days?: Yes Have you Ever Experienced Previous Episodes of Alcohol Withdrawal?: No Have you ever Experienced Withdrawal Seizures?: No Have you ever Experienced Delirium Tremens(DT)s?: No Have you ever undergone Alcohol Rehabilitation Treatment (i.e, inpt ot outpat ient treatment programs)?: No Have you ever Experienced Blackouts?: No Have you ever Combined Alcohol with other Downers within the last 90 days?: No Have you ever Combined Alcohol with any other Substance of Abuse during the last 90 days?: No Positive Blood Alcohol level on Presentation? [PCS.BAL]: No Evidence of Increased Autonomic Activity (i.e. HR>120, tremor, sweating, agitation, nausea)?: No Result: 1 Time Spent with Patient Time Spent with Patient: 35-49 minutes Time was spent: preparing to see the patient(eg.review tests), ordering medications,tests, procedures, referring, communicating with other health memory care program director, indepentently interpreting results, counseling the patient and care coordination
[2024-04-23 19:12] VITALS: BP 121/54; PULSE 65; RESP 18; TEMP 36.7; O2SAT 93
[2024-04-23] MEDS: Atorvastatin 40 MG TAB PO (21:07)
[2024-04-23] MEDS: Lactated Ringers 1,000 ML 75 ML IV (22:20)
[2024-04-23 23:39] VITALS: BP 125/58; PULSE 62; RESP 16; TEMP 36.6; O2SAT 96
[2024-04-24] MEDS: HYDROmorphone 2 MG/ML SYR 0.5 MG IVP ×2 (01:40→08:06)
[2024-04-24] MEDS: Normal Saline Flush 10 ML SYR IVP ×2 (01:40→12:50)
[2024-04-24 03:14] VITALS: BP 125/48; PULSE 61; RESP 16; TEMP 35.8; O2SAT 96
[2024-04-24] MEDS: ACETAMINOPHEN 1,000 MG/100 ML BTL 400 MG IVPB ×2 (04:46→12:34)
[2024-04-24 07:11] VITALS: BP 139/66; PULSE 69; RESP 16; TEMP 36.5; O2SAT 97
[2024-04-24 07:18] LABS: Abs Immature Grans 0.01 10^3/uL (0.0-0.06); Absolute Basophil Count 0.02 10^3/uL (0.0-0.2); Absolute Eosinophil Count 0.19 10^3/uL (0.0-0.7); Absolute Lymphocyte Count 1.22 10^3/uL (1.2-3.4); Absolute Monocyte Count 0.34 10^3/uL (0.1-0.8); Absolute Neutrophil Count 1.57 10^3/uL (1.2-6.7); Basophils % 0.6 %; Eosinophils % 5.7 %; HCT 27.3 % (36.0-46.0); HGB 8.2 g/dL (11.2-15.7); Immature Grans % 0.3 %; Lymphocytes % 36.4 %; MCH 23.9 pg (27.0-33.0); MCV 80 fL (80-95); MPV 9.8 fL (8.0-11.0); Monocytes % 10.1 %; Neutrophils % 46.9 %; Platelet Count 241 10^3/uL (130-400); RBC 3.43 10^6/uL (3.93-5.22); RDW 15.1 % (11.7-14.6); RDW-SD 43.8 fL; WBC 3.35 10^3/uL (4.4-10.8)
[2024-04-24 07:47] LABS: Anion Gap 5.9 mmol/L (3-11); BUN 7 mg/dL (7-18); CO2 31.1 mmol/L (21.0-32.0); CREATININE 0.9 mg/dL (0.55-1.02); Calcium 9.2 mg/dL (8.5-10.1); Chloride 106 mmol/L (98-107); Estimated GFR 69.64 (mL/min/1.73m2); Glucose 90 mg/dL (74-106); Magnesium 1.9 mg/dL (1.8-2.4); Potassium 3.7 mmol/L (3.5-5.1); Sodium 143 mmol/L (136-145)
[2024-04-24] MEDS: Lisinopril 20 MG TAB 40 MG PO (07:55)
[2024-04-24] MEDS: Dexlansoprazole 30 MG CAP PO (07:55)
[2024-04-24] MEDS: Aspirin 81 MG CHEW PO (07:56)
[2024-04-24] MEDS: Cholecalciferol (Vitamin D3) 1,000 UNIT TAB 2000 UNITS PO (07:56)
[2024-04-24] MEDS: DULoxetine 30 MG CAP PO (07:56)
--- NOTE | 2024-04-24 08:44 | PDOC.CMPRO ---
Date of service: 04/24/24 Time of Service: 08:44 Care Management Progress Note Progress Note Text Progress Note Text: Jami was sitting up in bed when CM met with her. She stated that she is doing about the same. She had been getting Dilaudid for gas pains which she stated was effective. She is now only getting simethicone which she does not feel works as well. Jami continues to ambulate frequently in the halls and is tolerating her diet. Discharge Potential Discharge Needs: PCP F/U Appt Anticipated Barriers to Discharge: None Identified Patient/Family Education Needs: Review discharge instructions, discuss Ask Me Three Transportation: Private vehicle Plan: Anticipate Shan will discharge home via private vehicle with her sister when medically ready. Pt will follow up with her community providers and [facility] specialist and discharge plan of care as instructed. Pt feels comfortable with her ostomy management, has extra supplies at home and No new services are anticipated at this time. CM will continue to follow and support discharge planning needs. SDOH(Care Management) Screening Will the Patient Participate in the Screening?: Yes Do you worry about having a steady place to live?: no Problems where you live: Carbon monoxide detectors missing or not working In the past 12 months, have you had to go without electric, gas, oil or water in your home?: no Have you or anyone in your house had to go without enough food to eat?: no Has lack of transportation kept you from medical appointments or from doing things needed for daily living?: no Has anyone in your support network made you feel unsafe for any reason?: no Health Related Social Needs Health related social needs: inadequate housing(Z59.1)
--- NOTE | 2024-04-24 10:23 | NUR.NOTE ---
Anesthesia in this morning approx 8:30am to administer nerve block for surgery around 1pm. Nursing Note:
[2024-04-24] MEDS: Simethicone 80 MG CHEW 160 MG PO ×2 (11:03→12:34)
[2024-04-24] MEDS: Enoxaparin 40 MG/0.4 ML SYR SC (11:03)
--- NOTE | 2024-04-24 13:28 | NUR.NOTE ---
Pt's pain is down to 2/10, her stool has firmed up and she is passing gas. Nursing Note:
--- NOTE | 2024-04-24 14:30 | W.PM.DS.N ---
Date of service: 04/24/24 Time of Service: 14:30 DS: Diagnosis Discharge Diagnosis (1) Altered bowel elimination due to intestinal ostomy: Status: Acute (2) Pain: Status: Acute (3) Dehydration: Status: Acute (4) Anemia: Status: Chronic (5) On deep vein thrombosis (DVT) prophylaxis: Status: Acute (6) Discharge planning issues: Status: Acute Discharge Plan Disposition Patient Disposition: Home Condition: Improving Discharge Details Reason For Visit: gastroenteritis, dehydration, abdominal pain Admit Date/Time: 04/23/24 16:52 Admit Provider: Tima Pierson Attending Provider: Tima Pierson Primary Care Provider: Nicolasa Griggs Hospital Course Hospital Course: This is a 68-year-old female with a history of Ulcerative Colitis and serrated adenoma colon polyps, who underwent colectomy and colostomy on February 05, 2024, at [facility] by Dr. Sheila Rice.? Since the surgery, the patient has experienced three episodes of small bowel obstruction, with the most recent occurring three weeks ago, necessitating hospitalization at [facility]. She resumed eating solids approximately one week ago after a follow-up CT abdomen showed resolution of the obstruction. She presented to the Emergency Department 04/21 due to concerns of ostomy obstruction following ingestion of potato salad containing onions. She reported abdominal bloating, pain, and reduced ostomy output. Normally, her stools are mush-like with an output of 600 to 700 mL/day. However, she developed crampy abdominal pain, nausea, bloating, and decreased stool output starting on the morning of 04/20. She subsequently experienced profuse diarrhea with liquid light brown stool.? Her abdomen was distended, tender to palpation in the lower quadrants, no rebound tenderness, no guarding. The ostomy appeared swollen, minimal output observed during examination.? CT abdomen and pelvis in the Emergency Department did not reveal any evidence of small bowel obstruction.? Laboratory findings: Mild azotemia with BUN 21 mg/dL and creatinine 1.2 mg/dL; normal electrolytes, liver function tests (LFT), and lipase. CBC showed stable anemia with Hemoglobin of 9.9 g/dL and no leukocytosis.? Treated with antiemetics and intravenous fluids in the Emergency Department.? Admitted under the hospitalist service for further intravenous fluid hydration and monitoring.? The patient experienced a partial obstruction or transient blockage related to dietary intake, leading to abdominal symptoms and decreased ostomy output.? Patient was put on a clear liquid diet and advanced to full liquid.? She did complain of some gas pains that was relieved by simethicone.? She also burped her colostomy bag several times and felt better.? GI at [facility] was consulted.? Patient elects to have a reversal of her colostomy.? She will remain on full liquids, protein supplementation, and follow up with GI at [facility] to arrange surgery date. Discharge Medications: Antiemetics as needed. Simethicone as needed Discharge Condition: Stable with improved symptoms post-IV fluids. Discharge Plan: Discharged to home with close outpatient follow-up recommended. Home Meds and New Rx's Prescriptions: New ondansetron 4 mg tablet,disintegrating 4 mg PO Q6H PRNQty: 28 0RF Continued atorvastatin 40 mg tablet 40 mg PO QHS duloxetine 30 mg capsule,delayed release(DR/EC) 30 mg PO DAILY lisinopril 40 MG tablet 40 mg PO DAILY cholecalciferol (vitamin D3) [Vitamin D3] 2,000 UNIT tablet 2,000 unit PO DAILY dexlansoprazole [Dexilant] 30 mg capsule,biphase delayed releas 30 mg PO DAILY Qty: 90 3RF epinephrine 0.3 mg/0.3 mL auto-injector 1 ea subcut DIRECTED PRN Patient Comments: INJECT ONE PEN UNDER THE SKIN DIRECTED aspirin [Children's Aspirin] 81 mg Tablet,Chewable 81 mg PO DAILY Qty: 100 0RF Discharge Instructions Instructions: Dexlansoprazole, Full Liquid Diet, Small Bowel Obstruction (DC), Ondansetron, Simethicone, Colon Stricture (DC) Additional Instructions: Continue home medications. Full liquid diet until seen by [facility] GI and they will make recommendations going forward. No solids. Supplement with protein shakes. Use simethicone as needed for gas. Have CBC checked early next week. (order sent) Stand Alone Forms: Nursing Discharge Form Referrals: Nicolasa Griggs [Primary Care Provider] - 05/11/24 2:30 pm () Rosemary Rice [ NON-[facility] STAFF PHYSICIAN] - 06/02/24 2:45 pm ( Colorectal GI surgery [facility] ) Activity:: Activity as Tolerated Equipment/Supplies:: No Equipment Needed Diet:: Full liquid Discharge Orders Discharge Orders: Discharge Order (Routine); Ordered 04/24/24 Ordered By: Saundra Dykes Other Ambulatory Orders: Complete Blood Count w/Diff (Routine) Timeframe: 3 Days Facility: [facility] - Location: Laboratory Outpatient - [facility] Ordered By: Saundra Dykes Discharge Data Discharge Date/Time-TO BE ENTERED AT DEPARTURE: 04/24/24 15:43 DS: Summary Time Spent with Patient providing and/or coordinating discharge services: Greater than 30 minutes Status at Discharge Functional status at discharge: independent ambulation Overall status at discharge: patient is back to baseline Mental Status: mental status grossly normal Speech and Movement: speech and movement normal Mood: congruent mood Affect: normal affect Quality:SDOH Health Related Social Needs: Health related social needs inadequate housing Exam Narrative Exam Narrative: Neuro:alert and oriented to self, person, place, time and situation. Resp: Clear lung bilaterally Cardio: regular rhythm, S1, S2, positive radial and pedal pulses GI: Abdomen is not distended, soft and non tender, bowel sounds are present, colostomy pink surrounding tissue, draining dark brown liquid (heme neg) : clear, yellow urine, no pain with palpation over kidneys or bladder Integumentary: No skin lesions or rash Extremities: strength 5/5 to bilateral lower and upper extremities Psych: Congruent mood and normal affect. Psych Mental Status: mental status grossly normal Speech and Movement: speech and movement normal Mood: congruent mood Affect: normal affect DS: Data Vitals/I&O Vitals and I&O: Vital Signs Temperature 36.5 C 04/24/24 07:11 Temperature Source Temporal Artery Scan 04/24/24 07:11 Pulse 69 04/24/24 07:11 Pulse Rhythm Irregular 04/23/24 21:38 Respiratory Rate 16 04/24/24 07:11 Respiratory Effort Normal 04/23/24 21:38 Respiratory Depth Normal 04/23/24 21:38 Respiratory Pattern Normal 04/23/24 21:38 Blood Pressure 139/66 04/24/24 07:11 Blood Pressure Mean 81 04/21/24 00:31 Blood Pressure Position Sitting 04/20/24 21:03 Pulse Oximetry 97 04/24/24 07:11 Oxygen Delivery Method Room Air 04/24/24 07:11 Oxygen Flow Rate 0 04/24/24 07:11 Pain Level 4 04/24/24 12:38 Comment 8/10 pain near the ostomy, she states that it feels like really bad contractions. 04/22/24 07:19 Intake & Output 04/23/24 04/24/24 04/24/24 23:59 11:59 23:59 Intake Total 1100 / 2606.667 100 / 1300 1200 / 1300 Output Total 1000 / 2175 1975 / 2375 400 / 2375 Balance 100 / 431.667 -1875 / -1075 800 / -1075 Weight 70.1 kg Intake: IV 1100 / 2606.667 100 / 1100 1000 / 1100 Oral 200 / 200 Output: Urine 300 / 1100 1550 / 1850 300 / 1850 Stool 700 / 1075 425 / 525 100 / 525 Other: Urine Color Yellow Yellow Pale Yellow Urine Appearance Clear Clear Clear Urine Odor Normal None Stool Occult Blood Negative Stool Characteristics Liquid Voiding Methods Toilet Toilet Data Completed and Pending Labs on day of discharge: Labs from last 24 hours 04/24/24 04/22/24 06:50 17:22 WBC 3.35 L RBC 3.43 L Hgb 8.2 L Hct 27.3 L MCV 80 MCH 23.9 L MCHC 30.0 L RDW 15.1 H Plt Count 241 MPV 9.8 Immature Gran % 0.3 Neutrophils % 46.9 Lymphocytes % 36.4 Monocytes % 10.1 Eosinophils % 5.7 Basophils % 0.6 Nucleated RBC % 0.0 Absolute Neutrophils 1.57 Absolute Lymphocytes 1.22 Absolute Monocytes 0.34 Absolute Eosinophils 0.19 Absolute Basophils 0.02 Sodium 143 Potassium 3.7 Chloride 106 Carbon Dioxide 31.1 Anion Gap 5.9 BUN 7 Creatinine 0.9 Est GFR (CKD-EPI 2020) 69.64 Glucose 90 Calcium 9.2 Magnesium 1.9 Stool Description Not Applicable Stool Ova & Parasites SEE BELOW Cryptosporidium/Giardia SEE BELOW PFSH All Active Problems (Updated 04/24/24 @ 14:30 by Saundra Dykes NP) Pain (Acute) Discharge planning issues (Acute) On deep vein thrombosis (DVT) prophylaxis (Acute) Anemia (Chronic) Dehydration (Acute) Diarrhea (Acute) Altered bowel elimination due to intestinal ostomy (Acute) Trigger finger, left ring finger (Acute) Depo-medrol injection: 03/25/23 H/O endarterectomy (Acute) LEFT Pain, foot (Acute) Corns and callosities (Acute) Carotid stenosis, left (Acute) Carotid stenosis, right (Acute) Ulcerative colitis (Chronic) BRAO (branch retinal artery occlusion) (Acute) Chronic shoulder pain (Acute) Subacromial impingement of right shoulder (Acute) 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 of carpometacarpal (CMC) joint of left thumb (Acute) Injected: 02/17/2021 Gastritis (Acute ~04/2021) Esophagitis (Acute ~04/2021) Trochanteric bursitis of left hip (Acute) s/p endoscopic trochanteric bursectomy and IT band release DOS: 12/22/2020 Most recent injections: 08/02/23; 09/19/2020 ; 06/27/20 Hip bursitis (Acute) Postoperative anemia due to acute blood loss (Acute) Post-nasal drip (Chronic) De Quervain's tenosynovitis, right (Acute 11/14/16) Pain from implanted hardware (Acute 06/10/17) Right wrist tendinitis (Acute 04/18/17) Tubular adenoma of colon (Acute 02/26/17) Instability of joints of both ankles (Acute) Bilateral knee pain (Chronic) History of sinusitis (Chronic) Chronic frontal sinusitis (Chronic) Trochanteric bursitis, right hip (Acute) Most recent injections: 08/02/23; 01/02/2021; 09/19/2020 ; 06/27/20 Ingrowing right great toenail (Acute) Tendinitis of left rotator cuff (Acute) Arthritis of carpometacarpal (CMC) joint of right thumb (Acute) Most recent depo-medrol injection: 03/25/23 Medical History Serrated adenoma of colon (~04/2021) Tubular adenoma (~04/2021) Colon polyp, hyperplastic (~04/2021) Iliotibial band syndrome of left side Bunion, left foot Bunion, right foot Chronic maxillary sinusitis Chronic ethmoidal sinusitis Other intraarticular fracture of lower end of right radius, subsequent encounter for closed fracture with routine healing (08/08/16) Ethmoid sinusitis Sinus congestion Hypertension GERD (gastroesophageal reflux disease) Closed fracture of right distal radius Surgical History S/P total colectomy (~02/05/24) Dr. Sheila Rice, [facility] S/P carotid endarterectomy Left Nov 2022 S/P hysterectomy with oophorectomy S/P cholecystectomy S/P Mohs surgery for basal cell carcinoma x2 History of esophagogastroduodenoscopy (EGD) (~04/2021) History of colonoscopy (~04/2021) History of bursectomy and IT band release Status post bilateral total hip replacement right wrist fracture repair (06/29/16) EGD - IV Sedation (02/26/17) Colonoscopy - IV Sedation (02/26/17) Family History Other Hypertension Social History Smoking/Tobacco Use Status: Former Tobacco Use Quit Date: 08/11/17 Smoking risk assessment performed?: Yes Alcohol Intake: current Alcohol Intake frequency: a few times a month Alcohol type: wine and hard liquor Drug use: Occasionally Substance use type: marijuana Household members: none Housing: apartment Number of Children: 2 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
[2024-04-24 15:09] VITALS: BP 138/45; PULSE 77; RESP 18; TEMP 37.1; O2SAT 98
[2024-04-27 12:26] LABS: Calprotectin 121 mcg/g
== END 2024-04-24 15:43 | disposition home or self-care (01) | DRG 920 ==
LOC: ER 04-21 00:43 → MS 04-21 01:06
PROVIDERS: Nurse Practitioner Acute Care; Nurse Practitioner Family; Admitting Provider Internal Medicine; Emergency Provider Emergency Medicine; PCP Family Medicine; Visit Provider Internal Medicine
DX: T85.848A Pain due to other internal prosthetic devices, implants and grafts, initial encounter (principal); K51.90 Ulcerative colitis, unspecified, without complications; K94.09 Other complications of colostomy; E86.0 Dehydration; D64.9 Anemia, unspecified; Z79.899 Other long term (current) drug therapy; I65.23 Occlusion and stenosis of bilateral carotid arteries; M75.41 Impingement syndrome of right shoulder; M19.012 Primary osteoarthritis, left shoulder; M19.011 Primary osteoarthritis, right shoulder; M70.61 Trochanteric bursitis, right hip; Z86.010 Personal history of colon polyps; J32.0 Chronic maxillary sinusitis; J32.2 Chronic ethmoidal sinusitis; Z87.891 Personal history of nicotine dependence; Y83.3 Surgical operation with formation of external stoma as the cause of abnormal reaction of the patient, or of later complication, without mention of misadventure at the time of the procedure; Z98.0 Intestinal bypass and anastomosis status; Z90.49 Acquired absence of other specified parts of digestive tract
CPT/HCPCS: 36410; 00123; 36415; 80048; 80053; 80076; 83690; 86850; 86900; 86901; 87329; 87493; 87505; 96361; 96365; 96367; 96372; 96375; 96376; 99285; J1650; 74177; 81003; 82607; 82728; 82746; 83540; 83550; 83630; 83735; 83993; 85014; 85018; 85025; 85045; 87177; 99222; 99232; 99233; 99239; J0131; J1170; J1756; J2405; J3475; J3490

== ENCOUNTER 2024-05-15 12:16 | Emergency (ER) | payer MEDICARE, SELFPAY ==
[2024-05-15 12:25] VITALS: BP 114/79; PULSE 112; RESP 18; TEMP 36.4; O2SAT 97
[2024-05-15 13:09] VITALS: BP 114/79; PULSE 112; RESP 18; TEMP 36.4; O2SAT 97
--- NOTE | 2024-05-15 13:19 | W.ED.GENAD ---
Discharge Plan Disposition Patient Disposition: Home Condition: Good Discharge Details Clinical Impression: Ileus, Dehydration Primary Care Provider: Nicolasa Griggs ED Provider: Bebeto Mcclain Home Meds and New Rx's Prescriptions: No Action atorvastatin 40 mg tablet 40 mg PO QHS duloxetine 30 mg capsule,delayed release(DR/EC) 30 mg PO DAILY lisinopril 40 MG tablet 40 mg PO DAILY cholecalciferol (vitamin D3) [Vitamin D3] 2,000 UNIT tablet 2,000 unit PO DAILY dexlansoprazole [Dexilant] 30 mg capsule,biphase delayed releas 30 mg PO DAILY Qty: 90 3RF epinephrine 0.3 mg/0.3 mL auto-injector 1 ea subcut DIRECTED PRN Patient Comments: INJECT ONE PEN UNDER THE SKIN DIRECTED aspirin [Children's Aspirin] 81 mg Tablet,Chewable 81 mg PO DAILY Qty: 100 0RF ondansetron 4 mg tablet,disintegrating 4 mg PO Q6H PRNQty: 28 0RF albuterol sulfate 90 mcg/actuation HFA aerosol inhaler 2 puff INHALATION Patient Comments: INHALE 2 PUFFS BY MOUTH EVERY 4 HOURS NEEDED FOR SHOPRTNESS OF BREATH Discharge Instructions Instructions: Dehydration, Adult ED Additional Instructions: At this time through shared decision-making process you have elected to go home for a trial to see if the ileus will resolve with continued home therapy. Please continue to take small but frequent sips of liquid. Please take the nausea medication as needed. Please return if your symptoms do not get better, you have continued fluid ostomy wasting, or return or worsening of your pain. If you notice any worsening of your symptoms, or any new symptoms such as vomiting, diarrhea, fever, chills, shortness of breath, chest pain, numbness, weakness, or fainting , please return immediately to the emergency department for reevaluation. Please follow up with your primary care provider as soon as possible for reassessment and reevaluation. As always, it was a pleasure participating in your medical care today. Referrals: Nicolasa Griggs [Primary Care Provider] - [facility] General Date/Time Provider Initiated Documentation: 05/15/24 12:17. HPI Narrative: 69-year-old female with a past medical history of ulcerative colitis, and serrated adenoma colon polyps undergoing subsequent colectomy colostomy on 02/05/2024 at [facility]. Since then she has had 3 episodes of obstruction/partial obstruction which is led to admission and fluids. These usually resolve on their own with dietary change. Patient had been doing well and has elected for reversal of her ostomy, and is still waiting that appointment. Patient states that yesterday she had some elevated consider abdomen, and last night began dumping. She has had 2000 cc of watery consistency light brown stool. She denies any fever or chills. She admits to cramping throughout her abdomen. No other complaints at this time. She denies any vomiting but does admit to nausea. She denies chest pain or shortness of breath. No other complaints at this time. Related Data Home Medications Medication Instructions Recorded Confirmed cholecalciferol (vitamin D3) 50 2,000 unit PO DAILY 02/11/17 05/15/24 mcg (2,000 unit) tablet (Vitamin D3) lisinopril 40 mg tablet 40 mg PO DAILY 02/11/17 05/15/24 dexlansoprazole 30 mg 30 mg PO DAILY #90 caps 06/02/21 05/15/24 capsule,biphase delayed release (Dexilant) epinephrine 0.3 mg/0.3 mL 1 ea subcut DIRECTED PRN 09/13/22 05/15/24 injection, auto-injector aspirin 81 mg chewable tablet 81 mg PO DAILY #100 tabs 09/14/22 05/15/24 (Children's Aspirin) atorvastatin 40 mg tablet 40 mg PO QHS 09/20/22 05/15/24 duloxetine 30 mg capsule,delayed 30 mg PO DAILY 02/01/23 05/15/24 release ondansetron 4 mg disintegrating 4 mg PO Q6H PRN #28 tabs 04/24/24 05/15/24 tablet albuterol sulfate 90 mcg/actuation 2 puff inhalation 05/15/24 aerosol inhaler Previous Rx's Medication Instructions Recorded dexlansoprazole 30 mg 30 mg PO DAILY #90 caps 06/02/21 capsule,biphase delayed release (Dexilant) aspirin 81 mg chewable tablet 81 mg PO DAILY #100 tabs 09/14/22 (Children's Aspirin) ondansetron 4 mg disintegrating 4 mg PO Q6H PRN #28 tabs 04/24/24 tablet Allergies Allergy/AdvReac Type Severity Reaction Status Date / Time protamine Allergy Severe Anaphylaxis Verified 05/15/24 12:27 venom-honey bee Allergy Severe Other (See Verified 05/15/24 12:27 Comment) wool Allergy Other (See Verified 05/15/24 12:27 Comment) amoxicillin [From Augmentin] AdvReac Severe GI Verified 05/15/24 12:27 problems, Severe Diarrhea clavulanic acid AdvReac Severe GI Verified 05/15/24 12:27 [From Augmentin] problems, severe diarrhea omeprazole AdvReac Severe Diarrhea Verified 05/15/24 12:27 esomeprazole [From Nexium] AdvReac Intermediate history of Verified 05/15/24 12:27 Irritable bowel, severe diarrhea silver nitrate AdvReac Skin Rash Verified 05/15/24 12:27 General Stated Complaint: Abd Prob MENA: 3 Review of Systems All systems reviewed & are unremarkable except as noted in HPI and below Exam Narrative Exam Narrative: 1.Const: Well-nourished, Well-developed, appearing stated age 2.Eyes: PERRL, no conjunctival injection, and symmetrical lids. 3.ENT: Atraumatic external nose and ears. Dry MM. Neck: Symmetric, trachea midline, No thyromegaly. 4.CVS: +S1/S2, No murmurs or gallops. Peripheral pulses 2+ and equal in all extremities. Brisk capillary refill in all extremities. 5.RESP: Unlabored respiratory effort. Clear to auscultation bilaterally. No wheezes rales or rhonchi 6.GI: Soft, nondistended, ostomy site demonstrates a pink ostomy site with mild achiness surrounding it. Mild tenderness throughout. Notable watery brown stool is present. Bowel sounds are diminished. 7.MSK: Normocephalic/Atraumatic, Extremities w/o deformity or ttp No cyanosis or clubbing, Normal movement of all extremities 8.Skin: Warm, Dry. No rashes or lesions. 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 Sensation grossly intact, no focal neurologic deficits. 10.Psych: (AAO) x3. Appropriate mood and affect Course Vital Signs Vital signs: Vital Signs Temperature 36.4 C L 05/15/24 12:25 Pulse 112 H 05/15/24 12:25 Respiratory Rate 18 05/15/24 12:25 Blood Pressure 114/79 05/15/24 12:25 Pulse Oximetry 97 05/15/24 12:25 Temperature 36.4 C L 05/15/24 13:09 Temperature Source Skin 05/15/24 13:09 Pulse 112 H 05/15/24 13:09 Respiratory Rate 18 05/15/24 13:09 Respiratory Effort Normal 05/15/24 12:26 Blood Pressure 114/79 05/15/24 13:09 Blood Pressure Position Sitting 05/15/24 13:09 Pulse Oximetry 97 05/15/24 13:09 Oxygen Delivery Method Room Air 05/15/24 13:09 Oxygen Flow Rate 0 05/15/24 13:09 Medical Decision Making 69-year-old female with a past medical history of ulcerative colitis, and serrated adenoma colon polyps undergoing subsequent colectomy colostomy on 02/05/2024 at [facility]. Since then she has had 3 episodes of obstruction/partial obstruction which is led to admission and fluids. These usually resolve on their own with dietary change. Patient had been doing well and has elected for reversal of her ostomy, and is still waiting that appointment. Patient states that yesterday she had some elevated consider abdomen, and last night began dumping. She has had 2000 cc of watery consistency light brown stool. She denies any fever or chills. She admits to cramping throughout her abdomen. No other complaints at this time. She denies any vomiting but does admit to nausea. She denies chest pain or shortness of breath. No other complaints at this time. Exam demonstrates well-appearing female, mild abdominal achiness throughout, diffuse amount of watery brown stool in her ostomy. Bowel sounds slightly reduced. Differential is concerning for dumping syndrome, partial obstruction, or other abnormality. Will rehydrate with a liter of lactated Ringer's, give antiemetics, get an abdominal series to evaluate for signs of obstruction, monitor closely and reassess. 4:04 PM On reassessment after a liter of lactated Ringer's patient is feeling much better. She states that her nausea abdominal cramping and feelings of illness have resolved. She feels well. Abdominal x-ray shows nonspecific bowel gas pattern with some air-fluid levels, ileus versus early obstruction on the differential. The patient feels well and we did discuss admission versus discharge. At this point the patient would prefer to go home to do a trial. She understands that this certainly may lead to her needing to come back for return if her obstruction or ileus does not improve. She understands that but as she has had a notable clinical improvement she would like to move forward with this plan. Patient will receive a second liter of lactated Ringer's to optimize hydration status. She will be given some antiemetics to go home with. She otherwise remained stable. She has been able to tolerate p.o. Output from her ostomy has notably diminished while here. I discussed with the patient that if she does have continued wasting her again feels dehydrated or her abdominal pain returns or worsens she will need to return for reassessment. Patient understands this. I have extensively reviewed the treatment plan and discharge instructions with the patient. I have addressed all patient concerns at this time. The patient was made aware of what symptoms to monitor for that would warrant a return to the emergency department. Discussed the plan with the patient, they demonstrate verbal understanding and agreement with our assessment and plan at this time. The documentation in this chart was dictated using [employer] dictation software. Please excuse any dictation errors. FINDINGS: LUNG BASES: Clear. BOWEL GAS PATTERN: The bowel gas pattern is nonspecific. There are scattered air-filled loops of small bowel present. There are few scattered air-fluid levels. No dilated loops of small bowel are seen. FREE AIR: None. CALCIFICATIONS: Vascular calcifications are present. OSSEOUS STRUCTURES: There is a left convex lumbar scoliosis centered at L3. The patient has bilateral total hip replacements which are incompletely imaged. Degenerative changes are seen in the spine. OTHER FINDINGS: There are surgical clips seen in the right upper quadrant of the abdomen consistent with a prior cholecystectomy. IMPRESSION: Nonspecific bowel gas pattern at this time. There are few scattered air-fluid level seen on the upright view. This may represent an ileus but early small bowel obstruction cannot be entirely excluded. Follow-up as clinically appropriate. Quality:SDOH Health Related Social Needs: Health related social needs inadequate housing PFSH All Active Problems (Updated 05/15/24 @ 16:12 by Bebeto Mcclain DO) Dehydration (Acute) Ileus (Acute) Anemia (Chronic) Altered bowel elimination due to intestinal ostomy (Acute) Trigger finger, left ring finger (Acute) Depo-medrol injection: 03/25/23 H/O endarterectomy (Acute) LEFT Pain, foot (Acute) Corns and callosities (Acute) Carotid stenosis, left (Acute) Carotid stenosis, right (Acute) Ulcerative colitis (Chronic) BRAO (branch retinal artery occlusion) (Acute) Chronic shoulder pain (Acute) Subacromial impingement of right shoulder (Acute) 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 of carpometacarpal (CMC) joint of left thumb (Acute) Injected: 02/17/2021 Gastritis (Acute ~04/2021) Esophagitis (Acute ~04/2021) Trochanteric bursitis of left hip (Acute) s/p endoscopic trochanteric bursectomy and IT band release DOS: 12/22/2020 Most recent injections: 08/02/23; 09/19/2020 ; 06/27/20 Hip bursitis (Acute) Postoperative anemia due to acute blood loss (Acute) Post-nasal drip (Chronic) De Quervain's tenosynovitis, right (Acute 11/14/16) Pain from implanted hardware (Acute 06/10/17) Right wrist tendinitis (Acute 04/18/17) Tubular adenoma of colon (Acute 02/26/17) Instability of joints of both ankles (Acute) Bilateral knee pain (Chronic) History of sinusitis (Chronic) Chronic frontal sinusitis (Chronic) Trochanteric bursitis, right hip (Acute) Most recent injections: 08/02/23; 01/02/2021; 09/19/2020 ; 06/27/20 Ingrowing right great toenail (Acute) Tendinitis of left rotator cuff (Acute) Arthritis of carpometacarpal (CMC) joint of right thumb (Acute) Most recent depo-medrol injection: 03/25/23 Medical History Serrated adenoma of colon (~04/2021) Tubular adenoma (~04/2021) Colon polyp, hyperplastic (~04/2021) Iliotibial band syndrome of left side Bunion, left foot Bunion, right foot Chronic maxillary sinusitis Chronic ethmoidal sinusitis Other intraarticular fracture of lower end of right radius, subsequent encounter for closed fracture with routine healing (08/08/16) Ethmoid sinusitis Sinus congestion Hypertension GERD (gastroesophageal reflux disease) Closed fracture of right distal radius Surgical History S/P total colectomy (~02/05/24) [place] Sheila [place] [facility]P carotid endarterectomy Left Nov 2022 S/P hysterectomy with oophorectomy S/P cholecystectomy S/P Mohs surgery for basal cell carcinoma x2 History of esophagogastroduodenoscopy (EGD) (~04/2021) History of colonoscopy (~04/2021) History of bursectomy and IT band release Status post bilateral total hip replacement right wrist fracture repair (06/29/16) EGD - IV Sedation (02/26/17) Colonoscopy - IV Sedation (02/26/17) Family History Other Hypertension Social History Smoking/Tobacco Use Status: Former Tobacco Use Quit Date: 08/11/17 Smoking risk assessment performed?: Yes Alcohol Intake: current Alcohol Intake frequency: a few times a month Alcohol type: wine and hard liquor Drug use: Occasionally Substance use type: marijuana Household members: none Housing: apartment Number of Children: 2 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
[2024-05-15 13:40] LABS: Abs Immature Grans 0.02 10^3/uL (0.0-0.06); Absolute Basophil Count 0.04 10^3/uL (0.0-0.2); Absolute Eosinophil Count 0.05 10^3/uL (0.0-0.7); Absolute Lymphocyte Count 1.85 10^3/uL (1.2-3.4); Absolute Monocyte Count 0.62 10^3/uL (0.1-0.8); Absolute Neutrophil Count 6.18 10^3/uL (1.2-6.7); Basophils % 0.5 %; Eosinophils % 0.6 %; HCT 38.7 % (36.0-46.0); Immature Grans % 0.2 %; Lymphocytes % 21.1 %; MCV 81 fL (80-95); MPV 9.7 fL (8.0-11.0); Monocytes % 7.1 %; Neutrophils % 70.5 %; Platelet Count 361 10^3/uL (130-400); RDW 19.6 % (11.7-14.6); RDW-SD 56.4 fL; WBC 8.76 10^3/uL (4.4-10.8)
[2024-05-15 13:56] LABS: ALT 27 U/L (14-59); AST 37 U/L (15-37); Alkaline Phosphatase 92 U/L (46-116); Anion Gap 11.6 mmol/L (3-11); BUN 26 mg/dL (7-18); Bilirubin, Total 0.71 mg/dL (0.2-1.0); CO2 22.4 mmol/L (21.0-32.0); CREATININE 1.5 mg/dL (0.55-1.02); Calcium 10.6 mg/dL (8.5-10.1); Chloride 102 mmol/L (98-107); Estimated GFR 37.49 (mL/min/1.73m2); Glucose 109 mg/dL (74-106); Potassium 4.9 mmol/L (3.5-5.1); Sodium 136 mmol/L (136-145); Total Protein 8.4 g/dL (6.4-8.2)
--- NOTE | 2024-05-15 14:08 | DI.RAD_ITS ---
Exam(s) XR ABDOMEN FLAT UPRIGHT EXAM: 2D digital imaging was performed. CLINICAL HISTORY: dumping from ostomy, eval for obstruction. COMPARISON: CT CT ABDOMEN PELVIS W from 04/20/2024 TECHNIQUE: Supine and upright views of the abdomen was performed. Two images were obtained. FINDINGS: LUNG BASES: Clear. BOWEL GAS PATTERN: The bowel gas pattern is nonspecific. There are scattered air-filled loops of sma ll bowel present. There are few scattered air-fluid levels. No dilated loops of small bowel are see n. FREE AIR: None. CALCIFICATIONS: Vascular calcifications are present. OSSEOUS STRUCTURES: There is a left convex lumbar scoliosis centered at L3. The patient has bilatera l total hip replacements which are incompletely imaged. Degenerative changes are seen in the spine. OTHER FINDINGS: There are surgical clips seen in the right upper quadrant of the abdomen consistent w ith a prior cholecystectomy. IMPRESSION: Nonspecific bowel gas pattern at this time. There are few scattered air-fluid level seen on the upri ght view. This may represent an ileus but early small bowel obstruction cannot be entirely excluded. Follow-up as clinically appropriate. DATA REPOSITORY: RADIATION DOSE DELIVERED:
[2024-05-15] MEDS: Lactated Ringers 1,000 ML 1000 ML IV ×2 (14:23→16:00)
[2024-05-15 14:24] LABS: Magnesium 2.2 mg/dL (1.8-2.4)
[2024-05-15] MEDS: Metoclopramide 10 MG/2 ML VIAL IVP (14:24)
[2024-05-15 14:25] LABS: Lipase 24 U/L (16-77)
[2024-05-15] MEDS: Ondansetron 4 MG/2 ML VIAL IVP (16:33)
[2024-05-15] MEDS: Ondansetron O.D.T. 4 MG TABEF, 3 TABS/BTL PO (16:33)
[2024-05-15 16:50] VITALS: BP 115/60; PULSE 64; RESP 14; O2SAT 97
== END 2024-05-15 16:51 | disposition home or self-care (01) ==
PROVIDERS: Emergency Provider Student in an Organized Health Care Education/Training Program; PCP Family Medicine
DX: K56.7 Ileus, unspecified (principal); E86.0 Dehydration; I10 Essential (primary) hypertension; Z90.49 Acquired absence of other specified parts of digestive tract; Z79.82 Long term (current) use of aspirin; Z87.891 Personal history of nicotine dependence
CPT/HCPCS: 80053; 83690; 96361; 96365; 96375; 99284; 74019; 83735; 85025; 99283; J2405; J2765

== ENCOUNTER 2024-06-04 08:47 | Emergency (ER) | payer MEDICARE, SELFPAY ==
[2024-06-04 08:47] VITALS: BP 133/58; PULSE 83; RESP 15; TEMP 36.3; O2SAT 100
[2024-06-04 08:51] VITALS: BP 133/58; PULSE 83; RESP 15; TEMP 36.3; O2SAT 100
--- NOTE | 2024-06-04 09:04 | ED.GENADUL_ITS ---
Discharge Plan Disposition Patient Disposition: Home Condition: Stable Discharge Details Clinical Impression: Renal insufficiency, Dehydration Primary Care Provider: Nicolasa Griggs ED Provider: Trish Lawrence Home Meds and New Rx's Prescriptions: Continued atorvastatin 40 mg tablet 40 mg PO QHS duloxetine 30 mg capsule,delayed release(DR/EC) 30 mg PO DAILY lisinopril 40 MG tablet 40 mg PO DAILY cholecalciferol (vitamin D3) [Vitamin D3] 2,000 UNIT tablet 2,000 unit PO DAILY dexlansoprazole [Dexilant] 30 mg capsule,biphase delayed releas 30 mg PO DAILY Qty: 90 3RF epinephrine 0.3 mg/0.3 mL auto-injector 1 ea subcut DIRECTED PRN Patient Comments: INJECT ONE PEN UNDER THE SKIN DIRECTED aspirin [Children's Aspirin] 81 mg Tablet,Chewable 81 mg PO DAILY Qty: 100 0RF ondansetron 4 mg tablet,disintegrating 4 mg PO Q6H PRNQty: 28 0RF albuterol sulfate 90 mcg/actuation HFA aerosol inhaler 2 puff INHALATION Q4H PRN Patient Comments: INHALE 2 PUFFS BY MOUTH EVERY 4 HOURS NEEDED FOR SHOPRTNESS OF BREATH Discharge Instructions Instructions: Acute kidney injury, Dehydration, Adult ED Additional Instructions: Today your BUN is 37 creatinine 2.4 and GFR is 21.33. You were given a liter of normal saline here in the department today This is concerning and could be from the dehydration however please discuss this with your primary care team at [facility]. Continue increasing oral fluids. Drink enough fluids so that you are urinating at least every 3 hours and that your urine is yellow and clear. Return to the ER for any worsening symptoms, shortness of breath leg cramps, dizziness lightheadedness fever chills worsening blood in your stool or concerns. Follow up with primary care provider in 3-5 days. Return to ED sooner if any worsening or concerns. Referrals: [facility] [Outside] - 1 week Nicolasa Griggs [Primary Care Provider] - 5 days Discharge Data Discharge Date/Time-TO BE ENTERED AT DEPARTURE: 06/04/24 12:29 HPI General Mode of arrival: ambulatory . Date/Time Provider Initiated Documentation: 06/04/24 08:49 . Limitations to Documentation: no limitations . Information obtained by: patient, RN notes reviewed and old records reviewed . HPI Narrative: 69-year-old female presents to the ER with a chief complaint of muscle cramps and leg cramps that have been worse over the last couple of days, she was seen by her colorectal surgeon on Saturday at [facility] [place] [facility] for preop appointment where her surgeon manually dilated her ostomy. Since then she has had increased output mild abdominal tenderness denies any fever or chills mild amount of blood in her output which is to be expected per colorectal surgery and patient report. She is scheduled next Saturday for revision of her colostomy. She does have a history of stricture and ileus which she was seen here in the ER for on 05/15/2024. She is here requesting rehydration and evaluation of her electrolytes for possible dehydration and leg cramps. Other past medical history includes adenoma of colon, hypertension, GERD, arthritis carotid stenosis. Related Data Home Medications ?Medication ?Instructions ?Recorded ?Confirmed cholecalciferol (vitamin D3) 50 2,000 unit PO DAILY 02/11/17 06/04/24 mcg (2,000 unit) tablet (Vitamin D3) lisinopril 40 mg tablet 40 mg PO DAILY 02/11/17 06/04/24 dexlansoprazole 30 mg 30 mg PO DAILY #90 caps 06/02/21 06/04/24 capsule,biphase delayed release (Dexilant) epinephrine 0.3 mg/0.3 mL 1 ea subcut DIRECTED PRN 09/13/22 06/04/24 injection, auto-injector aspirin 81 mg chewable tablet 81 mg PO DAILY #100 tabs 09/14/22 06/04/24 (Children's Aspirin) atorvastatin 40 mg tablet 40 mg PO QHS 09/20/22 06/04/24 duloxetine 30 mg capsule,delayed 30 mg PO DAILY 02/01/23 06/04/24 release ondansetron 4 mg disintegrating 4 mg PO Q6H PRN #28 tabs 04/24/24 06/04/24 tablet albuterol sulfate 90 mcg/actuation 2 puff inhalation Q4H PRN 05/15/24 06/04/24 aerosol inhaler Previous Rx's ?Medication ?Instructions ?Recorded dexlansoprazole 30 mg 30 mg PO DAILY #90 caps 06/02/21 capsule,biphase delayed release (Dexilant) aspirin 81 mg chewable tablet 81 mg PO DAILY #100 tabs 09/14/22 (Children's Aspirin) ondansetron 4 mg disintegrating 4 mg PO Q6H PRN #28 tabs 04/24/24 tablet Allergies Allergy/AdvReac Type Severity Reaction Status Date / Time protamine Allergy Severe Anaphylaxis Verified 06/04/24 08:52 venom-honey bee Allergy Severe Other (See Verified 06/04/24 08:52 Comment) wool Allergy Other (See Verified 06/04/24 08:52 Comment) amoxicillin (From Augmentin) AdvReac Severe GI Verified 06/04/24 08:52 problems, Severe Diarrhea clavulanic acid (From AdvReac Severe GI Verified 06/04/24 08:52 Augmentin) problems, severe diarrhea omeprazole AdvReac Severe Diarrhea Verified 06/04/24 08:52 esomeprazole (From Nexium) AdvReac Intermediate history of Verified 06/04/24 08:52 Irritable bowel, severe diarrhea silver nitrate AdvReac Skin Rash Verified 06/04/24 08:52 General Stated Complaint: GenMedical MENA: 3 Review of Systems All systems reviewed & are unremarkable except as noted in HPI and below Constitutional Constitutional: Reports fatigue, Reports lethargy and Reports poor appetite Gastrointestinal Gastrointestinal: Reports abdominal pain, Reports constipation and Reports na usea Musculoskeletal Musculoskeletal: Reports muscle cramps Endocrine Endocrine: Reports fatigue Exam Narrative Exam Narrative: Constitutional: Alert and oriented x3. Appears stated age. Normal body habitus. Head: Normocephalic, no trauma. Eyes: Pupils PERRL, Red reflex noted, EOM's intact. Eyelids symmetrical without lesions, discharge, or swelling. ENT: Bilateral TM's WNL, External ear normal to inspection, no mastoid TTP, swelling, or erythema, Nasal turbinates WNL, no nasal discharge. Normal dentition, Posterior pharynx WNL, no exudate. Chest: RRR, Normal S1, S2, distal pulses intact. Resp: Lungs clear to auscultation bilaterally, no wheezes, rales, or rhonchi. Abdomen: Soft, non-distended, colostomy noted to the right upper quadrant, soft brown stool noted in colostomy bag tinged with bright red blood. No surrounding induration erythema to the ostomy, generalized abdominal tenderness with palpation which patient reports is her baseline. Hypoactive bowel sounds noted all 4 quadrants. Musculoskeletal: Normal gait, Moves all 4 extremities without difficulty. No bilateral lower extremity edema noted. Skin: No suspicious rashes or lesions. Capillary refill less than 2 sec. Neurologic: Cranial nerves II-XII intact. Alert and oriented x 3. Motor: No deficits noted. Sensory: Intact bilaterally all 4 extremities. Hematologic/Lymphatic: No ecchymosis, no lymphadenopathy. Course Vital Signs Vital signs: Vital Signs Temperature 36.3 C L 06/04/24 08:47 Pulse 83 06/04/24 08:47 Respiratory Rate 15 06/04/24 08:47 Blood Pressure 133/58 L 06/04/24 08:47 Pulse Oximetry 100 06/04/24 08:47 Temperature 36.3 C L 06/04/24 08:51 Temperature Source Temporal Artery Scan 06/04/24 08:51 Pulse 83 06/04/24 08:51 Respiratory Rate 15 06/04/24 08:51 Respiratory Effort Normal 06/04/24 08:51 Blood Pressure 133/58 L 06/04/24 08:51 Blood Pressure Position Sitting 06/04/24 08:51 Pulse Oximetry 100 06/04/24 08:51 Oxygen Delivery Method Room Air 06/04/24 08:51 Oxygen Flow Rate 0 06/04/24 08:51 Pain Level 0 06/04/24 08:51 Medical Decision Making 69-year-old female presents to the ER with a chief complaint of muscle cramps and leg cramps that have been worse over the last couple of days, she was seen by her colorectal surgeon on Saturday at [facility] [place] for preop appointment where her surgeon manually dilated her ostomy. Since then she has had increased output mild abdominal tenderness denies any fever or chills mild amount of blood in her output which is to be expected per colorectal surgery and patient report. She is scheduled next Saturday for revision of her colostomy. She does have a history of stricture and ileus which she was seen here in the ER for on 05/15/2024. She is here requesting rehydration and evaluation of her electrolytes for possible dehydration and leg cramps. CBC CMP magnesium IV ordered She does have brown soft stool noted out of the ostomy in her right upper quadrant, mixed with small amount of blood. Differential diagnose includes but not limited to electrolyte imbalance, dehydration, obstruction. At this time imaging deferred due to patient's upcoming appointment next Saturday for surgery and recent evaluation by colorectal surgeon. No significant abdominal pain that is worse no vomiting. CBC shows no leukocytosis, sodium 135 potassium 4.7 BUN elevated 37 creatinine 2.4 GFR 21.3, calcium 10.2 slightly high magnesium within normal limits. Last BUN/creatinine from May 15 this year was 26 and 1.5, will give a total of 1 L bolus of normal saline. UA ordered. Patient given 0.5 mg Dilaudid for muscle cramps which she reports helped immensely for her pain. Urinalysis within normal limits, specific gravity slightly elevated greater than 1.030, on reevaluation, she reports feeling much better I did discuss her BUN and creatinine with her she will follow-up with her team at [facility] discuss strict return instructions she verbalized understanding. Lab Data Lab results reviewed: Yes I reviewed the patient's lab results. Labs: Laboratory Tests Range/Units 06/04/24 06/04/24 09:42 11:29 WBC (4.4-10.8) 10^3/uL 6.40 RBC (3.93-5.22) 10^6/uL 4.90 Hgb (11.2-15.7) g/dL 12.2 Hct (36.0-46.0) % 39.4 MCV (80-95) fL 80 MCH (27.0-33.0) pg 24.9 L MCHC (32.0-36.0) % 31.0 L RDW (11.7-14.6) % 20.8 H Plt Count (130-400) 10^3/uL 351 MPV (8.0-11.0) fL 9.4 Immature Gran % % 0.3 Neutrophils % % 59.6 Lymphocytes % % 27.7 Monocytes % % 9.1 Eosinophils % % 2.8 Basophils % % 0.5 Nucleated RBC % (0.0-0.3) % 0.0 Absolute Neutrophils (1.2-6.7) 10^3/uL 3.82 Absolute Lymphocytes (1.2-3.4) 10^3/uL 1.77 Absolute Monocytes (0.1-0.8) 10^3/uL 0.58 Absolute Eosinophils (0.0-0.7) 10^3/uL 0.18 Absolute Basophils (0.0-0.2) 10^3/uL 0.03 RBC Morphology See Below Poikilocytosis 1+ Anisocytosis 2+ Sodium (136-145) mmol/L 135 L Potassium (3.5-5.1) mmol/L 4.7 Chloride (98-107) mmol/L 101 Carbon Dioxide (21.0-32.0) mmol/L 23.4 Anion Gap (3-11) mmol/L 10.6 BUN (7-18) mg/dL 37 H Creatinine (0.55-1.02) mg/dL 2.4 H Est GFR (CKD-EPI 2020) (mL/min/1.73m2) 21.33 Glucose (74-106) mg/dL 101 Calcium (8.5-10.1) mg/dL 10.2 H Magnesium (1.8-2.4) mg/dL 2.1 Total Bilirubin (0.2-1.0) mg/dL 0.40 AST (15-37) U/L 24 ALT (14-59) U/L 30 Alkaline Phosphatase (46-116) U/L 89 Total Protein (6.4-8.2) g/dL 7.8 Albumin (3.4-5.0) g/dL 3.8 Urine Color (Yellow) Yellow Urine Clarity (Clear) Clear Urine pH (5-8) 5.5 Ur Specific [place] (1.005-1.025) >= 1.030 H Urine Protein (Neg-Trace) mg/dL Negative Urine Ketones (Negative) mg/dL Negative Urine Blood (Negative) Negative Urine Nitrite (Negative) Negative Urine Bilirubin (Negative) Negative Urine Urobilinogen (Up to 0.2) mg/dL 0.2 Ur Leukocyte Esterase (Negative) Negative Urine RBC (0-2) HPF 0-2 Urine WBC (0-5) HPF 0-2 Ur Epithelial Cells (Negative) HPF Rare Urine Crystals (Negative) HPF Negative Urine Bacteria (Negative) HPF Rare Urine Casts (Negative) LPF Negative Urine Mucus (Negative) Negative Ur Culture Indicated? No Urine Glucose (Negative) mg/dL Negative Quality:SDOH Health Related Social Needs: Health related social needs inadequate housing PFSH All Active Problems (Updated 06/04/24 @ 12:26 by Trish Lawrence NP) Dehydration (Acute) Renal insufficiency (Chronic) Dehydration (Acute) Ileus (Acute) Anemia (Chronic) Altered bowel elimination due to intestinal ostomy (Acute) Trigger finger, left ring finger (Acute) Depo-medrol injection: 03/25/23 H/O endarterectomy (Acute) LEFT Pain, foot (Acute) Corns and callosities (Acute) Carotid stenosis, left (Acute) Carotid stenosis, right (Acute) Ulcerative colitis (Chronic) BRAO (branch retinal artery occlusion) (Acute) Chronic shoulder pain (Acute) Subacromial impingement of right shoulder (Acute) 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 of carpometacarpal (CMC) joint of left thumb (Acute) Injected: 02/17/2021 Gastritis (Acute ~04/2021) Esophagitis (Acute ~04/2021) Trochanteric bursitis of left hip (Acute) s/p endoscopic trochanteric bursectomy and IT band release DOS: 12/22/2020 Most recent injections: 08/02/23; 09/19/2020 ; 06/27/20 Hip bursitis (Acute) Postoperative anemia due to acute blood loss (Acute) Post-nasal drip (Chronic) De Quervain's tenosynovitis, right (Acute 11/14/16) Pain from implanted hardware (Acute 06/10/17) Right wrist tendinitis (Acute 04/18/17) Tubular adenoma of colon (Acute 02/26/17) Instability of joints of both ankles (Acute) Bilateral knee pain (Chronic) History of sinusitis (Chronic) Chronic frontal sinusitis (Chronic) Trochanteric bursitis, right hip (Acute) Most recent injections: 08/02/23; 01/02/2021; 09/19/2020 ; 06/27/20 Ingrowing right great toenail (Acute) Tendinitis of left rotator cuff (Acute) Arthritis of carpometacarpal (CMC) joint of right thumb (Acute) Most recent depo-medrol injection: 03/25/23 Medical History Serrated adenoma of colon (~04/2021) Tubular adenoma (~04/2021) Colon polyp, hyperplastic (~04/2021) Iliotibial band syndrome of left side Bunion, left foot Bunion, right foot Chronic maxillary sinusitis Chronic ethmoidal sinusitis Other intraarticular fracture of lower end of right radius, subsequent encounter for closed fracture with routine healing (08/08/16) Ethmoid sinusitis Sinus congestion Hypertension GERD (gastroesophageal reflux disease) Closed fracture of right distal radius Surgical History S/P total colectomy (~02/05/24) Dr. Sheila Rice, [facility] [place] S/P carotid endarterectomy Left Nov 2022 S/P hysterectomy with oophorectomy S/P cholecystectomy S/P Mohs surgery for basal cell carcinoma x2 History of esophagogastroduodenoscopy (EGD) (~04/2021) History of colonoscopy (~04/2021) History of bursectomy and IT band release Status post bilateral total hip replacement right wrist fracture repair (06/29/16) EGD - IV Sedation (02/26/17) Colonoscopy - IV Sedation (02/26/17) Family History Other Hypertension Social History Smoking/Tobacco Use Status: Former Tobacco Use Quit Date: 08/11/17 Smoking risk assessment performed?: Yes Alcohol Intake: current Alcohol Intake frequency: a few times a month Alcohol type: wine and hard liquor Drug use: Occasionally Substance use type: marijuana Household members: none Housing: apartment Number of Children: 2 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
[2024-06-04 09:51] LABS: Abs Immature Grans 0.02 10^3/uL (0.0-0.06); Absolute Basophil Count 0.03 10^3/uL (0.0-0.2); Absolute Eosinophil Count 0.18 10^3/uL (0.0-0.7); Absolute Lymphocyte Count 1.77 10^3/uL (1.2-3.4); Absolute Monocyte Count 0.58 10^3/uL (0.1-0.8); Absolute Neutrophil Count 3.82 10^3/uL (1.2-6.7); Basophils % 0.5 %; Eosinophils % 2.8 %; HCT 39.4 % (36.0-46.0); HGB 12.2 g/dL (11.2-15.7); Immature Grans % 0.3 %; Lymphocytes % 27.7 %; MCH 24.9 pg (27.0-33.0); MCV 80 fL (80-95); MPV 9.4 fL (8.0-11.0); Monocytes % 9.1 %; Neutrophils % 59.6 %; Platelet Count 351 10^3/uL (130-400); RDW 20.8 % (11.7-14.6); RDW-SD 59.6 fL
[2024-06-04 10:07] LABS: Anisocytosis 2+; Diff Comment Diff Reviewed
[2024-06-04 10:08] LABS: Poikilocytes 1+
[2024-06-04 10:20] LABS: ALT 30 U/L (14-59); AST 24 U/L (15-37); Albumin 3.8 g/dL (3.4-5.0); Alkaline Phosphatase 89 U/L (46-116); Anion Gap 10.6 mmol/L (3-11); BUN 37 mg/dL (7-18); CO2 23.4 mmol/L (21.0-32.0); CREATININE 2.4 mg/dL (0.55-1.02); Calcium 10.2 mg/dL (8.5-10.1); Chloride 101 mmol/L (98-107); Estimated GFR 21.33 (mL/min/1.73m2); Glucose 101 mg/dL (74-106); Magnesium 2.1 mg/dL (1.8-2.4); Potassium 4.7 mmol/L (3.5-5.1); Sodium 135 mmol/L (136-145); Total Protein 7.8 g/dL (6.4-8.2)
[2024-06-04] MEDS: Normal Saline 500 ML IV ×2 (10:21→11:05)
[2024-06-04] MEDS: HYDROmorphone 2 MG/ML SYR 0.5 MG IVP (10:54)
[2024-06-04 11:34] LABS: Bilirubin Negative (Negative); Clarity Clear (Clear); Glucose Negative (Negative); Ketones Negative (Negative); Leukocyte Esterase Negative (Negative); Nitrite Negative (Negative); Urobilinogen 0.2 mg/dL (Up to 0.2)
[2024-06-04 11:42] LABS: Specific Gravity >= 1.030 (1.005-1.025)
[2024-06-04 11:43] LABS: pH 5.5 (5-8)
[2024-06-04 11:44] LABS: Blood Negative (Negative)
[2024-06-04 11:57] LABS: Bacteria Rare HPF (Negative); C & S Indicated? No; Casts Negative LPF (Negative); Crystals Negative HPF (Negative); Epithelial Cells Rare HPF (Negative); Mucus Negative (Negative); RBC 0-2 HPF (0-2); WBC 0-2 HPF (0-5)
[2024-06-04 12:31] VITALS: BP 118/31; PULSE 65; RESP 16; TEMP 36.8; O2SAT 98
== END 2024-06-04 12:29 | disposition home or self-care (01) ==
PROVIDERS: Emergency Provider Registered Nurse Emergency; PCP Family Medicine
DX: R25.2 Cramp and spasm (principal); E86.0 Dehydration; N28.9 Disorder of kidney and ureter, unspecified; I10 Essential (primary) hypertension; Z93.3 Colostomy status; Z87.891 Personal history of nicotine dependence; Z79.82 Long term (current) use of aspirin
CPT/HCPCS: 80053; 96361; 96374; 99284; 81003; 81015; 83735; 85025; 99283; J1170

== ENCOUNTER 2024-06-22 13:50 | Emergency (ER) | payer MEDICARE, SELFPAY ==
[2024-06-22] VITALS (50 sets, daily range): BP systolic 130–175; BP diastolic 56–76; PULSE 73–109; RESP 11–24; TEMP 36.6; O2SAT 96–98
--- NOTE | 2024-06-22 14:00 | DI.RAD_ITS ---
Exam(s) XR CHEST 1V IN DI DEPT EXAM: XR CHEST 1V IN DI DEPT CLINICAL HISTORY: sepsis. TECHNIQUE: 2D digital imaging was performed. COMPARISON: CR XR CHEST 2V PA LATERAL from 04/30/2023 FINDINGS: Single AP portable view. Heart size is upper normal. The mediastinum is not widened. Lungs are clear. No infiltrates nor obvious pleural effusions. IMPRESSION: No acute pulmonary findings on this single AP portable view of the chest. DATA REPOSITORY: RADIATION DOSE DELIVERED:
--- NOTE | 2024-06-22 14:06 | W.ED.GENAD ---
Discharge Plan Disposition Patient Disposition: Home Discharge Details Clinical Impression: Colitis Primary Care Provider: Nicolasa Griggs ED Provider: Chema Castañeda Home Meds and New Rx's Prescriptions: New ciprofloxacin HCl 500 mg tablet 500 mg PO BID Qty: 10 0RF metronidazole 500 mg tablet 500 mg PO Q12H Qty: 10 0RF Continued atorvastatin 40 mg tablet 40 mg PO QHS duloxetine 30 mg capsule,delayed release(DR/EC) 30 mg PO DAILY lisinopril 40 MG tablet 40 mg PO DAILY cholecalciferol (vitamin D3) [Vitamin D3] 2,000 UNIT tablet 2,000 unit PO DAILY dexlansoprazole [Dexilant] 30 mg capsule,biphase delayed releas 30 mg PO DAILY Qty: 90 3RF epinephrine 0.3 mg/0.3 mL auto-injector 1 ea subcut DIRECTED PRN Patient Comments: INJECT ONE PEN UNDER THE SKIN DIRECTED aspirin [Children's Aspirin] 81 mg Tablet,Chewable 81 mg PO DAILY Qty: 100 0RF ondansetron 4 mg tablet,disintegrating 4 mg PO Q6H PRNQty: 28 0RF albuterol sulfate 90 mcg/actuation HFA aerosol inhaler 2 puff INHALATION Q4H PRN Patient Comments: INHALE 2 PUFFS BY MOUTH EVERY 4 HOURS NEEDED FOR SHOPRTNESS OF BREATH Discharge Instructions Instructions: Colitis Additional Instructions: You are seen in the emergency department for your abdominal pain. You are diagnosed with colitis for which you are receiving antibiotics that you should take as directed. As we discussed if you cannot eat or drink as result of abdominal pain or if you develop nausea or vomiting that does not stop please return to the emergency department. Otherwise please follow-up with your primary care provider next week. Discharge Data Discharge Date/Time-TO BE ENTERED AT DEPARTURE: 06/22/24 20:37 HPI General Date/Time Provider Initiated Documentation: 06/22/24 14:05. HPI Narrative: MDM This is an uncomfortable appearing normothermic but tachycardic 69-year-old female then days status post ostomy reversal with tenderness concerning for sepsis secondary to intra-abdominal source for which patient will receive empiric piperacillin/tazobactam, 1 L of IV fluid, blood cultures and assessment of lactate. No pain out of proportion to suggest necrotizing soft tissue infection. Clear equal breath sounds so doubt pneumonia. No dysuria nor frequency so doubt UTI. No rash to abdomen to suggest zoster. Appendicitis is certainly on the differential. Intra-abdominal perforation is certainly in the differential. Patient is not an extremis so we will defer portable chest x-ray in favor of cross-sectional imaging with CT abdomen pelvis with IV contrast. Diverticulitis is certainly in the differential. Patient is not an alcoholic to suggest pancreatitis though will obtain a lipase. No chest pain nausea no vomiting so my suspicion for ACS is low given abdominal tenderness will defer ECG. 3:15 PM Reassuring normal lactate. Comprehensive metabolic panel showing CKD but no DIONICIO. No acute LFT abnormalities. No acute electrolyte abnormalities. CBC showing mild normocytic anemia. No thrombocytopenia. No leukocytosis. Urinalysis nitrite leukoesterase negative?if not consistent with UTI. 7:30 PM I spoke to Dr. Gold from GI at [facility] [place]. He advised additional studies: Stool culture, Giardia, C. difficile, fecal calprotectin. Manage these are send outs. Will reassess patient to determine whether or not she requires hospitalization for bowel rest versus discharge.Dr. Gold advised several days of oral antibiotics using ciprofloxacin and metronidazole. 11 PM I met with the patient. She felt improved. I ordered her several take-home tablets of hydrocodone. She received initial dose of ciprofloxacin and metronidazole in the ED. We discussed return to the ED for any worsening pain nausea vomiting chest pain or shortness of breath. She understood her return indications and was discharged with empiric trial of expectant outpatient management. 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 History obtained from an outside historian: N/A External record review: [facility] EMR Diagnostic interpretations performed by me: Per my independent interpretation chest x-ray shows: No acute cardiopulmonary process ]Medications: Morphine fluids piperacillin/tazobactam Social determinants of health affecting disposition: N/A Management discussed with: [facility] general surgery & GI Treatment/interventions considered: Hospitalization but deferred Response to therapies provided: Improved symptoms in the ED HPI This is a 69-year-old female with history of segmental colitis and diverticulitis versus segmental Crohn's colitis 10 days status post ileostomy takedown at [facility] with abdominal pain cramping and mucus bowel movements which began last night. She endorses chills but no fevers. She has been having cramping abdominal pain. She has been passing some mucus in her bowel movements and occasionally had some blood. She denies cough dysuria vomiting and fevers. No recent falls. She has not had anything to eat since last night. No rash to abdomen. Exam General: Uncomfortable-appearing in no acute distress speaking in complete sentences. Head: Normocephalic, atraumatic. Eye: Extraocular eye movements intact. No conjunctival injection. No scleral icterus. Ear, nose, mouth, throat: Grossly normal inspection. Normal voice, handling secretions normally. Neck: Trachea midline. Cardiovascular: Well-perfused distal extremities. Rapid regular rate and rhythm Respiratory: Nonlabored respiration. Clear lungs bilaterally Gastrointestinal: Diffuse generalized abdominal tenderness. Patient does have rebound tenderness. No guarding. Site of recent ostomy appears to be healing well in right upper quadrant. Musculoskeletal: No edema. Moving all 4 extremities spontaneously. Skin: Normal for age and race, grossly normal temperature and turgor. No acute rash. Neurologic: Alert and appropriate, no apparent acute deficits. Psychiatric: Mood and manner are appropriate. Grooming and personal hygiene are appropriate. Related Data Home Medications ?Medication ?Instructions ?Recorded ?Confirmed cholecalciferol (vitamin D3) 50 2,000 unit PO DAILY 02/11/17 06/22/24 mcg (2,000 unit) tablet (Vitamin D3) lisinopril 40 mg tablet 40 mg PO DAILY 02/11/17 06/22/24 dexlansoprazole 30 mg 30 mg PO DAILY #90 caps 06/02/21 06/22/24 capsule,biphase delayed release (Dexilant) epinephrine 0.3 mg/0.3 mL 1 ea subcut DIRECTED PRN 09/13/22 06/22/24 injection, auto-injector aspirin 81 mg chewable tablet 81 mg PO DAILY #100 tabs 09/14/22 06/22/24 (Children's Aspirin) atorvastatin 40 mg tablet 40 mg PO QHS 09/20/22 06/22/24 duloxetine 30 mg capsule,delayed 30 mg PO DAILY 02/01/23 06/22/24 release ondansetron 4 mg disintegrating 4 mg PO Q6H PRN #28 tabs 04/24/24 06/22/24 tablet albuterol sulfate 90 mcg/actuation 2 puff inhalation Q4H PRN 05/15/24 06/22/24 aerosol inhaler ciprofloxacin HCl 500 mg tablet 500 mg PO BID #10 tabs 06/22/24 metronidazole 500 mg tablet 500 mg PO Q12H #10 tabs 06/22/24 Previous Rx's ?Medication ?Instructions ?Recorded dexlansoprazole 30 mg 30 mg PO DAILY #90 caps 06/02/21 capsule,biphase delayed release (Dexilant) aspirin 81 mg chewable tablet 81 mg PO DAILY #100 tabs 09/14/22 (Children's Aspirin) ondansetron 4 mg disintegrating 4 mg PO Q6H PRN #28 tabs 04/24/24 tablet ciprofloxacin HCl 500 mg tablet 500 mg PO BID #10 tabs 06/22/24 metronidazole 500 mg tablet 500 mg PO Q12H #10 tabs 06/22/24 Allergies Allergy/AdvReac Type Severity Reaction Status Date / Time protamine Allergy Severe Anaphylaxis Verified 06/22/24 13:59 venom-honey bee Allergy Severe Other (See Verified 06/22/24 13:59 Comment) wool Allergy Other (See Verified 06/22/24 13:59 Comment) amoxicillin (From Augmentin) AdvReac Severe GI Verified 06/22/24 13:59 problems, Severe Diarrhea clavulanic acid (From AdvReac Severe GI Verified 06/22/24 13:59 Augmentin) problems, severe diarrhea omeprazole AdvReac Severe Diarrhea Verified 06/22/24 13:59 esomeprazole (From Nexium) AdvReac Intermediate history of Verified 06/22/24 13:59 Irritable bowel, severe diarrhea silver nitrate AdvReac Skin Rash Verified 06/22/24 13:59 General Stated Complaint: Abd Prob MENA: 3 Course Vital Signs Vital signs: Vital Signs Temperature 36.6 C 06/22/24 13:55 Pulse 109 H 06/22/24 13:55 Respiratory Rate 18 06/22/24 13:55 Blood Pressure 130/59 L 06/22/24 13:55 Pulse Oximetry 98 06/22/24 13:55 Temperature 36.6 C 06/22/24 13:55 Pulse 109 H 06/22/24 13:55 Respiratory Rate 18 06/22/24 13:55 Blood Pressure 130/59 L 06/22/24 13:55 Pulse Oximetry 98 06/22/24 13:55 Medical Decision Making Quality:SDOH Health Related Social Needs: Health related social needs inadequate housing PFSH All Active Problems (Updated 06/22/24 @ 20:07 by Chema Castañeda MD) Colitis (Acute) Dehydration (Acute) Renal insufficiency (Chronic) Anemia (Chronic) Altered bowel elimination due to intestinal ostomy (Acute) Trigger finger, left ring finger (Acute) Depo-medrol injection: 03/25/23 H/O endarterectomy (Acute) LEFT Pain, foot (Acute) Corns and callosities (Acute) Carotid stenosis, left (Acute) Carotid stenosis, right (Acute) Ulcerative colitis (Chronic) BRAO (branch retinal artery occlusion) (Acute) Chronic shoulder pain (Acute) Subacromial impingement of right shoulder (Acute) 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 of carpometacarpal (CMC) joint of left thumb (Acute) Injected: 02/17/2021 Gastritis (Acute ~04/2021) Esophagitis (Acute ~04/2021) Trochanteric bursitis of left hip (Acute) s/p endoscopic trochanteric bursectomy and IT band release DOS: 12/22/2020 Most recent injections: 08/02/23; 09/19/2020 ; 06/27/20 Hip bursitis (Acute) Postoperative anemia due to acute blood loss (Acute) Post-nasal drip (Chronic) De Quervain's tenosynovitis, right (Acute 11/14/16) Pain from implanted hardware (Acute 06/10/17) Right wrist tendinitis (Acute 04/18/17) Tubular adenoma of colon (Acute 02/26/17) Instability of joints of both ankles (Acute) Bilateral knee pain (Chronic) History of sinusitis (Chronic) Chronic frontal sinusitis (Chronic) Trochanteric bursitis, right hip (Acute) Most recent injections: 08/02/23; 01/02/2021; 09/19/2020 ; 06/27/20 Ingrowing right great toenail (Acute) Tendinitis of left rotator cuff (Acute) Arthritis of carpometacarpal (CMC) joint of right thumb (Acute) Most recent depo-medrol injection: 03/25/23 Medical History Serrated adenoma of colon (~04/2021) Tubular adenoma (~04/2021) Colon polyp, hyperplastic (~04/2021) Iliotibial band syndrome of left side Bunion, left foot Bunion, right foot Chronic maxillary sinusitis Chronic ethmoidal sinusitis Other intraarticular fracture of lower end of right radius, subsequent encounter for closed fracture with routine healing (08/08/16) Ethmoid sinusitis Sinus congestion Hypertension GERD (gastroesophageal reflux disease) Closed fracture of right distal radius Surgical History S/P total colectomy (~02/05/24) Dr. Sheila Rice, [facility] [place] S/P carotid endarterectomy Left Nov 2022 S/P hysterectomy with oophorectomy S/P cholecystectomy S/P Mohs surgery for basal cell carcinoma x2 History of esophagogastroduodenoscopy (EGD) (~04/2021) History of colonoscopy (~04/2021) History of bursectomy and IT band release Status post bilateral total hip replacement right wrist fracture repair (06/29/16) EGD - IV Sedation (02/26/17) Colonoscopy - IV Sedation (02/26/17) Family History Other Hypertension Social History Smoking/Tobacco Use Status: Former Tobacco Use Quit Date: 08/11/17 Smoking risk assessment performed?: Yes Alcohol Intake: current Alcohol Intake frequency: a few times a month Alcohol type: wine and hard liquor Drug use: Occasionally Substance use type: marijuana Household members: none Housing: apartment Number of Children: 2 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
[2024-06-22] MEDS: MORPHine 4 MG/ML SYR IVP ×3 (14:45→18:37)
[2024-06-22] MEDS: Normal Saline 1,000 ML 1000 ML IV (14:47)
[2024-06-22 14:49] LABS: Lactate 0.7 mmol/L (0.6-1.4)
[2024-06-22 14:50] LABS: Abs Immature Grans 0.04 10^3/uL (0.0-0.06); Absolute Basophil Count 0.04 10^3/uL (0.0-0.2); Absolute Eosinophil Count 0.15 10^3/uL (0.0-0.7); Absolute Lymphocyte Count 1.41 10^3/uL (1.2-3.4); Absolute Monocyte Count 0.65 10^3/uL (0.1-0.8); Basophils % 0.4 %; Eosinophils % 1.6 %; HGB 10.2 g/dL (11.2-15.7); Immature Grans % 0.4 %; Lymphocytes % 15.2 %; MCH 25.8 pg (27.0-33.0); MCHC 31.9 % (32.0-36.0); MCV 81 fL (80-95); MPV 8.6 fL (8.0-11.0); Neutrophils % 75.4 %; Platelet Count 383 10^3/uL (130-400); RBC 3.96 10^6/uL (3.93-5.22); RDW 20.9 % (11.7-14.6); RDW-SD 61.4 fL; WBC 9.29 10^3/uL (4.4-10.8)
[2024-06-22 15:03] LABS: Anisocytosis 2+; Diff Comment RBC Morph Reviewed
[2024-06-22] MEDS: PIPERACILLIN/TAZO 3.375 GM in Normal Saline 50 ML IVPB (15:04)
[2024-06-22 15:09] LABS: ALT 20 U/L (14-59); AST 13 U/L (15-37); Albumin 3.1 g/dL (3.4-5.0); Alkaline Phosphatase 77 U/L (46-116); Anion Gap 8.4 mmol/L (3-11); BUN 14 mg/dL (7-18); Bilirubin, Total 0.39 mg/dL (0.2-1.0); CO2 27.6 mmol/L (21.0-32.0); CREATININE 1.1 mg/dL (0.55-1.02); Calcium 9.1 mg/dL (8.5-10.1); Chloride 102 mmol/L (98-107); Estimated GFR 54.39 (mL/min/1.73m2); Glucose 108 mg/dL (74-106); Potassium 3.5 mmol/L (3.5-5.1); Sodium 138 mmol/L (136-145); Total Protein 6.6 g/dL (6.4-8.2)
[2024-06-22] MEDS: Normal Saline - Diluent 50 ML VIAL IJ (15:26)
[2024-06-22] MEDS: Omnipaque 350 MG/ML 100 ML BTL IJ (15:26)
--- NOTE | 2024-06-22 15:34 | DI.CT_ITS ---
Exam(s) CT ABDOMEN PELVIS W EXAM: CT ABDOMEN PELVIS W CLINICAL HISTORY: Postop abdominal pain. TECHNIQUE: Imaging Protocol: Axial computed tomography images with coronal and sagittal reformatted images were created and reviewed CONTRAST MATERIAL: Intravenous: Omnipaque-350 100cc Oral: None COMPARISON: CT CT ABDOMEN PELVIS W from 04/20/2024 CR XR ABDOMEN FLAT UPRIGHT from 05/15/2024 CR XR CHEST 1V IN DI DEPT from 06/22/2024 FINDINGS: VISUALIZED LUNG BASES: No nodules nor pleural effusions evident. ABDOMEN: GI: There is some perihepatic ascites evident. There has been interval closure of right-sided ostomy . However, there is some abnormal streaking in the anterior abdominal wall at this level and subcuta neous tissues consistent with inflammatory-infectious process within and adjacent to the right rectus abdominus muscle. There is a right-sided small bowel anastomosis site. A small amount of fluid is seen adjacent to thi s anastomosis (series 9/images [id number].). No evidence of small-bowel obstruction. However, there appe ars to be some circumferential mural thickening in the right-side of the colon and transverse colon, this over a distance of approximately 14 cm. LIVER: There are no focal hepatic lesions evident. No evidence of liver abscess. No dilated intrahe patic ducts. GALLBLADDER/BILIARY: The gallbladder is again noted to be surgically absent. CBD is not dilated. PANCREAS: No evidence of pancreatic mass nor dilatation of the pancreatic duct. SPLEEN: Spleen is not enlarged. No obvious intrasplenic lesions. Splenic and portal veins are paten t. ADRENALS: There are no significant adrenal masses. KIDNEYS:Small cyst in the left kidney measuring 7 mm is unchanged. Does not require further workup. No solid renal masses. No calculi nor hydronephrosis.. ABDOMINAL AORTA: Abdominal aorta is not enlarged. LYMPH NODES:There is no retroperitoneal nor paraaortic adenopathy. ABDOMINAL WALL: See above PELVIS: GI: Again noted is evidence of previous surgery in the rectum-rectosigmoid. Partially obscured by be am hardening artifact from bilateral hip prostheses. There does not appear to be an obvious new abno rmal collection at this level. Presacral postop changes again noted.No significant diverticular dise ase.Appendix appears unremarkable. LYMPH NODES: There is no intrapelvic nor inguinal adenopathy. REPRODUCTIVE: Uterus not able to be identified. There is abundant beam hardening artifact in this re gion from bilateral hip prostheses. URINARY BLADDER: Partially obscured by artifact from hip prosthesis. Not distended. OSSEOUS: Bilateral hip prostheses. No fractures. No significant osseous lesions. Multilevel disc s pace narrowing. No listhesis. IMPRESSION: 1. Compared to the CT scan of 04/20/2024 there has been interval closure of the right-sided ostomy. There is small amount of fluid in the abdominal cavity adjacent to the recently created small bowel a nastomosis in the right-side of the abdomen. In addition, there is inflammatory change at the level of previously present right-sided ostomy suspicious for abscess in the deep subcutaneous tissue and r ectus abdominus muscle. 2. There is also some circumferential mural thickening in the large bowel right of center. Probable element of colitis. 3. No evidence of diverticulitis nor appendicitis. 4. Previous cholecystectomy. The biliary tree is not dilated. Bilateral hip prostheses RADIATION DOSE DELIVERED: Total DLP DATA REPOSITORY: All CT scans at this facility are submitted to the National Radiology Data Registry (NRDR) Dose Index Registry (DIR) with the [employer] (ACR). RADIATION OPTIMIZATION: All CT scans at this facility use at least one of these dose optimization te chniques: automated exposure control; mA and/or kV adjustment per patient size (includes targeted exa ms where dose is matched to clinical indication); or iterative reconstruction.
[2024-06-22 15:58] LABS: Bilirubin Negative (Negative); Blood Negative (Negative); Clarity Clear (Clear); Glucose Negative (Negative); Ketones Negative (Negative); Leukocyte Esterase Negative (Negative); Nitrite Negative (Negative); Urobilinogen 0.2 mg/dL (Up to 0.2); pH 6.5 (5-8)
[2024-06-22 16:33] LABS: Lipase 19 U/L (16-77)
[2024-06-22] MEDS: metroNIDAZOLE 500 MG TAB PO (20:26)
[2024-06-22] MEDS: Ciprofloxacin 500 MG TAB PO (20:26)
[2024-06-24 00:34] LABS: Campylobacter PCR Negative (Negative); Salmonella PCR Negative (Negative); Shiga Toxin PCR Negative (Negative); Shigella/Enteroinvasive Ecoli Negative (Negative)
[2024-06-25 19:12] LABS: Calprotectin 190 mcg/g
== END 2024-06-22 20:37 | disposition home or self-care (01) ==
PROVIDERS: Emergency Provider Emergency Medicine; PCP Family Medicine
DX: R10.30 Lower abdominal pain, unspecified (principal); K52.9 Noninfective gastroenteritis and colitis, unspecified; Z98.890 Other specified postprocedural states
CPT/HCPCS: 36415; 80053; 83690; 87040; 87493; 87505; 96361; 96365; 96375; 96376; 99285; 71045; 74177; 81003; 83605; 83993; 85025; 86140; 99283; J2270; J2543; J3490

== ENCOUNTER 2024-06-29 15:24 | Outpatient (CLI) | payer MEDICARE, SELFPAY ==
[2024-06-29 12:14] LABS: Abs Immature Grans 0.06 10^3/uL (0.0-0.06); Absolute Basophil Count 0.04 10^3/uL (0.0-0.2); Absolute Eosinophil Count 0.05 10^3/uL (0.0-0.7); Absolute Lymphocyte Count 2.33 10^3/uL (1.2-3.4); Absolute Monocyte Count 0.73 10^3/uL (0.1-0.8); Absolute Neutrophil Count 6.79 10^3/uL (1.2-6.7); Basophils % 0.4 %; Eosinophils % 0.5 %; HCT 29.4 % (36.0-46.0); Immature Grans % 0.6 %; Lymphocytes % 23.3 %; MCH 25.6 pg (27.0-33.0); MCHC 30.6 % (32.0-36.0); MCV 84 fL (80-95); MPV 9.3 fL (8.0-11.0); Monocytes % 7.3 %; Neutrophils % 67.9 %; Platelet Count 505 10^3/uL (130-400); RBC 3.51 10^6/uL (3.93-5.22); RDW 21.1 % (11.7-14.6); RDW-SD 64.3 fL
[2024-06-29 12:20] LABS: ESR 11 mm/hr (0-30)
[2024-06-29 12:35] LABS: Anisocytosis 2+; Diff Comment RBC Morph Reviewed; Polychromasia Present
[2024-06-29 13:22] LABS: ALT 16 U/L (14-59); AST 13 U/L (15-37); Albumin 3.2 g/dL (3.4-5.0); Alkaline Phosphatase 61 U/L (46-116); Anion Gap 7.2 mmol/L (3-11); BUN 20 mg/dL (7-18); Bilirubin, Total 0.17 mg/dL (0.2-1.0); CO2 30.8 mmol/L (21.0-32.0); Chloride 104 mmol/L (98-107); Estimated GFR 60.98 (mL/min/1.73m2); Glucose 88 mg/dL (74-106); Potassium 3.6 mmol/L (3.5-5.1); Sodium 142 mmol/L (136-145); Total Protein 6.7 g/dL (6.4-8.2)
[2024-06-29 13:23] LABS: C-Reactive Protein < 0.50 mg/dL (<or=0.5)
[2024-06-29 23:12] LABS: HBs Antibody, Quant 39.2 mIU/mL (See Note); Hepatitis B Surface Ab Positive (See Note)
[2024-06-29 23:23] LABS: Hepatitis B Surface Ag Negative (Negative)
[2024-06-29 23:53] LABS: Hep B Core Antibody Negative (Negative)
[2024-07-01 11:44] LABS: TB Interpretation Negative (Negative); TB2 Ag minus Nil 0.01 IU/mL
== END 2024-06-29 15:25 | disposition home or self-care (01) ==
LOC: LBO 07-08 15:24
PROVIDERS: PCP Family Medicine; Visit Provider Nurse Practitioner Adult Health
DX: K52.9 Noninfective gastroenteritis and colitis, unspecified (principal)
CPT/HCPCS: 36415; 80053; 85652; 86704; 86706; 87340; 85025; 86140; 86480

== ENCOUNTER 2024-07-28 09:07 | Outpatient (REF) | payer MEDICARE, SELFPAY ==
[2024-07-29 10:43] LABS: Campylobacter PCR Negative (Negative); Salmonella PCR Negative (Negative); Shiga Toxin PCR Negative (Negative); Shigella/Enteroinvasive Ecoli Negative (Negative)
[2024-08-01 13:03] LABS: Calprotectin <50.0 mcg/g
== END 2024-07-28 09:08 | disposition home or self-care (01) ==
LOC: LBN 09:07
PROVIDERS: PCP Family Medicine; Visit Provider Nurse Practitioner Adult Health
DX: R19.7 Diarrhea, unspecified (principal)
CPT/HCPCS: 87493; 87505; 83993

== ENCOUNTER 2024-08-02 11:26 | Emergency (ER) | payer MEDICARE, SELFPAY ==
[2024-08-02 11:36] VITALS: BP 141/79; PULSE 79; RESP 16; TEMP 36.7; O2SAT 98
--- NOTE | 2024-08-02 12:04 | ED.GENADUL_ITS ---
Discharge Plan Disposition Patient Disposition: Home Condition: Stable Discharge Details Clinical Impression: Pyelonephritis Primary Care Provider: Nicolasa Griggs ED Provider: Bebeto Oliveros Home Meds and New Rx's Prescriptions: New cefpodoxime 200 mg tablet 200 mg PO BID 10 Days Qty: 20 0RF Rx Instructions: must administer with a meal/food Continued atorvastatin 40 mg tablet 40 mg PO QHS duloxetine 30 mg capsule,delayed release(DR/EC) 30 mg PO DAILY lisinopril 40 MG tablet 40 mg PO DAILY cholecalciferol (vitamin D3) [Vitamin D3] 2,000 UNIT tablet 2,000 unit PO DAILY dexlansoprazole [Dexilant] 30 mg capsule,biphase delayed releas 30 mg PO DAILY Qty: 90 3RF epinephrine 0.3 mg/0.3 mL auto-injector 1 ea subcut DIRECTED PRN Patient Comments: INJECT ONE PEN UNDER THE SKIN DIRECTED aspirin [Children's Aspirin] 81 mg Tablet,Chewable 81 mg PO DAILY Qty: 100 0RF ondansetron 4 mg tablet,disintegrating 4 mg PO Q6H PRNQty: 28 0RF mesalamine with cleansing wipe 4 gram/60 mL enema kit 4 g NH HS Patient Comments: PLACE 60ML RECTALLY NIGHTLY albuterol sulfate 90 mcg/actuation HFA aerosol inhaler 2 puff INHALATION Q4H PRN Patient Comments: INHALE 2 PUFFS BY MOUTH EVERY 4 HOURS NEEDED FOR SHOPRTNESS OF BREATH Discharge Instructions Instructions: Cefpodoxime, Urinary Tract Infection, Adult ED Additional Instructions: You were seen in the emergency department for your dark-colored urine with some right flank pain, I am treating you for UTI with some element of pyelonephritis with an antibiotic called cefpodoxime. Please take this as directed. You may purchase [id number] AZO which can help with urethral discomfort symptomatic relief, take Tylenol and ibuprofen as needed. Please return for any acute worsening especially with high fevers, acute intractable nausea and vomiting, weakness, urinary retention. Referrals: Nicolasa Griggs [Primary Care Provider] - Discharge Data Discharge Date/Time-TO BE ENTERED AT DEPARTURE: 08/02/24 12:57 HPI General Date/Time Provider Initiated Documentation: 08/02/24 11:49 . HPI Narrative: 69 year-old female presents to ED today by POV/ambulating with a chief complaint of rust-colored urine, dysuria, urinary frequency with onset unknown- has not noticed pain because she recently has had significant abdominal procedures of ostomy reversal due to ulcerative colitis. Quality described as generalized abdominal discomfort that isn't changed from her operative/scar tissue pain, but does have some R flank pain, no radiation to fevers, endorsed isolated nausea days ago, questions if that was this UTI onset, denies chest pain, shortness of breath, bowel changes, severe increase in abdominal pain, vomiting. Severity is described as moderate. Palliating factors include nothing specific attempted. Provoking factors include nothing specific. Patient not anticoagulated. Related Data Home Medications ?Medication ?Instructions ?Recorded ?Confirmed cholecalciferol (vitamin D3) 50 2,000 unit PO DAILY 02/11/17 08/02/24 mcg (2,000 unit) tablet (Vitamin D3) lisinopril 40 mg tablet 40 mg PO DAILY 02/11/17 08/02/24 dexlansoprazole 30 mg 30 mg PO DAILY #90 caps 06/02/21 08/02/24 capsule,biphase delayed release (Dexilant) epinephrine 0.3 mg/0.3 mL 1 ea subcut DIRECTED PRN 09/13/22 08/02/24 injection, auto-injector aspirin 81 mg chewable tablet 81 mg PO DAILY #100 tabs 09/14/22 08/02/24 (Children's Aspirin) atorvastatin 40 mg tablet 40 mg PO QHS 09/20/22 08/02/24 duloxetine 30 mg capsule,delayed 30 mg PO DAILY 02/01/23 08/02/24 release ondansetron 4 mg disintegrating 4 mg PO Q6H PRN #28 tabs 04/24/24 08/02/24 tablet albuterol sulfate 90 mcg/actuation 2 puff inhalation Q4H PRN 05/15/24 08/02/24 aerosol inhaler cefpodoxime 200 mg tablet 200 mg PO BID 10 days #20 tabs 08/02/24 mesalamine rectal susp enema with 4 g NH HS 08/02/24 08/02/24 cleansing wipes 4 gram/60 mL kit Previous Rx's ?Medication ?Instructions ?Recorded dexlansoprazole 30 mg 30 mg PO DAILY #90 caps 06/02/21 capsule,biphase delayed release (Dexilant) aspirin 81 mg chewable tablet 81 mg PO DAILY #100 tabs 09/14/22 (Children's Aspirin) ondansetron 4 mg disintegrating 4 mg PO Q6H PRN #28 tabs 04/24/24 tablet cefpodoxime 200 mg tablet 200 mg PO BID 10 days #20 tabs 08/02/24 Allergies Allergy/AdvReac Type Severity Reaction Status Date / Time protamine Allergy Severe Anaphylaxis Verified 06/22/24 13:59 venom-honey bee Allergy Severe Other (See Verified 06/22/24 13:59 Comment) wool Allergy Other (See Verified 06/22/24 13:59 Comment) amoxicillin (From Augmentin) AdvReac Severe GI Verified 06/22/24 13:59 problems, Severe Diarrhea clavulanic acid (From AdvReac Severe GI Verified 06/22/24 13:59 Augmentin) problems, severe diarrhea omeprazole AdvReac Severe Diarrhea Verified 06/22/24 13:59 esomeprazole (From Nexium) AdvReac Intermediate history of Verified 06/22/24 13:59 Irritable bowel, severe diarrhea silver nitrate AdvReac Skin Rash Verified 06/22/24 13:59 General Stated Complaint: Urinary MENA: 4 Review of Systems All systems reviewed & are unremarkable except as noted in HPI and below Exam Narrative Exam Narrative: GENERAL APPEARANCE: Well-nourished, non-toxic, awake and alert, atraumatic, no acute distress. SKIN: Warm, pink, dry, intact, without rashes/lesions/ulcerations. HEAD: Normocephalic, atraumatic, normal hair distribution for gender/age. EYES: Normal conjunctiva, no exudates on lids/lashes. ENT: Nares patent, no circumoral cyanosis, no facial swelling NECK: Supple, trachea midline, painless cervical ROM. LUNGS/CHEST: Non-labored respirations, normal A/P diameter, symmetrical expansion, no chest wall deformity HEART (CV/PV): No peripheral edema, no JVD. ABDOMEN: Soft, non-distended, no guarding, R CVA tenderness to percussion, mild suprapubic discomfort with palpation. MSK: Normal ROM, no swelling/deformity to bilateral UEs or LEs, moving all extremities without weakness, no cyanosis, spine midline without tenderness, normal curvature. NEURO: Mental Status AAOx4 - alert to person, place, time, events No facial droop, no forehead involvement. Motor: No focal weakness - strength 5/5 in bilateral UEs and LEs, proximal and distal, symmetric. Sensory: sensation intact to light touch globally. Gait normal: patient ambulated without ataxia into ED room. PSYCH: euthymic, cooperative, pleasant, appropriate speech Course Vital Signs Vital signs: Vital Signs Temperature 36.7 C 08/02/24 11:36 Pulse 79 08/02/24 11:36 Respiratory Rate 16 08/02/24 11:36 Blood Pressure 141/79 H 08/02/24 11:36 Pulse Oximetry 98 08/02/24 11:36 Temperature 36.7 C 08/02/24 11:36 Pulse 79 08/02/24 11:36 Respiratory Rate 16 08/02/24 11:36 Respiratory Effort Normal 08/02/24 11:40 Blood Pressure 141/79 H 08/02/24 11:36 Pulse Oximetry 98 08/02/24 11:36 Oxygen Delivery Method Room Air 08/02/24 11:36 Oxygen Flow Rate 0 08/02/24 11:36 Pain Level 3 08/02/24 11:36 Medical Decision Making This dictation utilizes [id number] dictation software and may contain unedited grammatical errors. 69 year-old female presents to ED today by POV/ambulating with a chief complaint of rust-colored urine, dysuria, urinary frequency with onset unknown- has not noticed pain because she recently has had significant abdominal procedures of ostomy reversal due to ulcerative colitis. Quality described as generalized abdominal discomfort that isn't changed from her operative/scar tissue pain, but does have some R flank pain, no radiation to fevers, endorsed isolated nausea days ago, questions if that was this UTI onset, denies chest pain, shortness of breath, bowel changes, severe increase in abdominal pain, vomiting. Severity is described as moderate. Palliating factors include nothing specific attempted. Provoking factors include nothing specific. Patients' medical history: Multiple recent bowel procedures with recent reversal of ostomy, history of ulcerative colitis, status post cholecystectomy, status post hysterectomy oophorectomy, history carotid endarterectomy. Family and social history: Noncontributory. Pertinent exam findings / vital signs include well-healing abdominal surgical lap sites, right CVA tenderness to percussion, mild suprapubic distention, benign cardiopulmonary status, nontoxic and afebrile. Differential / pathologies of concern include UTI, pyelonephritis, post- operative pain. Diagnostic studies of: -UA- shows + nitrites, likely UTI. Interventions of: -Rx for Cefpodoxime with UTI on UA and R flank TTP. ED Course/Assessment/Plan: 69-year-old female who presents with dysuria and dark-colored urine, feels similar to prior UTI episodes, her urine is consistent with a UTI with positive nitrites, she has right flank tenderness I am treating for pyelonephritis with cefpodoxime, stressed strict return criteria for urinary retention, developing fever worsening despite treatment, recommend Tylenol and ibuprofen and possible [id number] Azo use as needed, she will consult with her GI doctor for any complications she has had significant antibiotic exposure lately and has stool studies pending. Findings not consistent with sepsis, toxic vitals, urinary retention. Disposition of Pyelonephritis. Patient verbalized understanding of the plan and return to ED criteria and engaged in shared decision making. Medical Records Medical records reviewed: Yes I reviewed the patient's medical records. Lab Data Lab results reviewed: Yes I reviewed the patient's lab results. Labs: 08/02/24 11:50 Urine - Reflex from Ua Urine Culture - Pending Laboratory Tests Range/Units 08/02/24 11:50 Urine Color (Yellow) Red Urine Clarity (Clear) Cloudy Urine pH (5-8) 5.5 Ur Specific Freeman (1.005-1.025) >= 1.030 H Urine Protein (Neg-Trace) mg/dL >=300 H Urine Ketones (Negative) mg/dL Trace H Urine Blood (Negative) Large H Urine Nitrite (Negative) Positive H Urine Bilirubin (Negative) Negative Urine Urobilinogen (Up to 0.2) mg/dL 0.2 Ur Leukocyte Esterase (Negative) Trace H Urine RBC (0-2) HPF >50 H Urine WBC Not Applicable Ur Epithelial Cells Not Applicable Urine Crystals Not Applicable Urine Bacteria Not Applicable Urine Mucus Not Applicable Ur Culture Indicated? Yes Urine Glucose (Negative) mg/dL 100 H Quality:SDOH Health Related Social Needs: Health related social needs inadequate housing PFSH All Active Problems (Updated 08/02/24 @ 12:25 by BRIANNE Vidal) Pyelonephritis (Acute) Anemia (Chronic) Altered bowel elimination due to intestinal ostomy (Acute) Trigger finger, left ring finger (Acute) Depo-medrol injection: 03/25/23 H/O endarterectomy (Acute) LEFT Pain, foot (Acute) Corns and callosities (Acute) Carotid stenosis, left (Acute) Carotid stenosis, right (Acute) Ulcerative colitis (Chronic) BRAO (branch retinal artery occlusion) (Acute) Chronic shoulder pain (Acute) Subacromial impingement of right shoulder (Acute) 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 of carpometacarpal (CMC) joint of left thumb (Acute) Injected: 02/17/2021 Gastritis (Acute ~04/2021) Esophagitis (Acute ~04/2021) Trochanteric bursitis of left hip (Acute) s/p endoscopic trochanteric bursectomy and IT band release DOS: 12/22/2020 Most recent injections: 08/02/23; 09/19/2020 ; 06/27/20 Hip bursitis (Acute) Postoperative anemia due to acute blood loss (Acute) Post-nasal drip (Chronic) De Quervain's tenosynovitis, right (Acute 11/14/16) Pain from implanted hardware (Acute 06/10/17) Right wrist tendinitis (Acute 04/18/17) Tubular adenoma of colon (Acute 02/26/17) Instability of joints of both ankles (Acute) Bilateral knee pain (Chronic) History of sinusitis (Chronic) Chronic frontal sinusitis (Chronic) Trochanteric bursitis, right hip (Acute) Most recent injections: 08/02/23; 01/02/2021; 09/19/2020 ; 06/27/20 Ingrowing right great toenail (Acute) Tendinitis of left rotator cuff (Acute) Arthritis of carpometacarpal (CMC) joint of right thumb (Acute) Most recent depo-medrol injection: 03/25/23 Medical History Serrated adenoma of colon (~04/2021) Tubular adenoma (~04/2021) Colon polyp, hyperplastic (~04/2021) Iliotibial band syndrome of left side Bunion, left foot Bunion, right foot Chronic maxillary sinusitis Chronic ethmoidal sinusitis Other intraarticular fracture of lower end of right radius, subsequent encounter for closed fracture with routine healing (08/08/16) Ethmoid sinusitis Sinus congestion Hypertension GERD (gastroesophageal reflux disease) Closed fracture of right distal radius Surgical History S/P total colectomy (~02/05/24) Dr. Sheila Rice, [facility] [place] S/P carotid endarterectomy Left Nov 2022 S/P hysterectomy with oophorectomy S/P cholecystectomy S/P Mohs surgery for basal cell carcinoma x2 History of esophagogastroduodenoscopy (EGD) (~04/2021) History of colonoscopy (~04/2021) History of bursectomy and IT band release Status post bilateral total hip replacement right wrist fracture repair (06/29/16) EGD - IV Sedation (02/26/17) Colonoscopy - IV Sedation (02/26/17) Family History Other Hypertension Social History Smoking/Tobacco Use Status: Former Tobacco Use Quit Date: 08/11/17 Smoking risk assessment performed?: Yes Alcohol Intake: current Alcohol Intake frequency: a few times a month Alcohol type: wine and hard liquor Drug use: Occasionally Substance use type: marijuana Household members: none Housing: apartment Number of Children: 2 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
[2024-08-02 12:13] LABS: Bilirubin Negative (Negative); Blood Large (Negative); Clarity Cloudy (Clear); Glucose 100 mg/dL (Negative); Ketones Trace mg/dL (Negative); Leukocyte Esterase Trace (Negative); Nitrite Positive (Negative); Specific Gravity >= 1.030 (1.005-1.025); Urobilinogen 0.2 mg/dL (Up to 0.2); pH 5.5 (5-8)
[2024-08-02 12:15] LABS: RBC >50 HPF (0-2)
[2024-08-02 12:16] LABS: C & S Indicated? Yes
== END 2024-08-02 12:57 | disposition home or self-care (01) ==
PROVIDERS: Emergency Medicine; Emergency Provider Physician Assistant; PCP Family Medicine
DX: N12 Tubulo-interstitial nephritis, not specified as acute or chronic (principal); I10 Essential (primary) hypertension; Z79.82 Long term (current) use of aspirin; Z87.891 Personal history of nicotine dependence
CPT/HCPCS: 87077; 99283; 81003; 81015; 87086; 87186

== ENCOUNTER 2024-09-02 03:39 | Outpatient (CLI) | payer MEDICARE, SELFPAY ==
[2024-09-02 13:59] LABS: Abs Immature Grans 0.02 10^3/uL (0.0-0.06); Absolute Basophil Count 0.05 10^3/uL (0.0-0.2); Absolute Lymphocyte Count 2.17 10^3/uL (1.2-3.4); Absolute Monocyte Count 0.61 10^3/uL (0.1-0.8); Absolute Neutrophil Count 3.76 10^3/uL (1.2-6.7); Basophils % 0.7 %; Eosinophils % 4.3 %; HCT 32.7 % (36.0-46.0); HGB 9.7 g/dL (11.2-15.7); Immature Grans % 0.3 %; Lymphocytes % 31.4 %; MCH 24.5 pg (27.0-33.0); MCHC 29.7 % (32.0-36.0); MCV 83 fL (80-95); MPV 9.8 fL (8.0-11.0); Monocytes % 8.8 %; Neutrophils % 54.5 %; Platelet Count 332 10^3/uL (130-400); RBC 3.96 10^6/uL (3.93-5.22); RDW 15.5 % (11.7-14.6); RDW-SD 46.3 fL; WBC 6.91 10^3/uL (4.4-10.8)
[2024-09-02 14:22] LABS: ALT 21 U/L (14-59); AST 21 U/L (15-37); Albumin 3.6 g/dL (3.4-5.0); Alkaline Phosphatase 83 U/L (46-116); Bilirubin, Direct 0.1 mg/dL (0.0-0.2); Bilirubin, Total 0.27 mg/dL (0.2-1.0); Total Protein 7.1 g/dL (6.4-8.2)
== END 2024-09-02 03:40 | disposition home or self-care (01) ==
PROVIDERS: PCP Family Medicine; Visit Provider Internal Medicine Gastroenterology
DX: K52.9 Noninfective gastroenteritis and colitis, unspecified (principal)
CPT/HCPCS: 36415; 80076; 85025

== ENCOUNTER 2024-09-02 13:23 | Outpatient (REF) | payer MEDICARE, SELFPAY ==
[2024-09-05 14:33] LABS: Calprotectin <50.0 mcg/g
== END 2024-09-02 13:24 | disposition home or self-care (01) ==
LOC: LBN 13:23
PROVIDERS: PCP Family Medicine; Visit Provider Internal Medicine Gastroenterology
DX: K52.9 Noninfective gastroenteritis and colitis, unspecified (principal)
CPT/HCPCS: 83993

== ENCOUNTER 2024-10-06 00:46 | Outpatient (CLI) | payer MEDICARE, SELFPAY ==
[2024-10-06] MEDS: Barium Sulfate 2% W/V-Berry Smoothie 450 ML BTL PO ×2 (09:31→09:32)
[2024-10-06 09:32] LABS: Abs Immature Grans 0.01 10^3/uL (0.0-0.06); Absolute Basophil Count 0.05 10^3/uL (0.0-0.2); Absolute Eosinophil Count 0.23 10^3/uL (0.0-0.7); Absolute Lymphocyte Count 1.23 10^3/uL (1.2-3.4); Absolute Monocyte Count 0.34 10^3/uL (0.1-0.8); Absolute Neutrophil Count 3.01 10^3/uL (1.2-6.7); Eosinophils % 4.7 %; HCT 31.9 % (36.0-46.0); HGB 9.4 g/dL (11.2-15.7); Immature Grans % 0.2 %; Lymphocytes % 25.3 %; MCH 23.3 pg (27.0-33.0); MCHC 29.5 % (32.0-36.0); MCV 79 fL (80-95); MPV 9.3 fL (8.0-11.0); Neutrophils % 61.8 %; Platelet Count 335 10^3/uL (130-400); RBC 4.04 10^6/uL (3.93-5.22); RDW 16.2 % (11.7-14.6); RDW-SD 46.5 fL; WBC 4.87 10^3/uL (4.4-10.8)
[2024-10-06 09:42] LABS: CREATININE 1.2 mg/dL (0.55-1.02)
[2024-10-06] MEDS: Normal Saline - Diluent 50 ML VIAL IJ (11:39)
[2024-10-06] MEDS: Omnipaque 350 MG/ML 100 ML BTL 75 ML IJ (11:40)
--- NOTE | 2024-10-06 11:46 | DI.CT_ITS ---
Exam(s) CT ABDOMEN PELVIS W EXAM: CT ABDOMEN PELVIS W CLINICAL HISTORY: EVALUATE FOR HERNIA AT PRIOR STOMA SITE MIDLINE TECHNIQUE: Imaging Protocol: Axial computed tomography images with coronal and sagittal reformatted images were created and reviewed. CONTRAST MATERIAL: Intravenous: Omnipaque 350 Contrast volume:75 mL Oral: Yes COMPARISON: CT CT ABDOMEN PELVIS W from 06/22/2024 FINDINGS: ABDOMEN: Lung Bases: Normal where visualized. Liver: Normal density. No measurable mass. Portal, Superior Mesenteric, and Splenic Veins: Unremarkable. Gallbladder and Biliary Tract: Status post cholecystectomy. No significant biliary ductal dilatation . Pancreas: Normal density, no abnormal calcifications or inflammatory process. Spleen: Normal. Adrenals: No masses seen. Kidneys: Normal size, contour and axis. No radiodense stones or obstructive uropathy. There is a simp le cyst in the left kidney. No follow-up is recommended. Abdominal Aorta: Abdominal portion non-dilated. Atherosclerotic calcification is present. Bowel: There is a midline anterior abdominal wall hernia containing an unremarkable loop of small bow el. No evidence of bowel obstruction is seen. There is no bowel wall thickening. No evidence of ap pendicitis. Peritoneal Cavity: No ascites, collection or mesenteric inflammatory response. No free air. Lymph Nodes: Within normal limits. Bones: Within normal limits for the patient's age. The patient has bilateral total hip arthroplastie s. Soft Tissues: There is a small fat containing hernia to the right of midline (series 9, image 37). PELVIS: Bladder: Symmetric distention, no gross wall thickening. Reproductive Organs: Status post hysterectomy. Lymph Nodes: Within normal limits. Bones: Within normal limits for the patient's age. IMPRESSION: There is a midline anterior abdominal wall hernia containing a small bowel loop. The bowel shows no evidence of strangulation/obstruction. RADIATION DOSE DELIVERED: 506.69mGy.cm Total DLP DATA REPOSITORY: All CT scans at this facility are submitted to the National Radiology Data Registry (NRDR) Dose Index Registry (DIR) with the [employer] (ACR). RADIATION OPTIMIZATION: All CT scans at this facility use at least one of these dose optimization te chniques: automated exposure control; mA and/or kV adjustment per patient size (includes targeted exa ms where dose is matched to clinical indication); or iterative reconstruction.
== END 2024-10-06 01:06 ==
PROVIDERS: Nurse Practitioner Family; PCP Family Medicine; Visit Provider Colon & Rectal Surgery
DX: D64.9 Anemia, unspecified (principal); K43.9 Ventral hernia without obstruction or gangrene
CPT/HCPCS: 74177; 82565; 85025; J3490

== ENCOUNTER 2024-10-29 15:25 | Outpatient (CLI) | payer MEDICARE, SELFPAY ==
--- NOTE | 2024-10-29 11:00 | DI.RAD_ITS ---
Exam(s) XR HAND LT COMPLETE EXAM: XR HAND LT COMPLETE CLINICAL HISTORY: Left 5th MC pain. TECHNIQUE: 2D digital imaging was performed of the left hand. Three views were obtained. AP, later al and oblique views were obtained. COMPARISON: CR XR HAND LT COMPLETE from 07/01/2023 FINDINGS: BONES: No acute fracture is present. No bony destructive lesion is seen. JOINTS: No dislocation present. The joint spaces are well maintained. SOFT TISSUE: Normal. IMPRESSION: No acute abnormality. DATA REPOSITORY: RADIATION DOSE DELIVERED:
== END 2024-10-29 15:26 | disposition home or self-care (01) ==
LOC: DIORS 15:26
PROVIDERS: PCP Family Medicine; Referring Provider Family Medicine; Visit Provider Student in an Organized Health Care Education/Training Program
DX: M65.312 Trigger thumb, left thumb; M65.341 Trigger finger, right ring finger; M65.4 Radial styloid tenosynovitis [de Quervain]
CPT/HCPCS: 20550; J1010; 73130

== ENCOUNTER 2024-11-08 14:20 | Emergency (ER) | payer MEDICARE, SELFPAY ==
[2024-11-08 14:40] VITALS: BP 168/71; PULSE 79; RESP 16; TEMP 36.6; O2SAT 98
--- NOTE | 2024-11-08 15:00 | DI.CT_ITS ---
Exam(s) CT ABDOMEN PELVIS W EXAM: CT ABDOMEN PELVIS W CLINICAL HISTORY: Incisional hernia, worsening pain. TECHNIQUE: Imaging Protocol: Axial computed tomography images with coronal and sagittal reformatted images were created and reviewed CONTRAST MATERIAL: Intravenous: Omnipaque 350 Contrast volume:100 ml Oral: no COMPARISON: CT CT ABDOMEN PELVIS W from 04/20/[address] ABDOMEN PELVIS W from 10/06/2024 FINDINGS: ABDOMEN and PELVIS: Lung Bases: No acute findings. Liver: Normal density. No suspicious mass. Gallbladder and biliary tract: Cholecystectomy. No biliary dilation. Pancreas: Normal density. No abnormal calcifications or inflammatory process. No evidence of mass. Spleen: Normal. Kidneys: Normal size, contour and axis. No radiodense stones. No obstructive uropathy. No suspicious masses seen. Adrenal glands: No masses seen. Vasculature: Abdominal aorta non-dilated. Severe atherosclerotic changes. Soft tissues: Midline incisional scar. Stable appearance umbilical hernia containing loop of nonobst ructed bowel. Stable appearance of hernia above this level in the midline containing a knuckle of luisa wel. Additional small fat containing hernia seen lateral to the level of the umbilicus at the site o f a previous ostomy. Bladder: No gross wall thickening. No calculi.No focal mass. Bowel: No obstruction. No bowel wall thickening. Appendix normal.Rectal anastomosis. Right lower q uadrant small bowel anastomosis. Moderate quantity of stool. Peritoneal cavity: No ascites. No focal collection. No mesenteric inflammatory response. No free air . Bones: Unremarkable for age. Reproductive organs: Hysterectomy. Lymph nodes: No pathologically enlarged lymph nodes. IMPRESSION:: Stable appearance of midline abdominal hernias containing nonobstructed loop of small b owel. Stable appearance of small fatty containing hernia to the right of midline. RADIATION DOSE DELIVERED: Total DLP DATA REPOSITORY: All CT scans at this facility are submitted to the National Radiology Data Registry (NRDR) Dose Index Registry (DIR) with the [employer] (ACR). RADIATION OPTIMIZATION: All CT scans at this facility use at least one of these dose optimization te chniques: automated exposure control; mA and/or kV adjustment per patient size (includes targeted exa ms where dose is matched to clinical indication); or iterative reconstruction.
--- NOTE | 2024-11-08 15:09 | ED.GENADUL_ITS ---
Discharge Plan Disposition Patient Disposition: Home Condition: Stable Discharge Details Clinical Impression: Incisional hernia of anterior abdominal wall without obstruction or gangrene, Ulcerative colitis, Gastritis, Esophagitis, IBS (irritable bowel syndrome), Anemia Primary Care Provider: Nicolasa Griggs ED Provider: Mary Holbrook Home Meds and New Rx's Prescriptions: New Morphine Ir, 4 Tabs/Btl [Msir, 4 Tabs/Btl] 15 mg PO DISPENSE Qty: 0 0RF No Action atorvastatin 40 mg tablet 40 mg PO QHS duloxetine 30 mg capsule,delayed release(DR/EC) 30 mg PO DAILY lisinopril 40 MG tablet 40 mg PO DAILY cholecalciferol (vitamin D3) [Vitamin D3] 2,000 UNIT tablet 2,000 unit PO DAILY dexlansoprazole [Dexilant] 30 mg capsule,biphase delayed releas 30 mg PO DAILY Qty: 90 3RF epinephrine 0.3 mg/0.3 mL auto-injector 1 ea subcut DIRECTED PRN Patient Comments: INJECT ONE PEN UNDER THE SKIN DIRECTED aspirin [Children's Aspirin] 81 mg Tablet,Chewable 81 mg PO DAILY Qty: 100 0RF ondansetron 4 mg tablet,disintegrating 4 mg PO Q6H PRNQty: 28 0RF albuterol sulfate 90 mcg/actuation HFA aerosol inhaler 2 puff INHALATION Q4H PRN Patient Comments: INHALE 2 PUFFS BY MOUTH EVERY 4 HOURS NEEDED FOR SHOPRTNESS OF BREATH Discharge Instructions Instructions: Abdominal wall hernias Additional Instructions: You were seen in the emergency department today for evaluation of hernia pain in the setting of your known incisional hernias. In our department he had a full physical examination performed, had laboratory studies that were reassuring though you are still anemic compared to prior laboratory studies. You had a CT scan that did not show worsening or strangulation of your bowel within the hernia, and it is safe for you to go home and continue to use pain management to include Tylenol. I have provided you with a short course of oral morphine, please cut these tabs in half and use as needed for severe pain, no more frequently than every 4 hours. You need to call your surgeon in the morning to schedule a follow-up visit for reevaluation. Thank you for allowing us to be part of your care. Discharge Data Discharge Date/Time-TO BE ENTERED AT DEPARTURE: 11/08/24 17:16 HPI General Mode of arrival: ambulatory . Date/Time Provider Initiated Documentation: 11/08/24 14:23 . Limitations to Documentation: no limitations . Information obtained by: patient and old records reviewed . HPI Narrative: HPI: This is a 69-year-old female patient, with a history of ulcerative colitis, status post colectomy with colostomy formation on 02/01, complicated by numerous small bowel obstructions and ultimate reversal of her ostomy in June 2024. She developed an incisional hernia and is presenting for evaluation of worsening hernia pain and size. The patient reports that for the last 3 to 4 weeks her pain has been gradually worsening, is burning in nature and worse with movement and palpation. She was told that she had several small incisional hernias, and is concerned because she can feel a tearing pain when she moves and wonders if the hernia is getting larger. She follows at [facility] for the majority of her surgical care. The patient reports that she has not been using any medications in the home environment for management of her pain. She has been able to eat and drink, has not had nausea or vomiting, passes small pellet-like stools daily. States that she has not had a fever, and is not experiencing any associated symptoms. Exam: Gen: Awake and alert, appears uncomfortable HEENT: Non-icteric sclera Neck: Supple Lungs: No apparent respiratory distress, normal respiratory effort. Lung sounds clear and equal bilaterally without wheezes, rhonchi, rales CV: Appears well perfused, heart with regular rate and rhythm, strong distal pulses Abdomen: Non-distended, soft, with a midline bulge that is easily reducible with no overlying skin changes. Notably tender to palpation with guarding, but no rigidity or rebound MSK: Moves 4 extremities without apparent limitation in ROM Skin: Visualized skin without rashes, cyanosis. Neuro: Normal Gait, no obvious focal deficits or facial asymmetry. Speaks in full, clear sentences. Psych: Appropriate for situation. MDM: This is a 69-year-old female patient presenting for evaluation of pain in the setting of incisional hernia after ostomy reversal. My differential includes but is not limited to bowel obstruction/incarcerated or strangulated hernia, certainly considered abdominal muscular dehiscence. Considered other intra-abdominal pathology including pancreatitis, cholecystitis, hepatitis, gastroenteritis, gastritis/PUD, mesenteric ischemia. History and symptoms are less concerning for aortic pathology. No urinary symptoms to suggest UTI, nephrolithiasis or pyelonephritis. Will obtain laboratory studies to include CBC, CMP, lipase, lactate, and will obtain a CT abdomen pelvis with contrast to better characterize any abnormalities. After shared decision-making conversation we will also proceed with a dose of Tylenol and a very small dose of Dilaudid for symptomatic manag ement. ED Course: I independently interpreted the laboratory studies, which show no significant leukocytosis, new or worsening anemia, or thrombocytopenia. The chemistry panel is without evidence of electrolyte abnormality, kidney dysfunction, or liver injury. Lactate is low and troponin is negative. Lipase is low. Independently reviewed the patient's CT abdomen pelvis, which redemonstrates her incisional hernias with no evidence for incarceration or strangulation. No evidence for bowel obstruction or other abnormality to account for the patient's pain. These findings were shared with the patient and reassurance was offered. I did recommend continuing Tylenol and provided her with a short course of oral morphine for breakthrough pain. She will call her surgeon tomorrow to schedule follow-up appointment. At this time, the patient has had a full medical evaluation and is safe for discharge to home. They are hemodynamically stable, ambulatory, and tolerating PO. They are understanding of the follow-up plan and return precautions. They left our facility without incident. Mary Holbrook MD Related Data Home Medications ?Medication ?Instructions ?Recorded ?Confirmed cholecalciferol (vitamin D3) 50 2,000 unit PO DAILY 02/11/17 11/08/24 mcg (2,000 unit) tablet (Vitamin D3) lisinopril 40 mg tablet 40 mg PO DAILY 02/11/17 11/08/24 dexlansoprazole 30 mg 30 mg PO DAILY #90 caps 06/02/21 11/08/24 capsule,biphase delayed release (Dexilant) epinephrine 0.3 mg/0.3 mL 1 ea subcut DIRECTED PRN 09/13/22 11/08/24 injection, auto-injector aspirin 81 mg chewable tablet 81 mg PO DAILY #100 tabs 09/14/22 11/08/24 (Children's Aspirin) atorvastatin 40 mg tablet 40 mg PO QHS 09/20/22 11/08/24 duloxetine 30 mg capsule,delayed 30 mg PO DAILY 02/01/23 11/08/24 release ondansetron 4 mg disintegrating 4 mg PO Q6H PRN #28 tabs 04/24/24 11/08/24 tablet albuterol sulfate 90 mcg/actuation 2 puff inhalation Q4H PRN 05/15/24 11/08/24 aerosol inhaler MORPHine IR, 4 tabs/btl [MSIR, 4 15 mg PO DISPENSE ##0 11/08/24 tabs/btl] Previous Rx's ?Medication ?Instructions ?Recorded dexlansoprazole 30 mg 30 mg PO DAILY #90 caps 06/02/21 capsule,biphase delayed release (Dexilant) aspirin 81 mg chewable tablet 81 mg PO DAILY #100 tabs 09/14/22 (Children's Aspirin) ondansetron 4 mg disintegrating 4 mg PO Q6H PRN #28 tabs 04/24/24 tablet MORPHine IR, 4 tabs/btl [MSIR, 4 15 mg PO DISPENSE ##0 11/08/24 tabs/btl] Allergies Allergy/AdvReac Type Severity Reaction Status Date / Time protamine Allergy Severe Anaphylaxis Verified 11/08/24 14:43 venom-honey bee Allergy Severe Other (See Verified 11/08/24 14:43 Comment) wool Allergy Other (See Verified 11/08/24 14:43 Comment) amoxicillin (From Augmentin) AdvReac Severe GI Verified 11/08/24 14:43 problems, Severe Diarrhea clavulanic acid (From AdvReac Severe GI Verified 11/08/24 14:43 Augmentin) problems, severe diarrhea omeprazole AdvReac Severe Diarrhea Verified 11/08/24 14:43 esomeprazole (From Nexium) AdvReac Intermediate history of Verified 11/08/24 14:43 Irritable bowel, severe diarrhea silver nitrate AdvReac Skin Rash Verified 11/08/24 14:43 General Stated Complaint: Abd Prob MNEA: 3 Course Vital Signs Vital signs: Vital Signs Temperature 36.6 C 11/08/24 14:40 Pulse 79 11/08/24 14:40 Respiratory Rate 16 11/08/24 14:40 Blood Pressure 168/71 H 11/08/24 14:40 Pulse Oximetry 98 11/08/24 14:40 Temperature 36.6 C 11/08/24 14:40 Pulse 79 12/29/24 14:40 Respiratory Rate 16 11/08/24 14:40 Blood Pressure 168/71 H 11/08/24 14:40 Pulse Oximetry 98 11/08/24 14:40 Pain Level 5 11/08/24 14:40 Medical Decision Making Quality:SDOH Health Related Social Needs: Health related social needs inadequate housing(Z59.1) PFSH All Active Problems (Updated 11/08/24 @ 16:55 by Mary Holbrook MD) Incisional hernia of anterior abdominal wall without obstruction or gangrene (Acute) De Quervain's tenosynovitis, left (Acute) Trigger thumb, left thumb (Acute) Anemia (Chronic) Altered bowel elimination due to intestinal ostomy (Acute) Trigger finger, left ring finger (Acute) Depo-medrol injection: 03/25/23 H/O endarterectomy (Acute) LEFT Pain, foot (Acute) Corns and callosities (Acute) Carotid stenosis, left (Acute) Carotid stenosis, right (Acute) Ulcerative colitis (Chronic) BRAO (branch retinal artery occlusion) (Acute) Chronic shoulder pain (Acute) Subacromial impingement of right shoulder (Acute) 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 of carpometacarpal (CMC) joint of left thumb (Acute) Injected: 02/17/2021 IBS (irritable bowel syndrome) (Chronic) Gastritis (Acute ~04/2021) Esophagitis (Acute ~04/2021) Trochanteric bursitis of left hip (Acute) s/p endoscopic trochanteric bursectomy and IT band release DOS: 12/22/2020 Most recent injections: 08/02/23; 09/19/2020 ; 06/27/20 Hip bursitis (Acute) Postoperative anemia due to acute blood loss (Acute) Post-nasal drip (Chronic) De Quervain's tenosynovitis, right (Acute 11/14/16) Pain from implanted hardware (Acute 06/10/17) Right wrist tendinitis (Acute 04/18/17) Tubular adenoma of colon (Acute 02/26/17) Instability of joints of both ankles (Acute) Bilateral knee pain (Chronic) History of sinusitis (Chronic) Chronic frontal sinusitis (Chronic) Trochanteric bursitis, right hip (Acute) Most recent injections: 08/02/23; 01/02/2021; 09/19/2020 ; 06/27/20 Ingrowing right great toenail (Acute) Tendinitis of left rotator cuff (Acute) Arthritis of carpometacarpal (CMC) joint of right thumb (Acute) Most recent depo-medrol injection: 03/25/23 Medical History Serrated adenoma of colon (~04/2021) Tubular adenoma (~04/2021) Colon polyp, hyperplastic (~04/2021) Iliotibial band syndrome of left side Bunion, left foot Bunion, right foot Chronic maxillary sinusitis Chronic ethmoidal sinusitis Other intraarticular fracture of lower end of right radius, subsequent encounter for closed fracture with routine healing (08/08/16) Ethmoid sinusitis Sinus congestion Hypertension GERD (gastroesophageal reflux disease) Closed fracture of right distal radius Surgical History S/P total colectomy (~02/05/24) Dr. Sheila Rice, [place] [facility] [place] S/P carotid endarterectomy Left Nov 2022 S/P hysterectomy with oophorectomy S/P cholecystectomy S/P Mohs surgery for basal cell carcinoma x2 History of esophagogastroduodenoscopy (EGD) (~04/2021) History of colonoscopy (~04/2021) History of bursectomy and IT band release Status post bilateral total hip replacement right wrist fracture repair (06/29/16) EGD - IV Sedation (02/26/17) Colonoscopy - IV Sedation (02/26/17) Family History Other Hypertension Social History Smoking/Tobacco Use Status: Former Tobacco Use Quit Date: 08/11/17 Smoking risk assessment performed?: Yes Alcohol Intake: current Alcohol Intake frequency: a few times a month Alcohol type: wine and hard liquor Drug use: Occasionally Substance use type: marijuana Household members: none Housing: apartment Number of Children: 2 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
[2024-11-08 15:35] LABS: Abs Immature Grans 0.04 10^3/uL (0.0-0.06); Absolute Basophil Count 0.03 10^3/uL (0.0-0.2); Absolute Eosinophil Count 0.12 10^3/uL (0.0-0.7); Absolute Lymphocyte Count 2.02 10^3/uL (1.2-3.4); Absolute Monocyte Count 0.51 10^3/uL (0.1-0.8); Absolute Neutrophil Count 4.91 10^3/uL (1.2-6.7); Basophils % 0.4 %; Eosinophils % 1.6 %; HCT 32.2 % (36.0-46.0); HGB 9.5 g/dL (11.2-15.7); Immature Grans % 0.5 %; Lymphocytes % 26.5 %; MCH 22.9 pg (27.0-33.0); MCHC 29.5 % (32.0-36.0); MCV 78 fL (80-95); MPV 9.2 fL (8.0-11.0); Monocytes % 6.7 %; Neutrophils % 64.3 %; Platelet Count 328 10^3/uL (130-400); RBC 4.14 10^6/uL (3.93-5.22); RDW 17.4 % (11.7-14.6); RDW-SD 49.3 fL; WBC 7.63 10^3/uL (4.4-10.8)
[2024-11-08] MEDS: Omnipaque 350 MG/ML 100 ML BTL IJ (15:36)
[2024-11-08] MEDS: Normal Saline - Diluent 50 ML VIAL IJ (15:38)
[2024-11-08 15:45] LABS: Lactate 0.8 mmol/L (0.6-1.4)
[2024-11-08 15:54] LABS: ALT 25 U/L (14-59); AST 21 U/L (15-37); Albumin 3.7 g/dL (3.4-5.0); Alkaline Phosphatase 104 U/L (46-116); Anion Gap 5.5 mmol/L (3-11); BUN 18 mg/dL (7-18); Bilirubin, Total 0.21 mg/dL (0.2-1.0); CO2 30.5 mmol/L (21.0-32.0); CREATININE 1.1 mg/dL (0.55-1.02); Calcium 8.9 mg/dL (8.5-10.1); Chloride 104 mmol/L (98-107); Estimated GFR 54.39 (mL/min/1.73m2); Glucose 89 mg/dL (74-106); Lipase 28 U/L (<78); Magnesium 1.9 mg/dL (1.8-2.4); Potassium 3.8 mmol/L (3.5-5.1); Sodium 140 mmol/L (136-145); Total Protein 7.4 g/dL (6.4-8.2); Troponin I 7 ng/L (<or=51)
[2024-11-08] MEDS: HYDROmorphone 2 MG/ML SYR IVP (16:16)
[2024-11-08] MEDS: Acetaminophen 500 MG TAB 1000 MG PO (16:16)
[2024-11-08 16:30] VITALS: BP 169/65; PULSE 70; RESP 16; O2SAT 99
[2024-11-08 17:14] VITALS: BP 174/85; PULSE 82; RESP 16; TEMP 36.4; O2SAT 98
== END 2024-11-08 17:16 | disposition home or self-care (01) ==
PROVIDERS: Emergency Provider Emergency Medicine; PCP Family Medicine
DX: K43.2 Incisional hernia without obstruction or gangrene (principal); I10 Essential (primary) hypertension; Z79.82 Long term (current) use of aspirin; Z93.3 Colostomy status; Z87.891 Personal history of nicotine dependence
CPT/HCPCS: 36415; 80053; 83690; 94640; 96365; 96374; 99285; 74177; 83605; 83735; 84484; 85025; J1171; J3490

== ENCOUNTER 2024-11-23 20:38 | Emergency (ER) | payer MEDICARE, SELFPAY ==
[2024-11-23 20:41] VITALS: BP 208/70; PULSE 90; RESP 16; TEMP 36.6; O2SAT 100
[2024-11-23] MEDS: ACETAMINOPHEN 1,000 MG/100 ML BAG 400 MG IVPB (21:19)
[2024-11-23 21:25] LABS: Abs Immature Grans 0.03 10^3/uL (0.0-0.06); Absolute Basophil Count 0.04 10^3/uL (0.0-0.2); Absolute Eosinophil Count 0.16 10^3/uL (0.0-0.7); Absolute Lymphocyte Count 2.23 10^3/uL (1.2-3.4); Absolute Monocyte Count 0.47 10^3/uL (0.1-0.8); Absolute Neutrophil Count 5.21 10^3/uL (1.2-6.7); Basophils % 0.5 %; HCT 32.2 % (36.0-46.0); HGB 9.6 g/dL (11.2-15.7); Immature Grans % 0.4 %; Lymphocytes % 27.4 %; MCHC 29.8 % (32.0-36.0); MCV 77 fL (80-95); MPV 9.3 fL (8.0-11.0); Monocytes % 5.8 %; Neutrophils % 63.9 %; Platelet Count 299 10^3/uL (130-400); RBC 4.17 10^6/uL (3.93-5.22); RDW-SD 50.3 fL; WBC 8.14 10^3/uL (4.4-10.8)
[2024-11-23 21:30] VITALS: BP 190/72; PULSE 88; RESP 16; O2SAT 98
[2024-11-23 21:39] LABS: ALT 22 U/L (14-59); AST 20 U/L (15-37); Albumin 3.4 g/dL (3.4-5.0); Alkaline Phosphatase 102 U/L (46-116); Anion Gap 4.9 mmol/L (3-11); BUN 19 mg/dL (7-18); Bilirubin, Total 0.23 mg/dL (0.2-1.0); CO2 32.1 mmol/L (21.0-32.0); CREATININE 1.1 mg/dL (0.55-1.02); Chloride 105 mmol/L (98-107); Estimated GFR 54.39 (mL/min/1.73m2); Glucose 101 mg/dL (74-106); Lipase 34 U/L (<78); Potassium 3.7 mmol/L (3.5-5.1); Sodium 142 mmol/L (136-145); Total Protein 7.3 g/dL (6.4-8.2)
[2024-11-23 21:43] LABS: Calcium 9.3 mg/dL (8.5-10.1)
[2024-11-23] MEDS: Omnipaque 350 MG/ML 100 ML BTL IJ (22:06)
[2024-11-23] MEDS: Normal Saline - Diluent 50 ML VIAL IJ (22:07)
[2024-11-23] MEDS: Normal Saline Flush 10 ML SYR IVP (22:08)
[2024-11-23 22:18] LABS: Bilirubin Negative (Negative); Blood Trace-intact (Negative); Clarity Clear (Clear); Glucose Negative (Negative); Ketones Negative (Negative); Leukocyte Esterase Negative (Negative); Nitrite Negative (Negative); Specific Gravity 1.015 (1.005-1.025); Urobilinogen 0.2 mg/dL (Up to 0.2); pH 6.5 (5-8)
[2024-11-23 22:27] LABS: Bacteria Negative HPF (Negative); C & S Indicated? No; Casts Negative LPF (Negative); Crystals Negative HPF (Negative); Epithelial Cells Rare HPF (Negative); Mucus Negative (Negative); RBC 0-2 HPF (0-2); WBC Negative HPF (0-5)
--- NOTE | 2024-11-23 22:27 | DI.CT_ITS ---
Exam(s) CT ABDOMEN PELVIS W EXAM: CT ABDOMEN PELVIS W CLINICAL HISTORY: concern umbilical incisional hernia has worsened,. TECHNIQUE: Imaging Protocol: Axial computed tomography images with coronal and sagittal reformatted images were created and reviewed CONTRAST MATERIAL: Intravenous: Omnipaque 350 Contrast volume:75 ml Oral: no COMPARISON: CT CT ABDOMEN PELVIS W from 11/08/2024 FINDINGS: ABDOMEN and PELVIS: Lung Bases: No acute findings. Liver: Normal density. No suspicious mass. Gallbladder and biliary tract: Cholecystectomy. No biliary dilation. Pancreas: Normal density. No abnormal calcifications or inflammatory process. No evidence of mass. Spleen: Normal. Kidneys: Normal size, contour and axis. No radiodense stones. No obstructive uropathy. No suspicious masses seen. Adrenal glands: No masses seen. Vasculature: Abdominal aorta non-dilated. Soft tissues: Mild interval increase in size of hernia above the level of the umbilicus in the midlin e, containing loop of small bowel. No evidence of obstruction. The hernia at the level of the umbil icus, containing loop of small bowel is unchanged in size. Stable appearance of small fat containing hernia toward the right. Bladder: No gross wall thickening. No calculi.No focal mass. Bowel: No obstruction. No bowel wall thickening. Appendix normal rectal anastomosis is unremarkable . Right lower quadrant anastomosis is unremarkable. Peritoneal cavity: No ascites. No focal collection. No mesenteric inflammatory response. No free air . Bones: Bilateral hip prostheses. Degenerative changes in the spine. Reproductive organs: Unremarkable. Lymph nodes: No pathologically enlarged lymph nodes. IMPRESSION:: Mild interval increase in size of midline anterior abdominal wall bowel containing vianca ia above the level of the umbilicus. Stable size of bowel containing hernia at the level of the umbi licus. No evidence of bowel obstruction. RADIATION DOSE DELIVERED: 482.02mGy.cm Total DLP DATA REPOSITORY: All CT scans at this facility are submitted to the National Radiology Data Registry (NRDR) Dose Index Registry (DIR) with the [employer] ([employer]). RADIATION OPTIMIZATION: All CT scans at this facility use at least one of these dose optimization te chniques: automated exposure control; mA and/or kV adjustment per patient size (includes targeted exa ms where dose is matched to clinical indication); or iterative reconstruction.
[2024-11-23 22:41] VITALS: BP 164/73; PULSE 65; RESP 14; O2SAT 98
--- NOTE | 2024-11-23 22:48 | ED.GENADUL_ITS ---
Discharge Plan Disposition Patient Disposition: Home Condition: Stable Discharge Details Clinical Impression: Incisional hernia Primary Care Provider: Nicolasa Griggs ED Provider: Sushma Randall Home Meds and New Rx's Prescriptions: Continued atorvastatin 40 mg tablet 40 mg PO QHS duloxetine 30 mg capsule,delayed release(DR/EC) 30 mg PO DAILY lisinopril 40 MG tablet 40 mg PO DAILY cholecalciferol (vitamin D3) [Vitamin D3] 2,000 UNIT tablet 2,000 unit PO DAILY dexlansoprazole [Dexilant] 30 mg capsule,biphase delayed releas 30 mg PO DAILY Qty: 90 3RF epinephrine 0.3 mg/0.3 mL auto-injector 1 ea subcut DIRECTED PRN Patient Comments: INJECT ONE PEN UNDER THE SKIN DIRECTED aspirin [Children's Aspirin] 81 mg Tablet,Chewable 81 mg PO DAILY Qty: 100 0RF ondansetron 4 mg tablet,disintegrating 4 mg PO Q6H PRNQty: 28 0RF albuterol sulfate 90 mcg/actuation HFA aerosol inhaler 2 puff INHALATION Q4H PRN Patient Comments: INHALE 2 PUFFS BY MOUTH EVERY 4 HOURS NEEDED FOR SHOPRTNESS OF BREATH Morphine Ir, 4 Tabs/Btl [Msir, 4 Tabs/Btl] 15 mg PO DISPENSE Qty: 0 0RF Discharge Instructions Additional Instructions: Please refrain from lifting greater than 5 pounds Follow-up with your surgeon tomorrow Have given you several tabs of pain medication that you can use as needed, however these are very addictive and you should take them with caution, do not operate your vehicle for 8 hours after taking them Also please be sure that you are not straining to have bowel movements you may benefit from taking [id number] laxative Please return earlier should you have new or worsening complaints Referrals: Nicolasa Griggs [Primary Care Provider] - Discharge Data Discharge Date/Time-TO BE ENTERED AT DEPARTURE: 11/23/24 23:30 HPI General Date/Time Provider Initiated Documentation: 11/23/24 20:46 . HPI Narrative: This 69-year-old female with history of total colectomy with colostomy and reversal in June presents with concern regarding her incisional hernia. She states that she was at home today and feels like one of her 3 known hernias overlying her umbilicus has ripped . She states she has a burning pain. She states she is followed at [facility] and called them but did not hear back for 1 hour so she came to the emergency department immediately. She has not taken pain medications prior to arrival. She denies any chest pain or shortness of breath. She was evaluated for similar level of pain 2 weeks prior to arrival and referred back to her surgeon at that time. She is able to move bowels without difficulty and denies any nausea or vomiting. Related Data Home Medications ?Medication ?Instructions ?Recorded ?Confirmed cholecalciferol (vitamin D3) 50 2,000 unit PO DAILY 02/11/17 11/08/24 mcg (2,000 unit) tablet (Vitamin D3) lisinopril 40 mg tablet 40 mg PO DAILY 02/11/17 11/08/24 dexlansoprazole 30 mg 30 mg PO DAILY #90 caps 06/02/21 11/08/24 capsule,biphase delayed release (Dexilant) epinephrine 0.3 mg/0.3 mL 1 ea subcut DIRECTED PRN 09/13/22 11/08/24 injection, auto-injector aspirin 81 mg chewable tablet 81 mg PO DAILY #100 tabs 09/14/22 11/08/24 (Children's Aspirin) atorvastatin 40 mg tablet 40 mg PO QHS 09/20/22 11/08/24 duloxetine 30 mg capsule,delayed 30 mg PO DAILY 02/01/23 11/08/24 release ondansetron 4 mg disintegrating 4 mg PO Q6H PRN #28 tabs 04/24/24 11/08/24 tablet albuterol sulfate 90 mcg/actuation 2 puff inhalation Q4H PRN 05/15/24 11/08/24 aerosol inhaler MORPHine IR, 4 tabs/btl [MSIR, 4 15 mg PO DISPENSE ##0 11/08/24 tabs/btl] Previous Rx's ?Medication ?Instructions ?Recorded dexlansoprazole 30 mg 30 mg PO DAILY #90 caps 06/02/21 capsule,biphase delayed release (Dexilant) aspirin 81 mg chewable tablet 81 mg PO DAILY #100 tabs 09/14/22 (Children's Aspirin) ondansetron 4 mg disintegrating 4 mg PO Q6H PRN #28 tabs 04/24/24 tablet MORPHine IR, 4 tabs/btl [MSIR, 4 15 mg PO DISPENSE ##0 11/08/24 tabs/btl] Allergies Allergy/AdvReac Type Severity Reaction Status Date / Time protamine Allergy Severe Anaphylaxis Verified 11/08/24 14:43 venom-honey bee Allergy Severe Other (See Verified 11/08/24 14:43 Comment) wool Allergy Other (See Verified 11/08/24 14:43 Comment) amoxicillin (From Augmentin) AdvReac Severe GI Verified 11/08/24 14:43 problems, Severe Diarrhea clavulanic acid (From AdvReac Severe GI Verified 11/08/24 14:43 Augmentin) problems, severe diarrhea omeprazole AdvReac Severe Diarrhea Verified 11/08/24 14:43 esomeprazole (From Nexium) AdvReac Intermediate history of Verified 11/08/24 14:43 Irritable bowel, severe diarrhea silver nitrate AdvReac Skin Rash Verified 11/08/24 14:43 General Stated Complaint: Abd Prob MENA: 3 Exam Narrative Exam Narrative: Alert and oriented 69-year-old female in no acute distress, easily reducible hernias noted to umbilicus and ventral region, diffuse tenderness without rebound or guarding, ambulatory with steady gait, no vomiting Course Vital Signs Vital signs: Vital Signs Temperature 36.6 C 11/23/24 20:41 Pulse 90 11/23/24 20:41 Respiratory Rate 16 11/23/24 20:41 Blood Pressure 208/70 H 11/23/24 20:41 Pulse Oximetry 100 11/23/24 20:41 Temperature 36.6 C 11/23/24 20:41 Temperature Source Oral 11/23/24 20:41 Pulse 65 11/23/24 22:41 Respiratory Rate 14 11/23/24 22:41 Blood Pressure 164/73 H 11/23/24 22:41 Blood Pressure Position Sitting 11/23/24 20:41 Pulse Oximetry 98 11/23/24 22:41 Oxygen Delivery Method Room Air 11/23/24 22:41 Oxygen Flow Rate 0 11/23/24 22:41 Pain Level 5 11/23/24 20:41 Lab/Test Results Lab/Test Results: Laboratory Tests Range/Units 11/23/24 11/23/24 21:14 22:10 WBC (4.4-10.8) 10^3/uL 8.14 RBC (3.93-5.22) 10^6/uL 4.17 Hgb (11.2-15.7) g/dL 9.6 L Hct (36.0-46.0) % 32.2 L MCV (80-95) fL 77 L MCH (27.0-33.0) pg 23.0 L MCHC (32.0-36.0) % 29.8 L RDW (11.7-14.6) % 18.0 H Plt Count (130-400) 10^3/uL 299 MPV (8.0-11.0) fL 9.3 Immature Gran % % 0.4 Neutrophils % % 63.9 Lymphocytes % % 27.4 Monocytes % % 5.8 Eosinophils % % 2.0 Basophils % % 0.5 Nucleated RBC % (0.0-0.3) % 0.0 Absolute Neutrophils (1.2-6.7) 10^3/uL 5.21 Absolute Lymphocytes (1.2-3.4) 10^3/uL 2.23 Absolute Monocytes (0.1-0.8) 10^3/uL 0.47 Absolute Eosinophils (0.0-0.7) 10^3/uL 0.16 Absolute Basophils (0.0-0.2) 10^3/uL 0.04 Sodium (136-145) mmol/L 142 Potassium (3.5-5.1) mmol/L 3.7 Chloride (98-107) mmol/L 105 Carbon Dioxide (21.0-32.0) mmol/L 32.1 H Anion Gap (3-11) mmol/L 4.9 BUN (7-18) mg/dL 19 H Creatinine (0.55-1.02) mg/dL 1.1 H Est GFR (CKD-EPI 2020) (mL/min/1.73m2) 54.39 Glucose (74-106) mg/dL 101 Calcium (8.5-10.1) mg/dL 9.3 Total Bilirubin (0.2-1.0) mg/dL 0.23 AST (15-37) U/L 20 ALT (14-59) U/L 22 Alkaline Phosphatase (46-116) U/L 102 Total Protein (6.4-8.2) g/dL 7.3 Albumin (3.4-5.0) g/dL 3.4 Lipase (<78) U/L 34 Urine Color (Yellow) Yellow Urine Clarity (Clear) Clear Urine pH (5-8) 6.5 Ur Specific [place] (1.005-1.025) 1.015 Urine Protein (Neg-Trace) mg/dL Negative Urine Ketones (Negative) mg/dL Negative Urine Blood (Negative) Trace-intact H Urine Nitrite (Negative) Negative Urine Bilirubin (Negative) Negative Urine Urobilinogen (Up to 0.2) mg/dL 0.2 Ur Leukocyte Esterase (Negative) Negative Urine RBC (0-2) HPF 0-2 Urine WBC (0-5) HPF Negative Ur Epithelial Cells (Negative) HPF Rare Urine Crystals (Negative) HPF Negative Urine Bacteria (Negative) HPF Negative Urine Casts (Negative) LPF Negative Urine Mucus (Negative) Negative Ur Culture Indicated? No Urine Glucose (Negative) mg/dL Negative Medical Decision Making 69-year-old female presenting in no acute distress, alert and oriented, CT abdomen and pelvis was ordered after reviewing patient's prior evaluation in the emergency department. CT abdomen and pelvis was compared to prior and there is evidence of hernia but no strangulation or bowel obstruction. Patient's exam is relatively benign. Her diagnostic labs were reviewed and show baseline anemia. Creatinine 1.1, baseline per patient. Patient encouraged to follow-up with surgeon at [facility], she is placed on referral list for follow-up. She is given low threshold to return should she have new or worsening complaints she is also encouraged to wear her abdominal belt and refrain from lifting. Discharged home in stable condition with stable vitals Quality:SDOH Health Related Social Needs: No Data to Display PFSH All Active Problems (Updated 11/23/24 @ 22:57 by BRIANNE Webb) Incisional hernia (Acute) Incisional hernia of anterior abdominal wall without obstruction or gangrene (Acute) De Quervain's tenosynovitis, left (Acute) Trigger thumb, left thumb (Acute) Anemia (Chronic) Altered bowel elimination due to intestinal ostomy (Acute) Trigger finger, left ring finger (Acute) Depo-medrol injection: 03/25/23 H/O endarterectomy (Acute) LEFT Pain, foot (Acute) Corns and callosities (Acute) Carotid stenosis, left (Acute) Carotid stenosis, right (Acute) Ulcerative colitis (Chronic) BRAO (branch retinal artery occlusion) (Acute) Chronic shoulder pain (Acute) Subacromial impingement of right shoulder (Acute) 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 of carpometacarpal (CMC) joint of left thumb (Acute) Injected: 02/17/2021 IBS (irritable bowel syndrome) (Chronic) Gastritis (Acute ~04/2021) Esophagitis (Acute ~04/2021) Trochanteric bursitis of left hip (Acute) s/p endoscopic trochanteric bursectomy and IT band release DOS: 12/22/2020 Most recent injections: 08/02/23; 09/19/2020 ; 06/27/20 Hip bursitis (Acute) Postoperative anemia due to acute blood loss (Acute) Post-nasal drip (Chronic) De Quervain's tenosynovitis, right (Acute 11/14/16) Pain from implanted hardware (Acute 06/10/17) Right wrist tendinitis (Acute 04/18/17) Tubular adenoma of colon (Acute 02/26/17) Instability of joints of both ankles (Acute) Bilateral knee pain (Chronic) History of sinusitis (Chronic) Chronic frontal sinusitis (Chronic) Trochanteric bursitis, right hip (Acute) Most recent injections: 08/02/23; 01/02/2021; 09/19/2020 ; 06/27/20 Ingrowing right great toenail (Acute) Tendinitis of left rotator cuff (Acute) Arthritis of carpometacarpal (CMC) joint of right thumb (Acute) Most recent depo-medrol injection: 03/25/23 Medical History Serrated adenoma of colon (~04/2021) Tubular adenoma (~04/2021) Colon polyp, hyperplastic (~04/2021) Iliotibial band syndrome of left side Bunion, left foot Bunion, right foot Chronic maxillary sinusitis Chronic ethmoidal sinusitis Other intraarticular fracture of lower end of right radius, subsequent encounter for closed fracture with routine healing (08/08/16) Ethmoid sinusitis Sinus congestion Hypertension GERD (gastroesophageal reflux disease) Closed fracture of right distal radius Surgical History S/P total colectomy (~02/05/24) Dr. Sheila Rice, [facility] S/P carotid endarterectomy Left Nov 2022 S/P hysterectomy with oophorectomy S/P cholecystectomy S/P Mohs surgery for basal cell carcinoma x2 History of esophagogastroduodenoscopy (EGD) (~04/2021) History of colonoscopy (~04/2021) History of bursectomy and IT band release Status post bilateral total hip replacement right wrist fracture repair (06/29/16) EGD - IV Sedation (02/26/17) Colonoscopy - IV Sedation (02/26/17) Family History Other Hypertension Social History Smoking/Tobacco Use Status: Former Tobacco Use Quit Date: 08/11/17 Smoking risk assessment performed?: Yes Alcohol Intake: current Alcohol Intake frequency: a few times a month Alcohol type: wine and hard liquor Drug use: Occasionally Substance use type: marijuana Household members: none Housing: apartment Number of Children: 2 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
--- NOTE | 2024-11-23 23:08 | DI.VRAD_ITS ---
PROCEDURE INFORMATION: Exam: CT Abdomen And Pelvis With Contrast Exam date and time: 11/23/2024 10:19 PM Age: 69 years old Clinical indication: Other: Concern umbilical incisional hernia has worsened, prior surgery; Surgery date: 6+ months; Surgery type: Hysterectomy, colectomy, cholecystectomy TECHNIQUE: Imaging protocol: Computed tomography of the abdomen and pelvis with contrast. Contrast material: OMNIPAQUE 350; Contrast volume: 75 ml; Contrast route: INTRAVENOUS (IV); COMPARISON: CT ABDOMEN PELVIS W 11/08/2024 3:41 PM FINDINGS: Lungs: Lung bases are unremarkable. Liver: The liver is unremarkable. Gallbladder and biliary ducts: Post cholecystectomy. Pancreas: The pancreas is unremarkable. Spleen: No splenomegaly. No lesions. Adrenal glands: The adrenal glands are unremarkable. Kidneys and ureters: Stable left renal cysts. Stomach and bowel: Moderate stool throughout the colon and rectum. Appendix: Appendix is not seen but there is no pericecal inflammatory change. Intraperitoneal space: Unremarkable. No free air. No significant fluid collection. Vasculature: There is moderate diffuse atherosclerotic disease of the abdominal aorta. Lymph nodes: No mesentery adenopathy. No edema. Urinary bladder: Unremarkable as visualized. Reproductive: Unremarkable as visualized. Bones/joints: Bilateral hip prosthesis noted. No evidence of malalignment. The lumbar spine demonstrates moderate degenerative changes at multiple levels. L4/L5 disc space narrowing with posterior disc bulge. L5/S1 disc space narrowing with posterior disc bulge. Soft tissues: Moderate bowel and omentum containing anterior abdominal wall ventral hernia. IMPRESSION: Moderate bowel and omentum containing anterior abdominal wall ventral hernia. No evidence of bowel obstruction. This is slightly increased in size since prior exam. Dictated and Authenticated by: Antoinette Goodwin MD. Ordering:MARIBELL Ordaz MD
[2024-11-23] MEDS: MORPHine IR 15 MG TAB, 4 TABS/BTL PO (23:26)
[2024-11-23 23:30] VITALS: BP 160/70; PULSE 68; RESP 14; O2SAT 98
== END 2024-11-23 23:30 | disposition home or self-care (01) ==
PROVIDERS: Emergency Provider Physician Assistant; PCP Family Medicine
DX: R10.9 Unspecified abdominal pain (principal); K43.2 Incisional hernia without obstruction or gangrene; I10 Essential (primary) hypertension
CPT/HCPCS: 36415; 80053; 83690; 96365; 74177; 81003; 81015; 85025; 99284; J0131; J3490

== ENCOUNTER 2024-12-08 03:16 | Outpatient (CLI) | payer MEDICARE, SELFPAY ==
[2024-12-08 09:01] LABS: HGB 9.5 g/dL (11.2-15.7); MCH 22.8 pg (27.0-33.0); MCHC 29.7 % (32.0-36.0); MCV 77 fL (80-95); MPV 9.2 fL (8.0-11.0); Platelet Count 315 10^3/uL (130-400); RBC 4.16 10^6/uL (3.93-5.22); RDW 18.4 % (11.7-14.6); RDW-SD 50.8 fL; WBC 5.79 10^3/uL (4.4-10.8)
[2024-12-08 09:21] LABS: ALT 20 U/L (14-59); AST 17 U/L (15-37); Albumin 3.3 g/dL (3.4-5.0); Alkaline Phosphatase 95 U/L (46-116); Anion Gap 6.9 mmol/L (3-11); BUN 22 mg/dL (7-18); Bilirubin, Total 0.25 mg/dL (0.2-1.0); CO2 28.1 mmol/L (21.0-32.0); CREATININE 1.1 mg/dL (0.55-1.02); Calcium 8.9 mg/dL (8.5-10.1); Calculated LDL 132 mg/dL (<100); Chloride 106 mmol/L (98-107); Cholesterol 222 mg/dL (<200); Estimated GFR 54.39 (mL/min/1.73m2); Glucose 102 mg/dL (74-106); HDL Cholesterol 75 mg/dL (40-60); Potassium 4.2 mmol/L (3.5-5.1); Sodium 141 mmol/L (136-145); Total Protein 6.9 g/dL (6.4-8.2); Triglyceride 79 mg/dL (<150)
== END 2024-12-08 03:17 | disposition home or self-care (01) ==
LOC: LBO 03:16
PROVIDERS: PCP Family Medicine; Visit Provider Family Medicine
DX: E78.5 Hyperlipidemia, unspecified (principal); D64.9 Anemia, unspecified; I10 Essential (primary) hypertension
CPT/HCPCS: 36415; 80053; 80061; 85027

== ENCOUNTER 2024-12-23 04:49 | Outpatient (CLI) | payer MEDICARE, SELFPAY ==
[2024-12-23 15:45] LABS: Abs Immature Grans 0.04 10^3/uL (0.0-0.06); Absolute Basophil Count 0.04 10^3/uL (0.0-0.2); Absolute Eosinophil Count 0.39 10^3/uL (0.0-0.7); Absolute Lymphocyte Count 1.91 10^3/uL (1.2-3.4); Absolute Monocyte Count 0.62 10^3/uL (0.1-0.8); Absolute Neutrophil Count 5.09 10^3/uL (1.2-6.7); Basophils % 0.5 %; Eosinophils % 4.8 %; HCT 30.2 % (36.0-46.0); Immature Grans % 0.5 %; Lymphocytes % 23.6 %; MCH 23.4 pg (27.0-33.0); MCHC 29.8 % (32.0-36.0); MCV 79 fL (80-95); MPV 9.2 fL (8.0-11.0); Monocytes % 7.7 %; Neutrophils % 62.9 %; Platelet Count 333 10^3/uL (130-400); RBC 3.84 10^6/uL (3.93-5.22); RDW 19.2 % (11.7-14.6); RDW-SD 53.8 fL; WBC 8.09 10^3/uL (4.4-10.8)
[2024-12-23 16:25] LABS: Iron 24 ug/dL (50-170); Total Iron Binding Capacity 278 ug/dL (250-450); Transferrin Sat 9 % (15-50)
[2024-12-23 16:43] LABS: ALT 18 U/L (14-59); AST 14 U/L (15-37); Alkaline Phosphatase 99 U/L (46-116); Bilirubin, Total 0.26 mg/dL (0.2-1.0); Ferritin 32 ng/mL (8-252); Total Protein 6.7 g/dL (6.4-8.2)
[2024-12-23 16:52] LABS: Bilirubin, Direct 0.1 mg/dL (0.0-0.2)
== END 2024-12-23 04:50 | disposition home or self-care (01) ==
PROVIDERS: PCP Family Medicine; Visit Provider Nurse Practitioner Adult Health
DX: K50.111 Crohn's disease of large intestine with rectal bleeding (principal)
CPT/HCPCS: 36415; 80076; 82728; 83540; 83550; 85025

== ENCOUNTER 2024-12-31 15:14 | Outpatient (REF) | payer MEDICARE, SELFPAY ==
[2025-01-04 14:27] LABS: Calprotectin <50.0 mcg/g
== END 2024-12-31 15:15 | disposition home or self-care (01) ==
LOC: LBN 15:14
PROVIDERS: PCP Family Medicine; Visit Provider Nurse Practitioner Adult Health
DX: K50.111 Crohn's disease of large intestine with rectal bleeding (principal)
CPT/HCPCS: 83993

== ENCOUNTER 2025-01-20 04:40 | Outpatient (CLI) | payer MEDICARE, SELFPAY ==
[2025-01-20 12:15] LABS: HCT 34.9 % (36.0-46.0); HGB 10.2 g/dL (11.2-15.7); MCH 23.6 pg (27.0-33.0); MCV 81 fL (80-95); MPV 9.7 fL (8.0-11.0); Platelet Count 304 10^3/uL (130-400); RBC 4.32 10^6/uL (3.93-5.22); RDW-SD 56.9 fL; WBC 6.08 10^3/uL (4.4-10.8)
[2025-01-20 12:28] LABS: MCHC 29.2 % (32.0-36.0); RDW 20.1 % (11.7-14.6)
[2025-01-20 12:52] LABS: Iron 40 ug/dL (50-170)
== END 2025-01-20 04:41 | disposition home or self-care (01) ==
LOC: LBO 04:40
PROVIDERS: PCP Family Medicine; Visit Provider Family Medicine
DX: R79.0 Abnormal level of blood mineral (principal)
CPT/HCPCS: 36415; 85027; 83540

== ENCOUNTER 2025-02-02 01:43 | Outpatient (RCR) | payer MEDICARE, SELFPAY ==
[2025-01-13] MEDS: SODIUM FER. GLUC./SUC. 125 MG in Normal Saline 100 ML 110 MG IVPB (12:49)
[2025-01-13] MEDS: Normal Saline Flush 5 ML SYR IVP (12:50)
[2025-02-02] MEDS: SODIUM FER. GLUC./SUC. 125 MG in Normal Saline 100 ML 110 MG IVPB (10:50)
[2025-02-02] MEDS: Normal Saline Flush 5 ML SYR IVP (11:55)
== END 2025-02-08 23:59 | disposition home or self-care (01) ==
LOC: INF 01:43
PROVIDERS: PCP Family Medicine; Visit Provider Family Medicine
DX: D50.9 Iron deficiency anemia, unspecified (principal)
CPT/HCPCS: 96365; J2916

== ENCOUNTER → 2025-02-08 09:33 | Outpatient (BNVA) | payer MEDICARE, SELFPAY | PROVIDERS: PCP Family Medicine; Referring Provider Family Medicine; Visit Provider Student in an Organized Health Care Education/Training Program | DX: M65.312 Trigger thumb, left thumb (principal); M18.12 Unilateral primary osteoarthritis of first carpometacarpal joint, left hand; M65.341 Trigger finger, right ring finger; M18.11 Unilateral primary osteoarthritis of first carpometacarpal joint, right hand | CPT/HCPCS: 20604; 99214; J1010 ==

== ENCOUNTER 2025-02-10 03:10 | Outpatient (CLI) | payer MEDICARE, SELFPAY ==
[2025-02-10 11:59] LABS: Abs Immature Grans 0.03 10^3/uL (0.0-0.06); Absolute Basophil Count 0.04 10^3/uL (0.0-0.2); Absolute Eosinophil Count 0.14 10^3/uL (0.0-0.7); Absolute Lymphocyte Count 1.48 10^3/uL (1.2-3.4); Absolute Monocyte Count 0.38 10^3/uL (0.1-0.8); Absolute Neutrophil Count 4.42 10^3/uL (1.2-6.7); Basophils % 0.6 %; Eosinophils % 2.2 %; HGB 10.7 g/dL (11.2-15.7); Immature Grans % 0.5 %; Lymphocytes % 22.8 %; MCH 25.2 pg (27.0-33.0); MCHC 31.5 % (32.0-36.0); MCV 80 fL (80-95); MPV 9.6 fL (8.0-11.0); Monocytes % 5.9 %; Platelet Count 309 10^3/uL (130-400); RBC 4.24 10^6/uL (3.93-5.22); RDW 20.5 % (11.7-14.6); RDW-SD 59.4 fL; WBC 6.49 10^3/uL (4.4-10.8)
[2025-02-10 12:25] LABS: Iron 43 ug/dL (50-170)
[2025-02-10 12:40] LABS: Anisocytosis 2+; Diff Comment RBC Morph Reviewed
== END 2025-02-10 03:11 | disposition home or self-care (01) ==
LOC: LBO 03:10
PROVIDERS: PCP Family Medicine; Visit Provider Family Medicine
DX: E61.1 Iron deficiency (principal)
CPT/HCPCS: 36415; 83540; 85025

== ENCOUNTER 2025-02-17 05:56 | Day surgery (SDC) | payer MEDICARE, SELFPAY ==
[2025-02-17 06:15] VITALS: BP 162/82; PULSE 71; RESP 16; TEMP 36.6; O2SAT 98
--- NOTE | 2025-02-17 07:07 | PDOC.DSDIS_ITS ---
Date of service: 02/17/25 Discharge Plan Disposition Patient Disposition: Home Condition: Good Discharge Details Reason For Visit: L Trigger thumb release Attending Provider: Truman Jc Primary Care Provider: Nicolasa Griggs Home Meds and New Rx's Prescriptions: New acetaminophen 500 mg tablet 500 mg PO TID Qty: 90 0RF ibuprofen 600 mg tablet 600 mg PO TID PRN (Reason: pain) Qty: 90 0RF Continued duloxetine 30 mg capsule,delayed release(DR/EC) 30 mg PO DAILY lisinopril 40 MG tablet 40 mg PO DAILY cholecalciferol (vitamin D3) [Vitamin D3] 2,000 UNIT tablet 2,000 unit PO DAILY dexlansoprazole [Dexilant] 30 mg capsule,biphase delayed releas 30 mg PO DAILY Qty: 90 3RF epinephrine 0.3 mg/0.3 mL auto-injector 1 ea subcut DIRECTED PRN Patient Comments: INJECT ONE PEN UNDER THE SKIN DIRECTED aspirin [Children's Aspirin] 81 mg Tablet,Chewable 81 mg PO DAILY Qty: 100 0RF ondansetron 4 mg tablet,disintegrating 4 mg PO Q6H PRNQty: 28 0RF albuterol sulfate 90 mcg/actuation HFA aerosol inhaler 2 puff INHALATION Q4H PRN Patient Comments: INHALE 2 PUFFS BY MOUTH EVERY 4 HOURS NEEDED FOR SHOPRTNESS OF BREATH Discharge Instructions Stand Alone Forms: Babita Ramirez Finger Release Referrals: Truman Jc MD [ [facility] STAFF PHYSICIAN] - Activity:: Activity as Tolerated Remove Dressings/Wound Care:: 48 hours Shower/Bathe:: 48 hours Diet:: As Tolerated Discharge Orders Discharge Orders: Discharge Order (Routine); Ordered 02/17/25 Ordered By: Pete Loya DS: Diagnosis Discharge Diagnosis (1) Trigger thumb, left thumb: Status: Acute
[2025-02-17] MEDS: Sodium Bicarbonate 50 MEQ/50 ML VIAL (07:35)
[2025-02-17] MEDS: Lidocaine 1% Multi-Dose W/EPI 1/100,000 50 ML VIAL (07:35)
--- NOTE | 2025-02-17 07:49 | ROE_ITS ---
Operative Note Operative Note PRE-OP DIAGNOSIS: Left Trigger Thumb POST-OP DIAGNOSIS: same PROCEDURE: Trigger Finger Release - Left Thumb SURGEON: Truman Jc ANESTHESIA TYPE: Local By Surgeon Refer to Anesthesia Record ESTIMATED BLOOD LOSS: 0 PATHOLOGY: none sent COMPLICATIONS: None Patient was transported to: same day Patient's condition: stable Indications: I have seen Shan in clinic for symptoms of a trigger finger. The catching, clicking, locking, and pain limited function. The diagnosis of trigger finger was evident. The symptoms had not responded to conservative measures. I discussed trigger finger release with the patient. I reviewed the risks of the procedure to include, but not limited to, bleeding, infection, pain, stiffness, incomplete release, damage to nerves or vessels, continued catching, recurrence. Despite these risks, the patient elected to proceed. Findings: There was a tightened A1 tiffany which was released. The flexor tendons were inspected and the patient was able to move the finger without any catching, clicking, or locking. Procedure Description: Shan was greeted in the preoperative holding area where the correct side was identified and marked. The consent was reviewed with the patient and signed. All questions were answered. She was taken back to the operating room. The patient was placed into the supine position on the operating room table with the left arm on an arm board. All bony prominences were well padded. No prophylactic antibiotics were adm inistered since this was a clean, elective hand surgical case. The left arm was then prepped with Chloraprep and draped in a standard fashion with stockinette and extremity drape. A timeout to confirm correct identity, side and site, procedure, allergies, anesthesia, and medical concerns was performed. The surgical site was marked as a longitudinal incision directly over the A1 tiffany of the involved digit. This was confirmed with palpation during finger flexion. This area, overlying the metacarpal head, was then anesthetized with 1% Lidocaine. The patient tolerated this well and once the anesthetic had setup, the procedure began. A longitudinal incision was made through skin only, approximately 1cm. The deep tissues were dissected bluntly. Once the A1 tiffany and flexor tendons were identified the soft tissue including neurovascular structures were retracted medially and laterally. There were no crossing structures over the A1 tiffany. The proximal edge of the tiffany was identified and the tiffany was incised with tenotomy scissors. There was a release of the tendons once this was fully released along with fluid. The tendons were then removed from the wound and inspected. Excess synovium was resected. There was some fraying which was resected as well. The tendons were then returned and the patient was asked to move the finger into deep flexion and back to extension. There was no recreation of the pre-operative symptoms. The hand was then once more inspected for any A0 tiffany or area of possible constriction. The wound was then irrigated and the skin was closed with a 4-0 Nylon. This was dressed with gauze and a Kerlex dressing. The patient tolerated the procedure well and was returned to the Same Day Surgery area in a stable condition suffering no k nown complication. Date of Procedure: 02/17/25
[2025-02-17 07:50] VITALS: BP 162/67; PULSE 64; RESP 16; TEMP 36.2; O2SAT 97
== END 2025-02-17 08:20 | disposition home or self-care (01) ==
PROVIDERS: PCP Family Medicine; Visit Provider Student in an Organized Health Care Education/Training Program
PROC: (CPT 26055; principal; 2025-02-17 07:30)
DX: M65.312 Trigger thumb, left thumb (principal)
CPT/HCPCS: 26055; J2004

== ENCOUNTER 2025-02-24 02:25 | Outpatient (CLI) | payer MEDICARE, SELFPAY ==
[2025-02-24 11:21] LABS: Abs Immature Grans 0.02 10^3/uL (0.0-0.06); Absolute Basophil Count 0.03 10^3/uL (0.0-0.2); Absolute Eosinophil Count 0.13 10^3/uL (0.0-0.7); Absolute Lymphocyte Count 1.71 10^3/uL (1.2-3.4); Basophils % 0.5 %; HCT 37.6 % (36.0-46.0); HGB 11.5 g/dL (11.2-15.7); Immature Grans % 0.3 %; Lymphocytes % 26.3 %; MCH 25.3 pg (27.0-33.0); MCHC 30.6 % (32.0-36.0); MCV 83 fL (80-95); MPV 9.4 fL (8.0-11.0); Monocytes % 7.7 %; Neutrophils % 63.2 %; Platelet Count 294 10^3/uL (130-400); RBC 4.54 10^6/uL (3.93-5.22); RDW 19.8 % (11.7-14.6); RDW-SD 59.6 fL; WBC 6.49 10^3/uL (4.4-10.8)
[2025-02-24 12:39] LABS: Iron 53 ug/dL (50-170)
== END 2025-02-24 02:26 | disposition home or self-care (01) ==
LOC: LBO 02:25
PROVIDERS: PCP Family Medicine; Visit Provider Family Medicine
DX: E61.1 Iron deficiency (principal)
CPT/HCPCS: 36415; 83540; 85025

== ENCOUNTER → 2025-03-22 10:34 | Outpatient (BNVA) | payer MEDICARE, SELFPAY | PROVIDERS: PCP Family Medicine; Referring Provider Family Medicine; Visit Provider Podiatrist | DX: L60.0 Ingrowing nail (principal); M79.671 Pain in right foot; M79.672 Pain in left foot | CPT/HCPCS: 11750 ==

== ENCOUNTER 2025-03-25 01:09 | Outpatient (CLI) | payer MEDICARE, SELFPAY ==
--- NOTE | 2025-03-25 | DI.CT_ITS ---
Exam(s) CT ABDOMEN PELVIS W EXAM: CT ABDOMEN PELVIS W CLINICAL HISTORY: Upper abdominal pain, R10.10; recent hernia repair, pt concerned about TECHNIQUE: Imaging Protocol: Axial computed tomography images with coronal and sagittal reformatted images were created and reviewed. CONTRAST MATERIAL: Intravenous: Omnipaque 350 Contrast volume:75 mL Oral: Yes COMPARISON: CT CT ABDOMEN PELVIS W from 11/23/2024 FINDINGS: ABDOMEN: Lung Bases: Mild dependent atelectasis. Liver: Normal density. No measurable mass. Portal, Superior Mesenteric, and Splenic Veins: Unremarkable. Gallbladder and Biliary Tract: Status post cholecystectomy. There is no biliary ductal dilatation. Pancreas: Normal density, no abnormal calcifications or inflammatory process. Spleen: Normal. Adrenals: No masses seen. Kidneys: Normal size, contour and axis. No radiodense stones or obstructive uropathy. There is a stab le left simple renal cysts. No follow-up is recommended. Abdominal Aorta: Abdominal portion non-dilated. Atherosclerotic calcification is present. Bowel: No obstruction or bowel wall thickening. Appendix is unremarkable. Peritoneal Cavity: No ascites, collection or mesenteric inflammatory response. No free air. Lymph Nodes: Within normal limits. Bones: Within normal limits for the patient's age. The patient has bilateral total hip arthroplastie s. Soft Tissues: The patient has had anterior abdominal wall hernia repair. There is no evidence of a r ecurrent hernia in the anterior abdominal wall. PELVIS: Bladder: Symmetric distention, no gross wall thickening. Reproductive Organs: Status post hysterectomy. Lymph Nodes: Within normal limits. Bones: Within normal limits for the patient's age. IMPRESSION: 1. No acute abdominal or pelvic process. 2. Interval anterior abdominal hernia repair. No evidence of a recurrent anterior abdominal wall her misa. RADIATION DOSE DELIVERED: 616.1mGy.cm Total DLP DATA REPOSITORY: All CT scans at this facility are submitted to the National Radiology Data Registry (NRDR) Dose Index Registry (DIR) with the [employer] ([employer]). RADIATION OPTIMIZATION: All CT scans at this facility use at least one of these dose optimization te chniques: automated exposure control; mA and/or kV adjustment per patient size (includes targeted exa ms where dose is matched to clinical indication); or iterative reconstruction.
[2025-03-25] MEDS: Barium Sulfate 2% W/V-Creamy Vanilla Smoothie 450 ML BTL PO ×2 (07:15→07:16)
[2025-03-25 08:21] LABS: CREATININE 1.2 mg/dL (0.55-1.02)
[2025-03-25] MEDS: Omnipaque 350 MG/ML 100 ML BTL 75 ML IJ (10:16)
[2025-03-25] MEDS: Normal Saline - Diluent 50 ML VIAL IJ (10:17)
== END 2025-03-25 01:29 ==
LOC: DI 01:09
PROVIDERS: PCP Family Medicine; Visit Provider Surgery
DX: R10.10 Upper abdominal pain, unspecified (principal)
CPT/HCPCS: 74177; 82565; J3490

== ENCOUNTER → 2025-04-13 09:37 | Outpatient (BNVA) | payer MEDICARE, SELFPAY | PROVIDERS: PCP Family Medicine; Referring Provider Family Medicine; Visit Provider Podiatrist | DX: L60.0 Ingrowing nail (principal); M79.671 Pain in right foot; M79.672 Pain in left foot | CPT/HCPCS: 11750 ==

== ENCOUNTER 2025-04-28 06:08 | Day surgery (SDC) | payer MEDICARE, SELFPAY ==
[2025-04-28 06:32] VITALS: BP 160/72; PULSE 87; RESP 18; TEMP 36.5; O2SAT 98
[2025-04-28] MEDS: Cephalexin 500 MG CAP 1000 MG PO (06:39)
--- NOTE | 2025-04-28 07:04 | W.PM.DSUDISC ---
Date of service: 04/28/25 Discharge Plan Disposition Patient Disposition: Home Condition: Good Discharge Details Reason For Visit: RMF RRF trigger release Attending Provider: Truman Jc Primary Care Provider: Nicolasa Griggs Home Meds and New Rx's Prescriptions: New acetaminophen 500 mg tablet 1,000 mg PO TID Qty: 90 0RF ibuprofen 600 mg tablet 600 mg PO TID PRN (Reason: pain) Qty: 90 0RF Continued neomycin-polymyxin B-dexameth [Maxitrol] 3.5mg/mL-10,000 unit/mL-0.1 % drops,suspension See Rx Instructions .Route Q12H Qty: 5 0RF Rx Instructions: Apply to the toe every 12 hours; Apply to the TOE. Do NOT apply to eyes. Discard once the toe is healed. duloxetine 30 mg capsule,delayed release(DR/EC) 30 mg PO DAILY lisinopril 40 MG tablet 40 mg PO DAILY cholecalciferol (vitamin D3) [Vitamin D3] 2,000 UNIT tablet 2,000 unit PO DAILY dexlansoprazole [Dexilant] 30 mg capsule,biphase delayed releas 30 mg PO DAILY Qty: 90 3RF epinephrine 0.3 mg/0.3 mL auto-injector 1 ea subcut DIRECTED PRN Patient Comments: INJECT ONE PEN UNDER THE SKIN DIRECTED aspirin [Children's Aspirin] 81 mg Tablet,Chewable 81 mg PO DAILY Qty: 100 0RF ondansetron 4 mg tablet,disintegrating 4 mg PO Q6H PRNQty: 28 0RF albuterol sulfate 90 mcg/actuation HFA aerosol inhaler 2 puff INHALATION Q4H PRN Patient Comments: INHALE 2 PUFFS BY MOUTH EVERY 4 HOURS NEEDED FOR SHOPRTNESS OF BREATH Discontinued ibuprofen 600 mg tablet 600 mg PO TID PRN (Reason: pain) Qty: 90 0RF Discharge Instructions Stand Alone Forms: Babita Coronado Activity:: Activity as Tolerated Remove Dressings/Wound Care:: 48 hours Shower/Bathe:: 48 hours Diet:: As Tolerated Discharge Orders Discharge Orders: Discharge Order (Routine); Ordered 04/28/25 Ordered By: Pete Loya DS: Diagnosis Discharge Diagnosis (1) Trigger finger, right ring finger: Status: Acute (2) Trigger finger, right middle finger: Status: Acute
[2025-04-28] MEDS: Lidocaine 1% Multi-Dose W/EPI 1/100,000 50 ML VIAL (07:39)
[2025-04-28] MEDS: Sodium Bicarbonate 50 MEQ/50 ML VIAL (07:39)
[2025-04-28 07:56] VITALS: BP 133/66; PULSE 64; RESP 18; TEMP 36.4; O2SAT 96
--- NOTE | 2025-04-28 09:19 | ROE_ITS ---
Operative Note Operative Note PRE-OP DIAGNOSIS: Right Middle and Ring Finger Trigger Fingers POST-OP DIAGNOSIS: same PROCEDURE: Trigger Finger Release - Right Middle and Ring Finger SURGEON: Truman Jc ANESTHESIA TYPE: Local By Surgeon Refer to Anesthesia Record ESTIMATED BLOOD LOSS: 0 PATHOLOGY: none sent COMPLICATIONS: None Patient was transported to: same day Patient's condition: stable Indications: I have seen Jami in clinic for symptoms of a trigger finger. The catching, clicking, locking, and pain limited function. The diagnosis of trigger finger was evident. The symptoms had not responded to conservative measures. I discussed trigger finger release with the patient and she has had this procedure before with good results. I reviewed the risks of the procedure to include, but not limited to, bleeding, infection, pain, stiffness, incomplete release, damage to nerves or vessels, continued catching, recurrence. Despite these risks, the patient elected to proceed. Findings: There was a tightened A1 tiffany which was released. The flexor tendons were inspected and the patient was able to move the finger without any catching, clicking, or locking. Procedure Description: Shan was greeted in the preoperative holding area where the correct side was identified and marked. The consent was reviewed with the patient and signed. All questions were answered. She was taken back to the operating room. The patient was placed into the supine position on the operating room table with the right arm on an arm board. All bony prominences were well padded. No prophylactic antibiotics were administered since this was a clean, elective hand surgical case. The right arm was then prepped with Chloraprep and draped in a standard fashion with stockinette and extremity drape. A timeout to confirm correct identity, side and site, procedure, allergies, anesthesia, and medical concerns was performed. The surgical site was marked as a longitudinal incision directly over the A1 tiffany of the ring and middle fingers. This was confirmed with palpation during finger flexion. This area, overlying the metacarpal head, was then anesthetized with 1% Lidocaine with Epinephrine buffered with sodium bicarbonate. The patient tolerated this well and once the anesthetic had setup, the procedure began. Starting with the ring finger, a longitudinal incision was made through skin only, approximately 1cm. The deep tissues were dissected bluntly. Once the A1 tiffany and flexor tendons were identified the soft tissue including neurovascular structures were retracted medially and laterally. There were no crossing structures over the A1 tiffany. The proximal edge of the tiffany was identified and the tiffany was incised with tenotomy scissors. There was a release of the tendons once this was fully released. The tendons were then removed from the wound and inspected. Excess synovium was resected. The tendons were then returned and the patient was asked to move the finger into deep flexion and back to extension. There was no recreation of the pre- operative symptoms. The hand was then once more inspected for any A0 tiffany or area of possible constriction. The wound was then irrigated and the skin was closed with a 4-0 Nylon. Attention was then turned to the middle finger. Similarly, a longitudinal incision was made through skin only, approximately 1cm. The deep tissues were dissected bluntly. Once the A1 tiffany and flexor tendons were identified the soft tissue including neurovascular structures were retracted medially and laterally. There were no crossing structures over the A1 tiffany. The proximal edge of the tiffany was identified and the tiffany was incised with tenotomy scissors. There was a release of the tendons once this was fully released. The tendons were then removed from the wound and inspected. The tendons were then returned and the patient was asked to move the finger into deep flexion and back to extension. There was no recreation of the pre- operative symptoms. The hand was then once more inspected for any A0 tiffany or area of possible constriction. The wound was then irrigated and the skin was closed with a 4-0 Nylon. This wouds were dressed with Xeroform, gauze and a Conform dressing. The patient tolerated the procedure well and was returned to the Same Day Surgery area in a stable condition suffering no known complication. Date of Procedure: 04/28/25
== END 2025-04-28 08:03 | disposition home or self-care (01) ==
PROVIDERS: PCP Family Medicine; Visit Provider Student in an Organized Health Care Education/Training Program
PROC: (CPT 26055; principal; 2025-04-28 07:30)
DX: M65.341 Trigger finger, right ring finger (principal); M65.331 Trigger finger, right middle finger
CPT/HCPCS: 26055 ×2; J2004

== ENCOUNTER → 2025-05-12 09:48 | Outpatient (BNVA) | payer MEDICARE, SELFPAY | PROVIDERS: PCP Family Medicine; Referring Provider Family Medicine; Visit Provider Podiatrist | DX: M20.22 Hallux rigidus, left foot (principal); L84 Corns and callosities; L60.0 Ingrowing nail; M79.671 Pain in right foot; M79.672 Pain in left foot | CPT/HCPCS: 20600; 99213; J0702; J1100 ==

== ENCOUNTER 2025-06-16 11:23 | Outpatient (CLI) | payer MEDICARE, SELFPAY ==
[2025-06-16 12:31] LABS: Abs Immature Grans 0.03 10^3/uL (0.0-0.06); HCT 36.1 % (36.0-46.0); HGB 11.2 g/dL (11.2-15.7); Immature Grans % 0.4 %; MCH 27.0 pg (27.0-33.0); MCHC 31.0 % (32.0-36.0); MCV 87 fL (80-95); MPV 9.9 fL (8.0-11.0); Platelet Count 294 10^3/uL (130-400); RBC 4.15 10^6/uL (3.93-5.22); RDW 15.6 % (11.7-14.6); RDW-SD 49.3 fL; WBC 6.93 10^3/uL (4.4-10.8)
[2025-06-16 13:20] LABS: Iron 36 ug/dL (50-170); Total Iron Binding Capacity 303 ug/dL (250-450); Transferrin Sat 12 % (15-50)
[2025-06-16 13:32] LABS: Ferritin 21 ng/mL (8-252)
== END 2025-06-16 11:24 | disposition home or self-care (01) ==
PROVIDERS: PCP Family Medicine; Visit Provider Internal Medicine Gastroenterology
DX: D50.0 Iron deficiency anemia secondary to blood loss (chronic) (principal)
CPT/HCPCS: 36415; 82728; 83540; 83550; 85025

== ENCOUNTER 2025-07-07 11:53 | Outpatient (CLI) | payer MEDICARE, SELFPAY ==
--- NOTE | 2025-07-07 | DI.MAMMO_ITS ---
Exam(s) MAMMO SCREENING EXAM: MAMMO SCREENING CLINICAL HISTORY: SCREENING,Z12.31 TECHNIQUE: Bilateral full field digital CC and MLO mammographic images were obtained with 3D tomosynthesis and utilizing computer aided detection (CAD). COMPARISON: Comparison is made with prior examinations. FINDINGS: Masses/Architectural Distortion: No suspicious masses or areas of architectural distortion are present. Microcalcifications: No suspicious pleomorphic-type are seen. Skin Thickening/Nipple Retraction: None. IMPRESSION: 1. No significant interval change with no specific features of malignancy noted. 2. Unless there is more urgent need, screening mammography is recommended, as per [place] [employer] guidelines. BI-RADS Category 1 - Negative Breast Density - Category B - There are scattered areas of fibroglandular density. Breast density Category C or D implies that the patient has dense breast tissue. Dense breast tissue can make it harder to find cancer on a mammogram. Dense breast tissue is also associated with an increased risk of breast cancer. This information about the result of the mammogram report was provided to the patient to raise their awareness. Use this report when you speak with the patient about their risks for breast cancer, which includes their family history. At that time, you may recommend additional screening tests (Ultrasound or MRI) as these tests may add significant information. A negative radiographic report should not delay biopsy if a dominant or clinically suspicious mass is present. Up to ten percent of cancers are not identified on mammography. A negative report may reinforce clinical impression. Adenosis and dense breasts may obscure an underlying neoplasm. False positive reports average 6 to 10%. Patient will receive a letter notifying them of these results.
--- NOTE | 2025-07-07 15:35 | DI.CTLCSR_ITS ---
Exam(s) CT CHEST LUNG CANCER SCREEN EXAM: CT CHEST LUNG CANCER SCREEN CLINICAL HISTORY: EX SMOKER, Z87.891,LUNG CANCER SCREENING. TECHNIQUE: Imaging Protocol: Low Dose Technique CONTRAST MATERIAL: None COMPARISON: CT CT CHEST LUNG CANCER SCREEN from 05/27/2023 FINDINGS: CHEST: LUNGS: Small benign calcified granuloma in the left upper lobe again noted. There are no new ominous pulmonary nodules. There are no confluent infiltrates. Mild benign scarring in the left lower lobe again noted. No pleural effusions. MEDIASTINUM: There is no obvious hilar nor mediastinal adenopathy. CARDIAC: Heart size is normal. There is no pericardial effusion.Caliber of the thoracic aorta is within normal limits. OTHER: Gallbladder surgically absent. OSSEOUS: No significant osseous lesions.No new fractures evident. IMPRESSION: 1. No suspicious lung nodules. 2. No infiltrates nor pleural effusions nor intrathoracic adenopathy. 3. Lung RADS Cat 1 - Negative: No nodules and definitely benign nodules Lung-RADS 1.0 CATEGORIES: Category 0 - Prior chest CT exam(s) being located for comparison. Category 1 - Annual screening in 12 months. No nodules or definitely benign nodules. Category 2 - Annual screening in 12 months. Benign appearance. Nodules with low likelihood of becoming active cancer. Category 3 - 6-month follow-up. Probably benign. Short-term follow-up suggested. Nodules with low likelihood of becoming active cancer. Category 4A - 3-month follow-up and CT/PET if >8 mm in size. Suspicious finding. Findings which require additional testing. Category 4B - Findings which require additional testing and tissue sampling. Category 4X - Category 3 or 4 nodules with additional features or imaging findings that increases the suspicion of malignancy. Modifier S- Potentially clinically significant findings (non lung cancer) RADIATION DOSE DELIVERED: 34.49mGy.cm Total DLP DATA REPOSITORY: All CT scans at this facility are submitted to the National Radiology Data Registry (NRDR) Dose Index Registry (DIR) with the [employer] (A[employer]). RADIATION OPTIMIZATION: All CT scans at this facility use at least one of these dose optimization techniques: automated exposure control; mA and/or kV adjustment per patient size (includes targeted exams where dose is matched to clinical indication); or iterative reconstruction.
== END 2025-07-07 12:13 ==
LOC: DI 11:54
PROVIDERS: PCP Family Medicine; Visit Provider Family Medicine
DX: Z12.2 Encounter for screening for malignant neoplasm of respiratory organs (principal); Z87.891 Personal history of nicotine dependence; Z12.31 Encounter for screening mammogram for malignant neoplasm of breast
CPT/HCPCS: 71271; 77063; 77067

== ENCOUNTER 2025-07-19 09:53 | Outpatient (CLI) | payer MEDICARE, SELFPAY ==
--- NOTE | 2025-07-19 06:45 | DI.RAD_ITS ---
Exam(s) XR FOOT LT COMPLETE EXAM: XR FOOT LT COMPLETE CLINICAL HISTORY: First MPJ and hallux IPJ pain,lt foot hallux rigidus,m20.22. TECHNIQUE: 2D digital imaging was performed. Three views. COMPARISON: CR XR foot LT complete from 02/11/2019 FINDINGS: BONES: No acute fracture is present. No bony destructive lesion is seen. JOINTS: No dislocation present. Minimal degenerative changes of the 1st MTP joint. No significant degenerative changes elsewhere. Plantar arch is maintained. SOFT TISSUE: Normal. IMPRESSION: Minimal degenerative changes. DATA REPOSITORY: RADIATION DOSE DELIVERED:
== END 2025-07-19 10:13 ==
PROVIDERS: PCP Family Medicine; Visit Provider Podiatrist
DX: M20.22 Hallux rigidus, left foot (principal)
CPT/HCPCS: 73630

== ENCOUNTER 2025-07-21 11:59 | Day surgery (SDC) | payer MEDICARE, SELFPAY ==
--- NOTE | 2025-07-21 07:39 | W.PM.DSUDISC ---
Date of service: 07/21/25 Discharge Plan Disposition Patient Disposition: Home Condition: Good Discharge Details Reason For Visit: Rainer Car's Release Attending Provider: Truman Jc Primary Care Provider: Nicolasa Griggs Home Meds and New Rx's Prescriptions: New tramadol 50 mg tablet 50 mg PO Q8H PRNQty: 4 0RF acetaminophen 500 mg tablet 1,000 mg PO TID Qty: 90 0RF ibuprofen 600 mg tablet 600 mg PO TID PRN (Reason: pain) Qty: 90 0RF Continued duloxetine 30 mg capsule,delayed release(DR/EC) 30 mg PO DAILY lisinopril 40 MG tablet 40 mg PO DAILY cholecalciferol (vitamin D3) [Vitamin D3] 2,000 UNIT tablet 2,000 unit PO DAILY dexlansoprazole [Dexilant] 30 mg capsule,biphase delayed releas 30 mg PO DAILY Qty: 90 3RF multivitamin Tablet 1 tab PO DAILY magnesium oxide 400 mg (241.3 mg magnesium) tablet 400 mg PO DAILY ergocalciferol (vitamin D2) 1,250 mcg (50,000 unit) capsule 1,250 mcg PO Q2W estradiol 0.01 % (0.1 mg/gram) cream 1 g vaginal QWEEK epinephrine 0.3 mg/0.3 mL auto-injector 1 ea subcut DIRECTED PRN Patient Comments: INJECT ONE PEN UNDER THE SKIN DIRECTED aspirin [Children's Aspirin] 81 mg Tablet,Chewable 81 mg PO DAILY Qty: 100 0RF ondansetron 4 mg tablet,disintegrating 4 mg PO Q6H PRNQty: 28 0RF albuterol sulfate 90 mcg/actuation HFA aerosol inhaler 2 puff INHALATION Q4H PRN Patient Comments: INHALE 2 PUFFS BY MOUTH EVERY 4 HOURS NEEDED FOR SHOPRTNESS OF BREATH acetaminophen 500 mg tablet 1,000 mg PO TID Qty: 90 0RF ibuprofen 600 mg tablet 600 mg PO TID PRN (Reason: pain) Qty: 90 0RF Discharge Instructions Additional Instructions: [place] Discharge Instructions Activity: You should keep the hand elevated as much as possible for the first few days. You may use the other fingers as tolerated but avoid trying to do too much too soon. You may perform light activities with the splint in place. Dressing/Cast: Your splint should stay in place at all times. Do NOT get it wet. You may loosen the RAY wrap if you feel it is too tight and then rewrap more loosely. Medications: - You should take Tylenol and Ibuprofen for baseline pain control. - You have Tramadol for breakthrough pain. - You may apply ice over the thumb. Follow-up: 7-10 days Stand Alone Forms: Anesthesia Discharge Inst., Jonh Sandoval ([facility]) Referrals: Truman Jc MD [ [facility]FF [facility]YSICIAN, Orthopaedic Surgical] - 07/30/25 9:00 am Activity:: Activity as Tolerated Remove Dressings/Wound Care:: Do Not Remove Shower/Bathe:: Cover Diet:: As Tolerated Discharge Orders Discharge Orders: Discharge Order (Routine); Ordered 07/21/25 Ordered By: Pete Loya DS: Diagnosis Discharge Diagnosis (1) De Quervain's tenosynovitis, left: Status: Acute
[2025-07-21 12:00] VITALS: BP 145/66; PULSE 70; RESP 18; TEMP 36.4; O2SAT 99
--- NOTE | 2025-07-21 12:23 | W.PREOPHP ---
Assessment and Plan Assessment and plan (1) De Quervain's tenosynovitis, left: Status: Acute Assessment and plan: Shan is a 70-year-old female with DeQuervain's tenosynovitis about the left wrist. She has failed nonoperative options and is here today for de Quervain's, versus tensor compartment, release. I reviewed the technical details of the surgery. I discussed the rehabilitation expectations afterwards. I discussed risk to include bleeding, infection, pain, stiffness, tendon subluxation, damage nerves and vessels, recurrence or incomplete release. Despite these risks, she elects to proceed. History of Present Illness History of Present Illness Chief Complaint: Left DeQuervain's Tenosynovitis Narrative: Shan is a 70-year-old female who presents today for her left wrist. She has known de Quervain's tenosynovitis. She has done well with previous injection but unfortunate the pain has returned. She now has swelling and pain about the radial side of the left wrist consistent with de Quervain's tenosynovitis and she is here today for first extensor compartment release. Overall, she has been doing well. She has not been recently sick. She denies chest pain or shortness of breath. Review of Systems All systems reviewed & are unremarkable except as noted in HPI and below PFSH All Active Problems De Quervain's tenosynovitis, left (Acute) Hallux rigidus, left foot (Acute) Pain in both feet (Acute) Trigger finger, right ring finger (Acute) S/P Release: 04/28/2025 Trigger finger, right middle finger (Acute) S/P Release: 04/28/2025 Trigger thumb, left thumb (Acute) S/P Release: 02/17/2025 Anemia (Chronic) 02/02 Infusions [facility] Altered bowel elimination due to intestinal ostomy (Acute) Trigger finger, left ring finger (Acute) Depo-medrol injection: 03/25/23 H/O endarterectomy (Acute) LEFT Pain, foot (Acute) Corns and callosities (Acute) Carotid stenosis, left (Acute) Carotid stenosis, right (Acute) Ulcerative colitis (Chronic) BRAO (branch retinal artery occlusion) (Acute) Gastritis (Acute ~04/2021) Esophagitis (Acute ~04/2021) Osteoarthritis of carpometacarpal (CMC) joint of left thumb (Acute) Injected: 02/08/2025, 02/17/2021 Acromioclavicular joint arthritis (Chronic) bilateral Subacromial impingement of right shoulder (Acute) Chronic shoulder pain (Acute) Hip bursitis (Acute) Postoperative anemia due to acute blood loss (Acute) Arthritis of carpometacarpal (CMC) joint of right thumb (Acute) Most recent depo-medrol injection: 03/25/23 Tendinitis of left rotator cuff (Acute) Ingrowing right great toenail (Acute) Trochanteric bursitis, right hip (Acute) Most recent injections: 08/02/23; 01/02/2021; 09/19/2020 ; 06/27/20 Trochanteric bursitis of left hip (Acute) s/p endoscopic trochanteric bursectomy and IT band release DOS: 12/22/2020 Most recent injections: 08/02/23; 09/19/2020 ; 06/27/20 Chronic frontal sinusitis (Chronic) History of sinusitis (Chronic) Bilateral knee pain (Chronic) Instability of joints of both ankles (Acute) Tubular adenoma of colon (Acute 02/26/17) Right wrist tendinitis (Acute 04/18/17) Pain from implanted hardware (Acute 06/10/17) De Quervain's tenosynovitis, right (Acute 11/14/16) Post-nasal drip (Chronic) IBS (irritable bowel syndrome) (Chronic) Medical History Incisional hernia 01/05, 6 incisional hernia r/t colectomy, 11x10 mesh [facility] [place] Serrated adenoma of colon (~04/2021) Tubular adenoma (~04/2021) Colon polyp, hyperplastic (~04/2021) Iliotibial band syndrome of left side Bunion, left foot Bunion, right foot Chronic maxillary sinusitis Chronic ethmoidal sinusitis Other intraarticular fracture of lower end of right radius, subsequent encounter for closed fracture with routine healing (08/08/16) Ethmoid sinusitis Sinus congestion Hypertension GERD (gastroesophageal reflux disease) Closed fracture of right distal radius Surgical History S/P total colectomy (~02/05/24) Dr. Sheila Rice, [facility] [place] S/P carotid endarterectomy Left Nov 2022-Follows up annually S/P hysterectomy with oophorectomy S/P cholecystectomy S/P Mohs surgery for basal cell carcinoma x2 History of esophagogastroduodenoscopy (EGD) (~04/2021) History of colonoscopy (~04/2021) History of bursectomy and IT band release Status post bilateral total hip replacement right wrist fracture repair (06/29/16) EGD - IV Sedation (02/26/17) Colonoscopy - IV Sedation (02/26/17) Family History Other Hypertension Social History Smoking/Tobacco Use Status: Former Tobacco Use Quit Date: 08/11/17 Smoking risk assessment performed?: Yes Alcohol Intake: current Alcohol Intake frequency: a few times a month Alcohol type: wine and hard liquor Drug use: Daily Substance use type: marijuana Details: alcohol: t-10, marijuana: t-1, couple puffs Household members: none Housing: apartment Number of Children: 2 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 Meds Allergies and Home Medications Allergies Allergy/AdvReac Type Severity Reaction Status Date / Time protamine Allergy Severe Anaphylaxis Verified 07/19/25 14:37 venom-honey bee Allergy Severe Other (See Verified 07/19/25 14:37 Comment) wool Allergy Other (See Verified 07/19/25 14:37 Comment) amoxicillin (From Augmentin) AdvReac Severe GI Verified 07/19/25 14:37 problems, Severe Diarrhea clavulanic acid (From AdvReac Severe GI Verified 07/19/25 14:37 Augmentin) problems, severe diarrhea omeprazole AdvReac Severe Diarrhea Verified 07/19/25 14:37 esomeprazole (From Nexium) AdvReac Intermediate history of Verified 07/19/25 14:37 Irritable bowel, severe diarrhea silver nitrate AdvReac Skin Rash Verified 07/19/25 14:37 Home Medications ?Medication ?Instructions ?Recorded ?Confirmed ?Type cholecalciferol (vitamin D3) 50 2,000 unit PO DAILY 02/11/17 07/19/25 History mcg (2,000 unit) tablet (Vitamin D3) lisinopril 40 mg tablet 40 mg PO DAILY 02/11/17 07/19/25 History dexlansoprazole 30 mg 30 mg PO DAILY #90 caps 06/02/21 07/19/25 Rx capsule,biphase delayed release (Dexilant) epinephrine 0.3 mg/0.3 mL 1 ea subcut DIRECTED PRN 09/13/22 07/19/25 History injection, auto-injector aspirin 81 mg chewable tablet 81 mg PO DAILY #100 tabs 09/14/22 07/19/25 Rx (Children's Aspirin) duloxetine 30 mg capsule,delayed 30 mg PO DAILY 02/01/23 07/19/25 History release ondansetron 4 mg disintegrating 4 mg PO Q6H PRN #28 tabs 04/24/24 07/19/25 Rx tablet albuterol sulfate 90 mcg/actuation 2 puff inhalation Q4H PRN 05/15/24 07/19/25 History aerosol inhaler acetaminophen 500 mg tablet 1,000 mg (2 x 500 mg) PO TID #90 04/28/25 07/19/25 Rx tabs ibuprofen 600 mg tablet 600 mg PO TID PRN pain #90 tabs 04/28/25 07/19/25 Rx ergocalciferol (vitamin D2) 1,250 1,250 mcg PO Q2W 07/16/25 07/19/25 History mcg (50,000 unit) capsule estradiol 0.01% (0.1 mg/gram) 1 g vaginal QWEEK 07/16/25 07/19/25 History vaginal cream magnesium oxide 400 mg (241.3 mg 400 mg PO DAILY 07/16/25 07/19/25 History magnesium) tablet multivitamin 1 tab PO DAILY 07/16/25 07/19/25 History acetaminophen 500 mg tablet 1,000 mg (2 x 500 mg) PO TID #90 07/21/25 Rx tabs ibuprofen 600 mg tablet 600 mg PO TID PRN pain #90 tabs 07/21/25 Rx tramadol 50 mg tablet 50 mg PO Q8H PRN #4 tabs 07/21/25 Rx Exam Const General: cooperative, healthy appearing, comfortable and no acute distress Nutritional Appearance: average body habitus Orientation: alert, awake and oriented x3 Resp Effort & Inspection: normal respiratory effort Auscultation: clear to auscultation bilaterally Cardio Rate: regular rate Rhythm: regular rhythm
[2025-07-21] MEDS: Lactated Ringers 1,000 ML 80 ML IV (12:41)
[2025-07-21] MEDS: Acetaminophen 500 MG TAB 1000 MG PO (12:41)
[2025-07-21] MEDS: Celecoxib 200 MG CAP 400 MG PO (12:42)
--- NOTE | 2025-07-21 12:52 | W.ANESPRE ---
General Info Date of Service Date Performed: 07/21/25 Height: 5 ft 2 in Weight: 74.7 kg Body Mass Index (BMI): 30.1 Surgical Procedure: Operation Date: 07/21/25 15:10 Proposed Procedure Side Surgeon p Wrist Dequervains Release Left Truman Jc MD Actual Procedure Side Surgeon p Wrist Dequervains Release Left Truman Jc MD Pre-Op Diagnosis Post-Op Diagnosis L De Quervain's Release Meds Allergies and Home Medications Allergies Allergy/AdvReac Type Severity Reaction Status Date / Time protamine Allergy Severe Anaphylaxis Verified 07/21/25 12:52 venom-honey bee Allergy Severe Other (See Verified 07/21/25 12:52 Comment) wool Allergy Other (See Verified 07/21/25 12:52 Comment) amoxicillin (From Augmentin) AdvReac Severe GI Verified 07/21/25 12:52 problems, Severe Diarrhea clavulanic acid (From AdvReac Severe GI Verified 07/21/25 12:52 Augmentin) problems, severe diarrhea omeprazole AdvReac Severe Diarrhea Verified 07/21/25 12:52 esomeprazole (From Nexium) AdvReac Intermediate history of Verified 07/21/25 12:52 Irritable bowel, severe diarrhea silver nitrate AdvReac Skin Rash Verified 07/21/25 12:52 Home Medication ?Medication ?Instructions ?Recorded cholecalciferol (vitamin D3) 50 2,000 unit PO DAILY 02/11/17 mcg (2,000 unit) tablet (Vitamin D3) lisinopril 40 mg tablet 40 mg PO DAILY 02/11/17 dexlansoprazole 30 mg 30 mg PO DAILY #90 caps 06/02/21 capsule,biphase delayed release (Dexilant) epinephrine 0.3 mg/0.3 mL 1 ea subcut DIRECTED PRN 09/13/22 injection, auto-injector aspirin 81 mg chewable tablet 81 mg PO DAILY #100 tabs 09/14/22 (Children's Aspirin) duloxetine 30 mg capsule,delayed 30 mg PO DAILY 02/01/23 release albuterol sulfate 90 mcg/actuation 2 puff inhalation Q4H PRN 05/15/24 aerosol inhaler acetaminophen 500 mg tablet 1,000 mg (2 x 500 mg) PO TID #90 04/28/25 tabs ibuprofen 600 mg tablet 600 mg PO TID PRN pain #90 tabs 04/28/25 ergocalciferol (vitamin D2) 1,250 1,250 mcg PO Q2W 07/16/25 mcg (50,000 unit) capsule estradiol 0.01% (0.1 mg/gram) 1 g vaginal QWEEK 07/16/25 vaginal cream magnesium oxide 400 mg (241.3 mg 400 mg PO DAILY 07/16/25 magnesium) tablet multivitamin 1 tab PO DAILY 07/16/25 acetaminophen 500 mg tablet 1,000 mg (2 x 500 mg) PO TID #90 07/21/25 tabs ibuprofen 600 mg tablet 600 mg PO TID PRN pain #90 tabs 07/21/25 tramadol 50 mg tablet 50 mg PO Q8H PRN #4 tabs 07/21/25 Current Visit Medications: Current Medications Generic Name Dose Route Start Last Admin Trade Name Freq PRN Reason Stop Dose Admin Acetaminophen 1,000 mg 07/21/25 06:00 07/21/25 12:41 Acetaminophen 500 Mg Tab PO 07/21/25 23:59 1,000 mg PREOP RONNELL Administration Acetaminophen 650 mg 07/21/25 07:38 Acetaminophen 325 Mg Tab PO 08/20/25 07:37 Q4H PRN PRN Celecoxib 400 mg 07/21/25 06:00 07/21/25 12:42 Celecoxib 200 Mg Cap PO 07/21/25 23:59 400 mg PREOP RONNELL Administration Ringer's Solution 1,000 mls @ 80 mls/hr 07/21/25 06:00 07/21/25 12:41 IV 07/21/25 23:59 80 mls/hr INFUSION RONNELL Administration Cefazolin Sodium/Dextrose 2 gm in 50 mls @ 100 mls/hr 07/21/25 06:00 Ancef Duplex IVPB 07/21/25 23:59 PREOP RONNELL IV Miscellaneous Supplies 1 each 07/21/25 06:00 Iv Access IV 07/21/25 23:59 DIRECTED RONNELL Sodium Chloride 0 ml 07/21/25 06:00 Normal Saline Flush 10 Ml Syr IV 07/21/25 23:59 PRN PRN Sodium Chloride 0 ml 07/21/25 06:00 Normal Saline 10 Ml Vial IJ 07/21/25 23:59 DIRECTED PRN Sterile Water 0 ml 07/21/25 06:00 Water,Injection,Sterile 10 Ml Vial IJ 07/21/25 23:59 DIRECTED PRN FORMERLY [facility], 1928–1983 Active Problems Active Problems: Problem Status Onset Code De Quervain's tenosynovitis, left Acute M65.4 Hallux rigidus, left foot Acute M20.22 Pain in both feet Acute M79.671, M79.672 Trigger finger, right ring finger Acute M65.341 Trigger finger, right middle finger Acute M65.331 Trigger thumb, left thumb Acute M65.312 Anemia Chronic D64.9 Altered bowel elimination due to intestinal ostomy Acute K94.19 Trigger finger, left ring finger Acute M65.342 H/O endarterectomy Acute Z98.890 Pain, foot Acute M79.673 Corns and callosities Acute L84 Carotid stenosis, left Acute I65.22 Carotid stenosis, right Acute I65.21 Ulcerative colitis Chronic K51.90 BRAO (branch retinal artery occlusion) Acute H34.239 Gastritis Acute ~04/2021 K29.70 Esophagitis Acute ~04/2021 K20.90 Osteoarthritis of carpometacarpal (CMC) joint of left thumb Acute M18.12 Acromioclavicular joint arthritis Chronic M19.019 Subacromial impingement of right shoulder Acute M75.41 Chronic shoulder pain Acute M25.519, G89.29 Hip bursitis Acute M70.70 Postoperative anemia due to acute blood loss Acute D62 Arthritis of carpometacarpal (CMC) joint of right thumb Acute M18.11 Tendinitis of left rotator cuff Acute M75.82 Ingrowing right great toenail Acute L60.0 Trochanteric bursitis, right hip Acute M70.61 Trochanteric bursitis of left hip Acute M70.62 Chronic frontal sinusitis Chronic J32.1 History of sinusitis Chronic Z87.09 Bilateral knee pain Chronic M25.561, M25.562 Instability of joints of both ankles Acute M25.371, M25.372 Tubular adenoma of colon Acute 02/26/17 D12.6 Right wrist tendinitis Acute 04/18/17 M77.8 Pain from implanted hardware Acute 06/10/17 T85.848A De Quervain's tenosynovitis, right Acute 11/14/16 M65.4 Bilateral primary osteoarthritis of hip Resolved 09/04/17 M16.0 Post-nasal drip Chronic R09.82 IBS (irritable bowel syndrome) Chronic Medical History Medical History Incisional hernia 2, 6 incisional hernia r/t colectomy, 11x10 mesh [facility] [place] Serrated adenoma of colon (~04/2021) Tubular adenoma (~04/2021) Colon polyp, hyperplastic (~04/2021) Iliotibial band syndrome of left side Bunion, left foot Bunion, right foot Chronic maxillary sinusitis Chronic ethmoidal sinusitis Other intraarticular fracture of lower end of right radius, subsequent encounter for closed fracture with routine healing (08/08/16) Ethmoid sinusitis Sinus congestion Hypertension GERD (gastroesophageal reflux disease) Closed fracture of right distal radius Surgical History Surgical History S/P total colectomy (~02/05/24) Dr. Sheila Rice, [facility] [place] S/P carotid endarterectomy Left Nov 2022-Follows up annually S/P hysterectomy with oophorectomy S/P cholecystectomy S/P Mohs surgery for basal cell carcinoma x2 History of esophagogastroduodenoscopy (EGD) (~04/2021) History of colonoscopy (~04/2021) History of bursectomy and IT band release Status post bilateral total hip replacement right wrist fracture repair (06/29/16) EGD - IV Sedation (02/26/17) Colonoscopy - IV Sedation (02/26/17) Tobacco Smoking/Tobacco Use Status: Former Tobacco Use Passive smoking exposure: No Alcohol Alcohol Intake: current Alcohol intake frequency: a few times a month Alcohol type: wine and hard liquor Substance Use Substance use: Daily Substance use type: marijuana Details: alcohol: t-10, marijuana: t-1, couple puffs Vital Signs and Lab Results Vital Signs Most Recent Vital Signs in EMR: Most Recent Vital Signs Temp Pulse Resp BP Pulse Ox 36.4 C L 70 18 145/66 H 99 07/21/25 12:00 07/21/25 12:00 07/21/25 12:00 07/21/25 12:00 07/21/25 12:00 Imaging and Studies Imaging and Studies Study information below may be from another EMR and interpreted by another provider. Please see original notes in EMR for more complete details. EKG Summary: 03/07/24 Conclusion Sinus rhythm 80 TWI no stemi I have reviewed and I agree with the emergency room physician's ECG interpretation. Electronically signed by: <Electronically signed by Renetta Newby M.D. in [place]> 03/09/24 0822 Cosigned by: Echocardiogram Summary: 09/14/22 Conclusion Normal left ventricular wall thickness and chamber size. Estimated ejection fraction is 58%. Wall motion is normal Normal right ventricular size and systolic function Both atria are normal in size There is no structural or hemodynamically significant valvular disease Right ventricular systolic pressure could not be estimated Anesthesia Assessment and Plan Anesthesia History Personal History: No History of Anesthesia Complications Family History: No Family History of Anesthesia Complications Exercise Tolerance Exercise Tolerance: Metabolic Equivalents>4 Pertinent Negatives Pertinent Negatives: No Symptoms of GERD, No Major Cardiovascular Symptoms or Complaints and No Major Pulmonary Symptoms or Complaints Cardiac & Pulmonary Exam Cardiac Exam: Normal S1/S2 Heart Sounds Pulmonary Exam: Clear Bilateral Breath Sounds Implantable Cardiac Device Does patient have a Pacemaker or an ICD?: No Airway Exam Known Difficult Airway: No Mallampati Class: 2 Mouth Opening: Normal (> 3cm) Thyromental Distance: Greater than 3 cm Neck Range of Motion: Limited ROM Neck Circumference: Normal Teeth Condition: Removable Dentures/Plates Upper, Removable Dentures/Plates Lower and Edentulous ASA Classification ASA Score: ASA 2 Emergency Case?: No NPO Status NPO Status: NPO Clears >2 hours, Solids >8 hours Anesthesia Plan Resuscitation Status: Full Code Anesthesia Technique: General Anesthesia Airway Planned: Natural Airway Monitors Used: Standard Monitors
[2025-07-21 13:02] VITALS: BMI 30.1
--- NOTE | 2025-07-21 13:36 | W.PM.OP ---
Operative Note Operative Note PRE-OP DIAGNOSIS: Left Dequervain's Tenosynovitis POST-OP DIAGNOSIS: same PROCEDURE: Left First Extensor Compartment Release SURGEON: Truman Jc ANESTHESIA TYPE: General:No Airway Refer to Anesthesia Record ESTIMATED BLOOD LOSS: 0 PATHOLOGY: none sent TOURNIQUET TIME: 1 COMPLICATIONS: None Patient was transported to: same day Patient's condition: stable Indications: Shan is a 70 year old female who has had symptoms of Dequervain's tenosynovitis. Nonoperative treatment options had been trialed. Given their failure, I offered operative intervention. I reviewed the technical details of a first extensor compartment release. I reviewed the risk of the procedure to include bleeding, infection, pain, stiffness, tendon instability, damage to the superficial radial nerve, and complete release. Despite these risks, the patient elected to proceed. Findings: There was a tightened first excessive compartment. No subcompartments were seen encasing the EPB tendon. Procedure Description: Shan was greeted in the preoperative holding area. Name and surgical site were confirmed. The history and physical was completed. The consent was reviewed the patient and signed. She was taken back to the operating room. The patient was placed in the supine position and monitored anesthesia care was initiated. The left was then prepped with ChloraPrep and draped in a standard fashion after a nonsterile tourniquet was placed high up onto the arm. Prophylactic antibiotics in the form of cefazolin were administered. A timeout was performed for safe surgery. The surgical site was drawn on the skin. The planned surgical field was anesthetized with 0.25% bupivacaine with epinephrine. The limb was exsanguinated and the tourniquet was inflated where it stayed for only 1 minute as the blood pressure spiked and created a venous tourniquet. A 2 cm incision was made longitudinally over the radial styloid. The skin was incised only. The deep tissue subcutaneous fat was dissected with a tenotomy scissors trying to protect bridge of the superficial radial nerve. Any branches that were identified were retracted out of the way. The first compartment extensor tendons were then identified. The distal aspect of the first compartment was noted and were released. This release was performed more on the dorsal side to prevent tendon subluxation. The entirety of the first extensor compartment was then released. The slips of the abductor pollicis longus tendon were inspected. They removed to confirm the appropriate motion of the thumb. The extensor pollicis brevis tendon was then identified. Traction on the tendon was also used to confirm appropriate extension of the thumb confirming the release of the appropriate tendon. The dorsal radial surface of the radius was once again inspected to make sure there is no other sub-compartments or other restrictions to tendon motion. The wound was then thoroughly irrigated. The deep tissue was closed with a 3-0 Vicryl. The skin was closed with a running subjective 4-0 Monocryl. Skin glue was applied. The hand was dressed with 4 x 4's, Kerlex and RAY wrap into a soft thumb spica splint. All counts were correct. Patient was transferred back to same day surgery area in stable condition. Date of Procedure: 07/21/25
[2025-07-21] MEDS: ceFAZolin 2 GM/50 ML BAG IVPB (13:37)
[2025-07-21] MEDS: Bupivacaine 0.25% Pres-Free W/EPI 30 ML VIAL (13:45)
[2025-07-21 14:08] VITALS: BP 111/61; PULSE 66; RESP 17; TEMP 36.3; O2SAT 96
--- NOTE | 2025-07-21 14:18 | W.ANESPOSTOP ---
Postoperative Evaluation Date, Time and Location Date Performed: 07/21/25 Time Performed: 14:15 Patient Location: Day Surgery Unit Vital Signs Most Recent Imported Vital Signs: Most Recent Vital Signs Temp Pulse Resp BP Pulse Ox 36.4 C L 70 18 145/66 H 99 07/21/25 12:00 07/21/25 12:00 07/21/25 12:00 07/21/25 12:00 07/21/25 12:00 Assessment Mental Status: Awake (Alert & Oriented to Patient Baseline) Airway and Respiratory Function: Patent airway with normal (patient baseline) respiratory exam Cardiovascular Function: Hemodynamically Stable Hydration Status: Adequately Hydrated Nausea & Vomiting: No Nausea or Vomiting Pain: Pt. Denies Any Pain Peripheral Nerve Block: Patient did not receive a nerve block
[2025-07-21 14:41] VITALS: BP 117/63; PULSE 60; RESP 16; TEMP 36.3; O2SAT 99
== END 2025-07-21 14:50 | disposition home or self-care (01) ==
LOC: SUR 11:59
PROVIDERS: PCP Family Medicine; Visit Provider Student in an Organized Health Care Education/Training Program
PROC: (CPT 25000; principal; 2025-07-21 15:00)
DX: M65.4 Radial styloid tenosynovitis [de Quervain] (principal)
CPT/HCPCS: 25000; J0690; J1885; J2003; J2405; J2704

== ENCOUNTER → 2025-07-26 10:51 | Outpatient (BNVA) | payer MEDICARE, SELFPAY | PROVIDERS: PCP Family Medicine; Referring Provider Family Medicine; Visit Provider Podiatrist | DX: M20.22 Hallux rigidus, left foot (principal); L84 Corns and callosities; M79.671 Pain in right foot; M79.672 Pain in left foot | CPT/HCPCS: 20600; 99213; J0702; J1100 ==

== ENCOUNTER → 2025-07-29 10:20 | Outpatient (BNVA) | payer MEDICARE, SELFPAY | PROVIDERS: PCP Family Medicine; Referring Provider Family Medicine; Visit Provider Physician Assistant | DX: Z47.89 Encounter for other orthopedic aftercare (principal); M65.4 Radial styloid tenosynovitis [de Quervain] | CPT/HCPCS: 99024 ==

== ENCOUNTER 2025-08-22 20:43 | Emergency (ER) | payer MEDICARE, SELFPAY ==
[2025-08-22 20:45] VITALS: BP 183/100; PULSE 94; RESP 18; TEMP 36.9; O2SAT 98
--- NOTE | 2025-08-22 20:56 | ED.GENADUL_ITS ---
Discharge Plan Discharge Details Chief Complaint: Orthopedic Primary Care Provider: Nicolasa Griggs ED Provider: Kamini Alvarenga Home Meds and New Rx's Prescriptions: No Action duloxetine 30 mg capsule,delayed release(DR/EC) 30 mg PO DAILY lisinopril 40 MG tablet 40 mg PO DAILY cholecalciferol (vitamin D3) [Vitamin D3] 2,000 UNIT tablet 2,000 unit PO DAILY dexlansoprazole [Dexilant] 30 mg capsule,biphase delayed releas 30 mg PO DAILY Qty: 90 3RF multivitamin Tablet 1 tab PO DAILY magnesium oxide 400 mg (241.3 mg magnesium) tablet 400 mg PO DAILY ergocalciferol (vitamin D2) 1,250 mcg (50,000 unit) capsule 1,250 mcg PO Q2W estradiol 0.01 % (0.1 mg/gram) cream 1 g vaginal QWEEK epinephrine 0.3 mg/0.3 mL auto-injector 1 ea subcut DIRECTED PRN Patient Comments: INJECT ONE PEN UNDER THE SKIN DIRECTED aspirin [Children's Aspirin] 81 mg Tablet,Chewable 81 mg PO DAILY Qty: 100 0RF albuterol sulfate 90 mcg/actuation HFA aerosol inhaler 2 puff INHALATION Q4H PRN Patient Comments: INHALE 2 PUFFS BY MOUTH EVERY 4 HOURS NEEDED FOR SHOPRTNESS OF BREATH acetaminophen 500 mg tablet 1,000 mg PO TID Qty: 90 0RF ibuprofen 600 mg tablet 600 mg PO TID PRN (Reason: pain) Qty: 90 0RF acetaminophen 500 mg tablet 1,000 mg PO TID Qty: 90 0RF ibuprofen 600 mg tablet 600 mg PO TID PRN (Reason: pain) Qty: 90 0RF HPI General Date/Time Provider Initiated Documentation: 08/22/25 20:50 . HPI Narrative: Shan is a 70-year-old female who presents to the emergency department today for evaluation of right forearm hematoma and abrasions to her right leg after falling while hiking. She reports she tripped while on some rocks, says that her ankles twist easily, so she twisted her ankle and fell down. Denies hitting her head or other injuries. Sustained abrasions to her right leg through her pants. She has pain and a large hematoma to her right forearm, no distal numbness/tingling, wrist pain, or elbow pain. She is anticoagulated on baby aspirin. PMH significant for anemia requiring iron transfusion, extensive abdominal surgeries related to ulcerative colitis, carotid stenosis status post enda rterectomy Physical exam remarkable for significant hematoma to right forearm and abrasions to right leg. Full painless range of motion to right knee, right ankle, right wrist, and fingers. +CMS to fingers. D/dx includes but is not limited to: Actively bleeding hematoma, vascular injury, fracture, sprain. No red flags at this time for neurovascular compromise Last tetanus in 2019. Handoff report given to Dr. Mcclain, overnight attending with blood work and CTA pending. Related Data Home Medications ?Medication ?Instructions ?Recorded ?Confirmed cholecalciferol (vitamin D3) 50 2,000 unit PO DAILY 08/22/25 mcg (2,000 unit) tablet (Vitamin D3) lisinopril 40 mg tablet 40 mg PO DAILY 02/11/1708/11 dexlansoprazole 30 mg 30 mg PO DAILY #90 caps 05/1208/22/25 capsule,biphase delayed release (Dexilant) epinephrine 0.3 mg/0.3 mL 1 ea subcut DIRECTED PRN 09/13/22 08/22/25 injection, auto-injector aspirin 81 mg chewable tablet 81 mg PO DAILY #100 tabs 09/14/22 08/22/25 (Children's Aspirin) duloxetine 30 mg capsule,delayed 30 mg PO DAILY 08/22/25 release albuterol sulfate 90 mcg/actuation 2 puff inhalation Q 4H PRN 05/15/24 08/22/25 aerosol inhaler acetaminophen 500 mg tablet 1,000 mg (2 x 500 mg) PO T ID #90 04/28/25 08/22/25 tabs ibuprofen 600 mg tablet 600 mg PO TID PRN pain #90 t abs 04/28/25 08/22/25 ergocalciferol (vitamin D2) 1,250 1,250 mcg PO Q2W 04/0408/22/25 mcg (50,000 unit) capsule estradiol 0.01% (0.1 mg/gram) 1 g vaginal QWEEK 08/22/25 vaginal cream magnesium oxide 400 mg (241.3 mg 400 mg PO DAILY 07/1608/22/25 magnesium) tablet multivitamin 1 tab PO DAILY 07/16/2508/11 acetaminophen 500 mg tablet 1,000 mg (2 x 500 mg) PO T ID #90 07/21/25 08/22/25 tabs ibuprofen 600 mg tablet 600 mg PO TID PRN pain #90 t abs 07/21/25 08/22/25 Previous Rx's ?Medication ?Instructions ?Recorded dexlansoprazole 30 mg 30 mg PO DAILY #90 caps 05/12 01/29 capsule,biphase delayed release (Dexilant) aspirin 81 mg chewable tablet 81 mg PO DAILY #100 tabs 09/14/22 (Children's Aspirin) acetaminophen 500 mg tablet 1,000 mg (2 x 500 mg) PO T ID #90 04/28/25 tabs ibuprofen 600 mg tablet 600 mg PO TID PRN pain #90 t abs 04/28/25 acetaminophen 500 mg tablet 1,000 mg (2 x 500 mg) PO T ID #90 07/21/25 tabs ibuprofen 600 mg tablet 600 mg PO TID PRN pain #90 t abs 07/21/25 Allergies Allergy/AdvReac Type Severity Reaction Status Date / Time protamine Allergy Severe Anaphylaxis Verified 08/22/25 20:49 venom-honey bee Allergy Severe Other (See Verified 08/22/25 20:49 Comment) wool Allergy Other (See Verified 08/22/25 20:49 Comment) amoxicillin (From Augmentin) AdvReac Severe GI Verified 08/22/25 20:49 problems, Severe Diarrhea clavulanic acid (From AdvReac Severe GI Verified 08/22/25 20:49 Augmentin) problems, severe diarrhea omeprazole AdvReac Severe Diarrhea Verified 08/22/25 20:49 esomeprazole (From Nexium) AdvReac Intermediate history of Verified 08/22/25 20:49 Irritable bowel, severe diarrhea silver nitrate AdvReac Skin Rash Verified 08/22/25 20:49 General Stated Complaint: Orthopedic MENA: 3 Exam Const General: cooperative, healthy appearing, comfortable, no acute distress, well developed and well groomed Nutritional Appearance: average body habitus [facility] Head: normal to inspection, normocephalic and atraumatic Resp Effort & Inspection: normal respiratory effort and able to speak in complete sentences Skin Trauma: abrasion (Right anterior leg, no active bleeding) Neuro General: patient alert, patient oriented x3, tone normal and moves all extremities Motor: muscle tone normal throughout Sensory Exam: no sensory deficits noted Extrem Right upper extremity: full ROM, normal capillary refill and elbow/forearm Details: tenderness, normal ROM, ecchymosis (Large hematoma noted to forearm) and distal pulses intact; no unusual warmth, no abrasions and no foreign bodies Course Vital Signs Vital signs: Vital Signs Temperature 36.9 C 08/22/25 20:45 Pulse 94 H 08/22/25 20:45 Respiratory Rate 18 08/22/25 20:45 Blood Pressure 183/100 H 08/22/25 20:45 Pulse Oximetry 98 08/22/25 20:45 Temperature 36.9 C 08/22/25 20:45 Temperature Source Tympanic 08/22/25 20:45 Pulse 94 H 08/22/25 20:45 Respiratory Rate 18 08/22/25 20:45 Blood Pressure 183/100 H 08/22/25 20:45 Pulse Oximetry 98 08/22/25 20:45 Pain Level 8 08/22/25 20:45 PFSH All Active Problems (Updated 07/29/25 @ 10:51 by BRIANNE Aguilar) Hallux rigidus, left foot (Acute) Pain in both feet (Acute) Anemia (Chronic) 02/02 Infusions [facility] Altered bowel elimination due to intestinal ostomy (Acute) Trigger finger, left ring finger (Acute) Depo-medrol injection: 03/25/23 H/O endarterectomy (Acute) LEFT Pain, foot (Acute) Corns and callosities (Acute) Carotid stenosis, left (Acute) Carotid stenosis, right (Acute) Ulcerative colitis (Chronic) BRAO (branch retinal artery occlusion) (Acute) Gastritis (Acute ~04/2021) Esophagitis (Acute ~04/2021) Osteoarthritis of carpometacarpal (CMC) joint of left thumb (Acute) Injected: 02/08/2025, 02/17/2021 Acromioclavicular joint arthritis (Chronic) bilateral Subacromial impingement of right shoulder (Acute) Chronic shoulder pain (Acute) Hip bursitis (Acute) Postoperative anemia due to acute blood loss (Acute) Arthritis of carpometacarpal (CMC) joint of right thumb (Acute) Most recent depo-medrol injection: 03/25/23 Tendinitis of left rotator cuff (Acute) Ingrowing right great toenail (Acute) Trochanteric bursitis, right hip (Acute) Most recent injections: 08/02/23; 01/02/2021; 09/19/2020 ; 06/27/20 Chronic frontal sinusitis (Chronic) History of sinusitis (Chronic) Bilateral knee pain (Chronic) Instability of joints of both ankles (Acute) Tubular adenoma of colon (Acute 02/26/17) Right wrist tendinitis (Acute 04/18/17) Pain from implanted hardware (Acute 06/10/17) De Quervain's tenosynovitis, right (Acute 11/14/16) Post-nasal drip (Chronic) IBS (irritable bowel syndrome) (Chronic) Medical History (Updated 07/29/25 @ 10:51 by BRIANNE Aguilar) Incisional hernia 01/05, 6 incisional hernia r/t colectomy, 11x10 mesh [facility] [place] Serrated adenoma of colon (~04/2021) Tubular adenoma (~04/2021) Colon polyp, hyperplastic (~04/2021) Iliotibial band syndrome of left side Bunion, left foot Bunion, right foot Chronic maxillary sinusitis Chronic ethmoidal sinusitis Other intraarticular fracture of lower end of right radius, subsequent encounter for closed fracture with routine healing (08/08/16) Ethmoid sinusitis Sinus congestion Hypertension GERD (gastroesophageal reflux disease) Closed fracture of right distal radius Surgical History (Updated 07/29/25 @ 10:51 by BRIANNE Aguilar) Bilateral primary osteoarthritis of hip (09/04/17) s/p bilateral hip replacement Trochanteric bursitis of left hip s/p endoscopic trochanteric bursectomy and IT band release DOS: 12/22/2020 Most recent injections: 08/02/23; 09/19/2020 ; 06/27/20 Trigger thumb, left thumb S/P Release: 02/17/2025 Trigger finger, right middle finger S/P Release: 04/28/2025 Trigger finger, right ring finger S/P Release: 04/28/2025 De Quervain's tenosynovitis, left S/P Release: 07/21/2025 S/P total colectomy (~02/05/24) Dr. Sheila Rice, [facility] [place] S/P carotid endarterectomy Left Nov 2022-Follows up annually S/P hysterectomy with oophorectomy S/P cholecystectomy S/P Mohs surgery for basal cell carcinoma x2 History of esophagogastroduodenoscopy (EGD) (~04/2021) History of colonoscopy (~04/2021) History of bursectomy and IT band release Status post bilateral total hip replacement right wrist fracture repair (06/29/16) EGD - IV Sedation (02/26/17) Colonoscopy - IV Sedation (02/26/17) Family History Other Hypertension Social History Smoking/Tobacco Use Status: Former Tobacco Use Quit Date: 08/11/17 Smoking risk assessment performed?: Yes Alcohol Intake: current Alcohol Intake frequency: a few times a month Alcohol type: wine and hard liquor Drug use: Daily Substance use type: marijuana Details: alcohol: t-10, marijuana: t-1, couple puffs Household members: none Housing: apartment Number of Children: 2 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
[2025-08-22 21:06] VITALS: BP 178/88
--- NOTE | 2025-08-22 21:45 | DI.CT_ITS ---
Exam(s) CT UPPER EXTREMITY RT CTA EXAM: CT UPPER EXTREMITY RT CTA CLINICAL HISTORY: evaluate traumatic hematoma to R forearm, on ASA TECHNIQUE: Imaging Protocol: Axial computed tomography images with coronal and sagittal reformatted images were created and reviewed. CONTRAST MATERIAL: Intravenous: Omnipaque 350 Contrast volume:100 contrast route:IV - COMPARISON: CT RT.UPPER EXTREMITY WO CONTRAST from 10/15/2016 FINDINGS: Bones: There is no evidence of fracture or dislocation. Bony alignment is satisfactory. No cellulitic or osteomyelitic changes are identified. There is no evidence of joint space narrowing or cystic degeneration seen. No lytic or sclerotic lesions are identified. Soft Tissues: Hematoma in the subcutaneous fat of the dorsal aspect of the proximal forearm measuring roughly 3.5 x 2 x 6 cm. No visible intermuscular hematoma. No evidence of vascular injury. IMPRESSION: Hematoma in the subcutaneous fat of the proximal forearm. No visible contrast extravasation. The preliminary [facility] report was reviewed. RADIATION DOSE DELIVERED: 320.77mGy.cm Total DLP DATA REPOSITORY: All CT scans at this facility are submitted to the National Radiology Data Registry (NRDR) Dose Index Registry (DIR) with the [employer] (ACR). RADIATION OPTIMIZATION: All CT scans at this facility use at least one of these dose optimization techniques: automated exposure control; mA and/or kV adjustment per patient size (includes targeted exams where dose is matched to clinical indication); or iterative reconstruction.
[2025-08-22] MEDS: Omnipaque 350 MG/ML 100 ML BTL IJ (22:01)
[2025-08-22 22:02] LABS: Abs Immature Grans 0.03 10^3/uL (0.0-0.06); HCT 36.2 % (36.0-46.0); HGB 11.4 g/dL (11.2-15.7); Immature Grans % 0.3 %; MCH 27.0 pg (27.0-33.0); MCHC 31.5 % (32.0-36.0); MCV 86 fL (80-95); MPV 9.8 fL (8.0-11.0); Platelet Count 287 10^3/uL (130-400); RBC 4.22 10^6/uL (3.93-5.22); RDW 14.8 % (11.7-14.6); RDW-SD 46.2 fL; WBC 8.63 10^3/uL (4.4-10.8)
[2025-08-22] MEDS: Normal Saline Flush 10 ML SYR IVP (22:04)
[2025-08-22] MEDS: Normal Saline - Diluent 50 ML VIAL IJ (22:04)
[2025-08-22 22:23] LABS: INR 1.0 (0.9-1.1); PTT Activated 22.5 sec (20.6-30.2); Prothrombin Time 9.9 sec (9.1-11.1)
[2025-08-22 22:24] LABS: ALT 30 U/L (14-59); AST 28 U/L (15-37); Albumin 3.9 g/dL (3.4-5.0); Alkaline Phosphatase 98 U/L (46-116); Anion Gap 10.6 mmol/L (3-11); BUN 20 mg/dL (7-18); Bilirubin, Total 0.5 mg/dL (0.2-1.0); CO2 28.4 mmol/L (21.0-32.0); Calcium 8.8 mg/dL (8.5-10.1); Chloride 101 mmol/L (98-107); Estimated GFR 54.06 (mL/min/1.73m2); Glucose 93 mg/dL (74-106); Potassium 3.6 mmol/L (3.5-5.1); Sodium 140 mmol/L (136-145); Total Protein 7.6 g/dL (6.4-8.2)
[2025-08-22] MEDS: Diph,Pertuss(Acell),Tet Vac/Pf 0.5 ML SYR IM (22:37)
--- NOTE | 2025-08-22 23:09 | DI.[facility]_ITS ---
PROCEDURE INFORMATION: Exam: CTA Right Upper Extremity With Contrast Exam date and time: 08/22/2025 10:11 PM Age: 70 years old Clinical indication: Injury or trauma; Fall; Blunt trauma (contusions or hematomas); Arm, lower; Right; Injury date: 08/22/25; Injury details: Evaluate traumatic hematoma to R forearm, on asa TECHNIQUE: Imaging protocol: Computed tomographic angiography of the right upper extremity with contrast, including non-contrast images if performed. 3D rendering (Not supervised by radiologist): MIP and/or 3D reconstructed images were created by the technologist. Radiation optimization: All CT scans at this facility use at least one of these dose optimization techniques: automated exposure control; mA and/or kV adjustment per patient size (includes targeted exams where dose is matched to clinical indication); or iterative reconstruction. Contrast material: OMNIPAQUE 350; Contrast volume: 100 ml; Contrast route: INTRAVENOUS (IV); COMPARISON: CT BRAIN NECK CTA 03/21/2023 9:57 AM FINDINGS: Aorta: Atheromatous calcifications are present within the visualized thoracic aorta. Right subclavian artery: No occlusion or significant stenosis. Axillary artery: No occlusion or significant stenosis. Brachial artery: No occlusion or significant stenosis. Radial artery: No occlusion or significant stenosis. Ulnar artery: No occlusion or significant stenosis. Lungs: The visualized right lung is clear. Bones/joints: Bones have a normal appearance. No acute fracture or suspicious bone lesion. Soft tissues: There is a superficial intermediate density 3.5 x 2.1 x 5.8 cm fluid collection within the subcutaneous fat overlying the dorsal aspect of the right forearm. Fat stranding surrounds this fluid collection. There is no intramuscular hematoma. There is no edema within the deep fascial layer. IMPRESSION: Superficial hematoma within the dorsum of the forearm. No intramuscular hematoma, vascular injury, or underlying bony injury. Dictated and Authenticated by: Nichelle Vanegas MD. Orderin Shirlene Suárez MD
--- NOTE | 2025-08-22 23:20 | W.EDPROG ---
Date of service: 08/22/25 Time of Service: 23:20 Medical Decision Making Patient was signed out to me by Kamini. Please refer to her physical exam and assessment and plan. The patient was signed out to me pending CT scan results and laboratory workup. Laboratory workup shows no drop in hemoglobin, vital signs remained stable. CT scan shows no evidence of significant vascular arterial or bony injury. Just a superficial hematoma. Discussed with the patient the importance of ice, followed by heat. Discussed the importance of a gentle Alfredo wrap to help with the reabsorption of the hematoma. Patient otherwise stable. No evidence of neurovascular abnormality, altered mental status or other significant pain with ambulation or movement requiring additional imaging. Patient's tetanus is up-to-date within the last 5 years. No deep lacerations necessitating repeat tetanus. Discussed red flags for which to return. I have extensively reviewed the treatment plan and discharge instructions with the patient. I have addressed all patient concerns at this time. The patient was made aware of what symptoms to monitor for that would warrant a return to the emergency department. Discussed the plan with the patient, they demonstrate verbal understanding and agreement with our assessment and plan at this time. The documentation in this chart was dictated using [employer] dictation software. Please excuse any dictation errors. FINDINGS: Aorta: Atheromatous calcifications are present within the visualized thoracic aorta. Right subclavian artery: No occlusion or significant stenosis. Axillary artery: No occlusion or significant stenosis. Brachial artery: No occlusion or significant stenosis. Radial artery: No occlusion or significant stenosis. Ulnar artery: No occlusion or significant stenosis. Lungs: The visualized right lung is clear. Bones/joints: Bones have a normal appearance. No acute fracture or suspicious bone lesion. Soft tissues: There is a superficial intermediate density 3.5 x 2.1 x 5.8 cm fluid collection within the subcutaneous fat overlying the dorsal aspect of the right forearm. Fat stranding surrounds this fluid collection. There is no intramuscular hematoma. There is no edema within the deep fascial layer. IMPRESSION: Superficial hematoma within the dorsum of the forearm. No intramuscular hematoma, vascular injury, or underlying bony injury. Thank you for allowing us to participate in the care of your patient. Dictated and Authenticated by: Nichelle Vanegas MD 08/22/2025 11:09 PM Eastern Time ([place] & [place]) Discharge Plan Disposition Patient Disposition: Home Condition: Good Discharge Details Clinical Impression: Hematoma of right forearm Primary Care Provider: Nicolasa Griggs ED Provider: Bebeto Mcclain Home Meds and New Rx's Prescriptions: No Action duloxetine 30 mg capsule,delayed release(DR/EC) 30 mg PO DAILY lisinopril 40 MG tablet 40 mg PO DAILY cholecalciferol (vitamin D3) [Vitamin D3] 2,000 UNIT tablet 2,000 unit PO DAILY dexlansoprazole [Dexilant] 30 mg capsule,biphase delayed releas 30 mg PO DAILY Qty: 90 3RF multivitamin Tablet 1 tab PO DAILY magnesium oxide 400 mg (241.3 mg magnesium) tablet 400 mg PO DAILY ergocalciferol (vitamin D2) 1,250 mcg (50,000 unit) capsule 1,250 mcg PO Q2W estradiol 0.01 % (0.1 mg/gram) cream 1 g vaginal QWEEK epinephrine 0.3 mg/0.3 mL auto-injector 1 ea subcut DIRECTED PRN Patient Comments: INJECT ONE PEN UNDER THE SKIN DIRECTED aspirin [Children's Aspirin] 81 mg Tablet,Chewable 81 mg PO DAILY Qty: 100 0RF albuterol sulfate 90 mcg/actuation HFA aerosol inhaler 2 puff INHALATION Q4H PRN Patient Comments: INHALE 2 PUFFS BY MOUTH EVERY 4 HOURS NEEDED FOR SHOPRTNESS OF BREATH acetaminophen 500 mg tablet 1,000 mg PO TID Qty: 90 0RF ibuprofen 600 mg tablet 600 mg PO TID PRN (Reason: pain) Qty: 90 0RF acetaminophen 500 mg tablet 1,000 mg PO TID Qty: 90 0RF ibuprofen 600 mg tablet 600 mg PO TID PRN (Reason: pain) Qty: 90 0RF Discharge Instructions Instructions: Minor Contusion ED Additional Instructions: At this time your CT imaging and blood work shows no evidence of fracture, arterial injury or active bleed. Please continue to ice your forearm for the next 24 to 48 hours. You can then transition to heat to help in the reabsorption of the wound. Please apply a gentle Alfredo wrap to help with the reabsorption. Please monitor the hematoma closely, if you notice any significant skin breakdown, drainage, redness or warmth please return immediately for reassessment. If you notice any worsening of your symptoms, or any new symptoms such as vomiting, diarrhea, fever, chills, shortness of breath, chest pain, numbness, weakness, or fainting , please return immediately to the emergency department for reevaluation. Please follow up with your primary care provider as soon as possible for reassessment and reevaluation. As always, it was a pleasure participating in your medical care today. Referrals: Nicolasa Griggs [Primary Care Provider, Medicine]
[2025-08-22 23:25] VITALS: BP 170/78; PULSE 75; RESP 16; O2SAT 100
== END 2025-08-22 23:56 | disposition home or self-care (01) ==
PROVIDERS: Nurse Practitioner Family; Emergency Provider Student in an Organized Health Care Education/Training Program; PCP Family Medicine
DX: S50.11XA Contusion of right forearm, initial encounter (principal); W19.XXXA Unspecified fall, initial encounter
CPT/HCPCS: 99285; 99283; 36415; 90471; 00123; 73206; 80053; 90715; 85025; 85610; 85730; J3490